=== PATIENT | male | born 1940 | race Caucasian/White ===

== ENCOUNTER 2017-12-20 11:33 | Emergency (ER) | payer MEDICARE ==
[~2017-12-20] VITALS: Ht 180.3 cm; Wt 65.8 kg
[~2017-12-20 11:33] MED LIST: AMLODIPINE BESYL5 MG PO; ASPIRIN81 MG PO; BENAZEPRIL HCL10 MG PO; BENAZEPRIL HCL40 MG PO; HUMALOG100 UNITS/ SC; HYDROCHLOROTHIA25 MG; LANTUS100 UNITS/ SC; LANTUS100 UNITS/ SQ; LEVAQUIN500 MG PO; METFORMIN HCL1000 MG PO; METFORMIN HCL500 MG PO; METOPROLOL SUCC50 MG PO; SIMVASTATIN20 MG PO; SIMVASTATIN40 MG PO; TAMSULOSIN HCL0.4 MG PO; ULTRAM50 MG PO; VITAMIN D35000 UNIT; [UNRECOGNIZED DRUG - OTHER] PO; metanx
[2017-12-20] MEDS ORDERED: KETOROLAC TROMETHAMINE 60 MG/2 ML VIAL IM ONE (11:45)
[2017-12-20] MEDS ORDERED: TRIAMCINOLONE ACET 40 MG/ML VIAL INJ ONE (12:45)
[2017-12-20] MEDS ORDERED: BUPIVACAINE HCL 0.5% 10ML MPF VIAL INJ ONE (12:45)
--- NOTE | 2017-12-20 12:46 | Diagnostic Imaging Report ---
LEFT KNEE X-RAY - 3 VIEWS HISTORY: \S\pain \[id number] \S\1200 COMPARISON: MRI left knee from 10/14/2016 and x-ray left knee from 10/14/2016 FINDINGS: Bones: No acute displaced fracture. Osseous alignment is within normal limits. Joints: Patient is status post left knee medial compartment surgery with associated postsurgical change. The surgical hardware is intact without evidence of failure or loosening. 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 Soft tissues: There is a small suprapatellar effusion. Scattered vascular calcifications are seen. IMPRESSION: Stable left knee medial compartment postsurgical change. The surgical hardware is intact without evidence of failure or loosening. Worsening, now severe, tricompartmental degenerative arthrosis about the left knee. Signed by: Dr. Yolande Ramirez M.D. on 12/20/2017 12:43 PM
[2017-12-20 13:43] VITALS: BP 133/72
== END 2017-12-20 13:56 | disposition home or self-care (01) ==
LOC: ER 11:33
DX: M25.562 Pain in left knee (principal); M17.12 Unilateral primary osteoarthritis, left knee
CPT/HCPCS: 73562; 99284; J1885; J3301

== ENCOUNTER 2018-02-13 14:11 | Emergency (ER) | payer MEDICARE ==
[~2018-02-13] VITALS: Ht 180.3 cm; Wt 65.8 kg
--- OUTSIDE RECORDS SUMMARY | 2018-02-13 14:15 | XMS REPORT | Continuity of Care Document ---
Author Author [facility] Organization [facility] Address [address] [place] [address] Phone Unavailable Care Team Providers Care Freight Loading Supervisor Name Role Phone BRE LARSEN MD PCP Insurance Providers Guarantor Stefan Shields Address [address] [place] [address] Email Payer [facility] Policy Number [id number] Subscriber's Name Stefan Shields Relationship 18 Self / Same As Patient Group Number PLAN H Group Name RETIRED Effective Date 17 Payer Medicare A & B Policy Number [id number] Subscriber's Name Stefan Shields Relationship 18 Self / Same As Patient Group Name RETIRED Effective Date 05 Advance Directives Directive Response Recorded Date/Time Does the patient have an advance directive? Yes 10/02/15 8:11am If yes, is advance directive on file with [facility]? No 09/20/15 4:01pm If not on file with [facility] will patient provide a copy? No 09/20/15 4:01pm Do you have a Directive to Physician? No 12/20/17 1:37pm Do you have a Medical Power of Remote Sensing Research Scientist? No 12/20/17 1:37pm Do you have an out of hospital Do Not Resuscitate Order? No 12/20/17 1:37pm Do you have any special needs we should be aware of? No 12/20/17 1:37pm Do you have a support person here with you today? Yes 12/20/17 1:37pm Did patient receive Notice of Privacy Practices? Yes 12/20/17 1:37pm Did patient receive patient rights and responsibilities? Yes 12/20/17 1:37pm Problems Medical Problem Onset Date Status Cellulitis of leg without foot, right 11/03/2014 Acute Cellulitis of right leg Unknown Ureteral stone 09/20/2015 Acute Medications Current Home Medications Medication Dose Units Route Directions Days Qty Instructions Start Date Amlodipine Besylate 5 Mg Tablet 5 Mg Oral Daily 30 Tab Aspirin 81 Mg Tab.chew 81 Mg Oral Daily Benazepril Hcl 40 Mg Tablet 40 Mg Oral Daily Cholecalciferol (Vitamin D3) (Vitamin D3) 5,000 Unit Capsule 5,000 U Use As Directed Hydrochlorothiazide 25 Mg Tablet 25 Mg Daily 30 Tab Insulin Glargine (Lantus) 100 Units/Ml Ml 50 Units Subcutaneously Twice A Day Insulin Human Lispro (Humalog) 100 Units/Ml Ml 15 Units Subcutaneously Twice A Day Metoprolol Succinate 50 Mg Tab.er.24h 100 Mg Oral Daily Simvastatin 40 Mg Tablet 40 Mg Oral Today At 9:00PM 30 Tab Tamsulosin Hcl 0.4 Mg Cap.er.24h 1 Tab Oral Daily Past Home Medications Medication Directions Ordered Status Hortencia Low Dose , 81 Mg Oral Twice A Day Discontinued Benazepril Hcl 10 Mg Tablet, 10 Mg Oral Daily Discontinued Insulin Glargine (Lantus) 100 Units/Ml Ml, 60 Units Sub-Q Twice A Day Discontinued Levofloxacin (Levaquin) 500 Mg Tablet, 500 Mg Oral Daily Discontinued Metanx , Discontinued Metformin Hcl 1,000 Mg Tablet, 1000 Mg Oral Twice A Day Discontinued Metformin Hcl 500 Mg Tablet, 500 Mg Oral Twice A Day Discontinued Simvastatin 20 Mg Tablet, 20 Mg Oral Daily Discontinued Tramadol Hcl (Ultram) 50 Mg Tablet, 50 Mg Oral Every 6 Hours as needed for Pain Discontinued Social History Social History Problem Response Recorded Date/Time Onset Date Status Hx Psychiatric Problems No 10/25/2016 11:16pm Not Applicable Not Applicable Hx Eating Disorder No 09/20/2015 4:01pm Not Applicable Not Applicable Hx Substance Use Disorder No 09/20/2015 4:01pm Not Applicable Not Applicable Hx Depression No 09/20/2015 4:01pm Not Applicable Not Applicable Hx Alcohol Use No 09/20/2015 4:01pm Not Applicable Not Applicable Hx Substance Use Treatment No 09/20/2015 4:01pm Not Applicable Not Applicable Hx Physical Abuse No 09/20/2015 4:01pm Not Applicable Not Applicable Smoking Status Start Date Stop Date Never Smoker Hospital Discharge Instructions No hospital discharge instruction information available. Plan of Care Discharge Date 12/20/17 1:56pm Disposition HOME, SELF-CARE Condition at Discharge Stable Forms Provided Work/School Excuse Prescriptions See Medication Section Referrals BRE LARSEN MD Address: [address] [place] [address] [address] [place], [place] [id number] Functional Status No functional status information available. Allergies, Adverse Reactions, Alerts Allergen Type Severity Reaction Status Last Updated Penicillin Allergy Mild RASH Active 10/02/15 Levofloxacin Allergy Unknown Active 10/25/16 Immunizations No immunization information available. Vital Signs Acute Vital Signs Vital Response Date/Time Temperature (Fahrenheit) 98.1 degrees F (97.6 - 99.5) 12/20/2017 1:43pm Respiratory Rate 18 bpm (12 - 24) 12/20/2017 1:43pm Blood Pressure 133/72 mm Hg 12/20/2017 1:43pm Height 5 ft 11 in 12/20/2017 11:37am Weight 145 lb 12/20/2017 11:37am Body Mass Index 20.2 kg/m^2 12/20/2017 11:37am Results No relevant diagnostic test, laboratory data and/or discharge summary information available. Procedures No procedure information available. Encounters Encounter Location Arrival/Admit Date Discharge/Depart Date Attending Provider Departed Emergency Room [facility] 12/20/17 11:33am 12/20 1:56pm ANSHUL WANG MD
--- OUTSIDE RECORDS SUMMARY | 2018-02-13 14:15 | XMS REPORT ---
Author Author [facility] Address Unknown Phone Unavailable Care Team Providers Care Physiotherapy Assistant Name Role Phone ANSHUL WANG Unavailable Unavailable Problems This patient has no known problems. Allergies, Adverse Reactions, Alerts This patient has no known allergies or adverse reactions. Medications This patient has no known medications. Results Test Description Test Time Test Comments Text Results Atomic Results Result Comments KNEE LEFT THREE VIEWS [place] [address] Patient Name: NHI DUMONT MR #: [id number] : 1940 Age/Sex: 77/M Req #: [id number] Adm Physician: Ordered by: LISA COOPER SANITATION TECHNICIAN Report #: [id number] Location: ER Room/Bed: Procedure: [id number] DX/KNEE LEFT THREE VIEWS Exam Date: 12/20/17 Exam Time: 1200 REPORT STATUS: Signed LEFT KNEE X-RAY - 3 VIEWS HISTORY: COMPARISON: MRI left knee from 2016 and x-ray left knee from 10/14/2016 FINDINGS: Bones: No acute displaced fracture. Osseous alignment is within normal limits. Joints: Patient is status post left knee medial compartment surgery with associated postsurgical change. The surgical hardware is intact without evidence of failure or loosening. 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 Soft tissues: There is a small suprapatellar effusion. Scattered vascular calcifications are seen. IMPRESSION: Stable left knee medial compartment postsurgical change. The surgical hardware is intact without evidence of failure or loosening. Worsening, now severe, tricompartmental degenerative arthrosis about the left knee. Signed by: Dr. Broderick Iqbal M.D. on 12/20/2017 12:43 PM Dictated By: BRODERICK IQBAL MD 1243 Transcribed By: MARYLU on 12/20/17 1243 COPY TO: LISA COOPER NP
== END 2018-02-13 15:17 | disposition home or self-care (01) ==
LOC: ER 14:11
DX: M79.662 Pain in left lower leg (principal)
CPT/HCPCS: 99283

== ENCOUNTER → 2018-11-11 | Outpatient (CLI) | payer MEDICARE ==
--- NOTE | 2018-11-11 13:59 | Diagnostic Imaging Report ---
Right hip radiographs - 2 views; right knee radiographs - 4 views Comparison: Right knee radiographs 11/04/2014 Findings: Right hip: There are mild right hip degenerative changes with joint space narrowing. No evidence of acute fracture or malalignment. Right knee: Somewhat limited lateral radiograph secondary to patient positioning. There are moderate medial compartment predominant tricompartmental degenerative changes with joint space narrowing and bony osteophyte formation. No evidence of acute fracture, malalignment, or joint effusion. 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 No evidence of acute fracture or malalignment. Signed by: Dr. Yelena Joseph MD on 11/11/2018 1:55 PM
== END ==
LOC: RAD 12:22
PROVIDERS: ATTEND Internal Medicine
DX: M25.551 Pain in right hip (principal); M25.561 Pain in right knee

== ENCOUNTER → 2019-01-07 | Outpatient (CLI) | payer MEDICARE ==
--- NOTE | 2019-01-07 17:24 | Diagnostic Imaging Report ---
EXAM: US PELVIC (NON OB) MICHELLE OR F/U DATE: 01/07/2019 3:02 PM INDICATION:Chronic kidney disease COMPARISON: Renal ultrasound, 09/21/2015 FINDINGS: Grayscale and color flow Doppler ultrasound of the kidneys and urinary bladder was performed. Right kidney: 13.5 x 5.8 x 4.9 cm. Cortical thickness 1.4 cm. Cortical echogenicity normal. Right renal cysts measuring 1.4 x 1.3 x 1.5 cm superiorly and 6.1 x 5.5 x 5.5 cm superiorly. No hydronephrosis. Left kidney: 13.6 x 5.2 x 6.9 cm. Cortical thickness 1.3 cm. Cortical echogenicity normal. There is a 1.3 x 0.6 x 1.0 cm echogenic density with posterior shadowing in the midportion of the kidney, compatible with nonobstructing calculus. No hydronephrosis. Urinary bladder: Unremarkable appearance. Distal and of apparent ureteral stent is visualized. Prevoid volume 145 cc, post void emptying. Prostate is not visualized. IMPRESSION: 1. No hydronephrosis. The kidneys have a symmetric appearance. 2. Prominent right renal cysts which have enlarged since the ultrasound of 2016. 3. Likely 1.3 cm nonobstructing left renal calculus. This may be further characterized with noncontrast CT. 4. Linear density in the urinary bladder may represent the distal end of a ureteral stent. Correlation with surgical history suggested. Signed by: Dr. Lonny Montanez M.D. on 01/07/2019 5:20 PM
== END ==
LOC: US 14:57
PROVIDERS: ATTEND Internal Medicine Nephrology
DX: N18.2 Chronic kidney disease, stage 2 (mild) (principal)
CPT/HCPCS: 76770; 76857

== ENCOUNTER 2019-01-28 12:57 | Inpatient (IN) | payer MEDICARE ==
[~2019-01-28] VITALS: Ht 180.3 cm; Wt 153.3 kg
--- OUTSIDE RECORDS SUMMARY | 2019-01-28 13:01 | XMS REPORT | Continuity of Care Document ---
Author Author [facility] [place] [facility] Address Unknown Phone Unavailable Problems Problem Status Onset Date Classification Date Reported Comments Source Impacted cerumen 08/21/2016 Diagnosis 08/21/2016 [facility] Eustachian tube disorder 08/21/2016 Diagnosis 08/21/2016 [facility] Impacted Cerumen Problem 08/21/2016 [facility] Eustachian Tube Disorder Problem 08/21/2016 [facility] Medications Medication Details Route Status Patient Instructions Ordering Provider Order Date Source Acetaminophen 300 MG / Codeine Phosphate 30 MG Oral Tablet acetaminophen 300 mg-codeine 30 mg tablet Active [facility] Allopurinol 100 MG Oral Tablet allopurinol 100 mg tablet Active [facility] Amlodipine 10 MG Oral Tablet amlodipine 10 mg tablet Active [facility] Amlodipine 5 MG Oral Tablet amlodipine 5 mg tablet Active [facility] ammonium lactate 120 MG/ML Topical Lotion ammonium lactate 12 % lotion MIKHAIL UTD ON THE SKIN BID Active [facility] anastrozole 1 MG Oral Tablet anastrozole 1 mg tablet Active [facility] Azithromycin 500 MG Oral Tablet azithromycin 500 mg tablet Active [facility] BD Insulin Pen Needle UF Short 31 gauge x 5/16" BD Insulin Pen Needle UF Short 31 gauge x 5/16" USE WITH INSULIN PENS 5 TIMES DAILY DIRECTED Active [facility] Benazepril hydrochloride 40 MG Oral Tablet benazepril 40 mg tablet Active [facility] Colchicine 0.6 MG Oral Tablet colchicine 0.6 mg tablet Active [facility] 3 ML Insulin Lispro 100 UNT/ML Pen Injector [Humalog] Humalog KwikPen 100 unit/mL subcutaneous Active [facility] Hydrochlorothiazide 12.5 MG Oral Capsule hydrochlorothiazide 12.5 mg capsule Active [facility] Hydrochlorothiazide 25 MG Oral Tablet hydrochlorothiazide 25 mg tablet Active [facility] 3 ML Insulin Glargine 100 UNT/ML Pen Injector [Lantus] Lantus Solostar 100 unit/mL (3 mL) subcutaneous insulin pen Active [facility] Levofloxacin 500 MG Oral Tablet levofloxacin 500 mg tablet Active [facility] Metformin hydrochloride 1000 MG Oral Tablet metformin 1,000 mg tablet Active [facility] 24 HR metoprolol succinate 100 MG Extended Release Oral Tablet metoprolol succinate ER 100 mg tablet,extended release 24 hr Active [facility] Mupirocin 0.02 MG/MG Topical Ointment mupirocin 2 % topical ointment Active [facility] Prednisone 10 MG Oral Tablet prednisone 10 mg tablet Active [facility] 200 ACTUAT Albuterol 0.09 MG/ACTUAT Metered Dose Inhaler [ProAir] ProAir HFA 90 mcg/actuation aerosol inhaler INHALE 1 TO 2 PUFFS PO Q 4 TO 6 H PRF COUGH OR WHEEZE Active [facility] Simvastatin 20 MG Oral Tablet simvastatin 20 mg tablet Active [facility] Simvastatin 40 MG Oral Tablet simvastatin 40 mg tablet Active [facility] Sulfamethoxazole 800 MG / Trimethoprim 160 MG Oral Tablet sulfamethoxazole 800 mg-trimethoprim 160 mg tablet Active [facility] Tamsulosin hydrochloride 0.4 MG Oral Capsule tamsulosin 0.4 mg capsule Active [facility] Acetaminophen 325 MG / tramadol hydrochloride 37.5 MG Oral Tablet tramadol 37.5 mg-acetaminophen 325 mg tablet Active [facility] Triamcinolone Acetonide 1 MG/ML Topical Cream triamcinolone acetonide 0.1 % topical cream Active [facility] Allergies, Adverse Reactions, Alerts Substance Category Reaction Severity Reaction type Status Date Reported Comments Source Penicillins Rash Severe Allergy to substance 06/24/2016 [facility] Immunizations Immunization Date Given Site Status Last Updated Comments Source Results Order Name Results Value Reference Range Date Interpretation Comments Source Vital Signs Vital Sign Value Date Comments Source Diastolic (mm Hg) 85 08/21/2016 [facility] Height 72 08/21/2016 [facility] Systolic (mm Hg) 140 08/21/2016 [facility] Weight 344 08/21/2016 [facility] Diastolic (mm Hg) 78 06/24/2016 [facility] Height 72 06/24/2016 [facility] Systolic (mm Hg) 130 06/24/2016 [facility] Weight 345 06/24/2016 [facility] Encounters Location Location Details Encounter Type Encounter Number Reason For Visit Attending Provider ADM Date DC Date Status Source [place] - [facility] - [id number] GonzalesP: [address] [place] [address], Ph. [phone] [id number] Sandee Kolb 06/24/2016 [facility] [place] [facility] - [id number] Delphine Dowell, [facility]: [address] [facility], [place] [address], Ph. [id number] Delphine Dowlel 08/21/2016 [facility] Procedures Procedure Code Date Perfomer Comments Source Removal of Sperm Duct(s) 09/14/1964 [facility] Tonsillectomy 09/14/1952 [facility]
--- OUTSIDE RECORDS SUMMARY | 2019-01-28 13:01 | XMS REPORT | Encounter Summary ---
Author Organization Unknown Address [address] [place] [address] Phone [phone] Reason for Visit Medical Complaint Instructions 1. Impacted cerumen 2. Eustachian tube disorder Discussion Note: None recorded. Patient educational handouts: No information available. Plan of Care Patient Instructions Ok to start on Zyrtec 10mg daily x 7days. If noted fever onset with constant ear pain, call clinic or see pcp. Reminders Provider Appointments None recorded. Lab None recorded. Referral None recorded. Procedures None recorded. Surgeries None recorded. Imaging None recorded. Medications Name Start Date acetaminophen 300 mg-codeine 30 mg tablet allopurinol 100 mg tablet amlodipine 10 mg tablet amlodipine 5 mg tablet ammonium lactate 12 % lotion MIKHAIL UTD ON THE SKIN BID anastrozole 1 mg tablet azithromycin 500 mg tablet BD Insulin Pen Needle UF Short 31 gauge x 5/16" USE WITH INSULIN PENS 5 TIMES DAILY DIRECTED benazepril 40 mg tablet colchicine 0.6 mg tablet Humalog KwikPen 100 unit/mL subcutaneous hydrochlorothiazide 12.5 mg capsule hydrochlorothiazide 25 mg tablet Lantus Solostar 100 unit/mL (3 mL) subcutaneous insulin pen levofloxacin 500 mg tablet metformin 1,000 mg tablet metoprolol succinate ER 100 mg tablet,extended release 24 hr mupirocin 2 % topical ointment prednisone 10 mg tablet ProAir HFA 90 mcg/actuation aerosol inhaler INHALE 1 TO 2 PUFFS PO Q 4 TO 6 H PRF COUGH OR WHEEZE simvastatin 20 mg tablet simvastatin 40 mg tablet sulfamethoxazole 800 mg-trimethoprim 160 mg tablet tamsulosin 0.4 mg capsule tramadol 37.5 mg-acetaminophen 325 mg tablet triamcinolone acetonide 0.1 % topical cream Medications Administered None recorded. Vitals Height Weight BMI Blood Pressure 6 ft 344 lbs 46.7 140/85 Lab Results None recorded. Allergies Name Reaction Severity Onset Penicillins Rash Severe Problems Name Status Onset Date Source Impacted Cerumen Active Encounter Eustachian Tube Disorder Active Encounter Procedures Date Name Performed by 09/14/1964 Removal of Sperm Duct(s) Information not available 09/14/1952 Tonsillectomy Information not available Vaccine List None recorded. Social History Smoking Status Never Smoker Past Encounters 08/21/2016 Impacted Cerumen; Eustachian Tube Disorder Delphine Dowell, KENNEL HAND: [address] [place] [address], Ph. History of Present Illness Ear Complaint Reported By: Patient HPI: Location: bilateral. Quality: ears feel full/plugged. Severity: continuous. Duration: constant. Onset/Timing: still present. Context: no sick contacts, no recent swimming/water in ear, no exposure to second hand smoke, no head trauma, not grinding teeth, no recent air travel. Modifying factors: does not hurt to lie on, or pull on ear, does not hurt to chew, OTC medication. Associated Symptoms: no discharge from the ears, no hearing loss, no nose/sinus problems, no popping noise in the ears, no ringing in the ears, no fever, no chills, no earache, no dizziness, no vertigo, no headache, no muscle aches Review of Systems Basic Reported By: Patient Constitutional: Constitutional: no fever Eyes: Eyes: no eye complaints Gyfk-Zzwx-Bccow-Throat: Ears: difficulty hearing. Nose: no nose/sinus problems. Mouth/Throat: no sore throat, no bleeding gums, no mouth complaints, no teeth problems Cardiovascular: Cardiovascular: no chest pain, no shortness of breath, no known heart murmur Respiratory: Respiratory: no cough, no wheezing, no shortness of breath Gastrointestinal: Gastrointestinal: no abdominal pain, no vomiting / diarrhea Genitourinary: Genitourinary: no urinary complaints, no discharge Musculoskeletal: Musculoskeletal: no muscle aches, no muscle weakness, no arthralgias/joint pain, no back pain Skin: Skin: no abnormal / changing mole, no jaundice, no rashes Neurologic: Neurologic: no loss of consciousness, no weakness, no numbness, no seizures, no dizziness, no headaches Physical Exam Adult Basic, Adult Male Complete Reported By: Patient Constitutional: General Appearance: healthy-appearing, well-nourished, well-developed. Level of Distress: NAD. Ambulation: ambulating normally Psychiatric: Mental Status: active and alert. Orientation: to time, to place, to person Eyes: Lids and Conjunctivae: non-injected, no discharge, no pallor. Pupils: PERRLA. Corneas: grossly intact. EOM: EOMI. Lens: clear. Sclerae: non-icteric. Vision: acuity grossly intact, peripheral vision grossly intact Wwc-Bzil-Fsmff-Throat: Ears: no lesions on external ear, no outer ear tenderness, EACs clear, TMs clear, EAC occluded with cerumen, cerumen removed to visualize TM, middle ear fluid. Hearing: no hearing loss. Nose: no lesions on external nose, nares patent, no septal deviation, nasal passages clear, no sinus tenderness, no nasal discharge. Lips, Teeth, and Gums: no mouth or lip ulcers, no bleeding gums, normal dentition. Oropharynx: moist mucous membranes, no erythema, no exudates, tonsils not enlarged Neck: Neck: supple, trachea midline, no masses, FROM. Lymph Nodes: no cervical LAD, no supraclavicular LAD. Thyroid: no enlargement, non-tender, no nodules Lungs: Respiratory effort: no dyspnea, no tachypnea, no use of accessory muscles, no intercostal retractions. Auscultation: breath sounds normal, good air movement Cardiovascular: Heart Auscultation: RRR, no murmurs
--- OUTSIDE RECORDS SUMMARY | 2019-01-28 13:01 | XMS REPORT | Encounter Summary ---
Author Organization Unknown Address [address] [place] [address] Phone [phone] Reason for Visit Medical Complaint Instructions 1. Impacted cerumen Discussion Note: None recorded. Patient educational handouts: No information available. Plan of Care Patient Instructions [facility] to [facility]CP[facility]UC [facility] is any pus or blood drains from the ears, ringing and feeling fullness in the ears or hearing loss. Patient verbalizes understanding and agrees to the plan. Reminders Provider Appointments None recorded. Lab None [...] Needle UF Short 31 gauge x 5/16" U UTD benazepril 40 mg tablet colchicine 0.6 mg tablet Humalog KwikPen 100 unit/mL subcutaneous hydrochlorothiazide 25 mg tablet Lantus Solostar 100 [...] Height Weight BMI Blood Pressure 6 ft 345 lbs 46.8 130/78 Lab Results None recorded. Allergies Name Reaction Severity Onset Penicillins Rash Severe Problems Name Status Onset Date Source Impacted Cerumen Active Encounter Procedures Date Name Performed by 09/14/1964 Removal of Sperm Duct(s) Information not available 09/14/1952 Tonsillectomy Information not available Vaccine List None recorded. Social History Smoking Status Never Smoker Past Encounters 06/24/2016 Impacted Cerumen Sandee Kolb, [facility]: [address] [facility], [place] [address], Ph. History of Present Illness Ear Complaint Reported By: Patient HPI: Location: bilateral. Quality: ears feel full/plugged, muffled. Severity: worse, continuous. Duration: constant. Onset/Timing: better, still present. Context: no sick contacts, no recent swimming/water in ear, no exposure to second hand smoke, no head trauma, not grinding teeth, no recent air travel. Modifying factors: does not hurt to lie on, or pull on ear, does not hurt to chew. Associated Symptoms: no discharge from the ears, no hearing loss, no nose/sinus problems, no popping noise in the ears, no ringing in the ears, no fever, no chills, no earache, no dizziness, no vertigo, no headache Notes: Pt reports cerumen impaction on both ears, wears hearing aids, dnies pain or drainage from ears. Review of Systems Basic Reported By: Patient Constitutional: Constitutional: no fever Eyes: Eyes: no eye complaints Ftko-Apkr-Ywhau-Throat: Ears: difficulty hearing; cerumen impaction. Nose: no nose/sinus problems. Mouth/Throat: no sore [...] By: Patient Constitutional: General Appearance: healthy-appearing, well-nourished, well-developed, overweight. Level of Distress: NAD. Ambulation: ambulating normally Psychiatric: Mental Status: active and alert. Orientation: to time, to place, to person Wvf-Zqmk-Gbwyk-Throat: Ears: no lesions on external ear, no outer ear tenderness, TMs clear, TM mobility normal, EAC ceruminous, EAC occluded with cerumen, cerumen removed to visualize TM. Hearing: no hearing loss. Nose: no lesions on external nose, nares patent, no septal deviation, nasal passages clear, no sinus tenderness, no nasal discharge. Lips, Teeth, and Gums: no mouth or lip ulcers, no bleeding gums, normal dentition. Oropharynx: moist mucous membranes, no erythema, no exudates, tonsils absent Neck: Neck: supple. Lymph Nodes: no cervical LAD Lungs: Respiratory effort: no dyspnea, no tachypnea. Auscultation: breath sounds normal, good air movement Cardiovascular: Heart Auscultation: RRR, no murmurs Neurologic: Gait and Station: normal gait
[2019-01-28 13:55] LABS: BASOPHILS # (AUTO) 0.1 (0.0-0.1); BASOPHILS % 0.6 % (0.0-1.0); EOSINOPHILS # (AUTO) 0.4 (0.0-0.4); EOSINOPHILS % 4.5 % (0.0-6.0); HEMATOCRIT 40.3 % (38.2-49.6); HEMOGLOBIN 13.5 g/dL (14.0-18.0); MEAN CORPUSCULAR HEMOGLOBIN 31.5 pg (28-32); MEAN CORPUSCULAR HGB CONC 33.5 g/dL (31-35); MEAN CORPUSCULAR VOLUME 94.2 fL (81-99); MONOCYTES # (AUTO) 0.7 (0.2-0.8); MONOCYTES % 7.8 % (4.4-11.3); NEUTROPHILS # (AUTO) 6.4 (2.1-6.9); NEUTROPHILS % 74.5 % (38.7-80.0); PLATELET COUNT 181 x10e3/uL (140-360); RED BLOOD COUNT 4.28 x10e6/uL (4.3-5.7); RED CELL DISTRIBUTION WIDTH 14.8 % (11.7-14.4)
[2019-01-28 13:59] LABS: INR 1.06; PROTHROMBIN TIME 14.3 seconds (11.9-14.5)
[2019-01-28 14:00] LABS: PARTIAL THROMBOPLASTIN TIME 30.9 seconds (23.8-35.5)
[2019-01-28 14:06] LABS: ALANINE AMINOTRANSFERASE 12 IU/L (0-55); ALBUMIN/GLOBULIN RATIO 0.8 (0.8-2.0); ALKALINE PHOSPHATASE 104 IU/L (40-150); ANION GAP 13.1 mmol/L (8-16); BLOOD UREA NITROGEN 20 mg/dL (7-26); BUN/CREATININE RATIO 22 (6-25); CALCIUM 9.5 mg/dL (8.4-10.2); CARBON DIOXIDE 25 mmol/L (22-29); CHLORIDE 106 mmol/L (98-107); CREATININE, SERUM 0.91 mg/dL (0.72-1.25); EST GLOMERULAR FILTRATION RATE > 60 ML/MIN (60-); GLUCOSE 72 mg/dL (74-118); POTASSIUM 4.1 mmol/L (3.5-5.1); SODIUM 140 mmol/L (136-145)
[2019-01-28] MEDS ORDERED: ALLOPURINOL100 MG PO (14:12)
[2019-01-28] MEDS ORDERED: SPIRONOLACTONE25 MG PO (14:12)
[2019-01-28] MEDS ORDERED: LASIX20 MG PO (14:12)
[2019-01-28] MEDS ORDERED: VANCOMYCIN 1GM/NS 250 ML 250 ML IV SCH (14:15)
--- NOTE | 2019-01-28 15:20 | Diagnostic Imaging Report ---
EXAMINATION: PA and lateral views of the chest. COMPARISON: None CLINICAL HISTORY: Sepsis DISCUSSION: Lines/tubes: None. Lungs: The lungs are well inflated and clear. No pneumonia or pulmonary edema. Pleura: No pleural effusion or pneumothorax. Heart and mediastinum: Cardiomegaly. Bones and soft tissues: No acute bony abnormalities. IMPRESSION: Mild cardiomegaly without decompensation. Signed by: Dr. Héctor Carlson M.D. on 01/28/2019 3:17 PM
--- NOTE | 2019-01-28 15:40 | NUR ---
RCD PT FROM ER BY STRETCHER PT IS ALERT AND ORIENTED VITALS CHECKED PT RESTING ON BED ADMISSION ASSESSMENT DONE PT HAVE CELLULITIS AND REDNESS ON BOTH LOWER LEG IN RT LOWER LEG SKIN TEAR ALSO HE DENIED PAIN FAMILY AT BED SIDE INSTRUCTED PT AND [facility] POLICY AND ROUTINE BED LOW AND LOCKED CALL LIGHT IN REACH
[2019-01-28 16:24] VITALS: BP 138/68
[2019-01-28 16:49] VITALS: BP 161/68
--- NOTE | 2019-01-28 16:52 | NUR ---
WOUND CARE CONSULTATION: INITIAL EVALUATION Patient admitted from home to ER for RLE ulcers with heavy drainage and increased discomfort. DX: Cellulitis of RLE. LABS: WBC8.58 HGB13.5 HCT40.3 GLU72 ALB3.0 Wound Culture - none. PATIENT VISIT: Patient sitting at bedside. Spouse in room. Patient AAOX4. calm, cooperative and in good spirits Leighton Score 20 Patient presents with dressing to RLE draining serous fluid, States it started draining a lot more this last few days. 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 Visco Mattress noted. RLE dressing removed. Noted multiple scattered open areas to RLE lateral and medial aspects. Open weeping areas more pronounced on the latera aspect. Mild redness noted, warm to touch. Laterodistal area cultured and sent for C&S and Gram Stain. Wounds measured and documented on Wound Assessment section that is linked to this note. Reviewed plan of care with patient as it relates to wound care and patient agreeable and verbalized understanding. BLE noted very dry and cracking. Reviewed/ Education provided on skin care. Written notes provided to patient. No pressure ulcers identified during visit. IMPRESSION: BLE- LYMPHEDEMA RLE -MEDIAL AND LATERAL - VENOUS STASIS ULCERS WITH CELLULITIS RECOMMENDATION: 1. WASH BLE WITH HIBICLENS SOAP DAILY THEN: 2. RLE - XEROFORM SINGLE LAYER AND COVER WITH ABD PADS THEN SECURE WITH KERLIX WRAPS DAILY AND PRN STRIKETHROUGH 3. LLE - APPLY LAC-HYDRIN LOTION Q12H. 4. INITIATE CONSERVATIVE PUP Thank you for consulting with Wound Care. Addendum: 01/28/19 at 1702 by Wolfgang Irving RN Amended: Links added.
--- NOTE | 2019-01-28 17:00 | NUR ---
PAGED DR RUSHING TO NOTIFY THAT THE HOME MEDS RENEWAL
--- NOTE | 2019-01-28 17:00 | NUR ---
DRESSING DONE ON THE RIGHT LOWER LEG
[2019-01-28 17:04] VITALS: BP 161/68
[2019-01-28] MEDS: AMMONIUM LACTATE 12% LOTION 225GM BTL TOP SCH (17:15)
[2019-01-28] MEDS ORDERED: DEXTROSE 50% SYRINGE 50 ML IV PRN (17:30)
--- NOTE | 2019-01-28 18:38 | NUR ---
PT RESTING ON BED BED SIDE REPORT GIVEN TO ONCOMING NURSE
--- NOTE | 2019-01-28 19:28 | NUR ---
Patient received sitting in chair by bedside. AAO x 3. Patient had no complaints of pain. Respirations even and non-labored. Dressing to right lower extremity clean, dry and intact. Patient instructed to call for assistance when needed. Call light within reach.
[2019-01-28] MEDS: INSULIN GLARGINE 100 UNITS/ML VIAL SC SCH (21:00)
[2019-01-28] MEDS: SIMVASTATIN 40 MG TAB PO SCH (21:05)
[2019-01-28 21:09] VITALS: BP 140/65
[2019-01-28 21:31] LABS: BILIRUBIN,URINE NEGATIVE (NEGATIVE); CLARITY,URINE CLEAR (CLEAR); COLOR,URINE YELLOW (YELLOW); KETONES,URINE NEGATIVE (NEGATIVE); LEUKOCYTE ESTERASE ,URINE NEGATIVE (NEGATIVE); NITRITE,URINE NEGATIVE (NEGATIVE); PROTEIN,URINE DIPSTICK NEGATIVE (NEGATIVE); URINE UROBILINOGEN 4 mg/dL (0.2 - 1)
[2019-01-28 21:39] LABS: EPITHELIAL CELLS,URINE RARE /LPF; RBC,URINE 0-5 /HPF (0-5); WBC,URINE (MAN) 0-5 /HPF (0-5)
--- NOTE | 2019-01-28 21:55 | NUR ---
Urine sample sent to lab for analysis.
[2019-01-28 22:00] VITALS: BP 140/65
[2019-01-29] VITALS (7 sets, daily range): BP systolic 141–173; BP diastolic 60–74
[2019-01-29] MEDS: AMMONIUM LACTATE 12% LOTION 225GM BTL TOP SCH ×2 (05:15→16:58)
--- NOTE | 2019-01-29 06:30 | NUR ---
Patient resting comfortably. Walking rounds done . Shift report given to oncoming nurse.
--- NOTE | 2019-01-29 07:10 | NUR ---
RCD PT AT BED PT IS ALERT AND ORIENTED PT RESTING ON BED NO SIGNS OF ANY DISTRESS NOTED IV PATENT PT C/O PAIN ON NECK DUE TO POSITION ON LAST NIGHT BED LOW AND LOCKED CALL LIGHT IN REACH
[2019-01-29] MEDS ORDERED: INSULIN LISPRO 100 UNIT/1 ML 3ML VIAL SQ SCH ×3 (08:00→21:00)
[2019-01-29] MEDS: INSULIN GLARGINE 100 UNITS/ML VIAL SC SCH ×2 (08:52→21:41)
[2019-01-29] MEDS: FUROSEMIDE 20 MG TAB PO SCH (09:00)
[2019-01-29] MEDS: METOPROLOL SUCCINATE 50 MG TAB XL PO SCH (09:00)
[2019-01-29] MEDS: ASPIRIN 81 MG CHEW TAB PO SCH (09:00)
[2019-01-29] MEDS: BENAZEPRIL HCL 10 MG TAB PO SCH (09:00)
[2019-01-29] MEDS ORDERED: NON-FORMULARY MEDICATION (Benazepril Hcl 40 MG) PO SCH (09:00)
[2019-01-29] MEDS ORDERED: ALLOPURINOL 100 MG TAB PO SCH ×2 (09:00→21:00)
[2019-01-29] MEDS: SPIRONOLACTONE 25 MG TAB PO SCH (09:00)
[2019-01-29] MEDS ORDERED: SODIUM CHLORIDE 0.9% 250ML 250 ML ONE (12:23)
[2019-01-29] MEDS: VANCOMYCIN 1GM/NS 250 ML 250 ML IV SCH ×2 (12:23→21:19)
[2019-01-29] MEDS ORDERED: DEXTROSE 50% SYRINGE 50 ML IV PRN (12:30)
[2019-01-29] MEDS: INSULIN LISPRO 100 UNIT/1 ML 3ML VIAL SQ SCH ×3 (12:39→21:40)
[2019-01-29] MEDS ORDERED: FUROSEMIDE INJ 10 MG/ML 4 ML VIAL IV ONE (12:45)
[2019-01-29] MEDS ORDERED: CEFEPIME HCL 1 GM VIAL IV SCH (12:45)
[2019-01-29] MEDS ORDERED: CEFEPIME 1GM/NS 0.9% 50 ML 50 ML IV SCH (13:00)
[2019-01-29] MEDS ORDERED: VANCOMYCIN 1GM/NS 250 ML 250 ML IV SCH (14:00)
--- NOTE | 2019-01-29 14:03 | History and Physical ---
CHIEF COMPLAINT: "My right leg is getting more swollen and redder." HISTORY OF PRESENT ILLNESS: This is a 78-year-old white man, who has a history of chronic lower leg venous stasis as well as a chronic wound on his right lower leg. The patient states he has suffered from this wound in his right lower leg since October 2014. The patient's states that the patient has been on oral clindamycin for the last 3 months. According to the patient, he saw Infectious Disease specialist one day prior to admission, namely Dr. Flowers in regard to this worsening right lower leg wound. According to the patient, on the day of admission, the right lower leg became much more painful and red. He also began having oozing from the right lower leg wound. In the emergency room, the patient was found to have white blood cell count 8500 with 74% segmented neutrophils. Also in the emergency room, the patient has had a BUN and creatinine of 20 and 0.91 respectively. The patient had a chest x-ray done on admission, which revealed mild cardiomegaly without decompensation. REVIEW OF SYSTEMS: GENERAL: Weight is stable. No fever or chills. HEENT: No headaches. No visual changes. CARDIOVASCULAR/RESPIRATORY: No chest pain, shortness of breath, or cough, but he does have wheezing. GI: No nausea, vomiting, or constipation. : No UTI or BPH symptoms. NEUROMUSCULAR: The patient states he has a chronic wound in his right lower leg, that has been present for at least 4 years. He also has chronic swelling in his lower extremities. He also has noticed tingling in the plantar aspect of his bilateral feet. ALLERGIES: 1. PENICILLIN. 2. LEVOFLOXACIN. PAST SURGICAL HISTORY: 1. Tonsillectomy. 2. Vasectomy. 3. Cholecystectomy. 4. Partial left total knee replacement. FAMILY HISTORY: Father had coronary artery disease and diabetes mellitus. SOCIAL HISTORY: He is , lives with his . 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 Denies any tobacco or alcohol use. PAST MEDICAL HISTORY: 1. Extreme obesity. 2. Hypertensive heart disease. 3. Type 2 diabetes mellitus with neuropathy. 4. Chronic right lower leg wound. 5. Bilateral lower extremity venous insufficiency. 6. Hyperlipidemia. 7. Hyperuricemia. MEDICATIONS: 1. Allopurinol 100 mg daily. 2. Aspirin 81 mg daily. 3. Benazepril 40 mg daily. 4. Furosemide 20 mg daily. 5. Lantus insulin 35 units subcutaneous twice a day. 6. Humalog insulin 30 units subcutaneous b.i.d. 7. Metoprolol succinate 100 mg daily. 8. Simvastatin 40 mg at bedtime. 9. Spironolactone 50 mg daily. PHYSICAL EXAMINATION: GENERAL: He is awake, alert, fully oriented, pleasant and cooperative on exam. He does have audible wheezing. His is at the bedside. VITAL SIGNS: Height 5 feet 11 inches, weighs 344 pounds, BMI 48. Blood pressure is 140/60, pulse 60, respiratory rate is 22, oxygen saturation 97% on room air, and temperature 97.4. INTEGUMENT: Skin is warm and dry. No pallor, jaundice, or diaphoresis. HEENT: Anicteric sclerae. Moist mucous membranes. NECK: Supple. No evidence of jugular venous distention. CARDIOVASCULAR: Distant heart sounds. Regular rate and rhythm. LUNGS: The patient has coarse bronchial breath sounds with faint crackles bilaterally. He also has faint expiratory wheezes bilaterally. ABDOMEN: Obese and benign. EXTREMITIES: The right lower leg wound is currently dressed. The patient has purplish erythematous discoloration of the bilateral legs consistent with chronic venous stasis. The right lower leg is more erythematous than the left. He has trace bilateral pedal edema. NEUROLOGIC: No gross deficits. He has decreased pinprick sensation in the plantar aspect of his bilateral feet. DIAGNOSES: 1. Chronic right lower leg ulcer with surrounding cellulitis. 2. Extreme obesity, BMI 48. 3. Type 2 diabetes mellitus with diabetes peripheral neuropathy. 4. Chronic diastolic congestive heart failure, likely. PLAN: 1. We will consult Infectious Disease specialist. 2. We will proceed with intravenous antibiotics for the patient's right lower leg cellulitis. 3. Wound care to the right lower leg. 4. Blood glucose monitoring control. 5. We will check a B-type natriuretic peptide level to assess for intravascular volume overload. 6. Order 2D echocardiogram. I spent 45 minutes in the care of this patient. MD DAIN Maria/NILSA /[id number] MTDD
[2019-01-29] MEDS ORDERED: CEFEPIME 2 GM/NS 0.9% 100 ML 100 ML IV SCH (16:00)
[2019-01-29] MEDS ORDERED: VANCOMYCIN 1GM/NS 250 ML 250 ML IV ONE (16:30)
--- NOTE | 2019-01-29 18:41 | NUR ---
PT RESTING ON BED BED SIDE REPORT GIVEN TO ONCOMING NURSE
--- NOTE | 2019-01-29 19:15 | NUR ---
Received patient from day nurse, patient is alert and oriented, safety and fall precautions maintained at this time, bed in lowest position and locked, needed items beside call silva close to patient, plan of care discussed with patient, patient is currently stable will continue to monitor.
[2019-01-29] MEDS: SIMVASTATIN 40 MG TAB PO SCH (21:19)
--- NOTE | 2019-01-29 21:30 | NUR ---
's office called to clarify insulin orders: patient bs = 181. patient refusing 30 units of humalog, wants to take only the sliding scale and standing lantus. Dr. Ojeda is customer contact specialist, waiting for his call back to inform him.
--- NOTE | 2019-01-29 22:45 | Consultation ---
DATE OF CONSULTATION: REASON FOR CONSULTATION: Infection, cellulitis of the leg, who failed oral antibiotic. HISTORY OF PRESENT ILLNESS: This is a very pleasant 78-year-old white male, who has history of morbidly obese patient, bilateral lower extremities venous stasis dermatitis, and bilateral lower extremities lymphedema, who has been having problem with his right leg for some time now. He has been having redness and swelling. He took several oral antibiotics without any improvement. He has been having some redness and swelling as well as open ulcer. He came and saw me in my office few days ago, and I discussed with him that I think he needs to be on IV antibiotics, he needs to be admitted. The patient did not want to do that, he want to stay with oral antibiotics, but he called me yesterday that he is having fever and chills, the redness is getting progressively worse. The patient was seen in the emergency room where he was evaluated and admitted. He is currently started on IV antibiotic. His is at the bedside. PAST MEDICAL HISTORY: Morbidly obese patient, diabetes mellitus, hypertension, congestive heart disease before, lymphedema, venous stasis dermatitis, and venous stasis ulcer. PAST SURGICAL HISTORY: Tonsillectomy and vasectomy, cholecystectomy, left total knee replacement, and gout. ALLERGIES: PENICILLIN AND LEVOFLOXACIN. SOCIAL HISTORY: There is no smoking, drug abuse, or alcohol abuse. FAMILY HISTORY: Hypertension and diabetes. LABORATORY DATA: White count 8.58, hemoglobin 13.5. His sodium 140, potassium 4.1, creatinine 0.91. BNP . REVIEW OF SYSTEMS: HEENT: There is no headache, visual changes, or hearing changes. : There is no urgency or frequency. SKIN: There is no other rash. JOINTS: Has chronic aches and pain in his knees. MEDICATIONS: He is currently on albuterol, allopurinol, cefepime, and vancomycin was started. PHYSICAL EXAMINATION: GENERAL: He is currently alert and oriented, does not seem to be in acute distress. VITAL SIGNS: Stable. Currently afebrile. HEENT: Normocephalic. Not icteric. NECK: Supple. CHEST: Clear bilateral. HEART: S1 and S2. ABDOMEN: Soft and obese. EXTREMITIES: He had edema bilateral. There is some pitting edema, but there is also nonpitting edema. He have redness and swelling involving the whole leg from the ankle all the way to the knee. There is also wound and ulcer noted about a cm on the right leg. IMPRESSION: 1. Infected venous statis ulcer. 2. Cellulitis of the foot and leg, failed oral antibiotics. 3. Morbidly obese patient, he is 344 pounds with his BMI 48.0. 4. Hypertension. 5. Obesity. 6. Diabetes mellitus, failed oral antibiotic. 7. Debility. PLAN: We will put him on vancomycin and cefepime because of his weight and his obesity. I will anticipate he will be on antibiotic for some time. I would recommend change of vancomycin to 2 g q.12. Follow trough. Continue cefepime 2 g q.12. Obtain the PICC line. Follow vancomycin trough. He probably would need extensive care. consider LTAC. We will follow. MD RIN Hyatt/NILSA /[id number]
[2019-01-30] VITALS: BP 172/75
[2019-01-30] MEDS: CEFEPIME 2 GM/NS 0.9% 100 ML 100 ML IV SCH ×2 (01:46→13:00)
[2019-01-30 04:00] VITALS: BP 174/74
[2019-01-30] MEDS: AMMONIUM LACTATE 12% LOTION 225GM BTL TOP SCH ×2 (05:14→16:46)
[2019-01-30 05:32] LABS: BASOPHILS # (AUTO) 0.1 (0.0-0.1); BASOPHILS % 0.8 % (0.0-1.0); EOSINOPHILS # (AUTO) 0.4 (0.0-0.4); EOSINOPHILS % 6.4 % (0.0-6.0); HEMATOCRIT 37.6 % (38.2-49.6); HEMOGLOBIN 12.3 g/dL (14.0-18.0); LYMPHOCYTES # (AUTO) 0.9 (1.0-3.2); LYMPHOCYTES % 13.7 % (18.0-39.1); MEAN CORPUSCULAR HEMOGLOBIN 31.1 pg (28-32); MEAN CORPUSCULAR HGB CONC 32.7 g/dL (31-35); MEAN CORPUSCULAR VOLUME 95.2 fL (81-99); MONOCYTES # (AUTO) 0.7 (0.2-0.8); MONOCYTES % 10.7 % (4.4-11.3); NEUTROPHILS # (AUTO) 4.4 (2.1-6.9); NEUTROPHILS % 67.9 % (38.7-80.0); PLATELET COUNT 160 x10e3/uL (140-360); RED BLOOD COUNT 3.95 x10e6/uL (4.3-5.7); RED CELL DISTRIBUTION WIDTH 14.7 % (11.7-14.4)
[2019-01-30 06:04] LABS: ALANINE AMINOTRANSFERASE 12 IU/L (0-55); ALBUMIN 2.8 g/dL (3.5-5.0); ALBUMIN/GLOBULIN RATIO 0.8 (0.8-2.0); ALKALINE PHOSPHATASE 102 IU/L (40-150); ANION GAP 11.9 mmol/L (8-16); BLOOD UREA NITROGEN 23 mg/dL (7-26); BUN/CREATININE RATIO 26 (6-25); CALCIUM 8.9 mg/dL (8.4-10.2); CARBON DIOXIDE 27 mmol/L (22-29); CHLORIDE 103 mmol/L (98-107); CREATININE, SERUM 0.88 mg/dL (0.72-1.25); EST GLOMERULAR FILTRATION RATE > 60 ML/MIN (60-); GLUCOSE 176 mg/dL (74-118); POTASSIUM 3.9 mmol/L (3.5-5.1); SODIUM 138 mmol/L (136-145)
--- NOTE | 2019-01-30 06:46 | NUR ---
patient endorsed to next shift for continuity of care.
--- NOTE | 2019-01-30 07:05 | NUR ---
RCD PT AT BED PT IS ALERT AND ORIENTED PT RESTING ON BED NO SIGNS OF ANY DISTRESS NOTED IV PATENT BED LOW AND LOCKED CALL LIGHT IN REACH
[2019-01-30] MEDS: INSULIN LISPRO 100 UNIT/1 ML 3ML VIAL SQ SCH ×4 (07:30→21:26)
[2019-01-30 08:26] VITALS: BP 161/67
[2019-01-30 09:00] VITALS: BP 161/47
[2019-01-30] MEDS: VANCOMYCIN 1GM/NS 250 ML 250 ML IV SCH ×2 (09:00→21:47)
[2019-01-30] MEDS: METOPROLOL SUCCINATE 50 MG TAB XL PO SCH (09:00)
[2019-01-30] MEDS: INSULIN GLARGINE 100 UNITS/ML VIAL SC SCH ×2 (09:00→20:55)
[2019-01-30] MEDS: ASPIRIN 81 MG CHEW TAB PO SCH (09:00)
[2019-01-30] MEDS: SPIRONOLACTONE 25 MG TAB PO SCH (09:00)
[2019-01-30] MEDS: FUROSEMIDE 20 MG TAB PO SCH (09:00)
[2019-01-30] MEDS: BENAZEPRIL HCL 10 MG TAB PO SCH (09:00)
--- NOTE | 2019-01-30 10:25 | NUR ---
PAGED AND TALKED DR MCCARTHY REGARDING PICC LINE GOT THE ORDER TO DO PICC LINE TODAY
[2019-01-30 12:19] VITALS: BP 181/78
[2019-01-30] MEDS: ALBUTEROL SULF 0.083% NEB SOLN 3 ML NEB NEB SCH ×3 (12:44→18:50)
[2019-01-30] MEDS: GUAIFENESIN 200 MG/10 ML UDC PO SCH ×2 (12:45→17:26)
[2019-01-30] MEDS ORDERED: FUROSEMIDE INJ 10 MG/ML 4 ML VIAL IV NR (12:45)
--- NOTE | 2019-01-30 15:08 | NUR ---
DRESSING CHANGED ON RT LOWER LEG
--- NOTE | 2019-01-30 16:28 | Diagnostic Imaging Report ---
EXAMINATION: CHEST XRAY LINE PLACEMENT INDICATION: ^FOR PICC LINE PLACEMENT ^[id number] ^[id number] COMPARISON: 01/28/2019 FINDINGS: AP view TUBES and LINES: Interval placement of a right PICC with tip overlying the mid SVC. LUNGS: Low lung volumes. Bibasilar atelectasis. There is no evidence of pneumonia or pulmonary edema. PLEURA: No pleural effusion or pneumothorax. HEART AND MEDIASTINUM: Stable mild enlargement of the cardiac silhouette. BONES AND SOFT TISSUES: No acute osseous lesion. Soft tissues are unremarkable. UPPER ABDOMEN: No free air under the diaphragm. IMPRESSION: Interval placement of a right PICC with tip overlying the mid SVC. No pneumothorax. Signed by: Dr. Yolande Ramirez M.D. on 01/30/2019 4:24 PM
[2019-01-30] MEDS ORDERED: GUAIFENESIN/DEXTROMETHORPHAN LIQD 5 ML UDC NG SCH (18:00)
--- NOTE | 2019-01-30 19:09 | NUR ---
PT RESTING ON BED BED SIDE REPORT GIVEN TO ONCOMING NURSE
[2019-01-30 20:26] VITALS: BP 162/67
[2019-01-30] MEDS: SIMVASTATIN 40 MG TAB PO SCH (20:46)
[2019-01-30] MEDS: ALLOPURINOL 100 MG TAB PO SCH (20:46)
[2019-01-30] MEDS: FUROSEMIDE INJ 10 MG/ML 4 ML VIAL IV SCH (20:47)
[2019-01-31] VITALS (8 sets, daily range): BP systolic 127–175; BP diastolic 60–75
[2019-01-31] MEDS: GUAIFENESIN 200 MG/10 ML UDC PO SCH ×5 (00:05→23:36)
[2019-01-31] MEDS: ALBUTEROL SULF 0.083% NEB SOLN 3 ML NEB NEB SCH ×4 (00:30→19:45)
[2019-01-31] MEDS: CEFEPIME 2 GM/NS 0.9% 100 ML 100 ML IV SCH ×2 (00:58→12:11)
--- NOTE | 2019-01-31 03:55 | Consultation ---
DATE OF CONSULTATION: 01/30/2019 Cardiology Consultation Note INDICATION: Congestive heart failure. HISTORY OF PRESENT ILLNESS: Mr. Shields is a morbidly obese 78-year-old gentleman with history of venous insufficiency, previously refused venous treatments as well as uncontrolled hypertension, diabetes, comes with in venous ulcer in his right leg, this is his 4th admission for the same problem, continues to be volume-loaded, he needs medical for medical therapy for congestive heart failure, this is a new diagnosis for him. His echocardiogram although poor quality demonstrated an ejection fraction of 40%. PAST MEDICAL HISTORY: As listed above. SOCIAL HISTORY: The patient does not smoke or drink. He is accompanied by his . ALLERGIES: DRUG ALLERGIES: PENICILLIN AND LEVOFLOXACIN. MEDICATIONS: Reviewed. REVIEW OF SYSTEMS: Negative except as dictated in the history of present illness. PHYSICAL EXAMINATION: VITAL SIGNS: Afebrile, heart rate 59, blood pressure 181/78, and O2 saturation 98%. CARDIOVASCULAR: Regular rhythm, S4 gallop. LUNGS: Decreased breath sounds. 4+ edema with CEAP 6 disease in the right leg, CEAP 5 disease in the left. IMAGING AND LABS: Chest x-ray shows cardiomegaly and pulmonary edema. Serum creatinine is normal. Blood sugar is remarkably elevated. Hemoglobin is 12.3. ASSESSMENT: 1. Acute systolic heart failure. 2. Venous ulceration. RECOMMENDATIONS: Current cardiac medications. Appropriate intravenous furosemide will be initiated. We will stop his benazepril and initiate Entresto for better volume and blood pressure control. The outpatient evaluation for congestive heart failure. The patient is stable for transfer to [facility]. DICTATION ENDS HERE. MD NAYELI Gallegos/NILSA /[id number]
[2019-01-31] MEDS: AMMONIUM LACTATE 12% LOTION 225GM BTL TOP SCH ×2 (05:35→14:07)
[2019-01-31 06:13] LABS: BASOPHILS % 0.7 % (0.0-1.0); EOSINOPHILS # (AUTO) 0.3 (0.0-0.4); HEMATOCRIT 38.1 % (38.2-49.6); HEMOGLOBIN 12.8 g/dL (14.0-18.0); LYMPHOCYTES # (AUTO) 0.6 (1.0-3.2); LYMPHOCYTES % 11.4 % (18.0-39.1); MEAN CORPUSCULAR HEMOGLOBIN 31.2 pg (28-32); MEAN CORPUSCULAR HGB CONC 33.6 g/dL (31-35); MEAN CORPUSCULAR VOLUME 92.9 fL (81-99); MONOCYTES # (AUTO) 0.5 (0.2-0.8); MONOCYTES % 9.3 % (4.4-11.3); NEUTROPHILS # (AUTO) 4.1 (2.1-6.9); NEUTROPHILS % 73.1 % (38.7-80.0); PLATELET COUNT 161 x10e3/uL (140-360); RED CELL DISTRIBUTION WIDTH 14.8 % (11.7-14.4)
[2019-01-31 06:26] LABS: ALANINE AMINOTRANSFERASE 8 IU/L (0-55); ALBUMIN 2.9 g/dL (3.5-5.0); ALBUMIN/GLOBULIN RATIO 0.8 (0.8-2.0); ALKALINE PHOSPHATASE 99 IU/L (40-150); ANION GAP 11.5 mmol/L (8-16); BLOOD UREA NITROGEN 24 mg/dL (7-26); BUN/CREATININE RATIO 25 (6-25); CARBON DIOXIDE 28 mmol/L (22-29); CHLORIDE 101 mmol/L (98-107); CREATININE, SERUM 0.97 mg/dL (0.72-1.25); EST GLOMERULAR FILTRATION RATE > 60 ML/MIN (60-); GLUCOSE 251 mg/dL (74-118); POTASSIUM 3.5 mmol/L (3.5-5.1); SODIUM 137 mmol/L (136-145)
[2019-01-31] MEDS: VANCOMYCIN 1GM/NS 250 ML 250 ML IV SCH ×2 (08:58→22:11)
[2019-01-31] MEDS: FUROSEMIDE INJ 10 MG/ML 4 ML VIAL IV SCH ×2 (08:58→22:11)
[2019-01-31] MEDS: ASPIRIN 81 MG CHEW TAB PO SCH (08:58)
[2019-01-31] MEDS: INSULIN GLARGINE 100 UNITS/ML VIAL SC SCH ×2 (08:58→22:32)
[2019-01-31] MEDS: SPIRONOLACTONE 25 MG TAB PO SCH (08:58)
[2019-01-31] MEDS: BENAZEPRIL HCL 10 MG TAB PO SCH (08:59)
[2019-01-31] MEDS: METOPROLOL SUCCINATE 50 MG TAB XL PO SCH (08:59)
[2019-01-31] MEDS: FUROSEMIDE 20 MG TAB PO SCH (08:59)
[2019-01-31] MEDS: INSULIN LISPRO 100 UNIT/1 ML 3ML VIAL SQ SCH ×3 (10:00→16:15)
--- NOTE | 2019-01-31 11:21 | Progress Note ---
DATE: 01/31/2019 SUBJECTIVE: Mr. Shields is a 78-year-old man with history of diabetes, hypertension, obesity, history of bilateral lower extremity venous insufficiency, hyperlipidemia. He came to the emergency room complaining of right lower extremity worsening of the erythema and edema. He was found to have cellulitis with chronic ulcer in that area. He was admitted for IV antibiotics. PHYSICAL EXAMINATION: GENERAL: Today, he is awake and alert. Temperature is 96.9, blood pressure 158/69. HEART: Regular rate. LUNGS: Clear to auscultation. ABDOMEN: Soft. EXTREMITIES: On the lower extremity, he has bilateral lower extremity edema, bilateral venous insufficiency. The right lower extremity has a wound. All the area around the wound is erythematous. ASSESSMENT: On this patient is, 1. 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 2. Morbid obesity. 3. Diabetes type 2 with neuropathy. 4. Chronic diastolic congestive heart failure. 5. Hypertension. 6. Hyperlipidemia. 7. Bilateral lower extremity venous insufficiency. PLAN: The plan at present time is to admit the patient to the hospital. Start IV antibiotics, wound care. Infectious Disease consult with Dr. Flowers. Continue diarikes. Echocardiogram is pending. The patient was also seen by Cardiology. I spent more than 30 minutes examining the patient, reviewing overnight event, lab results, x-rays and discussing plan of care with the patient. MD FRANCESCA Smith/NILSA /[id number]
--- NOTE | 2019-01-31 21:24 | Progress Note ---
DATE: 01/31/2019 Cardiology progress note. SUBJECTIVE: No major events overnight. OBJECTIVE: VITAL SIGNS: Temperature 96.9, pulse 66, respiratory rate 19, blood pressure 136/62, saturating 97% on room air. GENERAL: Obese man, in no acute distress. CARDIOVASCULAR: Regular rate and rhythm. No murmurs, rubs, or gallops. LUNGS: Decreased breath sounds bilaterally. EXTREMITIES: 4+ edema with CEAP 6 disease in the right leg, CEAP 5 disease in the left. ABDOMEN: Obese, soft, nontender, nondistended. NEURO AND PSYCH: Alert and oriented. INPATIENT MEDICATIONS: Reviewed. LABORATORY DATA: Reviewed. ASSESSMENT AND PLAN: 1. Acute systolic heart failure. 2. Venous ulceration. 3. Chronic venous insufficiency. 4. Lymphedema. RECOMMENDATIONS: Continue current cardiovascular medications including IV furosemide and Entresto has been started to improve volume and blood pressure control. The patient is okay to be transferred to [place] with continued IV furosemide for management of his edema. Follow up as an outpatient once discharged from the hospital. MD BRUCE Velarde/NILSA /[id number]
[2019-01-31] MEDS: ALLOPURINOL 100 MG TAB PO SCH (22:11)
[2019-01-31] MEDS: SIMVASTATIN 40 MG TAB PO SCH (22:11)
[2019-02-01 00:42] VITALS: BP 122/61
[2019-02-01] MEDS: ALBUTEROL SULF 0.083% NEB SOLN 3 ML NEB NEB SCH ×3 (01:00→12:42)
[2019-02-01] MEDS: CEFEPIME 2 GM/NS 0.9% 100 ML 100 ML IV SCH ×2 (01:16→11:43)
[2019-02-01] MEDS: AMMONIUM LACTATE 12% LOTION 225GM BTL TOP SCH ×2 (04:41→16:32)
[2019-02-01] MEDS: GUAIFENESIN 200 MG/10 ML UDC PO SCH ×3 (05:03→17:00)
--- NOTE | 2019-02-01 05:15 | NUR ---
patient wound dressing fell off and was redressed as ordered
[2019-02-01 05:39] VITALS: BP 129/64
--- NOTE | 2019-02-01 07:15 | NUR ---
Walking rounds completed at this time. Patient is in recliner at bedside resting. No signs of distress noted. Call silva is within reach.
--- NOTE | 2019-02-01 07:15 | NUR ---
patient endorsed to next shift for continuity of care.
[2019-02-01] MEDS: SPIRONOLACTONE 25 MG TAB PO SCH (08:14)
[2019-02-01] MEDS: ASPIRIN 81 MG CHEW TAB PO SCH (08:14)
[2019-02-01] MEDS: FUROSEMIDE 20 MG TAB PO SCH (08:15)
[2019-02-01] MEDS: METOPROLOL SUCCINATE 50 MG TAB XL PO SCH (08:15)
[2019-02-01] MEDS: INSULIN GLARGINE 100 UNITS/ML VIAL SC SCH ×2 (08:16→20:45)
[2019-02-01] MEDS: INSULIN LISPRO 100 UNIT/1 ML 3ML VIAL SQ SCH ×2 (08:16→16:32)
[2019-02-01 08:30] VITALS: BP 129/61
[2019-02-01 09:47] VITALS: BP 129/61
[2019-02-01] MEDS: FUROSEMIDE INJ 10 MG/ML 4 ML VIAL IV SCH ×2 (09:47→20:45)
--- NOTE | 2019-02-01 09:47 | NUR ---
Attempted to flush both ports of right upper arm PICC line. Purple port draws and flushes with ease. Red port is occluded, will not flush or draw back blood. I let the patient know that I could request an order for medication to help unblock the port. Will contact Dr. Guillaume who is working for Dr. Jackson.
[2019-02-01] MEDS: BENAZEPRIL HCL 10 MG TAB PO SCH (09:48)
[2019-02-01] MEDS: VANCOMYCIN 1GM/NS 250 ML 250 ML IV SCH ×2 (09:48→20:45)
--- NOTE | 2019-02-01 13:16 | NUR ---
CM SPOKE TO PATIENT AT BEDSIDE REGARDING DISCHARGE PLAN. PATIENT AND PATIENT INFORMED OF [facility] ORDER. [facility] EXPLAINED IN DETAIL. PATIENT AND PATIENT VERBALLY AGREED TO BE TRANSFERRED TO [facility]. LTAC CHOICES GIVEN. PATIENT AND PATIENT CHOSE [facility]. CHOICE LETTER SIGNED BY PATIENT AND PLACED IN CHART. [place] [facility]IA[facility] NOTIFIED. CLINICAL PENDING TO BE PICKED UP BY LIAISON MIGUEL A [facility]. MOT INITIATED AND GIVEN TO TELEMEDICINE PHYSICIAN JOSÉ MIGUEL. PENDING AUTH AND BED ASSIGNMENT FOR TRANSFER. [facility] FACILITY: [facility] Address: [address], [place] [address]
--- NOTE | 2019-02-01 14:03 | Discharge Summary ---
HOSPITAL COURSE: Mr. Shields is a 78-year-old man with history of obesity, hypertension, diabetes, history of bilateral lower extremity venous insufficiency, hyperlipidemia, came to the emergency room complaining of worsening of edema and erythema of the right lower extremity with a chronic ulcer in that area. He was started on IV antibiotics and wound care. LTAC evaluation was placed for [facility] and if he gets approved, he is going to be transferred today. PHYSICAL EXAMINATION: GENERAL: Today, he is awake and alert. VITAL SIGNS: Temperature is 96, blood pressure 129/61. HEART: Regular rate. LUNGS: Clear to auscultation. ABDOMEN: Soft. EXTREMITIES: The right lower extremity shows edema and erythema, is under dressing. LABORATORY DATA: On the blood work; white count is 5.59, hemoglobin 12.8, and hematocrit 38.1. Glucose 206. The wound culture is showing Staph aureus. Blood cultures so far negative. DISCHARGE DIAGNOSES: 1. Right lower extremity chronic leg ulcer with cellulitis, positive for Staph. 2. Morbid obesity. 3. Uncontrolled diabetes type 2 with neuropathy. 4. Peripheral neuropathy. 5. Chronic diastolic congestive heart failure. 6. Hypertension. 7. Hyperlipidemia. 8. Bilateral lower extremity venous insufficiency. PLAN: The plan at the present time if the patient gets accepted to [facility] is to transfer him there to continue wound care and IV antibiotics. Continue all his other home medications. All this was discussed with the patient. All questions were answered to satisfaction. He already has a PICC line. Please see home medication reconciliation list. I spent more than 35 minutes examining the patient, reviewing lab result, x-ray, overnight events, and discussing plan of care with him. MD FRANCESCA Smith/NILSA /[id number]
[2019-02-01] MEDS ORDERED: ALTEPLASE RECOMBINANT 2 MG/2 ML VIAL IV NR (15:30)
--- NOTE | 2019-02-01 15:30 | NUR ---
Received order to place Cathflow in red port of PICC line at this time.
--- NOTE | 2019-02-01 15:55 | NUR ---
Cathflow inserted into the red port of PICC line. Will reassess for blood flow in 30 minutes.
[2019-02-01 16:04] VITALS: BP 140/67
--- NOTE | 2019-02-01 16:25 | NUR ---
No blood return noted after 30 minutes after insertion of Cathflow. Will recheck in 30 minutes.
--- NOTE | 2019-02-01 17:00 | NUR ---
Reassessed red port of PICC line at this time. No blood return. patient's stating that she will not let the patient transfer until "that thing works." This is status post one hour insertion.
--- NOTE | 2019-02-01 18:00 | NUR ---
Final check of red port of PICC line. Removed 2 mL of Cathflow. No blood return noted. patient's still stating that patient will not be transferred until it works.
--- NOTE | 2019-02-01 18:05 | Progress Note ---
DATE: 02/01/2019 Cardiology Progress Note SUBJECTIVE: No major events overnight. OBJECTIVE: VITAL SIGNS: Temperature afebrile, pulse 75, respiratory rate 19, blood pressure 140/67, and saturating 96%. GENERAL: Obese man, in no acute distress. CARDIOVASCULAR: Regular rate and rhythm. No murmurs, rubs, or gallops. LUNGS: Decreased breath sounds at the bases, otherwise clear to auscultation. EXTREMITIES: 3+ edema with CEAP 6 disease in the right leg and CEAP 5 disease in the left. ABDOMEN: Obese, soft, nontender, nondistended. NEURO AND PSYCH: Alert and oriented. INPATIENT MEDICATIONS: Reviewed. LABORATORY DATA: Reviewed. ASSESSMENT: 1. Acute systolic heart failure. 2. Venous ulcerations. 3. Chronic venous insufficiency. 4. Lymphedema. RECOMMENDATIONS: Continue current cardiovascular medications including IV furosemide and Entresto once it is available from pharmacy. Okay to be transferred to [place]. Follow up outpatient. MD BRUCE Velarde/NILSA /[id number]
--- NOTE | 2019-02-01 18:30 | NUR ---
After administration of cathflow into red port of PICC line, there is no return of blood. Cathflow removed from port. Patient's stating, "He will not go until that thing works. I'm reading on the internet that if it does not work it should be replaced. Someone didn't do their job." I let the that I would let my aluminum fabrication supervisor know. I called [facility] dry house wheeler. He told me to call the doctor and let them know. The patient is pending transfer to [facility]. I told her that the nurse could try it against [facility] and could fully take care of the PICC line. She is still refusing discharge.
--- NOTE | 2019-02-01 18:55 | NUR ---
Spoke with Dr. Guillaume at this time. She states there is no reason for the patient to stay. The other port is working. [facility] has a PICC line team available if need be. Please continue with discharge.
[2019-02-01 20:39] VITALS: BP 174/79
[2019-02-01] MEDS: ALLOPURINOL 100 MG TAB PO SCH (20:45)
[2019-02-01] MEDS: SIMVASTATIN 40 MG TAB PO SCH (20:45)
--- NOTE | 2019-02-01 22:59 | NUR ---
PATIENT ESCORTED OUT VIA STRETCHER BY PARAMEDICS. NO SIGNS OF DISTRESSED DISPLAYED, COMPLAINS OF NO PAIN, AOX3. FAMILY MEMBER PRESENT.
[2019-02-02] MEDS ORDERED: VALSARTAN PO SCH (09:00)
[2019-02-02] MEDS ORDERED: SACUBITRIL PO SCH (09:00)
== END 2019-02-01 23:00 | DRG 299 ==
LOC: ER 12:57 → ERHOLD 14:12 → MED/SURG2 15:42
PROVIDERS: ADMIT Internal Medicine; ATTEND Internal Medicine
PROC: 02HV33Z Insertion of Infusion Device into Superior Vena Cava, Percutaneous Approach (ICD-10-PCS; principal; 2019-01-28)
DX: E11.51 Type 2 diabetes mellitus with diabetic peripheral angiopathy without gangrene (principal); I50.21 Acute systolic (congestive) heart failure; I50.23 Acute on chronic systolic (congestive) heart failure; L03.115 Cellulitis of right lower limb; Z68.42 Body mass index [BMI] 45.0-49.9, adult; M86.8X6 Other osteomyelitis, lower leg; E11.69 Type 2 diabetes mellitus with other specified complication; I87.8 Other specified disorders of veins; I11.0 Hypertensive heart disease with heart failure; Z79.4 Long term (current) use of insulin; E11.40 Type 2 diabetes mellitus with diabetic neuropathy, unspecified; E11.65 Type 2 diabetes mellitus with hyperglycemia; B95.62 Methicillin resistant Staphylococcus aureus infection as the cause of diseases classified elsewhere
CPT/HCPCS: 36415; 36569; 71045; 71046; 80053; 80202; 81001; 82948; 83605; 83880; 85025; 85610; 85730; 87040; 87071; 87186; 87205; 93306; 94640; 99284; J0692; J1815; J1940; J2997; J3370; J7050

== ENCOUNTER → 2019-05-12 | Outpatient (CLI) | payer MEDICARE ==
[~2019-05-12] MED LIST changes: +ALLOPURINOL100 MG PO; +LASIX20 MG PO; +SPIRONOLACTONE25 MG PO
== END ==
LOC: RAD 12:57
PROVIDERS: ATTEND Internal Medicine
DX: R60.9 Edema, unspecified (principal)
CPT/HCPCS: 93970

== ENCOUNTER 2019-07-17 18:44 | Inpatient (IN) | payer MEDICARE ==
[~2019-07-17] VITALS: Ht 180.3 cm; Wt 155.6 kg
[2019-07-17 20:49] LABS: BASOPHILS % 0.3 % (0.0-1.0); EOSINOPHILS # (AUTO) 0.5 (0.0-0.4); EOSINOPHILS % 6.8 % (0.0-6.0); HEMATOCRIT 37.5 % (38.2-49.6); HEMOGLOBIN 12.1 g/dL (14.0-18.0); LYMPHOCYTES # (AUTO) 0.8 (1.0-3.2); LYMPHOCYTES % 10.6 % (18.0-39.1); MEAN CORPUSCULAR HEMOGLOBIN 31.7 pg (28-32); MEAN CORPUSCULAR HGB CONC 32.3 g/dL (31-35); MEAN CORPUSCULAR VOLUME 98.2 fL (81-99); MONOCYTES # (AUTO) 0.5 (0.2-0.8); MONOCYTES % 6.9 % (4.4-11.3); NEUTROPHILS # (AUTO) 5.3 (2.1-6.9); PLATELET COUNT 196 x10e3/uL (140-360); RED BLOOD COUNT 3.82 x10e6/uL (4.3-5.7); RED CELL DISTRIBUTION WIDTH 15.2 % (11.7-14.4)
[2019-07-17 21:04] LABS: ALBUMIN 2.9 g/dL (3.5-5.0); ALBUMIN/GLOBULIN RATIO 0.7 (0.8-2.0); ANION GAP 15.9 mmol/L (8-16); CREATININE, SERUM 1.3 mg/dL (0.72-1.25); POTASSIUM 4.9 mmol/L (3.5-5.1)
[2019-07-17 21:44] LABS: BILIRUBIN,URINE NEGATIVE (NEGATIVE); CLARITY,URINE CLEAR (CLEAR); COLOR,URINE YELLOW (YELLOW); KETONES,URINE NEGATIVE (NEGATIVE); LEUKOCYTE ESTERASE ,URINE NEGATIVE (NEGATIVE); NITRITE,URINE NEGATIVE (NEGATIVE); PROTEIN,URINE DIPSTICK NEGATIVE (NEGATIVE); URINE UROBILINOGEN 1 mg/dL (0.2 - 1)
[2019-07-17 21:49] LABS: BACTERIA,URINE FEW /HPF; EPITHELIAL CELLS,URINE FEW /LPF
--- NOTE | 2019-07-17 22:22 | Diagnostic Imaging Report ---
EXAMINATION: CHEST 2 VIEWS INDICATION: Short of breath COMPARISON: Chest radiograph 01/30/2019 FINDINGS: PA and lateral views TUBES and LINES: None. LUNGS: Lungs are well inflated. Lungs are clear. There is no evidence of pneumonia or pulmonary edema. Prominent pulmonary vasculature. Slight increase in rightward lower tracheal deviation. PLEURA: No pleural effusion or pneumothorax. HEART AND MEDIASTINUM: Cardiac size is mildly enlarged. Tortuous ectatic thoracic aorta. BONES AND SOFT TISSUES: No acute osseous lesion. Soft tissues are unremarkable. Degenerative changes in the spine. Calcifications of the aorta. Cholecystectomy clips. UPPER ABDOMEN: No free air under the diaphragm. IMPRESSION: Mild cardiomegaly and pulmonary vascular congestion. Slight increase in rightward lower tracheal deviation compared to 01/30/2019 can be due to thoracic aortic aneurysm. Signed by: Tacos Vidal DO on 07/17/2019 10:18 PM
[2019-07-17] MEDS ORDERED: ONDANSETRON HCL INJ 2MG/ML 2ML 2 MG/ML VIAL IV PRN (23:00)
[2019-07-17] MEDS ORDERED: DEXTROSE 50% SYRINGE 50 ML IV PRN (23:00)
[2019-07-17] MEDS ORDERED: SODIUM CHLORIDE FLUSH 10 ML SYR INJ PRN (23:00)
[2019-07-17] MEDS ORDERED: SIMVASTATIN40 MG PO (23:04)
[2019-07-17] MEDS ORDERED: LANTUS 3ML100 UNITS/ SC (23:04)
[2019-07-17] MEDS ORDERED: NOVOLOG100 UNIT/1 SC (23:04)
[2019-07-17] MEDS ORDERED: METOPROLOL SUCC50 MG PO (23:05)
[2019-07-17] MEDS ORDERED: ALLOPURINOL100 MG PO (23:05)
[2019-07-17] MEDS ORDERED: BENAZEPRIL HCL10 MG PO (23:06)
[2019-07-17] MEDS ORDERED: LASIX40 MG PO (23:06)
[2019-07-17] MEDS ORDERED: BACTRIM DS TAB1 EACH PO (23:06)
[2019-07-17] MEDS ORDERED: ASPIR 8181 MG PO (23:07)
[2019-07-17] MEDS: CEFEPIME 2 GM/NS 0.9% 100 ML 100 ML IV SCH (23:21)
[2019-07-18] VITALS (10 sets, daily range): BP systolic 102–142; BP diastolic 51–68
[2019-07-18] MEDS: VANCOMYCIN 1GM/NS 250 ML 250 ML IV SCH ×2 (01:03→23:57)
[2019-07-18] MEDS: INSULIN REGULAR, HUMAN 100 UNIT/1 ML 3ML VIAL SQ SCH ×4 (07:30→21:00)
--- NOTE | 2019-07-18 07:30 | NUR ---
RECD PT UP IN CHAIR ,AAOX3 ,NO DISTRESS NOTED,LOWER EXT RED AND SWOLLEN,VERY SCALEY,C/O ITCHING
[2019-07-18 08:19] LABS: BASOPHILS % 0.4 % (0.0-1.0); EOSINOPHILS # (AUTO) 0.4 (0.0-0.4); EOSINOPHILS % 5.7 % (0.0-6.0); HEMATOCRIT 37.4 % (38.2-49.6); HEMOGLOBIN 11.9 g/dL (14.0-18.0); LYMPHOCYTES # (AUTO) 0.6 (1.0-3.2); LYMPHOCYTES % 8.9 % (18.0-39.1); MEAN CORPUSCULAR HEMOGLOBIN 31.4 pg (28-32); MEAN CORPUSCULAR HGB CONC 31.8 g/dL (31-35); MEAN CORPUSCULAR VOLUME 98.7 fL (81-99); MONOCYTES # (AUTO) 0.5 (0.2-0.8); MONOCYTES % 7.3 % (4.4-11.3); NEUTROPHILS # (AUTO) 5.2 (2.1-6.9); NEUTROPHILS % 77.3 % (38.7-80.0); PLATELET COUNT 188 x10e3/uL (140-360); RED BLOOD COUNT 3.79 x10e6/uL (4.3-5.7); RED CELL DISTRIBUTION WIDTH 15.2 % (11.7-14.4)
[2019-07-18 08:41] LABS: ANION GAP 15.2 mmol/L (8-16); BLOOD UREA NITROGEN 28 mg/dL (7-26); BUN/CREATININE RATIO 24 (6-25); CALCIUM 9.1 mg/dL (8.4-10.2); CARBON DIOXIDE 23 mmol/L (22-29); CHLORIDE 104 mmol/L (98-107); CREATININE, SERUM 1.16 mg/dL (0.72-1.25); EST GLOMERULAR FILTRATION RATE > 60 ML/MIN (60-); GLUCOSE 84 mg/dL (74-118); POTASSIUM 4.2 mmol/L (3.5-5.1); SODIUM 138 mmol/L (136-145)
[2019-07-18] MEDS ORDERED: HYDROCORTISONE 2.5% CREAM 30GM TUBE TOP PRN (09:15)
[2019-07-18] MEDS: FUROSEMIDE INJ 10 MG/ML 4 ML VIAL IV SCH ×2 (09:59→20:49)
[2019-07-18] MEDS: ASPIRIN 81 MG CHEW TAB PO SCH (09:59)
[2019-07-18] MEDS: PREDNISONE 20 MG TAB PO SCH (10:00)
[2019-07-18] MEDS: METOPROLOL SUCCINATE 50 MG TAB XL PO SCH (10:00)
--- NOTE | 2019-07-18 10:42 | NUR ---
DR WILSON HERE PATIENT REFUSED TO BE SEEN BY HIM STATED HE DID NOT NEED [employer]
[2019-07-18] MEDS: CEFEPIME 2 GM/NS 0.9% 100 ML 100 ML IV SCH ×2 (11:51→22:58)
--- NOTE | 2019-07-18 15:36 | History and Physical ---
HISTORY OF PRESENT ILLNESS: The patient is a 78-year-old male with past medical history positive for hypertension, history of diabetes, history of peripheral vascular disease, history of TIA, history of CVA, and morbid obesity also. The patient came with worsening swelling in the left arm and redness on both legs. He was found to have cellulitis on both legs and also allergic dermatitis and also evidence of edema on the left arm and admitted to the hospital for IV diuretics and IV antibiotics. REVIEW OF SYSTEMS: CARDIOVASCULAR: No chest pain or palpitation. RESPIRATORY: No shortness of breath. No cough. GASTROINTESTINAL: No nausea or vomiting. No diarrhea. GENITOURINARY: No frequency or dysuria. ALLERGIES: HE IS ALLERGIC TO PENICILLIN AND LEVAQUIN. SOCIAL HISTORY: He does not smoke, does not drink. PAST MEDICAL HISTORY: Positive for hypertension, diabetes, morbid obesity, and history of TIA. PHYSICAL EXAMINATION: HEART: Showed regular rhythm. Normal S1 and S2 sound. LUNGS: Clear bilaterally. ABDOMEN: Soft. EXTREMITIES: Show scaly rash in both lower extremities. Edema on both legs and left arm and also redness all over the chest and back, which is a blanching rash. LABORATORY DATA: On the chest x-ray show evidence of cardiomegaly, pulmonary vascular congestion. Slight increase in the rightward lower tracheal deviation compared to January 30, 2019, which can be due to thoracic aortic aneurysm. On the blood work, we have urine, which is pretty much normal. On the BMP, sodium 138, potassium 4.2, chloride 104, CO2 23, BUN 28, creatinine 1.16, and glucose 84. Lactic acid is 1.9. Calcium 9.0. Total bilirubin 0.6, AST 28, ALT 15, and total alkaline phosphatase 103. Beta natriuretic peptide 287. Total protein 6.8, albumin 2.9, globulin 3.9, and albumin globulin ratio 0.7. On the CBC, white blood count 6.72, hemoglobin 11.9, hematocrit 37.4, and platelet count 188,000. Blood culture has been done, report is pending. FINAL IMPRESSION: 1. Cellulitis of both legs. 2. Allergic dermatitis. 3. Anasarca. 4. Hypertension. 5. 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 6. Chronic renal failure, stage 3. 7. Hypertension. 8. Morbid obesity. 9. Hnrxs-jz-zcinvrr systolic congestive heart failure. We are going to also order echocardiogram. PLAN OF TREATMENT: He is on cefepime 2 g IV twice a day and vancomycin 1 g IV once a day. Continue monitoring blood sugar before meals and at bedtime. Continue Zofran 4 mg IV q.4 hours as needed. We are going to start Tylenol also 650 mg p.o. q.4 hours as needed for pain or fever. We are going to resume the home medications, which include allopurinol 200 mg daily, aspirin 81 mg daily, and Lotensin 40 mg daily. We are going to change the furosemide to 40 mg IV twice a day. Continue NovoLog 40 units subcutaneously at bedtime, metoprolol 100 mg daily, and simvastatin 40 mg daily. We are going to discontinue the Bactrim. He is taking Lantus 45 units at bedtime also. We are going to continue monitoring BUN, creatinine, and electrolytes. We are going to start him on Medrol Dosepak also due to allergic dermatitis. Diet, diabetic and renal diet. MD PEE Shankar/NILSA /[id number]
--- NOTE | 2019-07-18 16:46 | NUR ---
PT UP IN CHAIR NO DISTRESS NTOEOlegario DENIES PAIN,DR MCCARTHY HERE.KERLEX AND ENMANUEL WRAP TO LOWER EXT.
[2019-07-18] MEDS: ALLOPURINOL 100 MG TAB PO SCH (20:49)
[2019-07-18] MEDS: SIMVASTATIN 40 MG TAB PO SCH (20:49)
[2019-07-18] MEDS: BENAZEPRIL HCL 10 MG TAB PO SCH (20:49)
[2019-07-18] MEDS ORDERED: INSULIN GLARGINE 100 UNITS/ML VIAL SC SCH (21:00)
[2019-07-18] MEDS ORDERED: INSULIN LISPRO 100 UNIT/1 ML 3ML VIAL SQ SCH (21:00)
--- NOTE | 2019-07-18 23:11 | Consultation ---
DATE OF CONSULTATION: REASON FOR CONSULTATION: Cellulitis of bilateral lower extremities. HISTORY OF PRESENT ILLNESS: This patient who is known to me from before. He is a 78-year-old white male with history of obesity, history of congestive heart failure, and chronic kidney disease. He also have bilateral lower extremity lymphedema and bilateral lower extremity venous stasis. The patient who was in the hospital back in January, at that time, he presented with cellulitis of the leg. The patient was started on IV antibiotic and had to be transferred to [facility]. The patient was given intravenous antibiotic and he was instructed to continue with thigh-high elastic stocking. The patient was discharged home. The is telling me that he could not tolerate at this time the elastic stocking. His rash got worse. The patient who has also underlying history of some early dementia. He is forgetful. He comes back now with worsening condition of redness and swelling of bilateral lower extremities with increase in swelling. He also has been having this is a rash, which is a small papular rash scattered all over his body for the last couple of weeks. PAST MEDICAL HISTORY: Significant for morbidly obese patient, dementia, venous stasis ulcers, venous stasis dermatitis, bilateral lower extremities lymphedema, congestive heart failure, hypertension, diabetes mellitus with neuropathy, chronic wounds before, hyperlipidemia, and gout before. SOCIAL HISTORY: There is no smoking, drug abuse, or alcohol abuse. FAMILY HISTORY: Hypertension. REVIEW OF SYSTEMS: The patient is very pleasant, alert, does not seem to be in acute distress, complaining of not feeling well. Pain, redness, and swelling in both legs, chronic aches and pain in his joints. Mild shortness of breath. HOME MEDICATIONS: He is currently on cefepime 1 g q.12, prednisone 20 mg daily, Toprol-XL 100 mg daily, furosemide, Lasix 40 mg q.12, vancomycin 1 g daily, hydrocortisone ointment, Zocor, allopurinol 200 mg daily, and Tylenol. His cultures are still pending. LABORATORY DATA: White count 7.06 and hemoglobin 12.1. Sodium 133, potassium 4.2, and creatinine of 1.16. Chest x-ray was done and showed he had a mild cardiomegaly. PHYSICAL EXAMINATION: GENERAL: He is currently alert, oriented, comfortable, morbidly obese patient. VITAL STABLE: Afebrile. HEENT: Normocephalic. NECK: Supple. CHEST: Few crackles at the bases. COR: S1 and S2. No S3, S4, or murmur. ABDOMEN: Morbidly obese patient. EXTREMITIES: There is significant redness in bilateral lower extremities with significant edema. With the pitting and nonpitting edema. IMPRESSION: 1. Cellulitis of bilateral lower extremities, compromising factor is morbidly obese patient. 2. Lymphedema. 3. Fluid overload. 4. Congestive heart failure. 5. Diabetes mellitus, neuropathy. 6. Gout. Agree with vancomycin, agree with cefepime. 7. Discussed with the patient's at length about elastic stocking, he could not tolerate it, apparently we will try again. He may benefit from being referred to the lymphedema clinic. Prognosis overall is guarded. 8. Congestive heart failure, acute on chronic systolic. 9. Chronic kidney disease. 10. Neuropathy. 11. Dementia. 12. We will follow. MD RIN Hyatt/NILSA /[id number]
[2019-07-19] VITALS (9 sets, daily range): BP systolic 128–149; BP diastolic 60–66
--- NOTE | 2019-07-19 01:09 | Consultation ---
DATE OF CONSULTATION: 07/18/2019 Cardiology Consult Note REASON FOR CONSULT: CHF, lower extremity edema, and cellulitis. CHIEF COMPLAINT: Lower extremity swelling and pain. HISTORY OF PRESENT ILLNESS: The patient is a 78-year-old man with history of chronic lymphedema of bilateral lower extremities with severe swelling and edema and recurrent cellulitis and infections, who presents again with cellulitis and weeping from his lower extremity wounds. REVIEW OF SYSTEMS: As per HPI, otherwise negative. MEDICATIONS: Please see MAR for list of home medications. ALLERGIES: ALLERGIC TO PENICILLIN AND LEVAQUIN. SOCIAL HISTORY: He does not smoke, drink, or abuse drugs. FAMILY HISTORY: Noncontributory. PAST MEDICAL HISTORY: Hypertension, diabetes, morbid obesity, and history of transient ischemic attack. PHYSICAL EXAMINATION: VITAL SIGNS: Temperature is afebrile, pulse 69, respiratory rate 20, blood pressure 138/68, and saturating 98% on room air. GENERAL: 78-year-old man, no acute distress. CARDIOVASCULAR: Regular rate and rhythm. No murmurs, rubs, or gallops. LUNGS: Clear to auscultation bilaterally. ABDOMEN: Obese, soft, nontender, and nondistended. NEURO AND PSYCH: Alert and oriented to person, place, and time. Normal affect. EXTREMITIES: Severe 4+ edema and chronic venous stasis changes with weeping bilateral lower extremities with redness and overlying cellulitis. Also swelling of the left upper extremity and severely tender to movement due to rotator cuff problems. INPATIENT MEDICATIONS: Reviewed. LABORATORY DATA: Reviewed. IMAGING DATA: Reviewed. Chest x-ray shows mild cardiomegaly and pulmonary vascular congestion, possible thoracic aortic aneurysm. ASSESSMENT: 1. Acute on chronic congestive heart failure exacerbation. 2. Bilateral lower extremity cellulitis. 3. Chronic lymphedema. 4. Left upper extremity swelling. 5. Possible thoracic aortic aneurysm. PLAN: Echocardiogram is pending. Recommend left upper extremity Doppler to evaluate for DVT. Continue wound care for lower extremities. We will continue aggressive diuresis to help with lymphedema as well as CHF as renal function tolerates. Thank you for this consult. We will continue to follow. MD BRUCE Velarde/NILSA /[id number]
[2019-07-19] MEDS: ACETAMINOPHEN 325 MG TAB PO PRN (06:27)
[2019-07-19 06:48] LABS: CALCIUM 8.6 mg/dL (8.4-10.2); CREATININE, SERUM 1.29 mg/dL (0.72-1.25)
[2019-07-19] MEDS: INSULIN REGULAR, HUMAN 100 UNIT/1 ML 3ML VIAL SQ SCH ×4 (07:30→21:00)
--- NOTE | 2019-07-19 07:30 | NUR ---
pt up in recliner denies pain,no distress noted.
[2019-07-19] MEDS ORDERED: INSULIN LISPRO 100 UNIT/1 ML 3ML VIAL SQ SCH (08:00)
[2019-07-19] MEDS: ASPIRIN 81 MG CHEW TAB PO SCH (08:30)
[2019-07-19] MEDS: FUROSEMIDE INJ 10 MG/ML 4 ML VIAL IV SCH ×2 (08:30→21:04)
[2019-07-19] MEDS: METOPROLOL SUCCINATE 50 MG TAB XL PO SCH (08:30)
[2019-07-19] MEDS: PREDNISONE 20 MG TAB PO SCH (08:30)
[2019-07-19] MEDS ORDERED: INSULIN GLARGINE 100 UNITS/ML VIAL SC SCH (09:00)
[2019-07-19] MEDS ORDERED: ALLOPURINOL 100 MG TAB PO SCH (09:00)
[2019-07-19] MEDS ORDERED: BENAZEPRIL HCL 10 MG TAB PO SCH (09:00)
--- NOTE | 2019-07-19 10:46 | Progress Note ---
DATE: Internal Medicine Progress Note SUBJECTIVE: The patient is feeling better today. PHYSICAL EXAMINATION: HEART: Showed regular rhythm. Normal S1, S2 sound. LUNGS: Clear bilaterally. ABDOMEN: Soft. EXTREMITIES: Showed redness and scaly rash on both lower extremities. VITAL SIGNS: Blood pressure is 128/61, heart rate 58 per minute, respiratory rate 20 per minute, and temperature 97.3. LABORATORY DATA: On the blood work, urinalysis essentially unremarkable. The BMP showed sodium 139, potassium 4.0, chloride 105, CO2 26, BUN 30, creatinine 1.29, glucose 133, and calcium is 8.6. Last blood sugar 134. On the CBC, white blood count 6.72, hemoglobin 11.9, hematocrit 37.4, and platelet count 189,000. IMPRESSION: 1. Cellulitis of both lower extremities. 2. Allergic dermatitis. 3. Anasarca. 4. Hypertension. 5. 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 6. Morbid obesity. 7. Chronic renal failure stage 3. 8. Ysilv-so-ezipgzx systolic congestive heart failure. PLAN OF TREATMENT: Cefepime 2 g IV twice a day, vancomycin 1 g IV once a day, Tylenol 650 mg p.o. q.4 hours as needed for pain or fever, zyloprim 200 mg daily, aspirin 81 mg daily, benazepril 40 mg daily, continue furosemide 40 mg IV twice a day, continue hydrocortisone cream topically q.6 hours as needed for itching, Lantus 45 units subcutaneous twice a day, and Humalog 40 units twice a day. Continue monitoring blood sugar before meals and at bedtime. Continue Toprol-XL 100 mg daily, Zofran 4 mg IV q.4 hours as needed for nausea and vomiting, prednisone 20 mg daily, and simvastatin 40 mg daily. Echocardiogram seen progress. Physical and occupational therapy has been ordered. MD PEE Shankar/NILSA /[id number]
[2019-07-19] MEDS ORDERED: SODIUM CHLORIDE 0.9% 1000ML 750 ML IV ONE (11:45)
--- NOTE | 2019-07-19 12:30 | NUR ---
RADIOLOGY CALLED STATED PER POTOCOL TO GIVE PT A BOLUS OF NS FOR CT SCAN
[2019-07-19] MEDS: CEFEPIME 2 GM/NS 0.9% 100 ML 100 ML IV SCH ×2 (12:38→22:06)
--- NOTE | 2019-07-19 15:22 | NUR ---
pt transported to [facility] via w/c
[2019-07-19] MEDS ORDERED: SODIUM CHLORIDE 0.9% 100 ML ONE (15:47)
[2019-07-19] MEDS ORDERED: IOPAMIDOL 370 MG/ML 200 ML INFUS..BTL INJ ONE (15:47)
--- NOTE | 2019-07-19 16:25 | Diagnostic Imaging Report ---
EXAM: CTA OF THE THORACIC AORTA INDICATION: ^R/O Thoracic aneurysm ^Y COMPARISON: Chest radiograph 07/17/2019 TECHNIQUE: Multi-detector CT technology was employed. CTA Gated axial imaging of the chest was performed after the administration of IV contrast. IV CONTRAST: 100 mL of Isovue-370 ORAL CONTRAST: None COMPLICATIONS: None RADIATION DOSE: Total DLP: 648.2 mGy*cm Estimated effective dose: (DLP x 0.015 x size factor) mSv CTDIvol has been reviewed. It is below the limits set by the Radiation Protocol Committee (RPC). For optimization of anatomic evaluation, multiplanar reconstruction, maximum intensity projections, and advanced 3-D off-line postprocessing were performed on a dedicated stand-alone workstation under the direct supervision of the interpreting physician. FINDINGS: Potential study limitations: None. LINES/ TUBES: None. VASCULAR WITH ADVANCED 3-D OFF-LINE POSTPROCESSING: Aortic valve morphology is trileaflet and contains no, mild, moderate, severe calcifications. The thoracic aorta is moderately tortuous but normal in caliber. There is no acute aortic pathology, such as dissection, intramural hematoma, or contained rupture. Aortic plaques: Mild scattered atherosclerotic calcification throughout the thoracic aorta. The arch vessel branching pattern is conventional. All of the arch branch vessels appear widely patent in their proximal portions. Tank Cleaning Supervisor dimensions of the thoracic aorta are as follows: 2.4 cm at the aortic annulus 3.5 x 3.3 cm at the sinuses of Valsalva (the sinotubular junction is preserved) 3.3 cm at the mid ascending aorta 3.3 cm at the distal ascending aorta 2.9 cm at the mid transverse arch 2.9 cm at the proximal descending thoracic aorta 2.8 cm at the diaphragmatic hiatus. LUNGS AND AIRWAYS: Mild bilateral mammary nodules or consolidations. Airways are patent. PLEURA: The pleural spaces are clear. HEART AND MEDIASTINUM: The thyroid gland is normal. No mediastinal, hilar or axillary lymphadenopathy. Moderate enlargement of the main pulmonary artery, measuring 4.5 cm in diameter and consistent with pulmonary hypertension. The cardiac chambers demonstrate normal atrioventricular and ventriculoarterial concordance, and systemic and pulmonary venous return. Biatrial enlargement. The right and left ventricle appear normal in size on limited evaluation. The coronary arteries have normal origins and courses. There are moderate coronary calcifications identified, though this study was not optimized for coronary artery evaluation. There is no pericardial effusion. LIMITED ABDOMEN: Cholecystectomy. Partially visualized 5.7 cm low-attenuation exophytic cyst in the right kidney on series 3, image 125. BONES: Mild multilevel degenerative changes of the thoracic spine. IMPRESSION: Moderately tortuous thoracic aorta with normal caliber. Mild scattered atherosclerotic calcification throughout the thoracic aorta. No acute thoracic aorta pathology. Moderate enlargement of the pulmonary artery consistent with pulmonary hypertension. Signed by: Dr. Yolande Ramirez M.D. on 07/19/2019 4:22 PM
--- NOTE | 2019-07-19 17:46 | NUR ---
PT UP IN CHAIR,IV PULLED OUT,RESTARTED IN RT FA 20 GAUGE .DENIES PAIN
--- NOTE | 2019-07-19 18:39 | Progress Note ---
DATE: 07/19/2019 Cardiology Progress Note SUBJECTIVE: The patient denies chest pain. He is complaining of dyspnea on exertion. OBJECTIVE: VITAL SIGNS: Temperature 96.4 degrees, pulse 61, respiratory rate 18, blood pressure 140/63, and oxygen saturation 96% on room air. GENERAL: Awake, alert, and in no acute distress. Obese gentleman. LUNGS: Clear to auscultation bilaterally. No wheeze or crackles. CARDIOVASCULAR: Normal rate. Regular rhythm. No murmur. Normal S1 and S2. ABDOMEN: Soft and nontender. EXTREMITIES: 2+ pitting edema. The skin changes consistent with chronic venous stasis. CARDIAC MEDICATIONS: Furosemide 40 mg IV q.12 hours, metoprolol succinate 100 mg p.o. daily, aspirin 81 mg p.o. daily, benazepril 40 mg p.o. at bedtime, and simvastatin 40 mg p.o. at bedtime. LABORATORY DATA: Sodium 139, potassium 4.0, chloride 105, CO2 26, BUN 30, and creatinine 1.29. CTA chest, moderately tortuous thoracic aorta with normal caliber. Mild scattered atherosclerotic calcification throughout the thoracic aorta. No acute thoracic aortic pathology. Moderate enlargement of the pulmonary artery system, pulmonary hypertension. IMPRESSION: 1. Qkitm-po-eywqkkp congestive heart failure. 2. Bilateral lower extremity cellulitis. 3. Chronic lymphedema. 4. Left upper extremity swelling. 5. Possible thoracic aortic aneurysm. RECOMMENDATIONS: Continue antibiotics per primary service. Wound care for bilateral lower extremities. Continue diuresis as renal function tolerates. Thank you for this consult. We will continue to follow. Amanda Atwood MD ABS/MODL /[id number]
--- NOTE | 2019-07-19 19:26 | NUR ---
Received patient from day nurse. Patient alert and oriented, sitting in chair. No s/s of distress or c/o pain at this time. All safety measures in place. Will continue to monitor.
[2019-07-19] MEDS: INSULIN LISPRO 100 UNIT/1 ML 3ML VIAL SQ SCH (21:04)
[2019-07-19] MEDS: INSULIN GLARGINE 100 UNITS/ML VIAL SC SCH (21:04)
[2019-07-19] MEDS: SIMVASTATIN 40 MG TAB PO SCH (21:05)
[2019-07-19] MEDS: ALLOPURINOL 100 MG TAB PO SCH (21:05)
[2019-07-19] MEDS: BENAZEPRIL HCL 10 MG TAB PO SCH (21:05)
--- NOTE | 2019-07-19 22:07 | NUR ---
Patient says he prefers to sleep in recliner chair. Instructed to call for assistance, verbalized understanding. All safety measures in place. Call light placed within reach. Will continue to monitor.
[2019-07-19] MEDS: VANCOMYCIN 1GM/NS 250 ML 250 ML IV SCH (22:45)
[2019-07-20] VITALS (8 sets, daily range): BP systolic 124–179; BP diastolic 58–79
[2019-07-20] MEDS: ACETAMINOPHEN 325 MG TAB PO PRN (05:22)
--- NOTE | 2019-07-20 05:46 | NUR ---
Patient reports feeling shaky and like his blood sugar is low. Performed fingerstick blood glucose check, results were 86. Gave patient 8 oz of orange juice. Will continue to monitor.
--- NOTE | 2019-07-20 06:50 | NUR ---
RECEIVED REPORT FROM OFF GOING NURSE. WALKING ROUNDS DONE. PATIENT IS RESTING IN RECLINER. NO S/S OF DISTRESS NOTED. CALL LIGHT WITHIN REACH. BED IN THE LOWEST POSITION.
--- NOTE | 2019-07-20 07:14 | NUR ---
Bedside report given to night nurse. Patient resting in recliner chair, no s/s of distress. All safety measures in place.
[2019-07-20] MEDS: INSULIN REGULAR, HUMAN 100 UNIT/1 ML 3ML VIAL SQ SCH ×4 (07:30→19:59)
[2019-07-20] MEDS: INSULIN LISPRO 100 UNIT/1 ML 3ML VIAL SQ SCH ×2 (08:00→20:13)
[2019-07-20] MEDS: INSULIN GLARGINE 100 UNITS/ML VIAL SC SCH ×2 (08:38→20:13)
[2019-07-20] MEDS: FUROSEMIDE INJ 10 MG/ML 4 ML VIAL IV SCH ×2 (08:44→20:11)
[2019-07-20] MEDS: PREDNISONE 20 MG TAB PO SCH (08:44)
[2019-07-20] MEDS: METOPROLOL SUCCINATE 50 MG TAB XL PO SCH (08:44)
[2019-07-20] MEDS: ASPIRIN 81 MG CHEW TAB PO SCH (08:44)
[2019-07-20] MEDS: CEFEPIME 2 GM/NS 0.9% 100 ML 100 ML IV SCH (10:54)
--- NOTE | 2019-07-20 12:41 | Progress Note ---
DATE: Internal Medicine Progress Note SUBJECTIVE: The patient is doing well. No significant complaint except for rash over his body. PHYSICAL EXAMINATION: VITAL SIGNS: Blood pressure 124/58, temperature 97.1, heart rate 56 per minute, respiratory rate 16 per minute, O2 saturation 97%. HEART: Showed regular rhythm. Normal S1, S2 sound. LUNGS: Showed decreased breath sounds bilaterally. ABDOMEN: Soft. EXTREMITIES: Showed redness on both lower extremities. SKIN: He had edema all over his body. LABORATORY DATA: On the blood work, we have BMP; sodium 139, potassium 4.0, chloride 105, CO2 26, BUN 30, creatinine 1.20, glucose 133. On the CBC; white count 6.72, hemoglobin 11.9, hematocrit 37.4, platelet count 190,000. AST 20, ALT 15, total bilirubin 0.6, alkaline phosphatase 103. We have also a chest CT, which showed no evidence of any thoracic aneurysm, just tortuous aorta. FINAL IMPRESSION: 1. Cellulitis on both lower extremities. 2. Allergic dermatitis. 3. Anasarca. 4. Hypertension. 5. 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 6. Morbid obesity. 7. Chronic renal failure stage 3. 8. Acute on chronic systolic congestive heart failure. 9. Possible Red man syndrome secondary to vancomycin. 10. Morbid obesity. PLAN OF TREATMENT: We are going to discontinue vancomycin because of the rash is getting worse. Continue cefepime 2 g IV twice a day. Continue with Tylenol 650 mg p.o. q.4 hours as needed for mild pain or fever. Zyloprim 200 mg daily, aspirin 81 mg daily, benazepril 40 mg daily, furosemide 40 mg IV twice a day, hydrocortisone cream q.6 hours as needed for itching. We are going to hold the Lantus and the Humalog because of the episode of hypoglycemia this morning. Solu-Medrol 40 mg IV twice a day is going to be started because of the allergic dermatitis. Continue monitoring blood sugar before meals and at bedtime. Continue Claritin 10 mg daily, also because of allergic dermatitis. Continue Toprol-XL 100 mg daily, simvastatin 40 mg daily. The case has been discussed with the and the patient at bedside. Time spent around 45 minutes. We are going to order a BMP and a magnesium level also and physical therapy. MD PEE Shankar/NILSA /[id number]
[2019-07-20] MEDS: LINEZOLID 600 MG/D5W 300ML 300 ML IV SCH (14:42)
[2019-07-20] MEDS ORDERED: INSULIN LISPRO 100 UNIT/1 ML 3ML VIAL SQ SCH (17:00)
--- NOTE | 2019-07-20 19:00 | NUR ---
patient received awake, alert, sitting up in recliner. no c/o pain noted. bilateral lower extremities remain red, swollen with dry and scaly skin. pm assessment complete. patient instructed to call for assistance when needed.
--- NOTE | 2019-07-20 19:01 | NUR ---
REPORT GIVEN TO ONCOMING NURSE. WALKING ROUNDS DONE. PATIENT IS RESTING IN RECLINER. NO ACUTE DISTRESS NOTED. CALL LIGHT WITHIN REACH.
[2019-07-20 19:56] LABS: BASOPHILS % 0.5 % (0.0-1.0); EOSINOPHILS # (AUTO) 0.1 (0.0-0.4); HEMOGLOBIN 11.3 g/dL (14.0-18.0); LYMPHOCYTES # (AUTO) 0.6 (1.0-3.2); LYMPHOCYTES % 10.6 % (18.0-39.1); MEAN CORPUSCULAR HEMOGLOBIN 31.5 pg (28-32); MEAN CORPUSCULAR HGB CONC 32.3 g/dL (31-35); MEAN CORPUSCULAR VOLUME 97.5 fL (81-99); MONOCYTES # (AUTO) 0.3 (0.2-0.8); MONOCYTES % 5.8 % (4.4-11.3); NEUTROPHILS # (AUTO) 4.4 (2.1-6.9); NEUTROPHILS % 79.8 % (38.7-80.0); PLATELET COUNT 181 x10e3/uL (140-360); RED BLOOD COUNT 3.59 x10e6/uL (4.3-5.7); RED CELL DISTRIBUTION WIDTH 14.8 % (11.7-14.4)
[2019-07-20] MEDS: SIMVASTATIN 40 MG TAB PO SCH (20:11)
[2019-07-20] MEDS: METHYLPREDNISOLONE SOD SUCC 40 MG/ML VIAL 1ML IV SCH (20:11)
[2019-07-20] MEDS: ALLOPURINOL 100 MG TAB PO SCH (20:11)
[2019-07-20] MEDS: BENAZEPRIL HCL 10 MG TAB PO SCH (20:11)
--- NOTE | 2019-07-20 20:13 | NUR ---
blood sugar 402. patient refuses sliding scale insulin but agrees to take scheduled humalog and lantus.
[2019-07-20 20:18] LABS: ANION GAP 13.4 mmol/L (8-16); CALCIUM 8.7 mg/dL (8.4-10.2); CREATININE, SERUM 1.23 mg/dL (0.72-1.25); POTASSIUM 4.4 mmol/L (3.5-5.1)
--- NOTE | 2019-07-20 20:22 | Progress Note ---
DATE: 07/20/2019 Cardiology Progress Note. SUBJECTIVE: No major events. OBJECTIVE: VITAL SIGNS: Temperature afebrile, pulse 61, respiratory rate 14, blood pressure 124/58, saturating 97% on room air. GENERAL: Obese white man, in no acute distress. CARDIOVASCULAR: Regular rate and rhythm. No murmurs, rubs, or gallops. LUNGS: Clear to auscultation bilaterally. ABDOMEN: Soft, nontender, nondistended and obese. EXTREMITIES: 4+ edema of bilateral lower extremities. SKIN: Changes consistent with chronic venous insufficiency, severe CEAP 5 disease. CARDIOVASCULAR MEDICATIONS: Reviewed. LABORATORY DATA: Reviewed. TELEMETRY DATA: Reviewed. ASSESSMENT/PLAN: 1. Acute on chronic diastolic congestive heart failure. 2. Bilateral lower extremity cellulitis. 3. Chronic lymphedema. 4. Left upper extremity swelling. 5. Thoracic aortic aneurysm. PLAN: CT of the chest did not show any aneurysmal dilation, only tortuosity. The patient has severe bilateral lower extremity venous disease. He has never had prior venous treatment workup, just undergoing treatment for lymphedema. Continue treatment with wound care, antibiotics, elevation and wraps. He will require evaluation of his deep venous system. At some point, we will check and see if laboratory tech here has required equipment and if not, this can be done as an outpatient. Thank you for this consult. Continue diuresing as renal function tolerates. MD BRUCE Velarde/MODL /[id number]
[2019-07-21] VITALS (9 sets, daily range): BP systolic 132–187; BP diastolic 69–86
[2019-07-21] MEDS: ACETAMINOPHEN 325 MG TAB PO PRN (00:42)
--- NOTE | 2019-07-21 00:42 | NUR ---
patient medicated for c/o bilateral lower legs/left shoulder pain 5/10 at this time per patients request. patient appears to be resting quietly in recliner.
[2019-07-21] MEDS: LINEZOLID 600 MG/D5W 300ML 300 ML IV SCH ×2 (03:00→14:48)
--- NOTE | 2019-07-21 06:50 | NUR ---
Bedside report received from off going nurse. Patient is resting in recliner. No acute distress noted. Denies pain or discomfort at this time. Call light within reach. Bed in the lowest position.
[2019-07-21 07:27] LABS: ANION GAP 11.4 mmol/L (8-16); BLOOD UREA NITROGEN 31 mg/dL (7-26); BUN/CREATININE RATIO 29 (6-25); CARBON DIOXIDE 28 mmol/L (22-29); CHLORIDE 98 mmol/L (98-107); CREATININE, SERUM 1.08 mg/dL (0.72-1.25); EST GLOMERULAR FILTRATION RATE > 60 ML/MIN (60-); GLUCOSE 237 mg/dL (74-118); POTASSIUM 4.4 mmol/L (3.5-5.1); SODIUM 133 mmol/L (136-145)
[2019-07-21] MEDS: INSULIN REGULAR, HUMAN 100 UNIT/1 ML 3ML VIAL SQ SCH ×4 (07:30→21:00)
[2019-07-21] MEDS: LORATADINE 10 MG TAB PO SCH (08:18)
[2019-07-21] MEDS: METHYLPREDNISOLONE SOD SUCC 40 MG/ML VIAL 1ML IV SCH ×2 (08:18→21:15)
[2019-07-21] MEDS: FUROSEMIDE INJ 10 MG/ML 4 ML VIAL IV SCH ×2 (08:18→21:15)
[2019-07-21] MEDS: ASPIRIN 81 MG CHEW TAB PO SCH (08:18)
[2019-07-21] MEDS: METOPROLOL SUCCINATE 50 MG TAB XL PO SCH (08:19)
[2019-07-21] MEDS: INSULIN GLARGINE 100 UNITS/ML VIAL SC SCH ×2 (08:47→21:15)
[2019-07-21] MEDS: INSULIN LISPRO 100 UNIT/1 ML 3ML VIAL SQ SCH ×2 (08:47→21:15)
--- NOTE | 2019-07-21 12:45 | NUR ---
WOUND CARE 78 YO MALE HX VENOUS STASIS ,CELLULITIS AND BILATERAL LE EDEMA SHRUTI 19 CONSERVATIVE PUP ON VISCO MATTRESS SKIN ASSESSMENT COMPLETE PT PRESENTS WITH NO OPEN AREAS BUT HAS BILATERAL PITTING EDEMA WITH THICK SCALY SKIN RECOMMENDATIONS : NURSING TO CONTINUE TO MONITOR AND ASSIST PATIENT WITH POSITIONING AND SITTING UP PATIENT TEACHING DONE CONCERNING IMPORTANCE OF LEG ELEVATION AND NOT SITTING WITH BENT LEGS FOR LONG PERIODS OF TIME TO PREVENT EXCESSIVE SWELLING OF LOWER EXTREMITIES NURSING TO APPLY DAILY VENELEX OINTMENT TO BILATERAL LOWER LEGS ONCE RESULTS FROM CIRCULATORY STUDIES AVAILABLE AND DEEMED SAFE PATIENT MAY BENEFIT FROM DAILY LIGHT COMPRESSION APPLICATION
[2019-07-21] MEDS: BALSAM PERU/CASTOR OIL 60 GM OINT...G. TP SCH (14:48)
[2019-07-21] MEDS ORDERED: HYDRALAZINE HCL 20 MG/ML VIAL IV PRN (15:00)
--- NOTE | 2019-07-21 16:32 | NUR ---
Nutrition Screen Note RD Recommendation for Physician: - Continue current diet Plan of Care: RD following, monitoring for tolerance and adequacy Nutrition reason for involvement: Nutrition Risk Trigger- MST2 Primary Diagnose(s): cellulitis of BLE PMH: HTN, DM, PVD, TIA, CVA, morbid obesity Ht: 71 in Wt: 343 lb BMI: 47.8 kg/m2 IBW: [address] Assessment: (07/21) 78 YOM admitted for cellulitis of the BLE, evaluated today per MST2 screen. Medical providers at bedside at time of attempted visits, unable to obtain hx. Pt with good po intake per chart, 75-100% of meals. No reported GI distress, LBM 07/20. Unable to obtain wt hx, however pt is morbidly obese. Chart reviewed. Labs and meds reviewed, BG fluctuations note- pt currently on insulin. Will monitor and continue to follow. Current Diet: 1800 ADA Malnutrition Evaluation (07/21/19) The patient does not meet criteria for a specified degree of malnutrition at this time. Will re-evaluate at follow-up as appropriate. Unable to assess Diet Education Needs Assessment: Diet education indicated, medical providers at bedside at time of visits. Will evaluate diet education needs at follow up. Diet tolerance:tolerating po Nutrition Care Level: low Signed: Dania Otero RD, LD, [facility]
--- NOTE | 2019-07-21 17:02 | Progress Note ---
DATE: Internal Medicine Progress Note SUBJECTIVE: The patient is feeling fine. No significant complaint today. PHYSICAL EXAMINATION: VITAL SIGNS: Blood pressure 159/71, temperature 96.8, heart rate 49 per minute, respiratory rate 18 per minute, and oxygen saturation 97%. LABORATORY DATA: On the blood work, we have BMP; sodium 133, potassium 4.4, chloride 98, CO2 of 28, BUN 31, creatinine 1.08, glucose 237, calcium 9.0, magnesium 2.0, and last blood sugar 207. On the CBC; white blood count 5.54, hemoglobin 9.3, hematocrit 35.0, and platelet count 181,000. Blood culture negative so far. FINAL IMPRESSION: 1. The patient has cellulitis on both lower extremities. 2. Allergic dermatitis. 3. Anasarca. 4. Hypertension. 5. 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 6. Morbid obesity. 7. Chronic renal failure stage 3 secondary to diabetic nephropathy. 8. Acute on chronic systolic congestive heart failure. PLAN OF TREATMENT: We are going to continue with current medication regimen, which include the following medications, he is on Zyvox 600 mg IV twice a day, allopurinol 200 mg daily, Tylenol 650 mg every 4 hours as needed for pain, aspirin 81 mg daily, Balsam Compton/castor oil one application daily, benazepril 40 mg daily, D50 IV push as needed for blood sugar less than 60, furosemide 40 mg IV twice a day, hydrocortisone cream to affected area every 6 hours as needed for itching, and Lantus 45 units subcutaneous twice a day. Continue with the Humalog 40 units twice a day. Continue with monitoring blood sugar before meals and at bedtime, Claritin 10 mg daily, Solu-Medrol 40 mg IV twice a day, metoprolol 100 mg daily, Zofran 4 mg IV every 4 hours as needed for nausea and vomiting, and simvastatin 40 mg daily. We are going to order a BMP tomorrow. We will decide tomorrow if the patient can be discharged or he has to go to a long-term care hospital. MD PEE Shankar/NILSA /[id number]
--- NOTE | 2019-07-21 18:49 | NUR ---
BEDSIDE REPORT GIVEN TO ONCOMING NURSE. PATIENT IS RESTING IN RECLINER. NO ACUTE DISTRESS NOTED. CALL LIGHT WITHIN REACH.
--- NOTE | 2019-07-21 19:00 | NUR ---
patient received awake, alert, sitting up in recliner with bilateral legs elevated. no c/o pain noted. pm assessment complete. patient instructed to call for assistance when needed.
--- NOTE | 2019-07-21 20:04 | NUR ---
report on this patient given to Moreno Chen RN at this time.
--- NOTE | 2019-07-21 20:15 | NUR ---
RECEIVED REPORT FROM AIDEE KHAN RN. PATIENT IS RESTING IN RECLINER, BILATERAL LOWER EXTREMITIES ELEVATED, NO SIGNS OF DISTRESS NOTED. PATIENT IS AWARE OF NPO AFTER MIDNIGHT FOR PROCEDURE TOMORROW, CALL LIGHT IS WITHIN EASY REACH, WILL CONTINUE TO MONITOR.
[2019-07-21] MEDS: BENAZEPRIL HCL 10 MG TAB PO SCH (21:15)
[2019-07-21] MEDS: ALLOPURINOL 100 MG TAB PO SCH (21:15)
[2019-07-21] MEDS: SIMVASTATIN 40 MG TAB PO SCH (21:15)
--- NOTE | 2019-07-21 21:59 | Progress Note ---
DATE: 07/21/2019 Cardiology Progress Note SUBJECTIVE: No major events overnight. OBJECTIVE: VITAL SIGNS: Temperature afebrile, pulse 60, respiratory rate 18, blood pressure 132/86, saturating 95% on room air. GENERAL: Elderly man, well developed, well nourished, in no acute distress. CARDIOVASCULAR: Regular rate and rhythm. No murmurs, rubs, or gallops. LUNGS: Clear to auscultation bilaterally. ABDOMEN: Obese, soft, nontender, nondistended. No masses. EXTREMITIES: CEAP 5 disease, 4+ edema, bilateral lower extremities, overlying cellulitis, now improving. CARDIOVASCULAR MEDICATIONS: Reviewed. LABORATORY DATA: Reviewed. TELEMETRY DATA: Reviewed. ASSESSMENT: 1. Vvkmi-dk-uoxasey diastolic congestive heart failure. 2. Chronic lymphedema, bilateral lower extremities with overlying cellulitis. 3. Bilateral lower extremity venous insufficiency. 4. Left upper extremity swelling. PLAN: We will plan for bilateral lower extremity venogram and IVUS tomorrow to evaluate for any deep vein obstruction that may be contributing or causing his severe lower extremity venous insufficiency and related lymphedema with recurrent infections. This will be done tomorrow in the cardiac manager cardiac cath. Continue current medications, otherwise. Thank you for this consult. We will continue to follow. MD BRUCE Velarde/NILSA /[id number]
[2019-07-22] VITALS (8 sets, daily range): BP systolic 147–189; BP diastolic 67–78
[2019-07-22] MEDS: LINEZOLID 600 MG/D5W 300ML 300 ML IV SCH ×2 (03:39→14:26)
--- NOTE | 2019-07-22 06:07 | NUR ---
PATIENT VOICED THAT HE FELT THAT HIS BLOOD SUGAR WAS LOW AND WANTED IT CHECKED. AFTER CHECKING THE BLOOD SUGAR IT READ 224, NO DISTRESS NOTED FROM PATIENT AND IS STILL NPO.
[2019-07-22 06:32] LABS: ANION GAP 14.5 mmol/L (8-16); CALCIUM 9.2 mg/dL (8.4-10.2); CREATININE, SERUM 1.27 mg/dL (0.72-1.25); POTASSIUM 4.5 mmol/L (3.5-5.1)
--- NOTE | 2019-07-22 07:00 | NUR ---
RECEIVED AM REPORT AND ROUNDS DONE. PT IS ALERT SITTING UP IN THE BEDSIDE CHAIR, NO S/S OF DISTRESS. CALL LIGHT WITHIN REACH AND PT INSTRUCTED TO CALL NURSE FOR HELP
[2019-07-22] MEDS: INSULIN REGULAR, HUMAN 100 UNIT/1 ML 3ML VIAL SQ SCH ×4 (07:30→21:00)
[2019-07-22] MEDS: FUROSEMIDE INJ 10 MG/ML 4 ML VIAL IV SCH ×2 (08:02→20:45)
[2019-07-22] MEDS: METHYLPREDNISOLONE SOD SUCC 40 MG/ML VIAL 1ML IV SCH (08:02)
[2019-07-22] MEDS: INSULIN GLARGINE 100 UNITS/ML VIAL SC SCH ×2 (08:03→20:45)
[2019-07-22] MEDS: INSULIN LISPRO 100 UNIT/1 ML 3ML VIAL SQ SCH ×2 (08:03→20:45)
[2019-07-22] MEDS: ASPIRIN 81 MG CHEW TAB PO SCH (08:30)
[2019-07-22] MEDS: METOPROLOL TARTRATE 50 MG TAB PO SCH (08:30)
[2019-07-22] MEDS: LORATADINE 10 MG TAB PO SCH (08:30)
[2019-07-22] MEDS: AMLODIPINE BESYLATE 5 MG TAB PO SCH (08:30)
[2019-07-22] MEDS: BALSAM PERU/CASTOR OIL 60 GM OINT...G. TP SCH (08:30)
--- NOTE | 2019-07-22 08:37 | NUR ---
WOUND CARE CONSULT 78 YO MALE FOR APPLICATION OF BILATERAL COMPRESSION OF LOWER LEGS RELATED TO SOILA STASIS . RIGHT CALVE 46CM RIGHT ANKLE 31CM LEFT CALVE 46CM LEFT ANKLE 31CM PATIENT TEACHING FOR APPLICATION AND MAINTENANCE OF TUBIGRIP STOCKINGS DONE PATIENT STATES UNDERSTANDING AND DEMONSTRATES APPLICATION TUBIGRIP STOCKINGS APPLIED TO RIGHT AND LEFT LEG PATIENT DENIES ANY PAIN OR DISCOMFORT DURING OR AFTER APPLICATION INSTRUCTED TO REMOVE STOCKINGS IF HE EXPERIENCES ANY SEVERE PAIN OR DISCOMFORT AND INFORM NURSING Addendum: 07/22/19 at 0849 by Bala Duvall RN Amended: Links added.
[2019-07-22] MEDS ORDERED: HYDROCORTISONE 1% CREAM 30 GM TUBE TOP PRN (08:45)
[2019-07-22] MEDS ORDERED: ONDANSETRON HCL 4 MG ORAL DISINTEGRATING TAB PO PRN (11:00)
--- NOTE | 2019-07-22 11:35 | NUR ---
pt left the unit in stable condition via stretcher with the medical lab technologist nurse for scheduled venogram
[2019-07-22] MEDS ORDERED: MIDAZOLAM HCL 2 MG/2 ML VIAL ONE (11:42)
[2019-07-22] MEDS ORDERED: LIDOCAINE HCL 2% LOCAL 20 ML VIAL ONE (11:42)
[2019-07-22] MEDS ORDERED: FENTANYL CITRATE/PF 100MCG/2 ML INJ ONE (11:42)
[2019-07-22] MEDS ORDERED: SODIUM CHLORIDE 0.9% 1000ML 1,000 ML ONE (11:43)
[2019-07-22] MEDS ORDERED: IOPAMIDOL 300MG/ML 100 ML INFUS..BTL IV ONE (11:43)
[2019-07-22] MEDS ORDERED: HEPARIN SOD/SOD CHLORIDE 2,000 ML ONE (11:43)
--- NOTE | 2019-07-22 15:02 | Progress Note ---
DATE: Internal Medicine Progress Note SUBJECTIVE: The patient is doing well. PHYSICAL EXAMINATION: HEART: Showed regular rhythm. Normal S1, S2 sound. LUNGS: Clear bilaterally. EXTREMITIES: Show bilateral scaly lesions on both lower extremities and redness. IMPRESSION: 1. Cellulitis on both lower extremities. 2. Allergic dermatitis. 3. Anasarca. 4. Hypertension. 5. Uncontrolled diabetes mellitus type 2 with diabetic nephropathy. 6. Morbid obesity. 7. Chronic renal failure, stage 3. 8. Acute on chronic systolic congestive heart failure. PLAN OF TREATMENT: We are going to continue with Zyvox 600 mg IV twice a day. Continue with Tylenol 650 mg p.o. q.4 hours as needed for pain or fever, allopurinol 200 mg daily, amlodipine 5 mg daily, aspirin 81 mg daily, Balsam Tanja/castor oil one application daily, benazepril 40 mg daily. Continue with furosemide 40 mg IV twice a day, hydralazine 100 mg IV q.4 hours as needed for hypertension. He is taking also hydrocortisone 2.5% topical, Lantus 45 units subcutaneous twice a day, and Humalog 40 units subcutaneously twice a day. Continue monitoring blood sugar before meals and at bedtime. Continue Claritin 10 mg daily. Continue Solu-Medrol 40 mg IV twice a day. Continue metoprolol 100 mg daily. Continue Zofran 4 mg IV p.o. q.4 hours as needed for nausea and vomiting, Zocor 40 mg daily. MD PEE Shankar/NILSA /[id number]
[2019-07-22] MEDS: ALLOPURINOL 100 MG TAB PO SCH (20:45)
[2019-07-22] MEDS: BENAZEPRIL HCL 10 MG TAB PO SCH (20:45)
[2019-07-22] MEDS: SIMVASTATIN 40 MG TAB PO SCH (20:45)
--- NOTE | 2019-07-22 20:45 | NUR ---
PATIENT RESTING IN RECLINER, NO SIGNS OF RESPIRATORY DISTRESS NOTED. BILATERAL LEGS ELEVATED AND DRESSING INTACT. PATIENT VOICES NO PAIN AT THIS TIME, CALL LIGHT IS WITHIN EASY REACH, WILL CONTINUE TO MONITOR.
[2019-07-23] VITALS (8 sets, daily range): BP systolic 128–158; BP diastolic 60–68
[2019-07-23] MEDS: LINEZOLID 600 MG/D5W 300ML 300 ML IV SCH ×2 (03:31→15:25)
--- NOTE | 2019-07-23 07:00 | NUR ---
RECEIVED AM REPORT AND ROUNDS DONE. PT IS ALERT AND UP OOB, NO S/S OF DISTRESS. CALL LIGHT IS WITHIN REACH AND INSTRUCTED PT TO CALL NURSE FOR HELP
[2019-07-23] MEDS: INSULIN REGULAR, HUMAN 100 UNIT/1 ML 3ML VIAL SQ SCH ×4 (07:30→21:00)
[2019-07-23] MEDS: ASPIRIN 81 MG CHEW TAB PO SCH (08:11)
[2019-07-23] MEDS: AMLODIPINE BESYLATE 5 MG TAB PO SCH (08:11)
[2019-07-23] MEDS: METOPROLOL TARTRATE 50 MG TAB PO SCH (08:11)
[2019-07-23] MEDS: LORATADINE 10 MG TAB PO SCH (08:11)
[2019-07-23] MEDS: INSULIN LISPRO 100 UNIT/1 ML 3ML VIAL SQ SCH ×2 (08:11→22:00)
[2019-07-23] MEDS: INSULIN GLARGINE 100 UNITS/ML VIAL SC SCH (08:11)
[2019-07-23] MEDS: ACETAMINOPHEN 325 MG TAB PO PRN (08:57)
[2019-07-23] MEDS: FUROSEMIDE INJ 10 MG/ML 4 ML VIAL IV SCH ×2 (09:00→21:00)
[2019-07-23] MEDS: BALSAM PERU/CASTOR OIL 60 GM OINT...G. TP SCH (11:34)
--- NOTE | 2019-07-23 14:33 | Progress Note ---
DATE: Internal Medicine Progress Note SUBJECTIVE: He is feeling better. The patient had a venogram done. The rash is significantly improved. The swelling in the lower extremity has significantly improved. PHYSICAL EXAMINATION: HEART: Showed regular rhythm. Normal S1, S2 sound. LUNGS: Clear bilaterally. ABDOMEN: Soft. EXTREMITIES: Showed both lower extremities. VITAL SIGNS: Blood pressure 114/67, temperature 96.5, heart rate 55 per minute, respiratory rate 20 per minute, oxygen saturation 97%. LABORATORY DATA: On the BMP; sodium 137, potassium 4.5, chloride 98, CO2 of 29, BUN 34, creatinine 1.27, glucose 222. On the CBC; white blood count 5.54, hemoglobin 11.3, hematocrit 35.0, platelet count 181,000. AST 20, ALT 15, total bilirubin 0.6, alkaline phosphatase 103. IMPRESSION: 1. Cellulitis on both lower extremities. 2. Hbzir-xi-fecocvw renal failure, stage 3. 3. Allergic dermatitis, which is resolving. 4. Anasarca. 5. Hypertension with hypertensive nephropathy. 6. Uncontrolled diabetes mellitus type 2 with diabetic nephropathy. 7. Morbid obesity. 8. Chronic renal failure, stage 3. 9. Pclox-bw-rxyvnwv systolic congestive heart failure. PLAN OF TREATMENT: Continue Zyvox 600 mg IV twice a day. Continue monitoring blood sugar before meals and at bedtime. Continue furosemide 40 mg IV twice a day, loratadine 10 mg daily, metoprolol 50 mg daily, Zofran 4 mg IV q.4 hours as needed, Tylenol 650 mg p.o. q.4 hours as needed for pain or fever, hydrocortisone cream q.6 hours. Continue with Lantus 45 units twice a day subcutaneously, amlodipine 5 mg daily, aspirin 81 mg daily, allopurinol 200 mg daily. Continue with Humalog 40 units subcutaneously twice a day, hydralazine 10 mg IV q.4 hours as needed for hypertension, simvastatin 40 mg daily, benazepril 40 mg daily. Continue with Balsam Tanja/castor oil one application daily. Hydrocortisone cream twice a day. The venogram was normal. Tentative discharge tomorrow. MD PEE Shankar/MODL /[id number]
--- NOTE | 2019-07-23 14:43 | Progress Note ---
DATE: 07/23/2019 Cardiology Progress Note SUBJECTIVE: No major events overnight. OBJECTIVE: VITAL SIGNS: Temperature afebrile, pulse is 65, respiratory rate 20, blood pressure 149/67, saturating 97% on room air. GENERAL: Elderly man, in no acute distress. CARDIOVASCULAR: Regular rate and rhythm. No murmurs, rubs, or gallops. LUNGS: Clear to auscultation bilaterally. ABDOMEN: Soft, nontender, nondistended. NEURO AND PSYCH: Alert and oriented to person, place, and time. Normal affect. EXTREMITIES: Severe lymphedema bilateral lower extremities. The redness has improved significantly since admission. INPATIENT MEDICATIONS: Reviewed. LABORATORY DATA: Reviewed. TELEMETRY DATA: Reviewed. ASSESSMENT: 1. Chronic bilateral lower extremity lymphedema. 2. Chronic venous insufficiency. 3. Lower extremity cellulitis. PLAN: Had venogram and IVUS of bilateral lower extremities yesterday did not show any significant stenosis of the deep venous system. Continue wound care and diuretics for his chronic bilateral lower extremity lymphedema. Antibiotics per primary team. Okay to be discharged from a cardiovascular standpoint. Thank for this consult. We will continue to follow. MD BRUCE Velarde/NILSA /[id number]
--- NOTE | 2019-07-23 15:08 | Progress Note ---
DATE: 07/22/2019 Cardiology Progress Note SUBJECTIVE: IVUS and venogram of bilateral lower extremities done earlier today by me. There was no evidence of any obstruction. OBJECTIVE: VITAL SIGNS: Temperature afebrile, pulse 84, respiratory rate 13, blood pressure 151/69, satting 95% saturating on room air. GENERAL: Elderly man, in no acute distress. CARDIOVASCULAR: Regular rate and rhythm. No murmurs, rubs, or gallops. LUNGS: Clear to auscultation bilaterally. ABDOMEN: Soft, nontender, distended. NEURO AND PSYCH: Alert and oriented to person, place, and time. Normal affect. EXTREMITIES: Bilateral lower extremity lymphedema, chronic. Overlying cellulitis has improved. INPATIENT MEDICATIONS: Reviewed. LABORATORY DATA: Reviewed. TELEMETRY DATA: Reviewed. ASSESSMENT: 1. Chronic bilateral lower extremity lymphedema. 2. Overlying bilateral lower extremity cellulitis. 3. Chronic venous insufficiency, bilateral lower extremities. 4. Chronic diastolic heart failure. PLAN: Continue diuretics as renal function tolerates. No evidence of deep venous obstruction on venogram or IVUS. Continue wound care and antibiotics per primary team. Thank you for this consult. We will continue to follow. MD BRUCE Velarde/NILSA /[id number]
--- NOTE | 2019-07-23 19:00 | NUR ---
Completed bedside nursing report with morning nurse. Pt alert and orient to name, sitting in recliner. Denies pain at this time. Call silva within reach. Will continue to monitor.
--- NOTE | 2019-07-23 21:02 | NUR ---
Dr. Jackson called regarding elevated BS 389, ordered Lantus increased to 50 units BID and Humulin R [address] Jackson also informed of Patient refusing to taken Lasix, no further orders. Pt has not acute distress. Call light within reach. Will continue to monitor.
[2019-07-23] MEDS ORDERED: INSULIN REGULAR, HUMAN 100 UNIT/1 ML 3ML VIAL SQ ONE (21:15)
[2019-07-23] MEDS: SIMVASTATIN 40 MG TAB PO SCH (22:00)
[2019-07-23] MEDS: BENAZEPRIL HCL 10 MG TAB PO SCH (22:00)
[2019-07-23] MEDS: ALLOPURINOL 100 MG TAB PO SCH (22:00)
[2019-07-23] MEDS ORDERED: INSULIN GLARGINE 100 UNITS/ML VIAL SC ONE (23:00)
[2019-07-24] VITALS: BP 148/66
[2019-07-24] MEDS: LINEZOLID 600 MG/D5W 300ML 300 ML IV SCH (03:00)
[2019-07-24 04:00] VITALS: BP 135/60
[2019-07-24] MEDS: ACETAMINOPHEN 325 MG TAB PO PRN (04:20)
--- NOTE | 2019-07-24 06:35 | NUR ---
Pt sitting in recliner awake and alert. No acute distress noted.
--- NOTE | 2019-07-24 07:00 | NUR ---
received am report and rounds done. pt is alert and oob, no s/s of distress. call light within reach and instructed pt to call nurse for help
[2019-07-24] MEDS: INSULIN REGULAR, HUMAN 100 UNIT/1 ML 3ML VIAL SQ SCH ×2 (07:30→11:30)
[2019-07-24 07:47] VITALS: BP 159/71
[2019-07-24] MEDS: FUROSEMIDE INJ 10 MG/ML 4 ML VIAL IV SCH (08:27)
[2019-07-24] MEDS: ASPIRIN 81 MG CHEW TAB PO SCH (08:27)
[2019-07-24] MEDS: LORATADINE 10 MG TAB PO SCH (08:27)
[2019-07-24] MEDS: AMLODIPINE BESYLATE 5 MG TAB PO SCH (08:28)
[2019-07-24] MEDS: INSULIN LISPRO 100 UNIT/1 ML 3ML VIAL SQ SCH (08:28)
[2019-07-24] MEDS: METOPROLOL TARTRATE 50 MG TAB PO SCH (08:28)
[2019-07-24] MEDS ORDERED: INSULIN GLARGINE 100 UNITS/ML VIAL SC SCH ×2 (09:00)
[2019-07-24 09:32] VITALS: BP 159/71
[2019-07-24 11:57] VITALS: BP 166/71
--- NOTE | 2019-07-24 14:47 | Discharge Summary ---
HOSPITAL COURSE: The patient is a 78-year-old male, who has a past medical history positive for hypertension, obesity, diabetes, chronic renal failure, congestive heart failure, came to the hospital complaining of worsening swelling and redness of both lower extremities and generalized skin rash. The patient was found to have allergic dermatitis, cellulitis of both lower extremities. Started on IV antibiotic, IV Solu-Medrol. Insulin regimen was optimized. He was started also on IV Lasix, which he has been refusing lately. The patient is able to go home after finishing the course of IV antibiotic. He is going to be switched to oral Zyvox and go home. He can return to work in approximately a week. PHYSICAL EXAMINATION: HEART: Showed regular rhythm. Normal S1, S2 sound. LUNGS: Clear bilaterally. ABDOMEN: Soft. EXTREMITIES: Showed decreased redness and swelling in both lower extremities. VITAL SIGNS: Blood pressure 166/71, temperature 36.3, heart rate 58 per minute, respiratory rate 18 per minute, oxygen saturation 98%. LABORATORY DATA: Blood sugar was 109. On the BMP; sodium 137, potassium 4.5, chloride 98, CO2 of 29, BUN 34, creatinine 1.27, glucose 222, calcium 9.2. On the CBC, white blood count is 5.54, hemoglobin 11.3, hematocrit 35.0, platelet count 181,000. Urine came back clear. IMPRESSION: 1. Cellulitis of both lower extremities. 2. Allergic dermatitis. 3. Hypertension. 4. Uncontrolled diabetes mellitus type 2 with diabetic nephropathy. 5. Morbid obesity. 6. Hvooj-zi-rbtjqsd renal failure, stage 3. 7. Acute on chronic systolic congestive heart failure. The patient is going to be discharged home today with instruction to follow up with me in approximately a week. Medications are going to be furosemide 40 mg once a day, Zyvox 600 mg twice a day for a total of 8 days, Tylenol 650 mg q.4 hours as needed for mild pain or fever. Zyloprim 200 mg at bedtime, Norvasc 5 mg daily, aspirin 81 mg daily, Balsam Tanja/castor oil daily, benazepril 40 mg daily. IV furosemide has been discontinued of course. Continue with hydrocortisone cream 2.5% q.6 hours for skin rash, Lantus 60 units subcutaneously twice a day. Continue Humalog 40 units twice a day. Continue monitoring blood sugar before meals and at bedtime. Continue Claritin 10 mg daily, metoprolol 50 mg daily, Zocor 40 mg daily. He is going home today. MD PEE Shankar/NILSA /[id number]
== END 2019-07-24 14:40 | disposition home or self-care (01) | DRG 602 ==
LOC: ER 18:44 → ERHOLD 23:10 → MED/SURG3 07-18 00:15
PROVIDERS: ADMIT Internal Medicine; ATTEND Internal Medicine
DX: L03.116 Cellulitis of left lower limb (principal); I50.23 Acute on chronic systolic (congestive) heart failure; B08.3 Erythema infectiosum [fifth disease]; I13.0 Hypertensive heart and chronic kidney disease with heart failure and stage 1 through stage 4 chronic kidney disease, or unspecified chronic kidney disease; N17.9 Acute kidney failure, unspecified; Z68.42 Body mass index [BMI] 45.0-49.9, adult; I87.2 Venous insufficiency (chronic) (peripheral); L03.115 Cellulitis of right lower limb; I89.0 Lymphedema, not elsewhere classified; M10.9 Gout, unspecified; L23.9 Allergic contact dermatitis, unspecified cause; E11.21 Type 2 diabetes mellitus with diabetic nephropathy; Z79.4 Long term (current) use of insulin; E11.22 Type 2 diabetes mellitus with diabetic chronic kidney disease; N18.3 Chronic kidney disease, stage 3 (moderate); E66.01 Morbid (severe) obesity due to excess calories; F03.90 Unspecified dementia, unspecified severity, without behavioral disturbance, psychotic disturbance, mood disturbance, and anxiety; I27.20 Pulmonary hypertension, unspecified; I70.0 Atherosclerosis of aorta
CPT/HCPCS: 36415; 37252; 37253; 71046; 71275; 75822; 80048; 80053; 81001; 82948; 83605; 83735; 83880; 85025; 87040; 93306; 96372; 99152; 99153; 99284; C1753; C1766; C1769; J0360; J1815; J1817; J1940; J2001; J2020; J2250; J2920; J3010; J3370; J7030; J7050; J7512; Q9967

== ENCOUNTER 2019-11-10 16:03 | Outpatient (RCR) | payer MEDICARE ==
--- NOTE | 2019-10-18 14:44 | Progress Note ---
DATE: 10/18/2019 Followup Progress Note SUBJECTIVE: The patient came to [facility] today for a followup visit. PHYSICAL EXAMINATION: Ulcers on the right lower leg are slightly smaller with pink slightly friable tissue, which is predominantly covered with valverde slough and biofilm. There is no malodor or guille-ulcer skin erythema identified. Ulcers on the left lower leg have pink tissue predominantly covered by valverde slough. There is no malodor. Skin erythema consistent with stasis dermatitis is present on the skin of left lower leg and dorsum of left foot. The patient states that the Tubigrip rolled downwards constricting the left lower leg distally. The edema of right lower leg is better controlled. The edema of left lower leg is not adequately controlled. PROCEDURE NOTE: After obtaining consent from the patient, a time-out was performed. After checking for the patient's allergies, 2% lidocaine jelly was applied on ulcers on bilateral lower legs. Full-thickness sharp surgical debridement of subcutaneous tissue was performed with curette and necrotic slough was excised from ulcers on bilateral lower legs without complications. Hemostasis was achieved with pressure. The ulcers measurements pre and post surgical debridement are recorded. DIAGNOSES: 1. Chronic venous stasis ulcers, bilateral lower legs. 2. Stasis dermatitis, recurrent, left lower leg/dorsum of left foot. PLAN: 1. Discontinue Maxorb Silver and start applying Mesalt dressing twice weekly on ulcers, right and left lower legs. 2. Continue applying multilayered compression wraps, Coban Lite 2 daily on right lower leg for edema control, to be changed twice weekly at [facility]. The Mesalt dressing will chemically debride the necrotic slough from the ulcer base. 3. Discontinue Tubigrip and start applying Kerlix and light compression with Coban wrap daily on left lower leg for edema control, to be changed twice weekly at [facility]. 4. Continue elevating legs and performing toe, heel, calf pump exercises daily to reduce leg edema. 5. Continue taking Forrest daily for optimal wound healing. 6. Continue oral antibiotic therapy with Levaquin 500 mg to course completion. 7. Return to [facility] in 1 week for followup visit with . MD CHESTER Calhoun/NILSA /[id number]
[~2019-11-10 16:03] MED LIST changes: +ASPIR 8181 MG PO; +BACTRIM DS TAB1 EACH PO; +FLUOCINONIDE 0.05% 1 EA/15 GM TUBE ONE; +LANTUS 3ML100 UNITS/ SC; +LASIX40 MG PO; +LIDOCAINE VISC 2% SOLN 15 ML UDC ONE; +LIDOCAINE/PRILOCAINE 2.5-2.5% KIT ONE; +MINERAL OIL/PETROLAT/GLYCERI 6OZ BTL ONE; +NOVOLOG100 UNIT/1 SC; +SILVER SULFADIAZINE 50GM CREAM ONE
== END 2019-11-12 ==
LOC: WCC 16:03
PROVIDERS: ATTEND Family Medicine Adult Medicine
DX: E11.621 Type 2 diabetes mellitus with foot ulcer (principal); E11.22 Type 2 diabetes mellitus with diabetic chronic kidney disease; L97.521 Non-pressure chronic ulcer of other part of left foot limited to breakdown of skin; L97.811 Non-pressure chronic ulcer of other part of right lower leg limited to breakdown of skin; L97.821 Non-pressure chronic ulcer of other part of left lower leg limited to breakdown of skin; I83.12 Varicose veins of left lower extremity with inflammation; I83.11 Varicose veins of right lower extremity with inflammation; L84 Corns and callosities; R60.0 Localized edema; L03.119 Cellulitis of unspecified part of limb; I89.0 Lymphedema, not elsewhere classified; L53.8 Other specified erythematous conditions; M10.9 Gout, unspecified; S90.425A Blister (nonthermal), left lesser toe(s), initial encounter; N18.3 Chronic kidney disease, stage 3 (moderate); G99.0 Autonomic neuropathy in diseases classified elsewhere; I27.20 Pulmonary hypertension, unspecified; I50.9 Heart failure, unspecified; B96.5 Pseudomonas (aeruginosa) (mallei) (pseudomallei) as the cause of diseases classified elsewhere; E66.3 Overweight; G47.30 Sleep apnea, unspecified; I70.0 Atherosclerosis of aorta; B95.7 Other staphylococcus as the cause of diseases classified elsewhere; Y92.099 Unspecified place in other non-institutional residence as the place of occurrence of the external cause

== ENCOUNTER 2019-11-15 12:49 | Inpatient (IN) | payer MEDICARE ==
[~2019-11-15] VITALS: Ht 180.3 cm; Wt 145.1 kg
[~2019-11-15 12:49] MED LIST changes: -FLUOCINONIDE 0.05% 1 EA/15 GM TUBE ONE; -LIDOCAINE VISC 2% SOLN 15 ML UDC ONE; -LIDOCAINE/PRILOCAINE 2.5-2.5% KIT ONE; -MINERAL OIL/PETROLAT/GLYCERI 6OZ BTL ONE; -SILVER SULFADIAZINE 50GM CREAM ONE
[2019-11-15] MEDS ORDERED: VANCOMYCIN 1GM/NS 250 ML 250 ML IV ONE (13:15)
--- NOTE | 2019-11-15 14:27 | Diagnostic Imaging Report ---
Examination: Single AP view of the chest. COMPARISON: 09/18/2019 INDICATION: Shortness of breath, leg pain and swelling DISCUSSION: The lungs are well inflated. No focal consolidation, pleural effusion, or pneumothorax. Mild enlargement of the cardiac silhouette with prominence of the central pulmonary vasculature. No acute osseous abnormalities. Right glenohumeral and acromioclavicular degenerative arthrosis. IMPRESSION: Enlarged cardiomediastinal silhouette with pulmonary venous congestion, similar to 09/18/2019. Signed by: Dr. Soto Theodore M.D. on 11/15/2019 2:25 PM
[2019-11-15 15:06] LABS: BASOPHILS % 0.4 % (0.0-1.0); EOSINOPHILS # (AUTO) 0.2 (0.0-0.4); EOSINOPHILS % 2.7 % (0.0-6.0); HEMATOCRIT 42.5 % (38.2-49.6); HEMOGLOBIN 13.8 g/dL (14.0-18.0); LYMPHOCYTES # (AUTO) 1.4 (1.0-3.2); LYMPHOCYTES % 18.2 % (18.0-39.1); MEAN CORPUSCULAR HEMOGLOBIN 29.5 pg (28-32); MEAN CORPUSCULAR HGB CONC 32.5 g/dL (31-35); MEAN CORPUSCULAR VOLUME 90.8 fL (81-99); MONOCYTES # (AUTO) 0.6 (0.2-0.8); MONOCYTES % 7.7 % (4.4-11.3); NEUTROPHILS # (AUTO) 5.3 (2.1-6.9); NEUTROPHILS % 70.6 % (38.7-80.0); PLATELET COUNT 172 x10e3/uL (140-360); RED BLOOD COUNT 4.68 x10e6/uL (4.3-5.7); RED CELL DISTRIBUTION WIDTH 15.9 % (11.7-14.4)
[2019-11-15 15:16] LABS: INR 1.04; PARTIAL THROMBOPLASTIN TIME 30.6 seconds (23.8-35.5); PROTHROMBIN TIME 14.2 seconds (11.9-14.5)
[2019-11-15 15:23] LABS: ALANINE AMINOTRANSFERASE 9 IU/L (0-55); ALBUMIN 3.4 g/dL (3.5-5.0); ALBUMIN/GLOBULIN RATIO 0.9 (0.8-2.0); ALKALINE PHOSPHATASE 101 IU/L (40-150); ANION GAP 12.1 mmol/L (8-16); BLOOD UREA NITROGEN 30 mg/dL (7-26); BUN/CREATININE RATIO 29 (6-25); CARBON DIOXIDE 30 mmol/L (22-29); CHLORIDE 102 mmol/L (98-107); CREATINE KINASE 40 IU/L (30-200); CREATININE, SERUM 1.04 mg/dL (0.72-1.25); EST GLOMERULAR FILTRATION RATE > 60 ML/MIN (60-); GLUCOSE 200 mg/dL (74-118); POTASSIUM 4.1 mmol/L (3.5-5.1); SODIUM 140 mmol/L (136-145)
[2019-11-15] MEDS ORDERED: MORPHINE SULFATE 2 MG/ML SYR 1ML IV PRN (16:00)
[2019-11-15] MEDS ORDERED: MORPHINE SULFATE INJ 4 MG/ML INJ 1ML IV PRN (16:00)
[2019-11-15] MEDS ORDERED: ONDANSETRON HCL INJ 2MG/ML 2ML 2 MG/ML VIAL IV PRN (16:00)
[2019-11-15] MEDS ORDERED: ONE TOUCH ULTR1 EACH (17:46)
[2019-11-15] MEDS ORDERED: LANTUS 3ML100 UNITS/ (17:48)
[2019-11-15] MEDS ORDERED: LANTUS 3ML100 UNITS/ SC (17:48)
[2019-11-15] MEDS ORDERED: JUVEN PACKET1 EACH PO (17:50)
--- NOTE | 2019-11-15 18:41 | NUR ---
PT TO THE FLOOR AT THIS TIME. VITALS WNL. PT DENIES NEEDS AT THIS TIME.
[2019-11-15 20:19] VITALS: BP 168/78
[2019-11-15] MEDS ORDERED: HUMALOG100 UNIT/1 SC (21:07)
[2019-11-15] MEDS ORDERED: POTASSIUM GLUTAMATE PO (21:07)
[2019-11-15] MEDS ORDERED: POTASSIUM CHLO10 ME1 PO (21:07)
[2019-11-15] MEDS ORDERED: ACETAMINOPHEN325 M1 PO (21:11)
[2019-11-15 21:30] VITALS: BP 164/69
--- NOTE | 2019-11-15 21:35 | NUR ---
Spoke with Dr Jackson, Patient c/o pain and requesting Tylenol, No order for IV antibiotic and admitted for cellulitis received one dose of vancomycin in ER, BP 164/69, 62 would like to order any medication PRN for BP, FSBS 226 and no coverage ordered. New orders received. Patient updated on POC
[2019-11-15] MEDS ORDERED: DEXTROSE 50% SYRINGE 50 ML IV PRN (21:45)
[2019-11-15] MEDS ORDERED: HYDRALAZINE HCL 10 MG TAB PO PRN (21:45)
[2019-11-15 22:00] VITALS: BP 164/69
[2019-11-15] MEDS: SIMVASTATIN 40 MG TAB PO SCH (22:51)
[2019-11-15] MEDS: INSULIN LISPRO 100 UNIT/1 ML 3ML VIAL SQ SCH (22:51)
[2019-11-15] MEDS: ACETAMINOPHEN 325 MG TAB PO PRN (22:51)
[2019-11-15] MEDS: INSULIN GLARGINE 100 UNITS/ML VIAL SC SCH (22:51)
[2019-11-16] VITALS (8 sets, daily range): BP systolic 139–161; BP diastolic 62–74
[2019-11-16] MEDS ORDERED: SODIUM CHLORIDE 0.9% 250ML 250 ML ONE (02:58)
[2019-11-16] MEDS ORDERED: VANCOMYCIN 1GM/NS 250 ML 250 ML IV SCH (03:00)
[2019-11-16] MEDS: ACETAMINOPHEN 325 MG TAB PO PRN ×4 (04:47→18:42)
[2019-11-16 05:40] LABS: BASOPHILS % 0.6 % (0.0-1.0); EOSINOPHILS # (AUTO) 0.3 (0.0-0.4); HEMOGLOBIN 12.9 g/dL (14.0-18.0); LYMPHOCYTES # (AUTO) 1.2 (1.0-3.2); LYMPHOCYTES % 17.3 % (18.0-39.1); MEAN CORPUSCULAR HEMOGLOBIN 29.3 pg (28-32); MEAN CORPUSCULAR HGB CONC 31.5 g/dL (31-35); MONOCYTES # (AUTO) 0.6 (0.2-0.8); MONOCYTES % 8.1 % (4.4-11.3); NEUTROPHILS # (AUTO) 4.7 (2.1-6.9); NEUTROPHILS % 69.6 % (38.7-80.0); PLATELET COUNT 155 x10e3/uL (140-360); RED BLOOD COUNT 4.41 x10e6/uL (4.3-5.7); RED CELL DISTRIBUTION WIDTH 15.8 % (11.7-14.4)
--- NOTE | 2019-11-16 07:00 | NUR ---
BEDSIDE SHIFT REPORT RECEIVED FROM REPAIRER GENERAL RN, PT AWAKE, ALERT, SITTING UP IN BED. NO SIGNS OF DISTRESS. NO COMPLAINTS AT THIS TIME.
[2019-11-16] MEDS: INSULIN LISPRO 100 UNIT/1 ML 3ML VIAL SQ SCH ×6 (07:30→20:34)
--- NOTE | 2019-11-16 08:38 | NUR ---
PT REFUSING TO TAKE FULL DOSE OF INSULIN, STATING IT WILL DROP HIS BLOOD SUGAR TOO LOW. PT AWAKE, ALERT, NO SIGNS OF DISTRESS. WILL CONTINUE TO MONITOR.
--- NOTE | 2019-11-16 08:40 | NUR ---
PAGED DR. TORO AND DR HOLLY, DIRECTED TO VOICEMAIL. LEFT MESSAGE CONCERNING NEW CONSULT ON PATIENT.
[2019-11-16] MEDS ORDERED: ACETAMINOPHEN 325 MG TAB PO PRN (08:45)
[2019-11-16] MEDS: INSULIN GLARGINE 100 UNITS/ML VIAL SC SCH ×2 (08:48→21:00)
[2019-11-16] MEDS: GLUTAMINE PO SCH (10:00)
[2019-11-16] MEDS: CALCIUM HMB PO SCH (10:00)
[2019-11-16] MEDS: ARGININE PO SCH (10:00)
[2019-11-16] MEDS ORDERED: FUROSEMIDE INJ 10 MG/ML 4 ML VIAL IV ONE (10:15)
[2019-11-16] MEDS: ASPIRIN 81 MG CHEW TAB PO SCH (10:16)
[2019-11-16] MEDS: BENAZEPRIL HCL 10 MG TAB PO SCH (10:17)
[2019-11-16] MEDS: METOPROLOL SUCCINATE 50 MG TAB XL PO SCH (10:17)
--- NOTE | 2019-11-16 14:42 | History and Physical ---
HISTORY OF PRESENT ILLNESS: A 78-year-old male, past medical history positive for diabetes, hypertension, CHF, obesity, and hyperlipidemia. The patient sent from the wound care clinic because of redness and worsening of the wound on the right leg. The patient was diagnosed with cellulitis. Also, venous Doppler was done, the report is pending to rule out DVT. REVIEW OF SYSTEMS: CARDIOVASCULAR: No chest pain or palpitation. RESPIRATORY: No shortness of breath. No cough. GASTROINTESTINAL: No nausea or vomiting. No diarrhea. GENITOURINARY: No frequency or dysuria. ALLERGIES: HE IS ALLERGIC TO PENICILLIN AND LEVAQUIN. PAST MEDICAL HISTORY: Positive for congestive heart failure, hypertension, diabetes, hyperlipidemia, and obesity. SOCIAL HISTORY: He does not smoke, does not drink. PHYSICAL EXAMINATION: HEART: Showed regular rhythm. Normal S1 and S2 sound. LUNGS: Clear bilaterally. ABDOMEN: Soft. EXTREMITIES: Showed redness on the right leg. VITAL SIGNS: Blood pressure 149/67, temperature 95.9, heart rate 52 per minute, respiratory rate 18 per minute, and oxygen saturation 96%. LABORATORY DATA: We have blood work, which include a CBC; white blood count is 6.78, hemoglobin 12.9, hematocrit 41.0, and platelet count 155,000. We have also a BMP; sodium 140, potassium 4.1, chloride 102, CO2 30, anion gap 12.1, BUN 30, creatinine 1.04, GFR of 60, glucose 200, the last one was 177, and calcium 9.0. Total bilirubin 0.9, AST 14, ALT 9, and alkaline phosphatase 101. Creatine kinase 40, CK-MB 1.0, and troponin 0.004. Beta natriuretic peptide 199.3. Total protein 7.3, albumin 3.4, and globulin 3.9. FINAL IMPRESSION: 1. Cellulitis of the right leg. 2. Oakyz-dg-znkavqr diastolic congestive heart failure. 3. Obesity. 4. Uncontrolled diabetes mellitus type 2 with diabetic nephropathy. 5. Hypertension. 6. Hyperlipidemia. 7. Chronic renal failure, stage 3. PLAN OF TREATMENT: We are going to continue vancomycin 1 g IV twice a day, vancomycin trough on the third dose. We are going to continue Tylenol 650 mg q.4 hours as needed for pain or fever. Continue aspirin 81 mg daily and benazepril 40 mg daily. Continue furosemide 40 mg daily. Continue hydralazine 10 mg p.o. q.4 hours as needed for hypertension, which is blood pressure more than 150/90. He also takes the Lantus 45 units subcutaneously twice a day. Continue monitoring blood sugar before meals and at bedtime with medium-dose sliding scale. Continue Humalog 35 units before meals twice a day, metoprolol 100 mg daily, morphine 4 mg IV q.4 hours as needed for severe pain, Zofran 4 mg IV q.4 hours as needed for nausea and vomiting, Zocor 40 mg daily, and gjxszabs-rlctpcmnj-scevyfg one packet daily. We are going to also give him one dose of Lasix IV 40 mg IV one time and then recheck the BMP tomorrow. Case has been discussed with the patient and the nurse at the bedside. Discussed also with the emergency room physician also. Time spent around 45 minutes. MD PEE Shankar/NILSA /[id number]
--- NOTE | 2019-11-16 15:16 | NUR ---
DR. TORO'S WOOD CARVING LATHE OPERATOR AT BEDSIDE; CHANGING PT'S DRESSING TO RLE.
--- NOTE | 2019-11-16 15:44 | NUR ---
SPOKE WITH DR. TORO'S [employer] ROUTEMAN WHO STATES PT JUST RECEIVED LEVAQUIN LAST MONTH WITHOUT ANY REACTION; ORDERS FOR IV LEVAQUIN PLACED. ALSO ASKED FOR PRN [place] AND [place] ROUTEMAN STATES SHE WILL PLACE THE ORDER IN.
[2019-11-16] MEDS ORDERED: DIPHENHYDRAMINE HCL INJ 50 MG/ML VIAL IV PRN (15:45)
[2019-11-16] MEDS ORDERED: LEVOFLOXACIN 750MG/D5W 150ML 150 ML IV SCH (15:45)
[2019-11-16] MEDS: LEVOFLOXACIN 750MG/D5W 150ML 150 ML IV SCH (16:22)
[2019-11-16] MEDS: SIMVASTATIN 40 MG TAB PO SCH (21:04)
--- NOTE | 2019-11-16 22:59 | Consultation ---
DATE OF CONSULTATION: 11/16/2019 Infectious Disease Initial Consultation CONSULTING PHYSICIANS: 1. Ra Jackson MD. 2. Carl Cruz MD. REASON FOR CONSULTATION: Cellulitis of right lower extremity. HISTORY OF PRESENT ILLNESS: This is a 78-year-old male with past medical history of diabetes mellitus, type 2; hypertension, congestive heart failure, morbid obesity, hyperlipidemia. The patient was admitted from the Outpatient [facility] for redness and worsening edema to right lower extremity. There is concern for possible DVT. The patient was found to have no DVT per venous Doppler, but was admitted with cellulitis. Upon assessment, there was approximately 2 x 1 cm wound on the right lateral aspect of the right lower extremity. The patient does have 3+ pitting edema to the right lower extremity and there is warmth to the lateral aspect of the lower leg. Wound cultures done from September 2019 were positive for pseudomonas aeruginosa and Staphylococcus aureus. According to Wound Clinic, the patient was treated with 14 days of oral Levaquin without any reaction, although the patient's Levaquin is on their allergy list. The patient is unsure at this time, if he has a true allergy to Levaquin. PAST MEDICAL HISTORY: See HPI. SOCIAL HISTORY: Denies any tobacco, EtOH, or illicit drug use. REVIEW OF SYSTEMS: Fourteen-point review of systems was conducted. The patient complains of right lower extremity pain. Otherwise, review of systems negative. MEDICATIONS: Reviewed. ALLERGIES: SUPPOSEDLY TO PENICILLIN AND LEVAQUIN, BUT AGAIN, THE PATIENT JUST RECENTLY TOOK 14 DAYS OF ORAL LEVAQUIN WITHOUT ANY COMPLICATIONS. PHYSICAL EXAMINATION: VITAL SIGNS: Currently, blood pressure 154/71, heart rate 52, respirations 18, temperature 96.1. GENERAL: He is awake, alert, and oriented x3. He does not appear to be in any acute distress. LUNGS: Clear to auscultation bilaterally. HEART: Regular rate and rhythm. Normal S1 and S2. ABDOMEN: Soft, nontender, and nondistended. Bowel sounds present x4. EXTREMITIES: Left lower extremity is compressed with Coban 2 lymphedema wrap. There are no open wounds on that leg. Right lower extremity with 3+ pitting edema, erythema mostly on the right lateral aspect of the right lower extremity. There is an ulcer approximately 2 x 1 cm x 0.2 cm with granular wound bed on the lateral aspect of the right lower extremity. NEUROLOGICAL: Nonfocal. Cranial nerves 2 through 12 grossly intact. CURRENT LABORATORY AND DIAGNOSTIC DATA: Sodium of 140, potassium 4.1, chloride 102, bicarb 30, BUN of 30, creatinine 1.04, glucose of 200. White count 6.78, hemoglobin 12.9, hematocrit 41, platelet count of 152. INR 1.04. LFTs are within normal range. RADIOLOGY STUDIES: Venous Doppler was negative for any DVT. IMPRESSION: 1. Cellulitis of the right lower extremity. 2. Soft tissue infection, right lower extremity venous ulcer with pseudomonas and Staphylococcus aureus. 3. Morbid obesity. 4. Congestive heart failure. 5. Diabetes mellitus, type 2. 6. Hypertension. 7. Hyperlipidemia. 8. Chronic kidney disease, stage 3 with creatinine of 1.04 today. PLAN AND RECOMMENDATIONS: We will discontinue with Vancomycin. We will start the patient on IV Levaquin. We will monitor for any drug reactions. Benadryl as needed p.r.n. Nurse was notified to contact me if the patient starts having any reactions. Otherwise, we will continue with Levaquin IV. Case was discussed with Dr. Cruz. Thank you, Dr. Jackson, for the consultation. We will continue to follow the patient along with you. Dictated by Yobani Condon NP MD SARA Hernandez/MODL /[id number]
[2019-11-17] VITALS (8 sets, daily range): BP systolic 145–169; BP diastolic 67–74
[2019-11-17] MEDS: ACETAMINOPHEN 325 MG TAB PO PRN ×4 (01:58→21:48)
[2019-11-17 05:31] LABS: ANION GAP 12.2 mmol/L (8-16); BLOOD UREA NITROGEN 25 mg/dL (7-26); BUN/CREATININE RATIO 29 (6-25); CALCIUM 8.9 mg/dL (8.4-10.2); CARBON DIOXIDE 25 mmol/L (22-29); CHLORIDE 106 mmol/L (98-107); CREATININE, SERUM 0.86 mg/dL (0.72-1.25); EST GLOMERULAR FILTRATION RATE > 60 ML/MIN (60-); GLUCOSE 92 mg/dL (74-118); POTASSIUM 4.2 mmol/L (3.5-5.1); SODIUM 139 mmol/L (136-145)
[2019-11-17] MEDS: INSULIN LISPRO 100 UNIT/1 ML 3ML VIAL SQ SCH ×6 (07:30→21:00)
[2019-11-17] MEDS: INSULIN GLARGINE 100 UNITS/ML VIAL SC SCH ×2 (07:59→18:04)
[2019-11-17] MEDS: CALCIUM HMB PO SCH (08:43)
[2019-11-17] MEDS: GLUTAMINE PO SCH (08:43)
[2019-11-17] MEDS: ARGININE PO SCH (08:43)
[2019-11-17] MEDS: ASPIRIN 81 MG CHEW TAB PO SCH (08:49)
[2019-11-17] MEDS: BENAZEPRIL HCL 10 MG TAB PO SCH (08:50)
[2019-11-17] MEDS: METOPROLOL SUCCINATE 50 MG TAB XL PO SCH (08:50)
[2019-11-17] MEDS: FUROSEMIDE 40 MG TAB PO SCH (08:51)
[2019-11-17] MEDS ORDERED: ONDANSETRON HCL 4 MG ORAL DISINTEGRATING TAB PO PRN (09:45)
--- NOTE | 2019-11-17 11:27 | Progress Note ---
DATE: 11/17/2019 Internal Medicine Progress Note SUBJECTIVE: The patient has been doing well. PHYSICAL EXAMINATION: HEART: Showed regular rhythm. Normal S1 and S2 sound. LUNGS: Clear bilaterally. ABDOMEN: Soft. EXTREMITIES: Show redness of right leg. LABORATORY DATA: On the CBC; white blood count 6.78, hemoglobin 12.9, hematocrit 41.0, and platelet count 155,000. On the BMP; sodium 139, potassium 4.2, chloride 106, CO2 25, BUN 25, creatinine 0.86, glucose 92, the last one was 108. Blood cultures negative for 24 hours. FINAL IMPRESSION: 1. Cellulitis of right lower extremity. 2. History of chronic diastolic congestive heart failure. 3. History of diabetes mellitus type 2 with hyperglycemia. 4. Obesity. 5. Sleep apnea. 6. Hypertension. PLAN OF TREATMENT: Continue vancomycin 1 g IV twice a day, Zofran 4 mg IV q.4 hours as needed, and Tylenol 650 mg q.4 hours as needed. Continue monitoring blood sugar before meals and at bedtime. Continue Humalog 35 units before meals twice a day, benazepril 40 mg daily, hydralazine 10 mg IV q.4 hours as needed, simvastatin 40 mg daily, aspirin 81 mg daily, furosemide 40 mg daily, Lantus insulin 45 units subcutaneously twice a day, metoprolol 100 mg daily, and morphine 4 mg IV q.[address] Guillaume will be covering for me starting on November 17 until the . MD PEE Shankar/NILSA /[id number]
--- NOTE | 2019-11-17 11:32 | Progress Note ---
DATE: 11/17/2019 ADDENDUM: Dr. Cruz, Infectious Disease clinical sales consultant changed the antibiotics from vancomycin to Levaquin. Should continue Levaquin 500 mg daily off vancomycin. MD PEE Shankar/NILSA /[id number]
--- NOTE | 2019-11-17 14:49 | NUR ---
WOUND CARE CONSULT FOR 78 YO MALE HX OF CELLULITIS SHRUTI 20 ON CONSERVATIVE PUP STATUS AND INTERVENTIONS AND ALTERNATING PRESSURE MATTRESS LABS: WBC-6.78 HGB_12.9 GLUCOSE-93 SKIN ASSESSMENT COMPLETE PATIENT PRESENTS WITH RIGHT LATERAL LOWER LEG PARTIAL THICKNESS WOUND MEASURES 2CMX1.5CMX.1CM RIGHT POSTERIOR LOWER LEG PARTIAL THICKNESS WOUND MEASURES 2CMX1.5CMX .1CM RECOMMENDATIONS: NURSING TO CONTINUE TO MAINTAIN CONSERVATIVE PUP STATUS AND INTERVENTIONS AND ALTERNATING PRESSURE MATTRESS NURSING TO CONTINUE TO ASSIST PATIENT OUT OF BED FOR MEALS AND MUCH TOLERATED NURSING TO CONTINUE TO ASSIST PATIENT NEEDED WITH MEALS AND NUTRITIONAL SUPPLEMENTS TO ENSURE PROPER REQUIREMENTS FOR HEALING NURSING TO CONTINUE TO OFFLOAD FEET AND HEELS NEEDED WITH PILLOW SUSPENSION WHEN IN BED NURSING TO CLEAN RIGHT LOWER LEG PARTIAL THICKNESS WOUNDS WITH NORMAL SALINE DAILY AND APPLY COLLAGEN TO WOUND BASE COVER WITH NON ADHERING PAD WRAP CAST PADDING AND COBAN COMPRESSION WRAP LEAVE IN PLACE FOR 3 DAYS BEFORE REAPPLICATION NURSING TO MAINTAIN COMPRESSION WRAP TO LEFT LOWER EXTREMITY NEEDED Addendum: 11/17/19 at 1459 by Bala Duvall RN Amended: Links added.
[2019-11-17] MEDS: HYDRALAZINE HCL 25 MG TAB PO SCH (16:08)
[2019-11-17] MEDS: LEVOFLOXACIN 750MG/D5W 150ML 150 ML IV SCH (16:12)
--- NOTE | 2019-11-17 19:00 | NUR ---
BEDSIDE SHIFT REPORT GIVEN TO ONCOMING NURSE. PT AWAKE, ALERT, NO SIGNS OF DISTRESS. IN STABLE CONDITION.
[2019-11-17] MEDS: SIMVASTATIN 40 MG TAB PO SCH (21:47)
[2019-11-18 00:54] VITALS: BP 148/68
[2019-11-18 04:15] VITALS: BP 135/63
--- NOTE | 2019-11-18 07:00 | NUR ---
RCD PT AT BED PT IS ALERT AND ORIENTED RESTING ON BED ,IV PATENT BY SALINE FLUSH BED LOW AND LOCKED CALL LIGHT IN REACH
[2019-11-18] MEDS: INSULIN LISPRO 100 UNIT/1 ML 3ML VIAL SQ SCH ×3 (07:30→11:30)
[2019-11-18 07:43] VITALS: BP 149/74
[2019-11-18 08:23] VITALS: BP 149/74
[2019-11-18] MEDS: FUROSEMIDE 40 MG TAB PO SCH (09:00)
[2019-11-18] MEDS: HYDRALAZINE HCL 25 MG TAB PO SCH (09:00)
[2019-11-18] MEDS: ASPIRIN 81 MG CHEW TAB PO SCH (09:00)
[2019-11-18] MEDS: BENAZEPRIL HCL 10 MG TAB PO SCH (09:00)
[2019-11-18] MEDS: CALCIUM HMB PO SCH (09:00)
[2019-11-18] MEDS: GLUTAMINE PO SCH (09:00)
[2019-11-18] MEDS: ACETAMINOPHEN 325 MG TAB PO PRN (09:00)
[2019-11-18] MEDS: ARGININE PO SCH (09:00)
[2019-11-18] MEDS: METOPROLOL SUCCINATE 50 MG TAB XL PO SCH (09:00)
[2019-11-18] MEDS: INSULIN GLARGINE 100 UNITS/ML VIAL SC SCH (09:00)
--- NOTE | 2019-11-18 10:45 | NUR ---
AC TO [facility]NA PT CAN GO HOME SO PAGED DR WILDER GET THE DISCHARGE APPROVAL
--- NOTE | 2019-11-18 10:57 | Progress Note ---
DATE: 11/18/2019 SUBJECTIVE: Mr. Shields is a 78-year-old male with history of diabetes, hypertension, congestive heart failure, sleep apnea, morbid obesity, hyperlipidemia who was seen in the Wound Care Clinic because of right lower extremity erythema with venous ulcer. He was having also edema of the lower extremity. Wound cultures came back positive for Pseudomonas and Staphylococcus. The patient was treated with p.o. antibiotics, but apparently he did not improve and he came to the emergency room. OBJECTIVE: GENERAL: Today, he is awake and alert. He is feeling better. VITAL SIGNS: Temperature is 95, blood pressure is 149/74. HEART: Regular rate. LUNGS: Clear to auscultation. ABDOMEN: Soft. EXTREMITIES: Both lower extremities are under dressing. The patient states the right one is doing much better. LABORATORY DATA: On the blood work, white count is 6.78, hemoglobin is 12.9, hematocrit 41. Glucose 102 today. Toxicology, vancomycin 9.1. Coagulation was normal. Blood cultures have been negative. Chest x-ray on admission shows enlarged heart with pulmonary vascular congestion. ASSESSMENT: 1. Right lower extremity cellulitis. 2. Right lower extremity venous ulcer with Pseudomonas and Staphylococcus. 3. Acute on chronic diastolic congestive heart failure. 4. Morbid obesity. 5. Diabetes type 2 with hypoglycemia. 6. Hypertension. 7. Hyperlipidemia. 8. Diabetes type 2 with chronic kidney disease. 9. Chronic kidney disease, stage 3. 10. Sleep apnea. PLAN: Plan at present time is to continue ADA diet. Continue insulin. Continue wound care. The patient was switched to IV Levaquin by Infectious Disease. Continue all other home medications. Morphine IV for pain and Zofran IV for any nausea or vomiting. All this was discussed in detail with the patient. All questions were answered to satisfaction. Plan is to discharge him home when okay with Wound Care and Infectious Disease and if he can be switched to p.o. antibiotics. MD FRANCESCA Smith/NOELL /[id number]
--- NOTE | 2019-11-18 11:22 | NUR ---
DR WILDER RETURNED THE CALL AND GOT DISCHARGE ORDER
[2019-11-18] MEDS ORDERED: LEVAQUIN500 MG PO (11:27)
[2019-11-18 11:50] VITALS: BP 149/71
--- NOTE | 2019-11-18 12:29 | NUR ---
PATIENT WENT HOME IN SAFE CONDITION WITH HIS
--- NOTE | 2019-12-26 16:31 | Discharge Summary ---
HOSPITAL COURSE: A 78-year-old male with past medical history positive for diabetes, hypertension, congestive heart failure, obesity, hyperlipidemia. He was originally sent from the wound care clinic because of worsening redness a worsening wounds on the right leg. He was diagnosed with cellulitis. He failed outpatient treatment. Venous Doppler was done, it showed no evidence of any DVT. The patient was started empirically on IV antibiotics, wound care protocol. His diabetes medication and hypertension medication were restarted. He was started on vancomycin 1 g IV twice a day. He was started on aspirin, benazepril, furosemide, hydralazine as needed for hypertension. He was also restarted on the Lantus that he was taking before 45 units twice a day. He was started on diabetic diet. Blood sugar was monitored with medium dose sliding scale. Also, he was restarted on Humalog 35 units before meals twice a day. Metoprolol was also restarted at 100 mg a day and the patient was followed up by Dr. Guillaume, who was covering for me at that time and then was discharged over the weekend by Dr. Ramone Fulton, who was covering for me at that time. FINAL IMPRESSION: 1. Right lower extremity cellulitis. 2. Right lower extremity venous ulcer with Pseudomonas, staphylococcal. 3. Acute on chronic diastolic congestive heart failure. 4. Morbid obesity. 5. Uncontrolled diabetes mellitus type 2 with an episode of hypoglycemia. 6. Hypertension. 7. Hyperlipidemia. 8. Diabetes mellitus type 2 with chronic kidney disease. 9. Chronic kidney disease, stage 3. 10. History of sleep apnea. The patient was switched to IV Levaquin by Infectious Disease, Dr. Flowers, who was on the case , who switched the patient to oral antibiotics and as I said, the patient was discharged over the weekend by Dr. Ramone Fulton, who was covering for me at that time. He discharged the patient with oral antibiotic and he resumed all the home medications. He was instructed to follow up with me in a week. Diet 1800 calorie ADA diet. MD PEE Shankar/NILSA /[id number]
== END 2019-11-18 12:29 | disposition home or self-care (01) | DRG 602 ==
LOC: ER 13:01 → ERHOLD 15:52 → MED/SURG2 18:33 → OBSVTOIN 11-16 12:34
PROVIDERS: ADMIT Internal Medicine; ATTEND Internal Medicine
DX: L03.115 Cellulitis of right lower limb (principal); I50.33 Acute on chronic diastolic (congestive) heart failure; Z68.41 Body mass index [BMI] 40.0-44.9, adult; I13.0 Hypertensive heart and chronic kidney disease with heart failure and stage 1 through stage 4 chronic kidney disease, or unspecified chronic kidney disease; L97.811 Non-pressure chronic ulcer of other part of right lower leg limited to breakdown of skin; E11.21 Type 2 diabetes mellitus with diabetic nephropathy; E11.65 Type 2 diabetes mellitus with hyperglycemia; E78.5 Hyperlipidemia, unspecified; N18.3 Chronic kidney disease, stage 3 (moderate); G47.30 Sleep apnea, unspecified; E11.22 Type 2 diabetes mellitus with diabetic chronic kidney disease; B96.5 Pseudomonas (aeruginosa) (mallei) (pseudomallei) as the cause of diseases classified elsewhere; I87.2 Venous insufficiency (chronic) (peripheral); Z79.4 Long term (current) use of insulin; E66.01 Morbid (severe) obesity due to excess calories; B95.61 Methicillin susceptible Staphylococcus aureus infection as the cause of diseases classified elsewhere
CPT/HCPCS: 36415; 71045; 80048; 80053; 80202; 82550; 82553; 82948; 83880; 84484; 85025; 85610; 85730; 87040; 93005; 93971; 99251; 99284; G0378; J1815; J3370; J7050

== ENCOUNTER → 2019-12-13 | Outpatient (RCR) | payer MEDICARE ==
[~2019-12-13] MED LIST changes: +ACETAMINOPHEN325 M1 PO; +FLUOCINONIDE 0.05% 1 EA/15 GM TUBE ONE; +HUMALOG100 UNIT/1 SC; +JUVEN PACKET1 EACH PO; +LANTUS 3ML100 UNITS/; +LIDOCAINE VISC 2% SOLN 15 ML UDC ONE; +LIDOCAINE/PRILOCAINE 2.5-2.5% KIT ONE; +MINERAL OIL/PETROLAT/GLYCERI 6OZ BTL ONE; +ONE TOUCH ULTR1 EACH; +POTASSIUM CHLO10 ME1 PO; +POTASSIUM GLUTAMATE PO
== END ==
LOC: WCC 11-15 15:06
PROVIDERS: ATTEND Family Medicine Adult Medicine
DX: E11.621 Type 2 diabetes mellitus with foot ulcer (principal); E11.22 Type 2 diabetes mellitus with diabetic chronic kidney disease; L97.521 Non-pressure chronic ulcer of other part of left foot limited to breakdown of skin; L97.811 Non-pressure chronic ulcer of other part of right lower leg limited to breakdown of skin; L97.821 Non-pressure chronic ulcer of other part of left lower leg limited to breakdown of skin; L03.115 Cellulitis of right lower limb; L03.119 Cellulitis of unspecified part of limb; I83.12 Varicose veins of left lower extremity with inflammation; I83.11 Varicose veins of right lower extremity with inflammation; I89.0 Lymphedema, not elsewhere classified; L84 Corns and callosities; R60.0 Localized edema; M10.9 Gout, unspecified; L53.8 Other specified erythematous conditions; N18.3 Chronic kidney disease, stage 3 (moderate); B96.89 Other specified bacterial agents as the cause of diseases classified elsewhere; E66.3 Overweight; G47.30 Sleep apnea, unspecified; G99.0 Autonomic neuropathy in diseases classified elsewhere; I27.20 Pulmonary hypertension, unspecified; I50.9 Heart failure, unspecified; I70.0 Atherosclerosis of aorta; B95.7 Other staphylococcus as the cause of diseases classified elsewhere; Y92.099 Unspecified place in other non-institutional residence as the place of occurrence of the external cause

== ENCOUNTER 2020-01-10 11:45 | Outpatient (RCR) | payer MEDICARE ==
[~2020-01-10 11:45] MED LIST changes: +CLOTRIMAZOLE/BETAMETHASONE 45 GM CR TP ONE; -LIDOCAINE VISC 2% SOLN 15 ML UDC ONE; -LIDOCAINE/PRILOCAINE 2.5-2.5% KIT ONE
== END 2020-01-12 ==
LOC: WCC 11:45
PROVIDERS: ATTEND Family Medicine Adult Medicine
DX: E11.621 Type 2 diabetes mellitus with foot ulcer (principal); E11.22 Type 2 diabetes mellitus with diabetic chronic kidney disease; L03.119 Cellulitis of unspecified part of limb; L97.521 Non-pressure chronic ulcer of other part of left foot limited to breakdown of skin; L97.811 Non-pressure chronic ulcer of other part of right lower leg limited to breakdown of skin; I83.12 Varicose veins of left lower extremity with inflammation; I83.11 Varicose veins of right lower extremity with inflammation; R60.0 Localized edema; L84 Corns and callosities; M10.9 Gout, unspecified; I89.0 Lymphedema, not elsewhere classified; G99.0 Autonomic neuropathy in diseases classified elsewhere; B95.7 Other staphylococcus as the cause of diseases classified elsewhere; E66.3 Overweight; I27.20 Pulmonary hypertension, unspecified; I50.9 Heart failure, unspecified; I70.0 Atherosclerosis of aorta; B96.89 Other specified bacterial agents as the cause of diseases classified elsewhere

== ENCOUNTER 2020-02-09 10:43 | Outpatient (RCR) | payer MEDICARE ==
[~2020-02-09 10:43] MED LIST changes: -CLOTRIMAZOLE/BETAMETHASONE 45 GM CR TP ONE; +MINERAL OIL/PETROLAT/GLYCERI 2OZ CRM ONE
== END 2020-02-12 ==
LOC: WCC 10:43
PROVIDERS: ATTEND Family Medicine Adult Medicine
DX: E11.22 Type 2 diabetes mellitus with diabetic chronic kidney disease (principal); E11.622 Type 2 diabetes mellitus with other skin ulcer; L98.491 Non-pressure chronic ulcer of skin of other sites limited to breakdown of skin; L97.811 Non-pressure chronic ulcer of other part of right lower leg limited to breakdown of skin; L03.115 Cellulitis of right lower limb; L03.119 Cellulitis of unspecified part of limb; I83.12 Varicose veins of left lower extremity with inflammation; I83.11 Varicose veins of right lower extremity with inflammation; I89.0 Lymphedema, not elsewhere classified; R60.0 Localized edema; M10.9 Gout, unspecified; L98.8 Other specified disorders of the skin and subcutaneous tissue; L84 Corns and callosities; L53.8 Other specified erythematous conditions; N18.3 Chronic kidney disease, stage 3 (moderate); B96.89 Other specified bacterial agents as the cause of diseases classified elsewhere; E66.3 Overweight; G47.30 Sleep apnea, unspecified; G99.0 Autonomic neuropathy in diseases classified elsewhere; I27.20 Pulmonary hypertension, unspecified; I50.9 Heart failure, unspecified; I70.0 Atherosclerosis of aorta; B95.7 Other staphylococcus as the cause of diseases classified elsewhere; Y92.099 Unspecified place in other non-institutional residence as the place of occurrence of the external cause

== ENCOUNTER 2020-05-15 11:40 | Outpatient (RCR) | payer MEDICARE ==
[~2020-05-15 11:40] MED LIST changes: -FLUOCINONIDE 0.05% 1 EA/15 GM TUBE ONE; -MINERAL OIL/PETROLAT/GLYCERI 2OZ CRM ONE; -MINERAL OIL/PETROLAT/GLYCERI 6OZ BTL ONE
[2020-05-15] MEDS ORDERED: FLUOCINONIDE 0.05% 1 EA/15 GM TUBE ONE (13:40)
[2020-05-15] MEDS ORDERED: LIDOCAINE/PRILOCAINE 2.5-2.5% KIT ONE (13:40)
[2020-05-15] MEDS ORDERED: MUPIROCIN 2% OINT 22 GM TUBE ONE (13:40)
[2020-05-15] MEDS ORDERED: MINERAL OIL/PETROLAT/GLYCERI 6OZ BTL ONE (13:40)
[2020-05-15] MEDS ORDERED: NOVOLOG MI100 UNIT/1 SC (15:21)
[2020-05-15] MEDS ORDERED: NOVOLIN (15:22)
[2020-05-15] MEDS ORDERED: FUROSEMIDE40 MG (15:22)
[2020-05-15] MEDS ORDERED: METOPROLOL SUC100 MG (15:22)
[2020-05-15] MEDS ORDERED: CHLORTHALIDONE50 MG (15:22)
[2020-05-15] MEDS ORDERED: SPIRONOLACTONE50 MG (15:22)
== END 2020-06-13 ==
LOC: WCC 11:40
PROVIDERS: ATTEND Family Medicine Adult Medicine
DX: E11.621 Type 2 diabetes mellitus with foot ulcer (principal); E11.22 Type 2 diabetes mellitus with diabetic chronic kidney disease; L97.428 Non-pressure chronic ulcer of left heel and midfoot with other specified severity; L97.521 Non-pressure chronic ulcer of other part of left foot limited to breakdown of skin; L97.518 Non-pressure chronic ulcer of other part of right foot with other specified severity; S91.104A Unspecified open wound of right lesser toe(s) without damage to nail, initial encounter; I87.2 Venous insufficiency (chronic) (peripheral); I89.0 Lymphedema, not elsewhere classified; L03.119 Cellulitis of unspecified part of limb; L84 Corns and callosities; R60.0 Localized edema; S90.424A Blister (nonthermal), right lesser toe(s), initial encounter; M10.9 Gout, unspecified; L53.8 Other specified erythematous conditions; B96.89 Other specified bacterial agents as the cause of diseases classified elsewhere; B95.7 Other staphylococcus as the cause of diseases classified elsewhere; N18.3 Chronic kidney disease, stage 3 (moderate); G99.0 Autonomic neuropathy in diseases classified elsewhere; I50.9 Heart failure, unspecified; I27.20 Pulmonary hypertension, unspecified; I70.0 Atherosclerosis of aorta; E66.3 Overweight; G47.30 Sleep apnea, unspecified; W22.09XA Striking against other stationary object, initial encounter; Y92.099 Unspecified place in other non-institutional residence as the place of occurrence of the external cause

== ENCOUNTER 2020-05-15 14:18 | Inpatient (IN) | payer MEDICARE, OTHER ==
[~2020-05-15] VITALS: Ht 182.9 cm; Wt 142.4 kg
--- OUTSIDE RECORDS SUMMARY | 2020-05-15 14:35 | XMS REPORT | Clinical Summary ---
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 Last Filed Vital Signs Not on file Plan of Treatment Not on file Results Not on fileafter 05/15/2019 Insurance Payer Benefit Subscriber ID Type Phone Address Plan / Group MEDICARE MEDICARE A xxxxxxxxxx Medicare B MCR SUPPLEMENT/INDIVIDUAL AARP/UNITE xxxxxxxxxxx [facility] gap D HEALTHCARE
--- OUTSIDE RECORDS SUMMARY | 2020-05-15 14:37 | XMS REPORT | Continuity of Care Document ---
Author Author [facility] t Organization [facility] t Address [address] [place] [address] Phone Unavailable Care Team Providers Care Rim Buster Name Role Phone KRISTAN SCHILLING, MD GUTIERREZ PCP TANJA BENSON Attphys Unavailable ERA, LINDA Attphys Unavailable TORI RUSHINGIS Attphys Unavailable MARIAN, CAITY Attphys Unavailable Carolina WANG Attphys Unavailable MUNA, ASHLIE Admphys Unavailable KRISTAN, RA Admphys Unavailable Payers Payer Name Policy Type Policy Number Effective Date Expiration Date S zak AARP NA 2019 00:00:00 [facility] Medicare A & B NA 2005 00:00:00 [facility] Problems Condition Name Condition Details Condition Category Status Onset Date Resolution Date Last Treatment Date Treating Clinician Comments Source Calculus of ureter Ureteral stone Problem Active 2015-09-20 00:00:00 [facility] Cellulitis of right leg without foot Cellulitis of leg witho ut foot, right Problem Active 2014-11-03 00:00:00 [facility] Cellulitis of both lower extremities Cellulitis of right leg Problem Active [facility] Cellulitis of left upper extremity Cellulitis of left arm Problem Active [facility] Allergies, Adverse Reactions, Alerts Allergy Name Allergy Type Status Severity Reaction(s) Onset Date Inacti ve Date Treating Clinician Comments Source Penicillins DA Active SV 2020-02-13 00:00:00 [facility] Penicillin Allergy to substance Active Mild RASH 2019-07-17 00:00:00 [facility] Social History Social Habit Start Date Stop Date Quantity Comments Source Sex Assigned At 1940 00:00:00 1940 00:00:00 Male [facility] Medications Ordered Medication Name Filled Medication Name Start Date Stop Da te Current Medication? Ordering Clinician Indication Dosage Frequency Signature (SIG) Comments Components Source Acetaminophen Acetaminophen Yes 650 Every 6 Hours as needed for Mild Pain (1-3) Or Fever>100.8 [facility] Arginine/Glutamine/Calcium Hmb (Forrest Packet) 1 Each P OWD.PACK Arginine/Glutamine/Calcium Hmb (Forrest Packet) 1 Each POWD.PACK Y es 1 Daily [facility] Aspirin (Aspir 81) 81 Mg TABLET. Aspirin (Aspir 81) 81 Mg TABLET. Yes 81 Daily [facility] Benazepril Hcl Benazepril Hcl Yes 40 Daily [facility] Blood Sugar Diagnostic (One Touch Ultra Test Strips) 1 Each STRIP Blood Sugar Diagnostic (One Touch Ultra Test Strips) 1 Each STRIP Yes [facility] Furosemide (Lasix) 40 Mg TABLET Furosemide (Lasix) 40 Mg TABLET Yes 40 Daily [facility] Insulin Glargine (Lantus 3ML Pen) 100 Units/1 Ml INJ I nsulin Glargine (Lantus 3ML Pen) 100 Units/1 Ml INJ Yes 45 Twice A Da y [facility] Insulin Lispro (Humalog) 100 Unit/1 Ml CARTRIDGE Insul in Lispro (Humalog) 100 Unit/1 Ml CARTRIDGE Yes 35 Twice A Day [facility] Levofloxacin (Levaquin) 500 Mg TABLET Levofloxacin (Levaquin) 500 M g TABLET Yes 500 Daily [facility] Metoprolol Succinate Metoprolol Succinate Yes 100 Daily [facility] Potassium Glutamate Potassium Glutamate Yes 99 Daily [facility] Simvastatin Simvastatin Yes 40 Today At 9:00PM [facility] Allopurinol Allopurinol 2019-11-15 00:00:00 No 200 D aily [facility] Insulin Aspart (Novolog) 100 Unit/1 Ml CARTRIDGE Insul in Aspart (Novolog) 100 Unit/1 Ml CARTRIDGE 2019-11-15 00:00:00 No 40 Twic e A Day [facility] Insulin Glargine (Lantus 3ML Pen) 100 Units/1 Ml INJ I nsulin Glargine (Lantus 3ML Pen) 100 Units/1 Ml INJ 2019-11-15 00:00:00 No 40 [facility] Potassium Chloride Potassium Chloride 2019-11-15 00:00:00 No 0 Daily [facility] Sulfamethoxazole/Trimethoprim (Bactrim Ds Tablet) 1 Ea ch TABLET Sulfamethoxazole/Trimethoprim (Bactrim Ds Tablet) 1 Each TABLET 2019-11-15 00:00:00 No 1 Twice A Day [facility] Allopurinol Allopurinol 2019-07-17 00:00:00 No 100 D aily [facility] Aspirin Aspirin 2019-07-17 00:00:00 No 81 Daily [facility] Benazepril Hcl Benazepril Hcl 2019-07-17 00:00:00 No 40 Daily [facility] Furosemide (Lasix) 20 Mg TABLET Furosemide (Lasix) 20 Mg TABLET 2019-07-17 00:00:00 No 20 Daily [facility] Insulin Glargine (Lantus) 100 Units/Ml ML Insulin Glar gine (Lantus) 100 Units/Ml ML 2019-07-17 00:00:00 No 35 Twice A Day [facility] Insulin Human Lispro (Humalog) 100 Units/Ml ML Insulin Human Lispro (Humalog) 100 Units/Ml ML 2019-07-17 00:00:00 No 30 Twice A Day [facility] Metoprolol Succinate Metoprolol Succinate 2019-07-17 00:00:00 No 100 Daily [facility] Simvastatin Simvastatin 2019-07-17 00:00:00 No 40 T epi At 9:00PM [facility] Spironolactone Spironolactone 2019-07-17 00:00:00 No 50 Daily [facility] Amlodipine Besylate Amlodipine Besylate 2019-01-28 00:00:00 No 5 Daily [facility] Cholecalciferol (Vitamin D3) (Vitamin D3) 5,000 Unit C APSULE Cholecalciferol (Vitamin D3) (Vitamin D3) 5,000 Unit CAPSULE 2019-01-28 00:00:00 No 5000 Use As Directed [facility] Hydrochlorothiazide Hydrochlorothiazide 2019-01-28 00:00:00 No 25 Daily [facility] Tamsulosin Hcl Tamsulosin Hcl 2019-01-28 00:00:00 No 1 Daily [facility] Tramadol Hcl (Ultram) 50 Mg TABLET Tramadol Hcl (Ultram) 50 Mg T ABLET 2016-10-25 00:00:00 No 50 Every 6 Hours as nee ded for Pain [facility] Levofloxacin (Levaquin) 500 Mg TABLET Levofloxacin (Levaquin) 50 0 Mg TABLET 2015-10-03 00:00:00 No 500 Daily [facility] Metformin Hcl Metformin Hcl 2015-09-22 00:00:00 No 1000 Twice A Day [facility] Hortencia Low Dose Hortencia Low Dose 2015-09-20 00:00:00 No 81 Twice A Day [facility] Benazepril Hcl Benazepril Hcl 2015-09-20 00:00:00 No 10 Daily [facility] Insulin Glargine (Lantus) 100 Units/Ml ML Insulin Glar gine (Lantus) 100 Units/Ml ML 2015-09-20 00:00:00 No 60 Twice A Day [facility] Metanx Metanx 2015-09-20 00:00:00 No [facility] Metformin Hcl Metformin Hcl 2015-09-20 00:00:00 No 500 Twice A Day [facility] Simvastatin Simvastatin 2015-09-20 00:00:00 No 20 D aily [facility] Vital Signs Vital Name Observation Time Observation Value Comments Source Body Temperature 2019-11-18 10:50:00 96.2 [degF] [facility] Procedures Procedure Date / Time Performed Performing Clinician Magalys e FLUOROSCOPY BI LOW EXTREM VEIN W L OSM CONTRAST, GUIDANCE 2018-09 00:00:00 [facility] ULTRASONOGRAPHY OF BI LOW EXTREM VEIN, INTRAVASC 2019-07-22 00:0 0:[address] [facility] [address] angiography of chest 2019-07-19 00:00:00 RA RUSHING [facility] X-ray of chest, two views 2019-07-17 00:00:00 CRISTO SEYMOUR [facility] Encounters Start Date/Time End Date/Time [facility] ID Source 2020-02-09 10:43:00 2020-02-12 23:59:00 Discharged Recurring [facility] [id number] [facility] 2019-12-15 15:32:00 2020-01-12 23:59:00 Discharged Recurring [facility] [id number] [facility] 2019-11-15 14:06:00 2019-12-13 23:59:00 Discharged Recurring [facility] [id number] [facility] 2019-11-16 11:34:00 2019-11-18 11:29:00 Discharged Inpatient 1 TANJA BENSON [facility] [id number] [facility] 2019-10-18 09:37:00 2019-11-12 22:59:00 Discharged Recurring [facility] [id number] [facility] 2019-09-19 13:04:00 2019-10-14 22:59:00 Discharged Recurring [facility] [id number] [facility] 2019-09-18 07:08:00 2019-09-18 09:46:00 Departed Emergency Room 1 LINDA GIRARD [facility] [id number] [facility] 2019-07-17 22:10:00 2019-07-24 13:40:00 [facility] [id number] [facility] 2019-07-01 12:53:00 2019-07-01 12:53:00 Registered Clinic [facility] [id number] [facility] 2019-05-12 12:57:00 2019-05-12 12:57:00 Registered Clinic [facility] Patients [facility] [id number] [facility] 2019-01-28 14:12:00 2019-02-01 23:00:00 Discharged Inpatient 1 KRISTAN RA [facility] [id number] [facility] 2019-01-07 14:57:00 2019-01-07 14:57:00 Registered Clinic 3 CAITY FONSECA [facility] [id number] [facility] 2018-11-11 12:22:00 2018-11-11 12:22:00 Registered Clinic 3 KRISTAN RA [facility] [id number] [facility] 2018-02-13 14:11:00 2018-02-13 15:17:00 Departed Emergency Room [facility] [id number] [facility] 2017-12-20 11:33:00 2017-12-20 13:56:00 Departed Emergency Room ER ANSHUL WANG [facility] [id number] [facility] Results Test Description Test Time Test Comments Results Result Comments Source GLUBED 2020-02-21 19:56:00 Test Item GLUBED (test code = GLUBED) 228 MG/DL 70-110 H Performed by certified shear grinder operator helper at [facility] [id number] 11:58:00* Test Item Value Reference Range Interpretation Comments GLUBED (test code = GLUBED) 311 MG/DL 70-110 H Performed by certified shear grinder operator helper at [facility] [id number] 08:27:00* Test Item Value Reference Range Interpretation Comments GLUBED (test code = GLUBED) 308 MG/DL 70-110 H Performed by certified shear grinder operator helper at [facility] [id number] 00:34:00* Test Item Value Reference Range Interpretation Comments GLUBED (test code = GLUBED) 283 MG/DL 70-110 H Performed by certified shear grinder operator helper at [facility] [id number] 17:25:00* Test Item Value Reference Range Interpretation Comments GLUBED (test code = GLUBED) 298 MG/DL 70-110 H Performed by certified shear grinder operator helper at [facility] [id number] 12:32:00* Test Item Value Reference Range Interpretation Comments GLUBED (test code = GLUBED) 382 MG/DL 70-110 H Performed by certified shear grinder operator helper at [facility] CBC W/AUTO [id number] 08:14:00* Test Item Value Reference Range Interpretation Comments WHITE BLOOD CELL (test code = WBC) 6.27 x10 3/uL 4.5-11.0 N RED BLOOD CELL (test code = RBC) 2.92 x10 6/uL 4.00-5.60 L HEMOGLOBIN (test code = HGB) 9.1 g/dL 12.5-16.9 L HEMATOCRIT (test code = HCT) 28.6 % 37.5-50.7 L MEAN CELL VOLUME (test code = MCV) 97.9 fL 81.0-99.0 MEAN CELL HGB (test code = MCH) 31.2 pg 27.0-33.0 N MEAN CELL HGB CONCETRATION (test code = MCHC) 31.8 g/dL 33.0-37. 0 L RED CELL DISTRIBUTION WIDTH CV (test code = RDW) 15.3 % 11.5- 14.5 H RED CELL DISTRIBUTION WIDTH SD (test code = RDW-SD) 55.3 fL 37 .0-54.0 H PLATELET COUNT (test code = PLT) 179 x10 3/uL 150-400 N MEAN PLATELET VOLUME (test code = MPV) 9.1 fL 7.0-9.0 H NEUTROPHIL % (test code = NT%) 68.5 % 56.0-77.0 N IMMATURE GRANULOCYTE % (test code = IG%) 0.6 % 0.0-2.0 N LYMPHOCYTE % (test code = LY%) 17.7 % 14.0-32.0 N MONOCYTE % (test code = MO%) 7.0 % 4.8-9.0 N EOSINOPHIL % (test code = EO%) 5.6 % 0.3-3.7 H BASOPHIL % (test code = BA%) 0.6 % 0.0-2.0 N NUCLEATED RBC % (test code = NRBC%) 0.0 % 0-0 N NEUTROPHIL # (test code = NT#) 4.29 x10 3/uL 2.0-7.6 N IMMATURE GRANULOCYTE # (test code = IG#) 0.04 x10 3/uL 0.00-0.03 H LYMPHOCYTE # (test code = LY#) 1.11 x10 3/uL 1.0-3.8 N MONOCYTE # (test code = MO#) 0.44 x10 3/uL 0.1-0.8 N EOSINOPHIL # (test code = EO#) 0.35 x10 3/uL 0.0-0.2 H BASOPHIL # (test code = BA#) 0.04 x10 3/uL 0.0-0.2 N NUCLEATED RBC # (test code = NRBC#) 0.00 x10 3/uL 0.0-0.1 N MANUAL DIFF REQUIRED (test code = MDIFF) NO [id number] 08:08:00* Test Item Value Reference Range Interpretation Comments GLUBED (test code = GLUBED) 271 MG/DL 70-110 H Performed by certified shear grinder operator helper at [facility] [id number] 08:07:00* Test Item Value Reference Range Interpretation Comments GLUBED (test code = GLUBED) 338 MG/DL 70-110 H Performed by certified shear grinder operator helper at [facility] BASIC METABOLIC [id number] 07:46:00* Test Item Value Reference Range Interpretation Comments SODIUM (test code = NA) 137 mEq/L 134-147 N POTASSIUM (test code = K) 4.8 mEq/L 3.4-5.0 N CHLORIDE (test code = CL) 106 mEq/L 100-108 N CARBON DIOXIDE (test code = CO2) 25 mEq/L 21-33 N ANION GAP (test code = GAP) 11 0-20 N GLUCOSE (test code = GLU) 254 mg/dL 70-110 H BLOOD UREA NITROGEN (test code = BUN) 33 mg/dL 7-18 H GLOMERULAR FILTRATION RATE (test code = GFR) 72.1 70-80 N Units of measure = ml/min/1.73 m2 CREATININE (test code = CREAT) 1.0 mg/dL 0.6-1.3 N CALCIUM (test code = CA) 8.5 mg/dL 8.0-10.5 N [id number] 19:58:00* Test Item Value Reference Range Interpretation Comments GLUBED (test code = GLUBED) 258 MG/DL 70-110 H Performed by certified shear grinder operator helper at [facility] [id number] 16:51:00* Test Item Value Reference Range Interpretation Comments GLUBED (test code = GLUBED) 365 MG/DL 70-110 H Performed by certified shear grinder operator helper at [facility] SURGICAL [id number] 12:04:00 RUN DATE: 02/19/20 [facility] *LIVE* PAGE 1 RUN TIME: 1204 Specimen Inqui ry RUN USER: INTERFACE PATIENT: NHI DUMONT ACCT #: [id number] LOC: [facility] U #: [id number] AGE/SX: 79/M ROOM: [facility] RE02/13/20REG DR: Ra Rushing MD : 40 BED: 1 DIS: STATUS: ADM IN TLOC: SPEC #: [id number] RECD: 02/15/20 STATUS: CHELA REQ #: [id number] BRANDAN: 02/15/[address]: Ra Rushing MD ENTERED: 02/18/20 SP TYPE: SURG SPEC OTHR DR: DOES_N OT KNOW Self Referred All neftaly,Larry Hart Jr, MD, MD,Odell Gonzalez MD, MD, Darrell L Jr MD Rosenblatt,Edmundo Paris MD, MDORDERED: GM LEVEL 4 CODES: [id number] - STOMACH, NOS COPIES TO: DOES_NOT KNOW Self Referred Srikanth Thornton Jr, MD [address] [id number] [email or web address] Larry Cheng MD [address] [place], [place] [id number] Josué oWod MD [address] [facility] [address] [place] [address] Odell Omer MD [address] [facility] [address] [place], [place] [address] [phone] OTHER PHONE [phone] ([place]) [place] [address] [place], [place] [address] [email or web address] CONTINUED ON NEXT PAGE RUN DATE: 02/19/20 [facility] *LIVE* PAGE 2 RUN TIME: 12 Specimen Inquiry RUN USER: INTE RFACE SPEC #: [id number] PATIENT: NHI DUMONT #[id number] (Co ntinued) COPIES TO: (Continued) Marina Carlos MD [address] [id number] Edmundo Nelson MD [address] [place] [id number] Ra Rushing MD [address] [place] [address] PROCEDURES: LEVEL 4 (Incomplete) TISSUES: 1. STOMACH, NOS - Stomach, bx. FINAL DIAGNOSIS Stomach, bx.: Chronic gastritis, intestinal metaplasia (g oblet cells present), no Helicobacter organisms seen. GROSS AND MICROSCO PIC GROSS EXAMINATION: Received is/are the specimen/s designated with the appropriate dimensions and block designation: 1. Stomach, bx.: One segment of pink-valverde tissue, measuring up to 0.4 cm. in g reatest dimension. MICRO SCOPIC EXAMINATION: Sections of the "Stomach, bx." reveal changes of chronic gastritis and intestinal metaplasia. The Alcian blue/PAS stain is positive in the area of intestinal metaplasia. The immunostain for Helicobacte r organisms is negative. (When special stains have been reviewed, the appropriate positive/negative controls have been reviewed and are appropriate ly positive/negative). POST-OP DIAG NOSIS Gastritis CONTINUED ON NEXT PAGE RUN DATE: 02/19/20 [facility] *LIVE* PAGE 3 RUN TIME: 1204 Specimen I nquiry RUN USER: INTERFACE SPEC #: [id number] PATIENT: Stewart DUMONT #[id number] (Continued) PRE-OP YONAS GNOSIS Melena Signed SIGNATURE ON FILE Isabelle Coleman MD 02/19/20 1204 END OF REPORT [id number] 11:22:00* Test Item Value Reference Range Interpretation Comments GLUBED (test code = GLUBED) 424 MG/DL 70-110 H Performed by certified shear grinder operator helper at [facility] [id number] 11:22:00* Test Item Value Reference Range Interpretation Comments GLUBED (test code = GLUBED) 349 MG/DL 70-110 H Performed by certified shear grinder operator helper at [facility] [id number] 21:34:00* Test Item Value Reference Range Interpretation Comments GLUBED (test code = GLUBED) 293 MG/DL 70-110 H Performed by certified shear grinder operator helper at [facility] [id number] 16:42:00* Test Item Value Reference Range Interpretation Comments GLUBED (test code = GLUBED) 298 MG/DL 70-110 H Performed by certified shear grinder operator helper at [facility] [id number] 12:54:00* Test Item Value Reference Range Interpretation Comments GLUBED (test code = GLUBED) 283 MG/DL 70-110 H Performed by certified shear grinder operator helper at [facility] [id number] 12:48:00* Test Item Value Reference Range Interpretation Comments GLUBED (test code = GLUBED) 339 MG/DL 70-110 H Performed by certified shear grinder operator helper at [facility] [id number] 12:29:00* Test Item Value Reference Range Interpretation Comments GLUBED (test code = GLUBED) 245 MG/DL 70-110 H Performed by certified shear grinder operator helper at [facility] - [place] ACUTE GI BLOOD [id number] 12:07:00 FAX: Ra Banegas MD [phone] [place]: St: ADM Name: NHI DOVE [facility] : [birth year] Age/S: 79/M [address] [place] [address] Bl Unit #: [id number] Loc: [address] [address] Phys: Ra Rushing MD Acct: [id number] Dis Date: Status: ADM IN PHONE #: [phone] Exam Date: 02/17/2020 1148 FAX #: [phone] Reason: Gastrointestinal bleed with normal EGD,colonoco EXAMS: CPT CODE: [id number] [place] ACUTE GI BLOOD LOSS 72016 PROCEDURE: NUCLEAR MEDICINE GI BLE EDING SCAN INDICATION: Melena, tarry stool COMPARISO N: None. TECHNIQUE: Tagged red blood cell scan is performed using 20 mCi of technetium 99m labeled RBCs, which was administered intra venously. IV Site: Left Antecubital Dynamic imagin g was performed in the frontal plane at 1 minute intervals for 60 minutes. FINDINGS: Physiologic blood pool activity. No abnormal fo ci of activity to suggest active GI bleeding. Delayed imagi ng can be performed for up to 24 hrs, if there is recurrent GI bleeding. IMPRESSION: Negative for active gastrointestinal bleeding. SL: [id number] at 1207 * * Reported and signed by: Gordon Duke D.O. CC: Ra Rushing MD Technologist: JAYDE Garcia (N)(CT); ... Trnscrd Date/Time/By: 02/17/20 20 (120) : By: [email or web address] Orig Print D/T: S: 02/17/2020 (1210) PAGE 1 Signed Report BASIC METABOLIC [id number] 09:04:00* Test Item Value Reference Range Interpretation Comments SODIUM (test code = NA) 137 mEq/L 134-147 N POTASSIUM (test code = K) 4.4 mEq/L 3.4-5.0 N CHLORIDE (test code = CL) 106 mEq/L 100-108 N CARBON DIOXIDE (test code = CO2) 23 mEq/L 21-33 N ANION GAP (test code = GAP) 12 0-20 N GLUCOSE (test code = GLU) 267 mg/dL 70-110 H BLOOD UREA NITROGEN (test code = BUN) 56 mg/dL 7-18 H GLOMERULAR FILTRATION RATE (test code = GFR) 53.3 70-80 L Units of measure = ml/min/1.73 m2 CREATININE (test code = CREAT) 1.3 mg/dL 0.6-1.3 N CALCIUM (test code = CA) 7.8 mg/dL 8.0-10.5 L [id number] 08:40:00* Test Item Value Reference Range Interpretation Comments GLUBED (test code = GLUBED) 255 MG/DL 70-110 H Performed by certified shear grinder operator helper at [facility] CBC W/AUTO [id number] 07:42:00* Test Item Value Reference Range Interpretation Comments WHITE BLOOD CELL (test code = WBC) 5.54 x10 3/uL 4.5-11.0 N RED BLOOD CELL (test code = RBC) 2.67 x10 6/uL 4.00-5.60 L HEMOGLOBIN (test code = HGB) 8.2 g/dL 12.5-16.9 L HEMATOCRIT (test code = HCT) 25.3 % 37.5-50.7 L MEAN CELL VOLUME (test code = MCV) 94.8 fL 81.0-99.0 N MEAN CELL HGB (test code = MCH) 30.7 pg 27.0-33.0 N MEAN CELL HGB CONCETRATION (test code = MCHC) 32.4 g/dL 33.0-37. 0 L RED CELL DISTRIBUTION WIDTH CV (test code = RDW) 15.9 % 11.5- 14.5 H RED CELL DISTRIBUTION WIDTH SD (test code = RDW-SD) 54.5 fL 37 .0-54.0 H PLATELET COUNT (test code = PLT) 141 x10 3/uL 150-400 L MEAN PLATELET VOLUME (test code = MPV) 9.3 fL 7.0-9.0 H NEUTROPHIL % (test code = NT%) 70.4 % 56.0-77.0 N IMMATURE GRANULOCYTE % (test code = IG%) 1.1 % 0.0-2.0 N LYMPHOCYTE % (test code = LY%) 15.7 % 14.0-32.0 N MONOCYTE % (test code = MO%) 8.5 % 4.8-9.0 N EOSINOPHIL % (test code = EO%) 3.8 % 0.3-3.7 H BASOPHIL % (test code = BA%) 0.5 % 0.0-2.0 N NUCLEATED RBC % (test code = NRBC%) 0.0 % 0-0 N NEUTROPHIL # (test code = NT#) 3.90 x10 3/uL 2.0-7.6 N IMMATURE GRANULOCYTE # (test code = IG#) 0.06 x10 3/uL 0.00-0.03 H LYMPHOCYTE # (test code = LY#) 0.87 x10 3/uL 1.0-3.8 L MONOCYTE # (test code = MO#) 0.47 x10 3/uL 0.1-0.8 N EOSINOPHIL # (test code = EO#) 0.21 x10 3/uL 0.0-0.2 H BASOPHIL # (test code = BA#) 0.03 x10 3/uL 0.0-0.2 N NUCLEATED RBC # (test code = NRBC#) 0.00 x10 3/uL 0.0-0.1 N MANUAL DIFF REQUIRED (test code = MDIFF) NO - XR SHOULDER 2 + V [id number] 21:41:00 FAX: Ra Banegas MD [phone] [place]: [address]: ADM Name: NHI DOVE [facility] : [birth year] Age/S: 79/M [address] [place] [address] Unit #: [id number] Loc: [address] [place] [address] Phys: Ra Rushing MD Acct: [id number] Dis Date: Status: ADM IN PHONE #: [phone] Exam Date: 02/16/20202040 FAX #: [phone] Reason: Left shoulder pain EXAMS: CPT CODE: [id number] XR SHOULDER 2 + [place] [id number] Left shoulder, 3 views dated 020. HISTORY: Left shoulder pain. Images of the left shoulder were obtained in 3 projections. The proximal left humerus appea rs intact and normally located. There is no evidence of acute fracture or obvious bone destruction. The acromioclavicular and coracoclavicular spa carlito appear preserved. Degenerative changes are identified in the acromioc lavicular joint, the glenohumeral joint and in the region of the greater t uberosity of the humerus. IMPRESSION: 1. No acute bony abnormalities of the left shoulder are detected. SL: 131 at 2141 Reported and signed by: Remington Acosta M.D. CC: Tori valdovinos A Kristan SCHILLING Technologist: RT Daniela(R ) Trnscrd Date/Time/By: 02/16/2020 () : By: Dina Orig Print D/T: S: 02/16/2020 (2143) PAGE 1 Signed Report [id number] 16:47:00* Test Item Value Reference Range Interpretation Comments GLUBED (test code = GLUBED) 253 MG/DL 70-110 H Performed by certified shear grinder operator helper at [facility] [id number] 08:52:00* Test Item Value Reference Range Interpretation Comments GLUBED (test code = GLUBED) 154 MG/DL 70-110 H Performed by certified shear grinder operator helper at [facility] [id number] 07:55:00* Test Item Value Reference Range Interpretation Comments GLUBED (test code = GLUBED) 153 MG/DL 70-110 H Performed by certified shear grinder operator helper at [facility] PROTHROMBIN [id number] 06:14:00* Test Item Value Reference Range Interpretation Comments PROTHROMBIN TIME PATIENT (test code = PTP) 12.3 SECONDS 9.3-12.9 N INTERNATIONAL NORMAL RATIO (test code = INR) 1.1 0.8-1.2 N TARGET INR BY INDICATION Indication INR1. Prophylaxis of venous thrombosis 2.0 - 3.0 (orthopedic surgery), Prophylaxis of venous thrombosis (other than high-risk surgery), Treatment of Deep Vein Thrombosis/Pulmonary Embolism, Prevention of systemic embolism - Tissue heart valves, Acute Myocardial Infarction (to prevent systemic embolism), Valvular heart disease, Atrial Fibrillation, Bileaflet mechanical valve in aortic position.2. Mechanical prosthetic valves (high risk), 2.5 - 3.5 Presence of Lupus Anticoagulant or Antiphospholipid Antibodies, Prevention of systemic embolism - Acute Myocardial Infarction (to prevent recurrent infarct). THROMBOPLASTIN TIME [id number] 06:14:00* Test Item Value Reference Range Interpretation Comments THROMBOPLASTIN TIME PARTIAL (test code = PTT) 27.8 Seconds 25.0-39. 5 N Therapeutic Range: 50.4 - 88.3 Seconds Effective 12/28/2018 BASIC METABOLIC [id number] 06:06:00* Test Item Value Reference Range Interpretation Comments SODIUM (test code = NA) 141 mEq/L 134-147 N POTASSIUM (test code = K) 3.9 mEq/L 3.4-5.0 N CHLORIDE (test code = CL) 113 mEq/L 100-108 H CARBON DIOXIDE (test code = CO2) 23 mEq/L 21-33 N ANION GAP (test code = GAP) 9 0-20 N GLUCOSE (test code = GLU) 141 mg/dL 70-110 H BLOOD UREA NITROGEN (test code = BUN) 55 mg/dL 7-18 H GLOMERULAR FILTRATION RATE (test code = GFR) 64.6 70-80 L Units of measure = ml/min/1.73 m2 CREATININE (test code = CREAT) 1.1 mg/dL 0.6-1.3 N CALCIUM (test code = CA) 7.1 mg/dL 8.0-10.5 L CBC W/AUTO [id number] 05:53:00* Test Item Value Reference Range Interpretation Comments WHITE BLOOD CELL (test code = WBC) 8.77 x10 3/uL 4.5-11.0 N RED BLOOD CELL (test code = RBC) 2.95 x10 6/uL 4.00-5.60 L HEMOGLOBIN (test code = HGB) 9.2 g/dL 12.5-16.9 L HEMATOCRIT (test code = HCT) 27.9 % 37.5-50.7 L MEAN CELL VOLUME (test code = MCV) 94.6 fL 81.0-99.0 N MEAN CELL HGB (test code = MCH) 31.2 pg 27.0-33.0 N MEAN CELL HGB CONCETRATION (test code = MCHC) 33.0 g/dL 33.0-37. 0 N RED CELL DISTRIBUTION WIDTH CV (test code = RDW) 16.0 % 11.5- 14.5 H RED CELL DISTRIBUTION WIDTH SD (test code = RDW-SD) 55.1 fL 37 .0-54.0 H PLATELET COUNT (test code = PLT) 176 x10 3/uL 150-400 N MEAN PLATELET VOLUME (test code = MPV) 9.4 fL 7.0-9.0 H NEUTROPHIL % (test code = NT%) 74.3 % 56.0-77.0 N IMMATURE GRANULOCYTE % (test code = IG%) 0.6 % 0.0-2.0 N LYMPHOCYTE % (test code = LY%) 14.6 % 14.0-32.0 N MONOCYTE % (test code = MO%) 8.1 % 4.8-9.0 N EOSINOPHIL % (test code = EO%) 2.2 % 0.3-3.7 N BASOPHIL % (test code = BA%) 0.2 % 0.0-2.0 N NUCLEATED RBC % (test code = NRBC%) 0.0 % 0-0 N NEUTROPHIL # (test code = NT#) 6.52 x10 3/uL 2.0-7.6 N IMMATURE GRANULOCYTE # (test code = IG#) 0.05 x10 3/uL 0.00-0.03 H LYMPHOCYTE # (test code = LY#) 1.28 x10 3/uL 1.0-3.8 N MONOCYTE # (test code = MO#) 0.71 x10 3/uL 0.1-0.8 N EOSINOPHIL # (test code = EO#) 0.19 x10 3/uL 0.0-0.2 N BASOPHIL # (test code = BA#) 0.02 x10 3/uL 0.0-0.2 N NUCLEATED RBC # (test code = NRBC#) 0.00 x10 3/uL 0.0-0.1 N MANUAL DIFF REQUIRED (test code = MDIFF) NO [id number] 02:22:00* Test Item Value Reference Range Interpretation Comments GLUBED (test code = GLUBED) 249 MG/DL 70-110 H Performed by certified shear grinder operator helper at [facility] [id number] 17:28:00* Test Item Value Reference Range Interpretation Comments GLUBED (test code = GLUBED) 203 MG/DL 70-110 H Performed by certified shear grinder operator helper at [facility] [id number] 14:43:00* Test Item Value Reference Range Interpretation Comments GLUBED (test code = GLUBED) 281 MG/DL 70-110 H Performed by certified shear grinder operator helper at [facility] [id number] 14:43:00* Test Item Value Reference Range Interpretation Comments GLUBED (test code = GLUBED) 212 MG/DL 70-110 H Performed by certified shear grinder operator helper at [facility] BASIC METABOLIC [id number] 08:07:00* Test Item Value Reference Range Interpretation Comments SODIUM (test code = NA) 140 mEq/L 134-147 N POTASSIUM (test code = K) 4.1 mEq/L 3.4-5.0 N CHLORIDE (test code = CL) 107 mEq/L 100-108 N CARBON DIOXIDE (test code = CO2) 26 mEq/L 21-33 N ANION GAP (test code = GAP) 11 0-20 N GLUCOSE (test code = GLU) 198 mg/dL 70-110 H BLOOD UREA NITROGEN (test code = BUN) 72 mg/dL 7-18 H GLOMERULAR FILTRATION RATE (test code = GFR) 64.6 70-80 L Units of measure = ml/min/1.73 m2 CREATININE (test code = CREAT) 1.1 mg/dL 0.6-1.3 N CALCIUM (test code = CA) 8.6 mg/dL 8.0-10.5 N CBC W/AUTO [id number] 07:56:00* Test Item Value Reference Range Interpretation Comments WHITE BLOOD CELL (test code = WBC) 6.84 x10 3/uL 4.5-11.0 N RED BLOOD CELL (test code = RBC) 2.91 x10 6/uL 4.00-5.60 L HEMOGLOBIN (test code = HGB) 9.1 g/dL 12.5-16.9 L HEMATOCRIT (test code = HCT) 27.5 % 37.5-50.7 L MEAN CELL VOLUME (test code = MCV) 94.5 fL 81.0-99.0 N MEAN CELL HGB (test code = MCH) 31.3 pg 27.0-33.0 N MEAN CELL HGB CONCETRATION (test code = MCHC) 33.1 g/dL 33.0-37. 0 N RED CELL DISTRIBUTION WIDTH CV (test code = RDW) 15.9 % 11.5- 14.5 H RED CELL DISTRIBUTION WIDTH SD (test code = RDW-SD) 54.8 fL 37 .0-54.0 H PLATELET COUNT (test code = PLT) 159 x10 3/uL 150-400 N MEAN PLATELET VOLUME (test code = MPV) 9.5 fL 7.0-9.0 H NEUTROPHIL % (test code = NT%) 73.9 % 56.0-77.0 N IMMATURE GRANULOCYTE % (test code = IG%) 0.4 % 0.0-2.0 N LYMPHOCYTE % (test code = LY%) 15.6 % 14.0-32.0 N MONOCYTE % (test code = MO%) 7.0 % 4.8-9.0 N EOSINOPHIL % (test code = EO%) 2.5 % 0.3-3.7 N BASOPHIL % (test code = BA%) 0.6 % 0.0-2.0 N NUCLEATED RBC % (test code = NRBC%) 0.0 % 0-0 N NEUTROPHIL # (test code = NT#) 5.05 x10 3/uL 2.0-7.6 N IMMATURE GRANULOCYTE # (test code = IG#) 0.03 x10 3/uL 0.00-0.03 N LYMPHOCYTE # (test code = LY#) 1.07 x10 3/uL 1.0-3.8 N MONOCYTE # (test code = MO#) 0.48 x10 3/uL 0.1-0.8 N EOSINOPHIL # (test code = EO#) 0.17 x10 3/uL 0.0-0.2 N BASOPHIL # (test code = BA#) 0.04 x10 3/uL 0.0-0.2 N NUCLEATED RBC # (test code = NRBC#) 0.00 x10 3/uL 0.0-0.1 N MANUAL DIFF REQUIRED (test code = MDIFF) NO [id number] 20:54:00* Test Item Value Reference Range Interpretation Comments GLUBED (test code = GLUBED) 227 MG/DL 70-110 H Performed by certified shear grinder operator helper at [facility] [id number] 17:29:00* Test Item Value Reference Range Interpretation Comments GLUBED (test code = GLUBED) 180 MG/DL 70-110 H Performed by certified shear grinder operator helper at [facility] [id number] 14:56:00* Test Item Value Reference Range Interpretation Comments GLUBED (test code = GLUBED) 189 MG/DL 70-110 H Performed by certified shear grinder operator helper at [facility] [id number] 12:54:00* Test Item Value Reference Range Interpretation Comments GLUBED (test code = GLUBED) 184 MG/DL 70-110 H Performed by certified shear grinder operator helper at [facility] [id number] 08:04:00* Test Item Value Reference Range Interpretation Comments GLUBED (test code = GLUBED) 173 MG/DL 70-110 H Performed by certified shear grinder operator helper at [facility] BASIC METABOLIC [id number] 07:19:00* Test Item Value Reference Range Interpretation Comments SODIUM (test code = NA) 138 mEq/L 134-147 N POTASSIUM (test code = K) 4.0 mEq/L 3.4-5.0 N CHLORIDE (test code = CL) 106 mEq/L 100-108 N CARBON DIOXIDE (test code = CO2) 26 mEq/L 21-33 N ANION GAP (test code = GAP) 10 0-20 N GLUCOSE (test code = GLU) 193 mg/dL 70-110 H BLOOD UREA NITROGEN (test code = BUN) 101 mg/dL 7-18 H GLOMERULAR FILTRATION RATE (test code = GFR) 53.3 70-80 L Units of measure = ml/min/1.73 m2 CREATININE (test code = CREAT) 1.3 mg/dL 0.6-1.3 N CALCIUM (test code = CA) 8.6 mg/dL 8.0-10.5 N CBC W/AUTO [id number] 07:16:00* Test Item Value Reference Range Interpretation Comments WHITE BLOOD CELL (test code = WBC) 6.37 x10 3/uL 4.5-11.0 N RED BLOOD CELL (test code = RBC) 2.88 x10 6/uL 4.00-5.60 L HEMOGLOBIN (test code = HGB) 8.9 g/dL 12.5-16.9 L HEMATOCRIT (test code = HCT) 26.6 % 37.5-50.7 L MEAN CELL VOLUME (test code = MCV) 92.4 fL 81.0-99.0 N MEAN CELL HGB (test code = MCH) 30.9 pg 27.0-33.0 N MEAN CELL HGB CONCETRATION (test code = MCHC) 33.5 g/dL 33.0-37. 0 N RED CELL DISTRIBUTION WIDTH CV (test code = RDW) 15.7 % 11.5- 14.5 H RED CELL DISTRIBUTION WIDTH SD (test code = RDW-SD) 53.3 fL 37 .0-54.0 N PLATELET COUNT (test code = PLT) 138 x10 3/uL 150-400 L MEAN PLATELET VOLUME (test code = MPV) 9.0 fL 7.0-9.0 N NEUTROPHIL % (test code = NT%) 69.9 % 56.0-77.0 N IMMATURE GRANULOCYTE % (test code = IG%) 0.6 % 0.0-2.0 N LYMPHOCYTE % (test code = LY%) 18.2 % 14.0-32.0 N MONOCYTE % (test code = MO%) 7.7 % 4.8-9.0 N EOSINOPHIL % (test code = EO%) 3.3 % 0.3-3.7 N BASOPHIL % (test code = BA%) 0.3 % 0.0-2.0 N NUCLEATED RBC % (test code = NRBC%) 0.0 % 0-0 N NEUTROPHIL # (test code = NT#) 4.45 x10 3/uL 2.0-7.6 N IMMATURE GRANULOCYTE # (test code = IG#) 0.04 x10 3/uL 0.00-0.03 H LYMPHOCYTE # (test code = LY#) 1.16 x10 3/uL 1.0-3.8 N MONOCYTE # (test code = MO#) 0.49 x10 3/uL 0.1-0.8 N EOSINOPHIL # (test code = EO#) 0.21 x10 3/uL 0.0-0.2 H BASOPHIL # (test code = BA#) 0.02 x10 3/uL 0.0-0.2 N NUCLEATED RBC # (test code = NRBC#) 0.00 x10 3/uL 0.0-0.1 N MANUAL DIFF REQUIRED (test code = MDIFF) NO [id number] 06:43:00* Test Item Value Reference Range Interpretation Comments GLUBED (test code = GLUBED) 261 MG/DL 70-110 H Performed by certified shear grinder operator helper at [facility] - XR CHEST 1 [id number] 06:29:00 FAX: Ra Banegas MD [phone] [place]: St: ADM Name: NHI DOVE [facility] : [birth year] Age/S: 79/M [address] [place] [address] Unit #: [id number] Loc: [address] [address] Phys: Ra Rushing MD Acct: [id number] Dis Date: Status: ADM IN PHONE #: [phone] Exam Date: 02/14/2020 06 FAX #: [phone] Reason: PRE-OP EXAMS: CPT CODE: [id number] XR CHEST 1 V 45130 EXAM: CR, XR chest one view: 2019, 0628 hours HISTORY: PRE-OP TECHNIQUE: 1 view o f the chest. COMPARISON: None available. FINDINGS: Trachea is midline. Heart is borderline in size. Pulmonary vascula rity is unremarkable. There is no airspace consolidation, pleural effusion or pneumothorax. No significant osseous abnormalities are seen. IMPRESSION: No acute cardiopulmonary disease seen. SL: [JSYED-H] Electronically Signed by Cricket Newman on 10/2019 at 0629 Reported and signed by: Braxton Newman M.D. CC: Ra Rushing MD Technologist: Eloisa Slater RT(R) Trnscrd Da te/Time/By: 02/14/2020 (06) : By: [id number] Orig Print D/T: S: 02/13 (0632) PAGE 1 Signed Report Coronavirus 2019 nCoV [id number] 00:56:00* Test Item Value Reference Range Interpretation Comments Coronavirus 2019 nCoV Bedside (test code = COVNONPUIBED) Negative Negative Negative results should be treated as presumptive and, ifinconsistent with clinical signs and symptoms or necessaryfor patient management, should be tested with an alternativemolecular assay. Negative results do not preclude MYGF-EuF-6qjwdpgdrj and should not be used as the sole basis forpatient management decisions. Negative results should beconsidered in the context of a patient's recent exposures,history, presence of clinical signs and symptoms consistentwith COVID-19. Acknowledged? YESHGB [id number] 00:37:00* Test Item Value Reference Range Interpretation Comments HEMOGLOBIN (test code = HGB) 9.6 g/dL 12.5-16.9 L HEMATOCRIT (test code = HCT) 28.8 % 37.5-50.7 L BASIC METABOLIC [id number] 19:49:00* Test Item Value Reference Range Interpretation Comments SODIUM (test code = NA) 137 mEq/L 134-147 N POTASSIUM (test code = K) 4.5 mEq/L 3.4-5.0 N CHLORIDE (test code = CL) 103 mEq/L 100-108 N CARBON DIOXIDE (test code = CO2) 25 mEq/L 21-33 N ANION GAP (test code = GAP) 14 0-20 N GLUCOSE (test code = GLU) 185 mg/dL 70-110 H BLOOD UREA NITROGEN (test code = BUN) 107 mg/dL 7-18 H GLOMERULAR FILTRATION RATE (test code = GFR) 41.9 70-80 L Units of measure = ml/min/1.73 m2 CREATININE (test code = CREAT) 1.6 mg/dL 0.6-1.3 H CALCIUM (test code = CA) 8.4 mg/dL 8.0-10.5 N HEPATIC FUNCTION [id number] 19:49:00* Test Item Value Reference Range Interpretation Comments TOTAL PROTEIN (test code = PROT) 7.2 g/dL 6.4-8.2 N ALBUMIN (test code = ALB) 3.10 g/dL 3.4-5.0 L BILIRUBIN TOTAL (test code = BILT) 0.6 MG/DL <1.5 N BILIRUBIN DIRECT (test code = BILD) 0.20 MG/DL 0.0-0.30 N BILIRUBIN INDIRECT (test code = BILIND) 0.40 MG/DL SGOT/AST (test code = AST) 11 IUnit/L 15-37 L SGPT/ALT (test code = ALT) 15 IUnit/L 15-65 N ALKALINE PHOSPHATASE TOTAL (test code = ALKP) 102 IUnit/L 20-125 N [id number] 19:49:00* Test Item Value Reference Range Interpretation Comments LIPASE (test code = LIP) 499 IUnit/L 73-393 H PROTHROMBIN [id number] 19:36:00* Test Item Value Reference Range Interpretation Comments PROTHROMBIN TIME PATIENT (test code = PTP) 12.8 SECONDS 9.3-12.9 N INTERNATIONAL NORMAL RATIO (test code = INR) 1.2 0.8-1.2 N TARGET INR BY INDICATION Indication INR1. Prophylaxis of venous thrombosis 2.0 - 3.0 (orthopedic surgery), Prophylaxis of venous thrombosis (other than high-risk surgery), Treatment of Deep Vein Thrombosis/Pulmonary Embolism, Prevention of systemic embolism - Tissue heart valves, Acute Myocardial Infarction (to prevent systemic embolism), Valvular heart disease, Atrial Fibrillation, Bileaflet mechanical valve in aortic position.2. Mechanical prosthetic valves (high risk), 2.5 - 3.5 Presence of Lupus Anticoagulant or Antiphospholipid Antibodies, Prevention of systemic embolism - Acute Myocardial Infarction (to prevent recurrent infarct). THROMBOPLASTIN TIME [id number] 19:36:00* Test Item Value Reference Range Interpretation Comments THROMBOPLASTIN TIME PARTIAL (test code = PTT) 27.5 Seconds 25.0-39. 5 N Therapeutic Range: 50.4 - 88.3 Seconds Effective 12/28/2018 CBC W/O [id number] 19:33:00* Test Item Value Reference Range Interpretation Comments WHITE BLOOD CELL (test code = WBC) 8.12 x10 3/uL 4.5-11.0 N RED BLOOD CELL (test code = RBC) 3.19 x10 6/uL 4.00-5.60 L HEMOGLOBIN (test code = HGB) 9.9 g/dL 12.5-16.9 L HEMATOCRIT (test code = HCT) 29.9 % 37.5-50.7 L MEAN CELL VOLUME (test code = MCV) 93.7 fL 81.0-99.0 N MEAN CELL HGB (test code = MCH) 31.0 pg 27.0-33.0 N MEAN CELL HGB CONCETRATION (test code = MCHC) 33.1 g/dL 33.0-37. 0 N RED CELL DISTRIBUTION WIDTH CV (test code = RDW) 15.9 % 11.5- 14.5 H RED CELL DISTRIBUTION WIDTH SD (test code = RDW-SD) 54.9 fL 37 .0-54.0 H PLATELET COUNT (test code = PLT) 157 x10 3/uL 150-400 N MEAN PLATELET VOLUME (test code = MPV) 9.0 fL 7.0-9.0 N Blood [id number] 14:55:00* Test Item Value Reference Range Interpretation Comments Blood Culture (test code = 22385913) NO GROWTH AFTER 5 DAYS, FINAL REPORT [facility] [id number] 11:42:00* Test Item Value Reference Range Interpretation Comments Bedside Glucose (test code = 26420-9) 213 70-120 H Meter ID: [id number] [facility] Glucose 2019-11-18 11:42:00* Test Item Value Reference Range Interpretation Comments Bedside Glucose (test code = 11208-7) 213 70-120 H Meter ID: [id number] [facility] measurement by glucometer (mass/volume)2019-11-18 10:03:00* Test Item Value Reference Range Interpretation Comments Bedside Glucose (test code = 66898-6) 213 70-120 Meter ID: [id number] [facility] blood glucose measurement by glucometer (mass/volume)2019-11-18 10:03:00* Test Item Value Reference Range Interpretation Comments Bedside Glucose (test code = 58469-7) 213 70-120 Meter ID: [id number] [facility] 2019-11-17 14:55:00* Test Item Value Reference Range Interpretation Comments Blood Culture (test code = 98170878) NO GROWTH AFTER 48 HOURS [facility] [id number] 05:33:00* Test Item Value Reference Range Interpretation Comments Sodium Level (test code = 2951-2) 139 136-145 [facility] [id number] 05:33:00* Test Item Value Reference Range Interpretation Comments Potassium Level (test code = 2823-3) 4.2 3.5-5.1 [facility] [id number] 05:33:00* Test Item Value Reference Range Interpretation Comments Chloride Level (test code = 2075-0) 106 98-107 [facility] Dioxide [id number] 05:33:00* Test Item Value Reference Range Interpretation Comments Carbon Dioxide Level (test code = 2028-9) 25 22-29 [facility] Henderson[facility]ion [id number] 05:33:00* Test Item Value Reference Range Interpretation Comments Anion Gap (test code = 08777-2) 12.2 8-16 [facility] Urea [id number] 05:33:00* Test Item Value Reference Range Interpretation Comments Blood Urea Nitrogen (test code = 3094-0) 25 7-26 [facility] HendersonCreatinine2020-03-05 05:33:00* Test Item Value Reference Range Interpretation Comments Creatinine (test code = 2160-0) 0.86 0.72-1.25 [facility]Creatinine Vmzyi8181-66-04 05:33:00* Test Item Value Reference Range Interpretation Comments BUN/Creatinine Ratio (test code = 3097-3) 29 6-25 H [facility] HendersonEstimat Glomerular Filtration Rate 2019-11-17 05:33:00* Test Item Value Reference Range Interpretation Comments Estimat Glomerular Filtration Rate (test code = 608451794) > 60 >60 Ranges were taken from the National Kidney Disease Education Program and the [facility] Foundation literature.Reference ranges:60 or greater: Rejjfc42-75 ( for 3 consecutive months): Chronic kidney disease 15 or less: Kidney failureUT Health HendersonGlucose Tmuog6176-68-27 05:33:00* Test Item Value Reference Range Interpretation Comments Glucose Level (test code = HCA3863) 92 74-118 [facility]Calcium Gkekq8840-68-02 05:33:00* Test Item Value Reference Range Interpretation Comments Calcium Level (test code = 74587-6) 8.9 8.4-10.2 [facility] Ttfak6512-69-04 05:33:00* Test Item Value Reference Range Interpretation Comments Sodium Level (test code = 2951-2) 139 136-145 [facility]Potassium [id number] 05:33:00* Test Item Value Reference Range Interpretation Comments Potassium Level (test code = 2823-3) 4.2 3.5-5.1 [facility] HendersonChloride Xpzsv6988-46-01 05:33:00* Test Item Value Reference Range Interpretation Comments Chloride Level (test code = 2075-0) 106 98-107 [facility] Dioxide [id number] 05:33:00* Test Item Value Reference Range Interpretation Comments Carbon Dioxide Level (test code = 2028-9) 25 22-29 [facility] HendersonAnion [id number] 05:33:00* Test Item Value Reference Range Interpretation Comments Anion Gap (test code = 19255-0) 12.2 8-16 [facility] HendersonBlood Urea Jksxryhv9970-14-22 05:33:00* Test Item Value Reference Range Interpretation Comments Blood Urea Nitrogen (test code = 3094-0) 25 7-26 [facility] HendersonCreatinine2020-03-05 05:33:00* Test Item Value Reference Range Interpretation Comments Creatinine (test code = 2160-0) 0.86 0.72-1.25 [facility]UN/Creatinine [id number] 05:33:00* Test Item Value Reference Range Interpretation Comments BUN/Creatinine Ratio (test code = 3097-3) 29 6-25 H [facility] HendersonEstimat Glomerular Filtration Rate 2019-11-17 05:33:00* Test Item Value Reference Range Interpretation Comments Estimat Glomerular Filtration Rate (test code = 746621338) > 60 >60 Ranges were taken from the National Kidney Disease Education Program and the [facility] Kidney Foundation literature.Reference ranges:60 or greater: Jojstp39-34 ( for 3 consecutive months): Chronic kidney disease 15 or less: Kidney failureUT Health HendersonGlucose Hdcgi5643-92-81 05:33:00* Test Item Value Reference Range Interpretation Comments Glucose Level (test code = ZEH0093) 92 74-118 [facility]Calcium Dvvuf2926-32-43 05:33:00* Test Item Value Reference Range Interpretation Comments Calcium Level (test code = 44359-6) 8.9 8.4-10.2 [facility] Centererum or plasma sodium measurement (moles/volume)2019-11-17 03:45:00* Test Item Value Reference Range Interpretation Comments Sodium Level (test code = 2951-2) 139 136-145 [facility] Centererum or plasma potassium measurement (moles/volume)2019-11-17 03:45:00* Test Item Value Reference Range Interpretation Comments Potassium Level (test code = 2823-3) 4.2 3.5-5.1 [facility] Centererum or plasma chloride measurement (moles/volume)2019-11-17 03:45:00* Test Item Value Reference Range Interpretation Comments Chloride Level (test code = 2075-0) 106 98-107 [facility] Centererum or plasma carbon dioxide, total measurement (moles/volume)2019-11-17 03:45:00* Test Item Value Reference Range Interpretation Comments Carbon Dioxide Level (test code = 2028-9) 25 22-29 [facility] Centererum or plasma anion zir9627-89-06 03:45:00* Test Item Value Reference Range Interpretation Comments Anion Gap (test code = 47218-6) 12.2 8-16 [facility] Centererum or plasma urea nitrogen measurement (mass/volume)2019-11-17 03:45:00* Test Item Value Reference Range Interpretation Comments Blood Urea Nitrogen (test code = 3094-0) 25 7-26 [facility] Centererum or plasma creatinine measurement (mass/volume)2019-11-17 03:45:00* Test Item Value Reference Range Interpretation Comments Creatinine (test code = 2160-0) 0.86 0.72-1.25 [facility] Centererum or plasma urea nitrogen/creatinine mass zjqnz5017-80-05 03:45:00* Test Item Value Reference Range Interpretation Comments BUN/Creatinine Ratio (test code = 3097-3) 29 6-25 [facility] HendersonEstimated glomerular filtration rate (GFR) yqliyogrmidzl8759-26-78 03:45:00* Test Item Value Reference Range Interpretation Comments Estimat Glomerular Filtration Rate (test code = 253727823) > 60 >60 Ranges were taken from the National Kidney Disease Education Program and the [facility] literature.Reference ranges:60 or greater: [id number] ( for 3 consecutive months): Chronic kidney disease 15 or less: Kidney failureUT Health HendersonGlucose [id number] 03:45:00* Test Item Value Reference Range Interpretation Comments Glucose Level (test code = [id number]) 92 74-118 [facility] plasma calcium measurement (mass/volume)2019-11-17 03:45:00* Test Item Value Reference Range Interpretation Comments Calcium Level (test code = 90325-0) 8.9 8.4-10.2 [facility] or plasma sodium measurement (moles/volume)2019-11-17 03:45:00* Test Item Value Reference Range Interpretation Comments Sodium Level (test code = 2951-2) 139 136-145 [facility] potassium measurement (moles/volume)2019-11-17 03:45:00* Test Item Value Reference Range Interpretation Comments Potassium Level (test code = 2823-3) 4.2 3.5-5.1 [facility] or plasma chloride measurement (moles/volume)2019-11-17 03:45:00* Test Item Value Reference Range Interpretation Comments Chloride Level (test code = 2075-0) 106 98-107 [facility] or plasma carbon dioxide, total measurement (moles/volume)2019-11-17 03:45:00* Test Item Value Reference Range Interpretation Comments Carbon Dioxide Level (test code = 2028-9) 25 22-29 [facility] or plasma anion rvi0852-32-88 03:45:00* Test Item Value Reference Range Interpretation Comments Anion Gap (test code = 63773-4) 12.2 8-16 [facility] or plasma urea nitrogen measurement (mass/volume)2019-11-17 03:45:00* Test Item Value Reference Range Interpretation Comments Blood Urea Nitrogen (test code = 3094-0) 25 7-26 [facility] or plasma creatinine measurement (mass/volume)2019-11-17 03:45:00* Test Item Value Reference Range Interpretation Comments Creatinine (test code = 2160-0) 0.86 0.72-1.25 [facility] or plasma urea nitrogen/creatinine mass oyuzo5624-53-69 03:45:00* Test Item Value Reference Range Interpretation Comments BUN/Creatinine Ratio (test code = 3097-3) 29 6-25 [facility]Estimated glomerular filtration rate (GFR) cygkpeklobnek1998-69-94 03:45:00* Test Item Value Reference Range Interpretation Comments Estimat Glomerular Filtration Rate (test code = 241464178) > 60 >60 Ranges were taken from the National Kidney Disease Education Program and the [facility] literature.Reference ranges:60 or greater: Fccliu08-54 ( for 3 consecutive months): Chronic kidney disease 15 or less: Kidney failureUT Health HendersonGlucose bltnakqjqwq1380-07-15 03:45:00* Test Item Value Reference Range Interpretation Comments Glucose Level (test code = MLF4080) 92 74-118 [facility] or plasma calcium measurement (mass/volume)2019-11-17 03:45:00* Test Item Value Reference Range Interpretation Comments Calcium Level (test code = 93376-5) 8.9 8.4-10.2 [facility] HendersonVancomycin Level Fpiqng4472-41-83 15:25:00* Test Item Value Reference Range Interpretation Comments Vancomycin Level Trough (test code = 4092-3) 9.1 5.0-10.0 [facility] HendersonVancomycin Level Kozbae7528-42-92 15:25:00* Test Item Value Reference Range Interpretation Comments Vancomycin Level Trough (test code = 4092-3) 9.1 5.0-10.0 [facility] or plasma trough vancomycin level at trough (mass/volume)2019-11-16 13:58:00* Test Item Value Reference Range Interpretation Comments Vancomycin Level Trough (test code = 4092-3) 9.1 5.0-10.0 [facility] or plasma trough vancomycin level at trough (mass/volume)2019-11-16 13:58:00* Test Item Value Reference Range Interpretation Comments Vancomycin Level Trough (test code = 4092-3) 9.1 5.0-10.0 [facility] HendersonWhite Blood Nttur7267-15-33 05:43:00* Test Item Value Reference Range Interpretation Comments White Blood Count (test code = 6690-2) 6.78 4.8-10.8 [facility] HendersonRed Blood Rmgcj1350-06-34 05:43:00* Test Item Value Reference Range Interpretation Comments Red Blood Count (test code = 789-8) 4.41 4.3-5.7 [facility] HendersonHemoglobin2020-03-04 05:43:00* Test Item Value Reference Range Interpretation Comments Hemoglobin (test code = 88048-2) 12.9 14.0-18.0 L [facility] HendersonHematocrit2020-03-04 05:43:00* Test Item Value Reference Range Interpretation Comments Hematocrit (test code = 4544-3) 41.0 38.2-49.6 [facility] HendersonMean Corpuscular Jesojc7074-63-04 05:43:00* Test Item Value Reference Range Interpretation Comments Mean Corpuscular Volume (test code = 787-2) 93.0 81-99 [facility] HendersonMean Corpuscular Ycwcbuvxux7493-98-53 05:43:00* Test Item Value Reference Range Interpretation Comments Mean Corpuscular Hemoglobin (test code = 785-6) 29.3 28-32 [facility] HendersonMean Corpuscular Hemoglobin Concent 2019-11-16 05:43:00* Test Item Value Reference Range Interpretation Comments Mean Corpuscular Hemoglobin Concent (test code = 786-4) 31.5 31-35 [facility] HendersonRed Cell Distribution Mrgrg7246-79-43 05:43:00* Test Item Value Reference Range Interpretation Comments Red Cell Distribution Width (test code = 17628-2) 15.8 11.7 -14.4 H [facility] HendersonPlatelet Afsul1055-11-90 05:43:00* Test Item Value Reference Range Interpretation Comments Platelet Count (test code = 777-3) 155 140-360 [facility] HendersonNeutrophils (%) (Auto)2019-11-16 05:43:00 * Test Item Value Reference Range Interpretation Comments Neutrophils (%) (Auto) (test code = 66366-6) 69.6 38.7-80.0 [facility] HendersonLymphocytes (%) (Auto)2019-11-16 05:43:00 * Test Item Value Reference Range Interpretation Comments Lymphocytes (%) (Auto) (test code = 736-9) 17.3 18.0-39.1 L [facility] HendersonMonocytes (%) (Auto)2019-11-16 05:43:00* Test Item Value Reference Range Interpretation Comments Monocytes (%) (Auto) (test code = 5905-5) 8.1 4.4-11.3 [facility] HendersonEosinophils (%) (Auto)2019-11-16 05:43:00 * Test Item Value Reference Range Interpretation Comments Eosinophils (%) (Auto) (test code = 713-8) 4.0 0.0-6.0 [facility] HendersonBasophils (%) (Auto)2019-11-16 05:43:00* Test Item Value Reference Range Interpretation Comments Basophils (%) (Auto) (test code = 706-2) 0.6 0.0-1.0 [facility] HendersonIM GRANULOCYTES %2019-11-16 05:43:00* Test Item Value Reference Range Interpretation Comments IM GRANULOCYTES % (test code = IM GRANULOCYTES %) 0.4 0.0- 1.0 [facility] HendersonNeutrophils # (Auto)2019-11-16 05:43:00* Test Item Value Reference Range Interpretation Comments Neutrophils # (Auto) (test code = 751-8) 4.7 2.1-6.9 [facility] HendersonLymphocytes # (Auto)2019-11-16 05:43:00* Test Item Value Reference Range Interpretation Comments Lymphocytes # (Auto) (test code = 70412-0) 1.2 1.0-3.2 [facility] HendersonMonocytes # (Auto)2019-11-16 05:43:00* Test Item Value Reference Range Interpretation Comments Monocytes # (Auto) (test code = 742-7) 0.6 0.2-0.8 [facility] HendersonEosinophils # (Auto)2019-11-16 05:43:00* Test Item Value Reference Range Interpretation Comments Eosinophils # (Auto) (test code = 711-2) 0.3 0.0-0.4 [facility] HendersonBasophils # (Auto)2019-11-16 05:43:00* Test Item Value Reference Range Interpretation Comments Basophils # (Auto) (test code = 704-7) 0.0 0.0-0.1 [facility] HendersonAbsolute Immature Granulocyte (auto 2019-11-16 05:43:00* Test Item Value Reference Range Interpretation Comments Absolute Immature Granulocyte (auto (aldair t code = Absolute Immature Granulocyte (auto) 0.03 0-0.1 [facility] HendersonWhite Blood Xdqwl9106-42-94 05:43:00* Test Item Value Reference Range Interpretation Comments White Blood Count (test code = 6690-2) 6.78 4.8-10.8 [facility] HendersonRed Blood Irozq4836-69-80 05:43:00* Test Item Value Reference Range Interpretation Comments Red Blood Count (test code = 789-8) 4.41 4.3-5.7 [facility] HendersonHemoglobin2020-03-04 05:43:00* Test Item Value Reference Range Interpretation Comments Hemoglobin (test code = 79842-7) 12.9 14.0-18.0 L [facility] HendersonHematocrit2020-03-04 05:43:00* Test Item Value Reference Range Interpretation Comments Hematocrit (test code = 4544-3) 41.0 38.2-49.6 [facility] HendersonMean Corpuscular Uhkafb6865-41-84 05:43:00* Test Item Value Reference Range Interpretation Comments Mean Corpuscular Volume (test code = 787-2) 93.0 81-99 [facility] HendersonMean Corpuscular Rqqudyprrt1413-42-06 05:43:00* Test Item Value Reference Range Interpretation Comments Mean Corpuscular Hemoglobin (test code = 785-6) 29.3 28-32 [facility] HendersonMean Corpuscular Hemoglobin Concent 2019-11-16 05:43:00* Test Item Value Reference Range Interpretation Comments Mean Corpuscular Hemoglobin Concent (test code = 786-4) 31.5 31-35 [facility] HendersonRed Cell Distribution Ttfqa7931-15-20 05:43:00* Test Item Value Reference Range Interpretation Comments Red Cell Distribution Width (test code = 09004-6) 15.8 11.7 -14.4 H [facility] HendersonPlatelet Igxpa9288-47-56 05:43:00* Test Item Value Reference Range Interpretation Comments Platelet Count (test code = 777-3) 155 140-360 [facility] HendersonNeutrophils (%) (Auto)2019-11-16 05:43:00 * Test Item Value Reference Range Interpretation Comments Neutrophils (%) (Auto) (test code = 64560-6) 69.6 38.7-80.0 [facility] HendersonLymphocytes (%) (Auto)2019-11-16 05:43:00 * Test Item Value Reference Range Interpretation Comments Lymphocytes (%) (Auto) (test code = 736-9) 17.3 18.0-39.1 L [facility] HendersonMonocytes (%) (Auto)2019-11-16 05:43:00* Test Item Value Reference Range Interpretation Comments Monocytes (%) (Auto) (test code = 5905-5) 8.1 4.4-11.3 [facility] HendersonEosinophils (%) (Auto)2019-11-16 05:43:00 * Test Item Value Reference Range Interpretation Comments Eosinophils (%) (Auto) (test code = 713-8) 4.0 0.0-6.0 [facility] HendersonBasophils (%) (Auto)2019-11-16 05:43:00* Test Item Value Reference Range Interpretation Comments Basophils (%) (Auto) (test code = 706-2) 0.6 0.0-1.0 [facility] HendersonIM GRANULOCYTES %2019-11-16 05:43:00* Test Item Value Reference Range Interpretation Comments IM GRANULOCYTES % (test code = IM GRANULOCYTES %) 0.4 0.0- 1.0 [facility] HendersonNeutrophils # (Auto)2019-11-16 05:43:00* Test Item Value Reference Range Interpretation Comments Neutrophils # (Auto) (test code = 751-8) 4.7 2.1-6.9 [facility] HendersonLymphocytes # (Auto)2019-11-16 05:43:00* Test Item Value Reference Range Interpretation Comments Lymphocytes # (Auto) (test code = 73517-4) 1.2 1.0-3.2 [facility] HendersonMonocytes # (Auto)2019-11-16 05:43:00* Test Item Value Reference Range Interpretation Comments Monocytes # (Auto) (test code = 742-7) 0.6 0.2-0.8 [facility] HendersonEosinophils # (Auto)2019-11-16 05:43:00* Test Item Value Reference Range Interpretation Comments Eosinophils # (Auto) (test code = 711-2) 0.3 0.0-0.4 [facility] HendersonBasophils # (Auto)2019-11-16 05:43:00* Test Item Value Reference Range Interpretation Comments Basophils # (Auto) (test code = 704-7) 0.0 0.0-0.1 [facility] HendersonAbsolute Immature Granulocyte (auto 2019-11-16 05:43:00* Test Item Value Reference Range Interpretation Comments Absolute Immature Granulocyte (auto (aldair t code = Absolute Immature Granulocyte (auto) 0.03 0-0.1 [facility] HendersonBlood leukocytes automated count (number/volume)2019-11-16 04:10:00* Test Item Value Reference Range Interpretation Comments White Blood Count (test code = 6690-2) 6.78 4.8-10.8 [facility] HendersonBlood erythrocytes automated count (number/volume)2019-11-16 04:10:00* Test Item Value Reference Range Interpretation Comments Red Blood Count (test code = 789-8) 4.41 4.3-5.7 [facility] HendersonBlood hemoglobin measurement (moles/volume)2019-11-16 04:10:00* Test Item Value Reference Range Interpretation Comments Hemoglobin (test code = 85538-9) 12.9 14.0-18.0 [facility] HendersonAutomated blood hematocrit (volume fraction)2019-11-16 04:10:00* Test Item Value Reference Range Interpretation Comments Hematocrit (test code = 4544-3) 41.0 38.2-49.6 [facility] HendersonAutomated erythrocyte mean corpuscular ogbttv7197-40-65 04:10:00* Test Item Value Reference Range Interpretation Comments Mean Corpuscular Volume (test code = 787-2) 93.0 81-99 [facility] HendersonAutomated erythrocyte mean corpuscular hemoglobin (mass per erythrocyte)2019-11-16 04:10:00* Test Item Value Reference Range Interpretation Comments Mean Corpuscular Hemoglobin (test code = 785-6) 29.3 28-32 [facility] HendersonAutomated erythrocyte mean corpuscular hemoglobin concentration measurement (mass/volume)2019-11-16 04:10:00* Test Item Value Reference Range Interpretation Comments Mean Corpuscular Hemoglobin Concent (test code = 786-4) 31.5 31-35 [facility] HendersonRDW FgrCy-Wpy0921-97-04 04:10:00* Test Item Value Reference Range Interpretation Comments Red Cell Distribution Width (test code = 01152-2) 15.8 11.7 -14.4 [facility] HendersonAutomated blood platelet count (count/volume)2019-11-16 04:10:00* Test Item Value Reference Range Interpretation Comments Platelet Count (test code = 777-3) 155 140-360 [facility] HendersonAutomated blood segmented neutrophil count as percentage of total kwqkwwbqvz9281-73-42 04:10:00* Test Item Value Reference Range Interpretation Comments Neutrophils (%) (Auto) (test code = 90063-9) 69.6 38.7-80.0 [facility] HendersonAutomated blood lymphocyte count as percentage ot total czbrvxtspx9713-94-10 04:10:00* Test Item Value Reference Range Interpretation Comments Lymphocytes (%) (Auto) (test code = 736-9) 17.3 18.0-39.1 [facility] HendersonAutomated blood monocyte count as percentage of total awmnlyrazx9183-20-01 04:10:00* Test Item Value Reference Range Interpretation Comments Monocytes (%) (Auto) (test code = 5905-5) 8.1 4.4-11.3 [facility] HendersonAutomated blood eosinophil count as percentage of total nypzqyntro1415-20-10 04:10:00* Test Item Value Reference Range Interpretation Comments Eosinophils (%) (Auto) (test code = 713-8) 4.0 0.0-6.0 [facility] HendersonAutcritical access hospitaled blood basophil count as percentage of total vptetjwcey6097-34-73 04:10:00* Test Item Value Reference Range Interpretation Comments Basophils (%) (Auto) (test code = 706-2) 0.6 0.0-1.0 [facility] HendersonFluoroscopic procedure less than one hour yxluijfj1645-28-95 04:10:00* Test Item Value Reference Range Interpretation Comments IM GRANULOCYTES % (test code = IM GRANULOCYTES %) 0.4 0.0- 1.0 [facility] HendersonAutomated blood neutrophil count 2019-11-16 04:10:00* Test Item Value Reference Range Interpretation Comments Neutrophils # (Auto) (test code = 751-8) 4.7 2.1-6.9 [facility] lymphocytes count (number/volume) 2019-11-16 04:10:00* Test Item Value Reference Range Interpretation Comments Lymphocytes # (Auto) (test code = 19848-9) 1.2 1.0-3.2 [facility] monocytes automated count (number/volume)2019-11-16 04:10:00* Test Item Value Reference Range Interpretation Comments Monocytes # (Auto) (test code = 742-7) 0.6 0.2-0.8 [facility] HendersonAutcritical access hospitaled blood eosinophil count 2019-11-16 04:10:00* Test Item Value Reference Range Interpretation Comments Eosinophils # (Auto) (test code = 711-2) 0.3 0.0-0.4 [facility] HendersonAutcritical access hospitaled blood basophil count (count/volume)2019-11-16 04:10:00* Test Item Value Reference Range Interpretation Comments Basophils # (Auto) (test code = 704-7) 0.0 0.0-0.1 [facility] HendersonFluoroscopic procedure less than one hour vejqungc1990-78-82 04:10:00* Test Item Value Reference Range Interpretation Comments Absolute Immature Granulocyte (auto (aldair t code = Absolute Immature Granulocyte (auto) 0.03 0-0.1 [facility] leukocytes automated count (number/volume)2019-11-16 04:10:00* Test Item Value Reference Range Interpretation Comments White Blood Count (test code = 6690-2) 6.78 4.8-10.8 [facility] HendersonBlood erythrocytes automated count (number/volume)2019-11-16 04:10:00* Test Item Value Reference Range Interpretation Comments Red Blood Count (test code = 789-8) 4.41 4.3-5.7 [facility] HendersonBlood hemoglobin measurement (moles/volume)2019-11-16 04:10:00* Test Item Value Reference Range Interpretation Comments Hemoglobin (test code = 79260-1) 12.9 14.0-18.0 [facility] HendersonAutomated blood hematocrit (volume fraction)2019-11-16 04:10:00* Test Item Value Reference Range Interpretation Comments Hematocrit (test code = 4544-3) 41.0 38.2-49.6 [facility] HendersonAutomated erythrocyte mean corpuscular wuwhkg4708-32-49 04:10:00* Test Item Value Reference Range Interpretation Comments Mean Corpuscular Volume (test code = 787-2) 93.0 81-99 [facility] HendersonAutomated erythrocyte mean corpuscular hemoglobin (mass per erythrocyte)2019-11-16 04:10:00* Test Item Value Reference Range Interpretation Comments Mean Corpuscular Hemoglobin (test code = 785-6) 29.3 28-32 [facility] HendersonAutomated erythrocyte mean corpuscular hemoglobin concentration measurement (mass/volume)2019-11-16 04:10:00* Test Item Value Reference Range Interpretation Comments Mean Corpuscular Hemoglobin Concent (test code = 786-4) 31.5 31-35 [facility] HendersonRDW WxhGf-Bhg6667-22-04 04:10:00* Test Item Value Reference Range Interpretation Comments Red Cell Distribution Width (test code = 72806-0) 15.8 11.7 -14.4 [facility] HendersonAutomated blood platelet count (count/volume)2019-11-16 04:10:00* Test Item Value Reference Range Interpretation Comments Platelet Count (test code = 777-3) 155 140-360 [facility] HendersonAutomated blood segmented neutrophil count as percentage of total wgqfxcnpow5029-83-20 04:10:00* Test Item Value Reference Range Interpretation Comments Neutrophils (%) (Auto) (test code = 68268-4) 69.6 38.7-80.0 [facility] HendersonAutomated blood lymphocyte count as percentage ot total hguiyzsxii8872-46-45 04:10:00* Test Item Value Reference Range Interpretation Comments Lymphocytes (%) (Auto) (test code = 736-9) 17.3 18.0-39.1 [facility] HendersonAutomated blood monocyte count as percentage of total fgyrcwvxfw7706-83-77 04:10:00* Test Item Value Reference Range Interpretation Comments Monocytes (%) (Auto) (test code = 5905-5) 8.1 4.4-11.3 [facility] HendersonAutomated blood eosinophil count as percentage of total avnxxupiwj4165-04-47 04:10:00* Test Item Value Reference Range Interpretation Comments Eosinophils (%) (Auto) (test code = 713-8) 4.0 0.0-6.0 [facility] HendersonAutomated blood basophil count as percentage of total comaxhmnqr5561-90-51 04:10:00* Test Item Value Reference Range Interpretation Comments Basophils (%) (Auto) (test code = 706-2) 0.6 0.0-1.0 [facility] HendersonFluoroscopic procedure less than one hour mfmhgzgb4319-30-19 04:10:00* Test Item Value Reference Range Interpretation Comments IM GRANULOCYTES % (test code = IM GRANULOCYTES %) 0.4 0.0- 1.0 [facility] HendersonAutomated blood neutrophil count 2019-11-16 04:10:00* Test Item Value Reference Range Interpretation Comments Neutrophils # (Auto) (test code = 751-8) 4.7 2.1-6.9 [facility] HendersonBlood lymphocytes count (number/volume) 2019-11-16 04:10:00* Test Item Value Reference Range Interpretation Comments Lymphocytes # (Auto) (test code = 39406-4) 1.2 1.0-3.2 [facility] HendersonBlood monocytes automated count (number/volume)2019-11-16 04:10:00* Test Item Value Reference Range Interpretation Comments Monocytes # (Auto) (test code = 742-7) 0.6 0.2-0.8 [facility] HendersonAutomated blood eosinophil count 2019-11-16 04:10:00* Test Item Value Reference Range Interpretation Comments Eosinophils # (Auto) (test code = 711-2) 0.3 0.0-0.4 [facility] HendersonAutomated blood basophil count (count/volume)2019-11-16 04:10:00* Test Item Value Reference Range Interpretation Comments Basophils # (Auto) (test code = 704-7) 0.0 0.0-0.1 [facility] HendersonFluoroscopic procedure less than one hour fcumaauw6077-04-33 04:10:00* Test Item Value Reference Range Interpretation Comments Absolute Immature Granulocyte (auto (aldair t code = Absolute Immature Granulocyte (auto) 0.03 0-0.1 [facility] HendersonCreatine Kinase HX8475-35-27 15:30:00* Test Item Value Reference Range Interpretation Comments Creatine Kinase MB (test code = 30616-6) 1.00 0-5.0 [facility] [id number] 15:30:00* Test Item Value Reference Range Interpretation Comments Troponin I (test code = JDS6282) 0.004 0-0.300 [facility] HendersonCreatine Kinase CW9048-76-12 15:30:00* Test Item Value Reference Range Interpretation Comments Creatine Kinase MB (test code = 92752-9) 1.00 0-5.0 [facility]Trm[facility]n M5568-38-60 15:30:00* Test Item Value Reference Range Interpretation Comments Troponin I (test code = 56213-4) 0.004 0-0.300 [facility] HendersonB-Type Natriuretic Yfsbueu5122-06-48 15:28:00* Test Item Value Reference Range Interpretation Comments B-Type Natriuretic Peptide (test code = 20508-4) 199.3 0-100 H [facility] HendersonB-Type Natriuretic Uyogchh0855-42-28 15:28:00* Test Item Value Reference Range Interpretation Comments B-Type Natriuretic Peptide (test code = 18299-1) 199.3 0-100 H [facility] HendersonTotal Ptjcqcuwo4028-33-60 15:25:00* Test Item Value Reference Range Interpretation Comments Total Bilirubin (test code = 1975-2) 0.9 0.2-1.2 [facility] HendersonAspartate Amino Transf (AST/SGOT) 2019-11-15 15:25:00* Test Item Value Reference Range Interpretation Comments Aspartate Amino Transf (AST/SGOT) (test code = Aspartate Amino Transf (AST/SGOT)) 14 5-34 [facility] HendersonAlanine Aminotransferase (ALT/SGPT) 2019-11-15 15:25:00* Test Item Value Reference Range Interpretation Comments Alanine Aminotransferase (ALT/SGPT) (test code = 1742-6) 9 0-55 [facility] HendersonTotal Zutvfnh7342-90-26 15:25:00* Test Item Value Reference Range Interpretation Comments Total Protein (test code = 2885-2) 7.3 6.5-8.1 [facility] HendersonAlbumin2020-03-03 15:25:00* Test Item Value Reference Range Interpretation Comments Albumin (test code = 1751-7) 3.4 3.5-5.0 L [facility] HendersonGlobulin2020-03-03 15:25:00* Test Item Value Reference Range Interpretation Comments Globulin (test code = 51313-9) 3.9 2.3-3.5 H [facility] HendersonAlbumin/Globulin Anqoh7996-17-74 15:25:00 * Test Item Value Reference Range Interpretation Comments Albumin/Globulin Ratio (test code = 1759-0) 0.9 0.8-2.0 [facility] HendersonAlkaline Krxcopddzrl5792-35-54 15:25:00* Test Item Value Reference Range Interpretation Comments Alkaline Phosphatase (test code = 6768-6) 101 40-150 [facility] HendersonCreatine Ucpnra1410-02-21 15:25:00* Test Item Value Reference Range Interpretation Comments Creatine Kinase (test code = 2157-6) 40 30-200 [facility] HendersonTotal Olyloqsha5369-97-39 15:25:00* Test Item Value Reference Range Interpretation Comments Total Bilirubin (test code = 1975-2) 0.9 0.2-1.2 [facility] HendersonAspartate Amino Transf (AST/SGOT) 2019-11-15 15:25:00* Test Item Value Reference Range Interpretation Comments Aspartate Amino Transf (AST/SGOT) (test code = Aspartate Amino Transf (AST/SGOT)) 14 5-34 [facility] HendersonAlanine Aminotransferase (ALT/SGPT) 2019-11-15 15:25:00* Test Item Value Reference Range Interpretation Comments Alanine Aminotransferase (ALT/SGPT) (test code = 1742-6) 9 0-55 [facility] HendersonTotal Ycywezt1814-71-08 15:25:00* Test Item Value Reference Range Interpretation Comments Total Protein (test code = 2885-2) 7.3 6.5-8.1 [facility] HendersonAlbumin2020-03-03 15:25:00* Test Item Value Reference Range Interpretation Comments Albumin (test code = 1751-7) 3.4 3.5-5.0 L [facility] HendersonGlobulin2020-03-03 15:25:00* Test Item Value Reference Range Interpretation Comments Globulin (test code = 99744-3) 3.9 2.3-3.5 H [facility] HendersonAlbumin/Globulin Rxsea8153-57-98 15:25:00 * Test Item Value Reference Range Interpretation Comments Albumin/Globulin Ratio (test code = 1759-0) 0.9 0.8-2.0 [facility] HendersonAlkaline Bfogftgtrla0455-25-02 15:25:00* Test Item Value Reference Range Interpretation Comments Alkaline Phosphatase (test code = 6768-6) 101 40-150 [facility] HendersonCreatine Zrejhb9603-92-22 15:25:00* Test Item Value Reference Range Interpretation Comments Creatine Kinase (test code = 2157-6) 40 30-200 [facility] HendersonProthrombin Idyx9826-78-84 15:18:00* Test Item Value Reference Range Interpretation Comments Prothrombin Time (test code = 5902-2) 14.2 11.9-14.5 [facility] HendersonProthromb Time International Ratio 2019-11-15 15:18:00* Test Item Value Reference Range Interpretation Comments Prothromb Time International Ratio (test code = 6301-6) 1.04 Oral Anticoagulant Therapy INR Values:1. Low Intensity Therapy 1.5 - 2.02 . Moderate Intensity Therapy 2.0 - 3.03. High Intensity Therapy(1) 2.5 - 3. 54. High Intensity Therapy(2) 3.0 - 4.05. Panic Value INR > 5.0 [facility] Thromboplast Time 2019-11-15 15:18:00* Test Item Value Reference Range Interpretation Comments Activated Partial Thromboplast Time (test code = 89134-6) 30.6 23.8-35.5 [facility] HendersonProthrombin Inrf1036-50-98 15:18:00* Test Item Value Reference Range Interpretation Comments Prothrombin Time (test code = 5902-2) 14.2 11.9-14.5 [facility] HendersonProthromb Time International Ratio 2019-11-15 15:18:00* Test Item Value Reference Range Interpretation Comments Prothromb Time International Ratio (test code = 6301-6) 1.04 Oral Anticoagulant Therapy INR Values:1. Low Intensity Therapy 1.5 - 2.02 . Moderate Intensity Therapy 2.0 - 3.03. High Intensity Therapy(1) 2.5 - 3. 54. High Intensity Therapy(2) 3.0 - 4.05. Panic Value INR > 5.0 [facility] Partial Thromboplast Time 2019-11-15 15:18:00* Test Item Value Reference Range Interpretation Comments Activated Partial Thromboplast Time (test code = 04165-0) 30.6 23.8-35.5 [facility]2019-11-15 14:22:00 [facility] [address] [place] [address] Patient Name: NHI DUMONT MR #: [id number] : 1940 Age/Sex: 78/M Req #: [id number] Adm Physician: Ordered by: TANJA [facility] CASE MANAGER Report #: [id number] Location: ER Room/Bed: Procedure: [id number] D X/CHEST SINGLE (PORTABLE) Exam Date: 11/15/19 Exam T lucero: 1337 REPORT STATUS: Signed Examination: Single AP view of the chest. COMPARISON: 09/18/2019 INDICAT ION: Shortness of breath, leg pain and swelling DISCUSSION: The lungs are well inflated. No focal consolidation, pleural effusion, or pneumot horax. Mild enlargement of the cardiac silhouette with prominence of the c entral pulmonary vasculature. No acute osseous abnormalities. 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 IMPRESSION: Enlarged cardiomediastinal silhouette with pulmonary venous congestion, similar to 09/18/2019. Signed by: Dr. Devon Theodore M.D. on 11/15/2019 2:25 PM Dictated By: DEVON THEODORE MD 1425 COPY TO: ROMELIA [facility] CASE MANAGER Blood cfeoeho6005-55-21 13:35:00* Test Item Value Reference Range Interpretation Comments Blood Culture (test code = 12328181) NO GROWTH AFTER 5 DAYS, FINAL REPORT [facility]Blood kzbjvfg1920-97-41 13:35:00* Test Item Value Reference Range Interpretation Comments Blood Culture (test code = 01890901) NO GROWTH AFTER 5 DAYS, FINAL REPORT [facility] HendersonProthrombin time (PT) in platelet poor plasma by coagulation vwydi7076-26-54 13:30:00* Test Item Value Reference Range Interpretation Comments Prothrombin Time (test code = 5902-2) 14.2 11.9-14.5 [facility] HendersonINR in Platelet poor plasma by Coagulation jvixn6827-75-62 13:30:00* Test Item Value Reference Range Interpretation Comments Prothromb Time International Ratio (test code = 6301-6) 1.04 Oral Anticoagulant Therapy INR Values:1. Low Intensity Therapy 1.5 - 2.02 . Moderate Intensity Therapy 2.0 - 3.03. High Intensity Therapy(1) 2.5 - 3. 54. High Intensity Therapy(2) 3.0 - 4.05. Panic Value INR > 5.0 [facility] HendersonAct[facility] partial thromboplastin time (aPTT) in platelet poor plasma by coagulation zuvwg9226-19-02 13:30:00* Test Item Value Reference Range Interpretation Comments Activated Partial Thromboplast Time (test code = 57919-9) 30.6 23.8-35.5 [facility] or plasma total bilirubin measurement (mass/volume)2019-11-15 13:30:00* Test Item Value Reference Range Interpretation Comments Total Bilirubin (test code = 1975-2) 0.9 0.2-1.2 [facility] HendersonFluoroscopic procedure less than one hour jgcqbxwx9675-93-27 13:30:00* Test Item Value Reference Range Interpretation Comments Aspartate Amino Transf (AST/SGOT) (test code = Aspartate Amino Transf (AST/SGOT)) 14 5-34 [facility]ererum or plasma alanine aminotransferase measurement (enzymatic activity/volume)2019-11-15 13:30:00* Test Item Value Reference Range Interpretation Comments Alanine Aminotransferase (ALT/SGPT) (test code = 1742-6) 9 0-55 [facility]ererum or plasma protein measurement (mass/volume)2019-11-15 13:30:00* Test Item Value Reference Range Interpretation Comments Total Protein (test code = 2885-2) 7.3 6.5-8.1 [facility]ererum or plasma albumin measurement (mass/volume)2019-11-15 13:30:00* Test Item Value Reference Range Interpretation Comments Albumin (test code = 1751-7) 3.4 3.5-5.0 [facility] HendersonPlasma globulin measurement (mass/volume) 2019-11-15 13:30:00* Test Item Value Reference Range Interpretation Comments Globulin (test code = 81753-1) 3.9 2.3-3.5 [facility]ererum or plasma albumin/globulin mass wxtdq4181-97-65 13:30:00* Test Item Value Reference Range Interpretation Comments Albumin/Globulin Ratio (test code = 1759-0) 0.9 0.8-2.0 [facility]ererum or plasma alkaline phosphatase measurement (enzymatic activity/volume)2019-11-15 13:30:00* Test Item Value Reference Range Interpretation Comments Alkaline Phosphatase (test code = 6768-6) 101 40-150 [facility] HendersonBNP Jeo-mLke7109-39-03 13:30:00* Test Item Value Reference Range Interpretation Comments B-Type Natriuretic Peptide (test code = 23638-1) 199.3 0-100 [facility]ererum or plasma creatine kinase measurement (enzymatic activity/volume)2019-11-15 13:30:00* Test Item Value Reference Range Interpretation Comments Creatine Kinase (test code = 2157-6) 40 30-200 [facility]ererum or plasma creatine kinase MB measurement (mass/volume)2019-11-15 13:30:00* Test Item Value Reference Range Interpretation Comments Creatine Kinase MB (test code = 43883-6) 1.00 0-5.0 [facility] HendersonTroponin I measurement by highly sensitive enzyme zkcpaebpctr6672-96-34 13:30:00* Test Item Value Reference Range Interpretation Comments Troponin I (test code = 86895-0) 0.004 0-0.300 [facility] HendersonProthrombin time (PT) in platelet poor plasma by coagulation cslnf4923-60-54 13:30:00* Test Item Value Reference Range Interpretation Comments Prothrombin Time (test code = 5902-2) 14.2 11.9-14.5 [facility] HendersonINR in Platelet poor plasma by Coagulation cybby0663-65-47 13:30:00* Test Item Value Reference Range Interpretation Comments Prothromb Time International Ratio (test code = 6301-6) 1.04 Oral Anticoagulant Therapy INR Values:1. Low Intensity Therapy 1.5 - 2.02 . Moderate Intensity Therapy 2.0 - 3.03. High Intensity Therapy(1) 2.5 - 3. 54. High Intensity Therapy(2) 3.0 - 4.05. Panic Value INR > 5.0 [facility] HendersonActivated partial thromboplastin time (aPTT) in platelet poor plasma by coagulation ghqfq0460-78-01 13:30:00* Test Item Value Reference Range Interpretation Comments Activated Partial Thromboplast Time (test code = 68451-9) 30.6 23.8-35.5 [facility]ererum or plasma total bilirubin measurement (mass/volume)2019-11-15 13:30:00* Test Item Value Reference Range Interpretation Comments Total Bilirubin (test code = 1975-2) 0.9 0.2-1.2 [facility] HendersonFluoroscopic procedure less than one hour cplajtas4415-84-63 13:30:00* Test Item Value Reference Range Interpretation Comments Aspartate Amino Transf (AST/SGOT) (test code = Aspartate Amino Transf (AST/SGOT)) 14 5-34 [facility]ererum or plasma alanine aminotransferase measurement (enzymatic activity/volume)2019-11-15 13:30:00* Test Item Value Reference Range Interpretation Comments Alanine Aminotransferase (ALT/SGPT) (test code = 1742-6) 9 0-55 [facility]ererum or plasma protein measurement (mass/volume)2019-11-15 13:30:00* Test Item Value Reference Range Interpretation Comments Total Protein (test code = 2885-2) 7.3 6.5-8.1 [facility]ererum or plasma albumin measurement (mass/volume)2019-11-15 13:30:00* Test Item Value Reference Range Interpretation Comments Albumin (test code = 1751-7) 3.4 3.5-5.0 [facility] HendersonPlasma globulin measurement (mass/volume) 2019-11-15 13:30:00* Test Item Value Reference Range Interpretation Comments Globulin (test code = 12897-6) 3.9 2.3-3.5 [facility]ererum or plasma albumin/globulin mass hpekv8631-72-18 13:30:00* Test Item Value Reference Range Interpretation Comments Albumin/Globulin Ratio (test code = 1759-0) 0.9 0.8-2.0 [facility]ererum or plasma alkaline phosphatase measurement (enzymatic activity/volume)2019-11-15 13:30:00* Test Item Value Reference Range Interpretation Comments Alkaline Phosphatase (test code = 6768-6) 101 40-150 [facility] HendersonBNP Ouk-hMrr4901-48-03 13:30:00* Test Item Value Reference Range Interpretation Comments B-Type Natriuretic Peptide (test code = 56989-6) 199.3 0-100 [facility]ererum or plasma creatine kinase measurement (enzymatic activity/volume)2019-11-15 13:30:00* Test Item Value Reference Range Interpretation Comments Creatine Kinase (test code = 2157-6) 40 30-200 [facility]ererum or plasma creatine kinase MB measurement (mass/volume)2019-11-15 13:30:00* Test Item Value Reference Range Interpretation Comments Creatine Kinase MB (test code = 42532-1) 1.00 0-5.0 [facility] HendersonTroponin I measurement by highly sensitive enzyme kbcinelpxya0608-61-07 13:30:00* Test Item Value Reference Range Interpretation Comments Troponin I (test code = 63225-2) 0.004 0-0.300 [facility] Moirbbl1465-76-83 09:14:00* Test Item Value Reference Range Interpretation Comments Wound Culture (test code = 6462-6) No Result Data Provided [facility] Bziqrzi0249-96-74 09:14:00* Test Item Value Reference Range Interpretation Comments Wound Culture (test code = 6462-6) No Result Data Provided [facility] Pdcpbeq7873-33-19 09:14:00* Test Item Value Reference Range Interpretation Comments Wound Culture (test code = 6462-6) No Result Data Provided [facility] Sxqndce6058-57-52 09:14:00* Test Item Value Reference Range Interpretation Comments Wound Culture (test code = 6462-6) No Result Data Provided [facility] HendersonBacteria identification in wound by cjldimj6880-96-02 09:25:00* Test Item Value Reference Range Interpretation Comments Wound Culture (test code = 6462-6) STAPHYLOCOCCUS AUREUS [facility] HendersonBacteria identification in wound by nhhapfe4490-65-43 09:25:00* Test Item Value Reference Range Interpretation Comments Wound Culture (test code = 6462-6) STAPHYLOCOCCUS AUREUS [facility] Hsejzey6770-68-22 09:18:00* Test Item Value Reference Range Interpretation Comments Blood Culture (test code = 30040067) NO GROWTH AFTER 5 DAYS, FINAL REPORT [facility] Yfyaupq2125-96-93 09:18:00* Test Item Value Reference Range Interpretation Comments Blood Culture (test code = 79749815) NO GROWTH AFTER 5 DAYS, FINAL REPORT [facility] HendersonCHES SINGLE ([facility])2019-09-18 10:41:00 [facility] [address] [address] Patient Name: NHI DUMONT MR #: [id number] : 1940 Age/Sex: 78/M Req #: [id number] Adm Physician: Ordered by: LINDA GIRARD DO Report #: [id number] Location: ER Room/Bed: Procedure: [id number] DX/CHEST SINGLE (PORTABLE) Exam Date: 09/18/19 Exam Time: 0945 REPORT STATUS: Signed EXAMINATION: CHEST SINGLE (PORTABLE) INDICATION: possible chf [id number] COMPARISON: 07/17/2019 FINDINGS: AP view TUBES and LINES: None. LUNGS: Limited by body habitus. Lungs are well inflated. Pulmonary vascular congestion and mild additional edema. PL EURA: No significant pleural effusion or pneumothorax. HEART AND MEDIASTIN UM: The cardiomediastinal silhouette is enlarged. BONES AND SOFT TISSU ES: No acute osseous lesion. Soft tissues are unremarkable. UPPER ABDOM EN: No free air under the diaphragm. IMPRESSION: Enlarged cardiomedi astinal silhouette, pulmonary vascular congestion, and mild interstitial edema . Signed by: Dr. Hai Magallon MD on 09/18/2019 10:58 AM Dictated By: HAI MAGALLON MD 105 8 Transcribed By: MARYLU on 09/18/19 1058 COPY TO: LINDA GIRARD DO B-Type Natriuretic Kpomdzm8041-36-46 09:18:00* Test Item Value Reference Range Interpretation Comments B-Type Natriuretic Peptide (test code = 76699-5) 306.8 0-100 H [facility] Natri[facility] Alltdls0594-12-69 09:18:00* Test Item Value Reference Range Interpretation Comments B-Type Natriuretic Peptide (test code = 53979-5) 306.8 0-100 H [facility] HendersonB-Type Natriuretic Mvvbzte9365-35-94 09:18:00* Test Item Value Reference Range Interpretation Comments B-Type Natriuretic Peptide (test code = 47787-9) 306.8 0-100 H [facility] Center[facility] Jlxjh9819-66-72 09:06:00* Test Item Value Reference Range Interpretation Comments Sodium Level (test code = 2951-2) 138 136-145 [facility] HendersonPotassium Cdzwm3672-64-80 09:06:00* Test Item Value Reference Range Interpretation Comments Potassium Level (test code = 2823-3) 4.2 3.5-5.1 [facility] HendersonChloride Ehabh5965-00-71 09:06:00* Test Item Value Reference Range Interpretation Comments Chloride Level (test code = 2075-0) 102 98-107 [facility] HendersonCarbon Dioxide Yzsro2142-37-01 09:06:00* Test Item Value Reference Range Interpretation Comments Carbon Dioxide Level (test code = 2028-9) 26 22-29 [facility] HendersonAnion Enb7370-20-13 09:06:00* Test Item Value Reference Range Interpretation Comments Anion Gap (test code = 42184-6) 14.2 8-16 [facility] HendersonBlood Urea Patfquxa7219-93-87 09:06:00* Test Item Value Reference Range Interpretation Comments Blood Urea Nitrogen (test code = 3094-0) 21 7-26 [facility] HendersonCreatinine2020-01-05 09:06:00* Test Item Value Reference Range Interpretation Comments Creatinine (test code = 2160-0) 1.05 0.72-1.25 [facility] HendersonBUN/Creatinine Cmpkx2093-87-88 09:06:00* Test Item Value Reference Range Interpretation Comments BUN/Creatinine Ratio (test code = 3097-3) 20 6- [facility] HendersonEstimat Glomerular Filtration Rate 2019-09-18 09:06:00* Test Item Value Reference Range Interpretation Comments Estimat Glomerular Filtration Rate (test code = 325398525) > 60 >60 Ranges were taken from the National Kidney Disease Education Program and the [facility] literature.Reference ranges:60 or greater: Xlkdrw04-37 ( for 3 consecutive months): Chronic kidney disease 15 or less: Kidney failureUT Health HendersonGlucose Vcjfw7366-62-50 09:06:00* Test Item Value Reference Range Interpretation Comments Glucose Level (test code = ZWF6899) 132 74-118 H [facility] HendersonCalcium Zjdjq9563-06-79 09:06:00* Test Item Value Reference Range Interpretation Comments Calcium Level (test code = 90281-4) 9.2 8.4-10.2 [facility] HendersonTotal Vppkntyyb7966-00-79 09:06:00* Test Item Value Reference Range Interpretation Comments Total Bilirubin (test code = 1975-2) 1.6 0.2-1.2 H [facility] HendersonAspartate Amino Transf (AST/SGOT) 2019-09-18 09:06:00* Test Item Value Reference Range Interpretation Comments Aspartate Amino Transf (AST/SGOT) (test code = Aspartate Amino Transf (AST/SGOT)) 15 5-34 [facility] HendersonAlanine Aminotransferase (ALT/SGPT) 2019-09-18 09:06:00* Test Item Value Reference Range Interpretation Comments Alanine Aminotransferase (ALT/SGPT) (test code = 1742-6) 12 0-55 [facility] HendersonTotal Aptensh2110-13-01 09:06:00* Test Item Value Reference Range Interpretation Comments Total Protein (test code = 2885-2) 6.6 6.5-8.1 [facility] HendersonAlbumin2020-01-05 09:06:00* Test Item Value Reference Range Interpretation Comments Albumin (test code = 1751-7) 2.8 3.5-5.0 L [facility] HendersonGlobulin2020-01-05 09:06:00* Test Item Value Reference Range Interpretation Comments Globulin (test code = 94857-6) 3.8 2.3-3.5 H [facility] HendersonAlbumin/Globulin Dbkpp9289-79-37 09:06:00 * Test Item Value Reference Range Interpretation Comments Albumin/Globulin Ratio (test code = 1759-0) 0.7 0.8-2.0 L [facility] HendersonAlkaline Wezchewatua5541-00-36 09:06:00* Test Item Value Reference Range Interpretation Comments Alkaline Phosphatase (test code = 6768-6) 90 40-150 [facility] HendersonCreatine Mxiarw6570-88-10 09:06:00* Test Item Value Reference Range Interpretation Comments Creatine Kinase (test code = 2157-6) 94 30-200 [facility] HendersonCreatine Kinase MD9421-59-81 09:06:00* Test Item Value Reference Range Interpretation Comments Creatine Kinase MB (test code = 31836-4) 0.90 0-5.0 [facility] HendersonTroponin I6674-80-53 09:06:00* Test Item Value Reference Range Interpretation Comments Troponin I (test code = QON6292) 0.025 0-0.300 [facility] Center[facility] Yzlvg8450-92-76 09:06:00* Test Item Value Reference Range Interpretation Comments Sodium Level (test code = 2951-2) 138 136-145 [facility] HendersonPotassium Yzxjn9041-96-39 09:06:00* Test Item Value Reference Range Interpretation Comments Potassium Level (test code = 2823-3) 4.2 3.5-5.1 [facility] HendersonChloride Xykbd8100-83-64 09:06:00* Test Item Value Reference Range Interpretation Comments Chloride Level (test code = 2075-0) 102 98-107 [facility] HendersonCarbon Dioxide Zesjv3149-29-61 09:06:00* Test Item Value Reference Range Interpretation Comments Carbon Dioxide Level (test code = 2028-9) 26 22-29 [facility] HendersonAnion Yty6016-51-65 09:06:00* Test Item Value Reference Range Interpretation Comments Anion Gap (test code = 32527-2) 14.2 8-16 [facility] HendersonBlood Urea Ocobuyuo3040-50-71 09:06:00* Test Item Value Reference Range Interpretation Comments Blood Urea Nitrogen (test code = 3094-0) 21 7-26 [facility] HendersonCreatinine2020-01-05 09:06:00* Test Item Value Reference Range Interpretation Comments Creatinine (test code = 2160-0) 1.05 0.72-1.25 [facility] HendersonBUN/Creatinine Lxuvs4258-50-04 09:06:00* Test Item Value Reference Range Interpretation Comments BUN/Creatinine Ratio (test code = 3097-3) 20 6-25 [facility] HendersonEstimat Glomerular Filtration Rate 2019-09-18 09:06:00* Test Item Value Reference Range Interpretation Comments Estimat Glomerular Filtration Rate (test code = 796134629) > 60 >60 Ranges were taken from the National Kidney Disease Education Program and the [facility] literature.Reference ranges:60 or greater: Ijdhuu67-35 ( for 3 consecutive months): Chronic kidney disease 15 or less: Kidney failureUT Health HendersonGlucose Oprmi9638-73-59 09:06:00* Test Item Value Reference Range Interpretation Comments Glucose Level (test code = TZI7693) 132 74-118 H [facility] HendersonCalcium Dwpjt2474-24-25 09:06:00* Test Item Value Reference Range Interpretation Comments Calcium Level (test code = 04465-5) 9.2 8.4-10.2 [facility] HendersonTotal Ybsnrspim9781-58-24 09:06:00* Test Item Value Reference Range Interpretation Comments Total Bilirubin (test code = 1975-2) 1.6 0.2-1.2 H [facility] HendersonAspartate Amino Transf (AST/SGOT) 2019-09-18 09:06:00* Test Item Value Reference Range Interpretation Comments Aspartate Amino Transf (AST/SGOT) (test code = Aspartate Amino Transf (AST/SGOT)) 15 5-34 [facility] HendersonAlanine Aminotransferase (ALT/SGPT) 2019-09-18 09:06:00* Test Item Value Reference Range Interpretation Comments Alanine Aminotransferase (ALT/SGPT) (test code = 1742-6) 12 0-55 [facility] HendersonTotal Osqsgrv2153-69-98 09:06:00* Test Item Value Reference Range Interpretation Comments Total Protein (test code = 2885-2) 6.6 6.5-8.1 [facility] HendersonAlbumin2020-01-05 09:06:00* Test Item Value Reference Range Interpretation Comments Albumin (test code = 1751-7) 2.8 3.5-5.0 L [facility] HendersonGlobulin2020-01-05 09:06:00* Test Item Value Reference Range Interpretation Comments Globulin (test code = 48135-5) 3.8 2.3-3.5 H [facility] HendersonAlbumin/Globulin Huxvv3138-08-55 09:06:00 * Test Item Value Reference Range Interpretation Comments Albumin/Globulin Ratio (test code = 1759-0) 0.7 0.8-2.0 L [facility] HendersonAlkaline Fgmewauvxgg4977-33-11 09:06:00* Test Item Value Reference Range Interpretation Comments Alkaline Phosphatase (test code = 6768-6) 90 40-150 [facility] HendersonCreatine Kaciky2576-39-89 09:06:00* Test Item Value Reference Range Interpretation Comments Creatine Kinase (test code = 2157-6) 94 30-200 [facility] HendersonCreatine Kinase NB6888-38-94 09:06:00* Test Item Value Reference Range Interpretation Comments Creatine Kinase MB (test code = 68162-0) 0.90 0-5.0 [facility] HendersonTroponin T6796-15-11 09:06:00* Test Item Value Reference Range Interpretation Comments Troponin I (test code = MIV2629) 0.025 0-0.300 [facility] Centerodium Rwfbm5504-07-72 09:06:00* Test Item Value Reference Range Interpretation Comments Sodium Level (test code = 2951-2) 138 136-145 [facility] HendersonPotassium Spjmj6805-22-98 09:06:00* Test Item Value Reference Range Interpretation Comments Potassium Level (test code = 2823-3) 4.2 3.5-5.1 [facility] HendersonChloride Jxdbm7764-22-41 09:06:00* Test Item Value Reference Range Interpretation Comments Chloride Level (test code = 2075-0) 102 98-107 [facility] HendersonCarbon Dioxide Figvi4036-06-48 09:06:00* Test Item Value Reference Range Interpretation Comments Carbon Dioxide Level (test code = 2028-9) 26 22-29 [facility] HendersonAnion Cgt7078-74-31 09:06:00* Test Item Value Reference Range Interpretation Comments Anion Gap (test code = 24018-3) 14.2 8-16 [facility] HendersonBlood Urea Pjyfkmsq1327-49-80 09:06:00* Test Item Value Reference Range Interpretation Comments Blood Urea Nitrogen (test code = 3094-0) 21 7-26 [facility] HendersonCreatinine2020-01-05 09:06:00* Test Item Value Reference Range Interpretation Comments Creatinine (test code = 2160-0) 1.05 0.72-1.25 [facility] HendersonBUN/Creatinine Olvsw2193-02-93 09:06:00* Test Item Value Reference Range Interpretation Comments BUN/Creatinine Ratio (test code = 3097-3) 20 6-25 [facility] HendersonEstimat Glomerular Filtration Rate 2019-09-18 09:06:00* Test Item Value Reference Range Interpretation Comments Estimat Glomerular Filtration Rate (test code = 593008617) > 60 >60 Ranges were taken from the National Kidney Disease Education Program and the [facility] Kidney Foundation literature.Reference ranges:60 or greater: Mbphkn11-66 ( for 3 consecutive months): Chronic kidney disease 15 or less: Kidney failureUT Health HendersonGlucose Ludkh1885-37-28 09:06:00* Test Item Value Reference Range Interpretation Comments Glucose Level (test code = ZPG6239) 132 74-118 H [facility] HendersonCalcium Mevlh1830-35-70 09:06:00* Test Item Value Reference Range Interpretation Comments Calcium Level (test code = 70919-7) 9.2 8.4-10.2 [facility] HendersonTotal Abzjcwzew8353-28-41 09:06:00* Test Item Value Reference Range Interpretation Comments Total Bilirubin (test code = 1975-2) 1.6 0.2-1.2 H [facility] HendersonAspartate Amino Transf (AST/SGOT) 2019-09-18 09:06:00* Test Item Value Reference Range Interpretation Comments Aspartate Amino Transf (AST/SGOT) (test code = Aspartate Amino Transf (AST/SGOT)) 15 5-34 [facility] HendersonAlanine Aminotransferase (ALT/SGPT) 2019-09-18 09:06:00* Test Item Value Reference Range Interpretation Comments Alanine Aminotransferase (ALT/SGPT) (test code = 1742-6) 12 0-55 [facility] HendersonTotal Rffriak4828-45-00 09:06:00* Test Item Value Reference Range Interpretation Comments Total Protein (test code = 2885-2) 6.6 6.5-8.1 [facility] HendersonAlbumin2020-01-05 09:06:00* Test Item Value Reference Range Interpretation Comments Albumin (test code = 1751-7) 2.8 3.5-5.0 L [facility] HendersonGlobulin2020-01-05 09:06:00* Test Item Value Reference Range Interpretation Comments Globulin (test code = 46843-4) 3.8 2.3-3.5 H [facility] HendersonAlbumin/Globulin Kdakf3466-43-14 09:06:00 * Test Item Value Reference Range Interpretation Comments Albumin/Globulin Ratio (test code = 1759-0) 0.7 0.8-2.0 L [facility] Qmnsgstztsz4646-22-41 09:06:00* Test Item Value Reference Range Interpretation Comments Alkaline Phosphatase (test code = 6768-6) 90 40-150 [facility]Creatine Gxlkbe6814-90-90 09:06:00* Test Item Value Reference Range Interpretation Comments Creatine Kinase (test code = 2157-6) 94 30-200 [facility] HendersonCreat[facility] Kinase MN3651-96-13 09:06:00* Test Item Value Reference Range Interpretation Comments Creatine Kinase MB (test code = 61263-0) 0.90 0-5.0 [facility] HendersonTroponin J4693-82-53 09:06:00* Test Item Value Reference Range Interpretation Comments Troponin I (test code = AHA5705) 0.025 0-0.300 [facility]White Blood Weggx7773-96-73 08:51:00* Test Item Value Reference Range Interpretation Comments White Blood Count (test code = 6690-2) 6.96 4.8-10.8 [facility] Blood Jvpgh2995-75-07 08:51:00* Test Item Value Reference Range Interpretation Comments Red Blood Count (test code = 789-8) 3.73 4.3-5.7 L [facility]Hemoglobin2020-01-05 08:51:00* Test Item Value Reference Range Interpretation Comments Hemoglobin (test code = 96811-1) 11.2 14.0-18.0 L [facility]Hematocrit2020-01-05 08:51:00* Test Item Value Reference Range Interpretation Comments Hematocrit (test code = 4544-3) 35.0 38.2-49.6 L [facility] HendersonMean Corpuscular Rvntpl7968-11-11 08:51:00* Test Item Value Reference Range Interpretation Comments Mean Corpuscular Volume (test code = 787-2) 93.8 81-99 [facility] Corpuscular Mzqbnjypjw4119-59-69 08:51:00* Test Item Value Reference Range Interpretation Comments Mean Corpuscular Hemoglobin (test code = 785-6) 30.0 28-32 [facility]Mean Corpuscular Hemoglobin Concent 2019-09-18 08:51:00* Test Item Value Reference Range Interpretation Comments Mean Corpuscular Hemoglobin Concent (test code = 786-4) 32.0 31-35 [facility]Red Cell Distribution Xjnux4637-70-09 08:51:00* Test Item Value Reference Range Interpretation Comments Red Cell Distribution Width (test code = 95578-3) 16.0 11.7 -14.4 H [facility] HendersonPlatelet Lewsh7959-18-66 08:51:00* Test Item Value Reference Range Interpretation Comments Platelet Count (test code = 777-3) 182 140-360 [facility]Neutrophils (%) (Auto)2019-09-18 08:51:00 * Test Item Value Reference Range Interpretation Comments Neutrophils (%) (Auto) (test code = 43697-3) 75.2 38.7-80.0 [facility]Lymphocytes (%) (Auto)2019-09-18 08:51:00 * Test Item Value Reference Range Interpretation Comments Lymphocytes (%) (Auto) (test code = 736-9) 11.9 18.0-39.1 L [facility]Monocytes (%) (Auto)2019-09-18 08:51:00* Test Item Value Reference Range Interpretation Comments Monocytes (%) (Auto) (test code = 5905-5) 9.5 4.4-11.3 [facility]Eosinophils (%) (Auto)2019-09-18 08:51:00 * Test Item Value Reference Range Interpretation Comments Eosinophils (%) (Auto) (test code = 713-8) 2.3 0.0-6.0 [facility]Basophils (%) (Auto)2019-09-18 08:51:00* Test Item Value Reference Range Interpretation Comments Basophils (%) (Auto) (test code = 706-2) 0.4 0.0-1.0 [facility]IM GRANULOCYTES %2019-09-18 08:51:00* Test Item Value Reference Range Interpretation Comments IM GRANULOCYTES % (test code = IM GRANULOCYTES %) 0.7 0.0- 1.0 [facility]Neutrophils # (Auto)2019-09-18 08:51:00* Test Item Value Reference Range Interpretation Comments Neutrophils # (Auto) (test code = 751-8) 5.2 2.1-6.9 [facility]Lymphocytes # (Auto)2019-09-18 08:51:00* Test Item Value Reference Range Interpretation Comments Lymphocytes # (Auto) (test code = 70363-0) 0.8 1.0-3.2 L [facility]Monocytes # (Auto)2019-09-18 08:51:00* Test Item Value Reference Range Interpretation Comments Monocytes # (Auto) (test code = 742-7) 0.7 0.2-0.8 [facility]Eosinophils # (Auto)2019-09-18 08:51:00* Test Item Value Reference Range Interpretation Comments Eosinophils # (Auto) (test code = 711-2) 0.2 0.0-0.4 [facility]Basophils # (Auto)2019-09-18 08:51:00* Test Item Value Reference Range Interpretation Comments Basophils # (Auto) (test code = 704-7) 0.0 0.0-0.1 [facility]Absolute Immature Granulocyte (auto 2019-09-18 08:51:00* Test Item Value Reference Range Interpretation Comments Absolute Immature Granulocyte (auto (aldair t code = Absolute Immature Granulocyte (auto) 0.05 0-0.1 [facility]White Blood Iadvt1045-61-82 08:51:00* Test Item Value Reference Range Interpretation Comments White Blood Count (test code = 6690-2) 6.96 4.8-10.8 [facility] Blood Rghpz2573-60-49 08:51:00* Test Item Value Reference Range Interpretation Comments Red Blood Count (test code = 789-8) 3.73 4.3-5.7 L [facility]Hemoglobin2020-01-05 08:51:00* Test Item Value Reference Range Interpretation Comments Hemoglobin (test code = 11197-3) 11.2 14.0-18.0 L [facility] HendersonHematocrit2020-01-05 08:51:00* Test Item Value Reference Range Interpretation Comments Hematocrit (test code = 4544-3) 35.0 38.2-49.6 L [facility]Mean Corpuscular Gsmorc7993-97-71 08:51:00* Test Item Value Reference Range Interpretation Comments Mean Corpuscular Volume (test code = 787-2) 93.8 81-99 [facility]Mean Corpuscular Dnzkgchfpu6516-14-67 08:51:00* Test Item Value Reference Range Interpretation Comments Mean Corpuscular Hemoglobin (test code = 785-6) 30.0 28-32 [facility]Mean Corpuscular Hemoglobin Concent 2019-09-18 08:51:00* Test Item Value Reference Range Interpretation Comments Mean Corpuscular Hemoglobin Concent (test code = 786-4) 32.0 31-35 [facility]Red Cell Distribution Gxtct0040-60-49 08:51:00* Test Item Value Reference Range Interpretation Comments Red Cell Distribution Width (test code = 57102-2) 16.0 11.7 -14.4 H [facility] HendersonPlatelet Wdsgj9763-37-47 08:51:00* Test Item Value Reference Range Interpretation Comments Platelet Count (test code = 777-3) 182 140-360 [facility]Neutrophils (%) (Auto)2019-09-18 08:51:00 * Test Item Value Reference Range Interpretation Comments Neutrophils (%) (Auto) (test code = 58170-3) 75.2 38.7-80.0 [facility]Lymphocytes (%) (Auto)2019-09-18 08:51:00 * Test Item Value Reference Range Interpretation Comments Lymphocytes (%) (Auto) (test code = 736-9) 11.9 18.0-39.1 L [facility] HendersonMonocytes (%) (Auto)2019-09-18 08:51:00* Test Item Value Reference Range Interpretation Comments Monocytes (%) (Auto) (test code = 5905-5) 9.5 4.4-11.3 [facility]Eosinophils (%) (Auto)2019-09-18 08:51:00 * Test Item Value Reference Range Interpretation Comments Eosinophils (%) (Auto) (test code = 713-8) 2.3 0.0-6.0 [facility]Basophils (%) (Auto)2019-09-18 08:51:00* Test Item Value Reference Range Interpretation Comments Basophils (%) (Auto) (test code = 706-2) 0.4 0.0-1.0 [facility]IM GRANULOCYTES %2019-09-18 08:51:00* Test Item Value Reference Range Interpretation Comments IM GRANULOCYTES % (test code = IM GRANULOCYTES %) 0.7 0.0- 1.0 [facility]Neutrophils # (Auto)2019-09-18 08:51:00* Test Item Value Reference Range Interpretation Comments Neutrophils # (Auto) (test code = 751-8) 5.2 2.1-6.9 [facility]Lymphocytes # (Auto)2019-09-18 08:51:00* Test Item Value Reference Range Interpretation Comments Lymphocytes # (Auto) (test code = 26485-4) 0.8 1.0-3.2 L [facility]Monocytes # (Auto)2019-09-18 08:51:00* Test Item Value Reference Range Interpretation Comments Monocytes # (Auto) (test code = 742-7) 0.7 0.2-0.8 [facility]Eosinophils # (Auto)2019-09-18 08:51:00* Test Item Value Reference Range Interpretation Comments Eosinophils # (Auto) (test code = 711-2) 0.2 0.0-0.4 [facility]Basophils # (Auto)2019-09-18 08:51:00* Test Item Value Reference Range Interpretation Comments Basophils # (Auto) (test code = 704-7) 0.0 0.0-0.1 [facility]Absolute Immature Granulocyte (auto 2019-09-18 08:51:00* Test Item Value Reference Range Interpretation Comments Absolute Immature Granulocyte (auto (aldair t code = Absolute Immature Granulocyte (auto) 0.05 0-0.1 [facility]White Blood Jurvg6137-01-91 08:51:00* Test Item Value Reference Range Interpretation Comments White Blood Count (test code = 6690-2) 6.96 4.8-10.8 [facility] Blood Urvhj8534-79-84 08:51:00* Test Item Value Reference Range Interpretation Comments Red Blood Count (test code = 789-8) 3.73 4.3-5.7 L [facility]Hemoglobin2020-01-05 08:51:00* Test Item Value Reference Range Interpretation Comments Hemoglobin (test code = 38517-1) 11.2 14.0-18.0 L [facility] HendersonHematocrit2020-01-05 08:51:00* Test Item Value Reference Range Interpretation Comments Hematocrit (test code = 4544-3) 35.0 38.2-49.6 L [facility]Mean Corpuscular Pwlbbf1830-95-36 08:51:00* Test Item Value Reference Range Interpretation Comments Mean Corpuscular Volume (test code = 787-2) 93.8 81-99 [facility]Mean Corpuscular Ftiitvzlub5312-35-73 08:51:00* Test Item Value Reference Range Interpretation Comments Mean Corpuscular Hemoglobin (test code = 785-6) 30.0 28-32 [facility]Mean Corpuscular Hemoglobin Concent 2019-09-18 08:51:00* Test Item Value Reference Range Interpretation Comments Mean Corpuscular Hemoglobin Concent (test code = 786-4) 32.0 31-35 [facility]Red Cell Distribution Ewzcv9338-89-02 08:51:00* Test Item Value Reference Range Interpretation Comments Red Cell Distribution Width (test code = 60382-5) 16.0 11.7 -14.4 H [facility] HendersonPlatelet Jmjwa2506-47-18 08:51:00* Test Item Value Reference Range Interpretation Comments Platelet Count (test code = 777-3) 182 140-360 [facility]Neutrophils (%) (Auto)2019-09-18 08:51:00 * Test Item Value Reference Range Interpretation Comments Neutrophils (%) (Auto) (test code = 21833-3) 75.2 38.7-80.0 [facility]Lymphocytes (%) (Auto)2019-09-18 08:51:00 * Test Item Value Reference Range Interpretation Comments Lymphocytes (%) (Auto) (test code = 736-9) 11.9 18.0-39.1 L [facility] HendersonMonocytes (%) (Auto)2019-09-18 08:51:00* Test Item Value Reference Range Interpretation Comments Monocytes (%) (Auto) (test code = 5905-5) 9.5 4.4-11.3 [facility]Eosinophils (%) (Auto)2019-09-18 08:51:00 * Test Item Value Reference Range Interpretation Comments Eosinophils (%) (Auto) (test code = 713-8) 2.3 0.0-6.0 [facility]Basophils (%) (Auto)2019-09-18 08:51:00* Test Item Value Reference Range Interpretation Comments Basophils (%) (Auto) (test code = 706-2) 0.4 0.0-1.0 [facility] HendersonIM GRANULOCYTES %2019-09-18 08:51:00* Test Item Value Reference Range Interpretation Comments IM GRANULOCYTES % (test code = IM GRANULOCYTES %) 0.7 0.0- 1.0 [facility]Neutrophils # (Auto)2019-09-18 08:51:00* Test Item Value Reference Range Interpretation Comments Neutrophils # (Auto) (test code = 751-8) 5.2 2.1-6.9 [facility]Lymphocytes # (Auto)2019-09-18 08:51:00* Test Item Value Reference Range Interpretation Comments Lymphocytes # (Auto) (test code = 63029-2) 0.8 1.0-3.2 L [facility]Monocytes # (Auto)2019-09-18 08:51:00* Test Item Value Reference Range Interpretation Comments Monocytes # (Auto) (test code = 742-7) 0.7 0.2-0.8 [facility]Eosinophils # (Auto)2019-09-18 08:51:00* Test Item Value Reference Range Interpretation Comments Eosinophils # (Auto) (test code = 711-2) 0.2 0.0-0.4 [facility]Basophils # (Auto)2019-09-18 08:51:00* Test Item Value Reference Range Interpretation Comments Basophils # (Auto) (test code = 704-7) 0.0 0.0-0.1 [facility]Absolute Immature Granulocyte (auto 2019-09-18 08:51:00* Test Item Value Reference Range Interpretation Comments Absolute Immature Granulocyte (auto (aldair t code = Absolute Immature Granulocyte (auto) 0.05 0-0.1 [facility] HendersonProthrombin Dtlh4111-68-68 08:50:00* Test Item Value Reference Range Interpretation Comments Prothrombin Time (test code = 5902-2) 14.7 11.9-14.5 H [facility] HendersonProthromb Time International Ratio 2019-09-18 08:50:00* Test Item Value Reference Range Interpretation Comments Prothromb Time International Ratio (test code = 6301-6) 1.10 Oral Anticoagulant Therapy INR Values:1. Low Intensity Therapy 1.5 - 2.02 . Moderate Intensity Therapy 2.0 - 3.03. High Intensity Therapy(1) 2.5 - 3. 54. High Intensity Therapy(2) 3.0 - 4.05. Panic Value INR > 5.0 [facility]Act[facility] Partial Thromboplast Time 2019-09-18 08:50:00* Test Item Value Reference Range Interpretation Comments Activated Partial Thromboplast Time (test code = 16015-8) 38.5 23.8-35.5 H [facility] HendersonProthrombin Wvlk6041-79-22 08:50:00* Test Item Value Reference Range Interpretation Comments Prothrombin Time (test code = 5902-2) 14.7 11.9-14.5 H [facility] HendersonProthromb Time International Ratio 2019-09-18 08:50:00* Test Item Value Reference Range Interpretation Comments Prothromb Time International Ratio (test code = 6301-6) 1.10 Oral Anticoagulant Therapy INR Values:1. Low Intensity Therapy 1.5 - 2.02 . Moderate Intensity Therapy 2.0 - 3.03. High Intensity Therapy(1) 2.5 - 3. 54. High Intensity Therapy(2) 3.0 - 4.05. Panic Value INR > 5.0 [facility]Act[facility] Partial Thromboplast Time 2019-09-18 08:50:00* Test Item Value Reference Range Interpretation Comments Activated Partial Thromboplast Time (test code = 96335-7) 38.5 23.8-35.5 H [facility] HendersonProthrombin Gzjf9414-58-86 08:50:00* Test Item Value Reference Range Interpretation Comments Prothrombin Time (test code = 5902-2) 14.7 11.9-14.5 H [facility] HendersonProthromb Time International Ratio 2019-09-18 08:50:00* Test Item Value Reference Range Interpretation Comments Prothromb Time International Ratio (test code = 6301-6) 1.10 Oral Anticoagulant Therapy INR Values:1. Low Intensity Therapy 1.5 - 2.02 . Moderate Intensity Therapy 2.0 - 3.03. High Intensity Therapy(1) 2.5 - 3. 54. High Intensity Therapy(2) 3.0 - 4.05. Panic Value INR > 5.0 [facility]Act[facility] Partial Thromboplast Time 2019-09-18 08:50:00* Test Item Value Reference Range Interpretation Comments Activated Partial Thromboplast Time (test code = 18144-9) 38.5 23.8-35.5 H [facility] Bzgrpfl1404-35-16 04:39:00* Test Item Value Reference Range Interpretation Comments Bedside Glucose (test code = 99286-5) 134 70-120 H Meter ID: [id number] [facility] Glucose 2019-07-25 04:39:00* Test Item Value Reference Range Interpretation Comments Bedside Glucose (test code = 32197-1) 134 70-120 H Meter ID: [id number] [facility]'s Medical Center Glucose 2019-07-25 04:39:00* Test Item Value Reference Range Interpretation Comments Bedside Glucose (test code = 98526-3) 134 70-120 H Meter ID: [id number] Mark's Medical Center Glucose 2019-07-24 11:59:00* Test Item Value Reference Range Interpretation Comments Bedside Glucose (test code = 07802-0) 209 70-120 H Meter ID: [id number] [facility] Culture 2019-07-22 20:35:00* Test Item Value Reference Range Interpretation Comments Blood Culture (test code = 82284140) NO GROWTH AFTER 5 DAYS, [facility] Qcvqfle1697-[facility]-15 20:35:00* Test Item Value Reference Range Interpretation Comments Blood Culture (test code = 06422706) NO GROWTH AFTER 5 DAYS, FINAL REPORT [facility] Lrxxi4589-64-01 06:38:00* Test Item Value Reference Range Interpretation Comments Sodium Level (test code = 2951-2) 137 136-145 [facility]Potassium Xlfae3843-98-65 06:38:00* Test Item Value Reference Range Interpretation Comments Potassium Level (test code = 2823-3) 4.5 3.5-5.1 [facility] HendersonChloride Zqtaj8296-77-73 06:38:00* Test Item Value Reference Range Interpretation Comments Chloride Level (test code = 2075-0) 98 98-107 [facility] HendersonCarbon Dioxide Ngjjj4351-83-30 06:38:00* Test Item Value Reference Range Interpretation Comments Carbon Dioxide Level (test code = 2028-9) 29 22-29 [facility] HendersonAnion Xms7382-35-49 06:38:00* Test Item Value Reference Range Interpretation Comments Anion Gap (test code = 94544-4) 14.5 8-16 [facility] HendersonBlood Urea Jtmgalnf7978-63-27 06:38:00* Test Item Value Reference Range Interpretation Comments Blood Urea Nitrogen (test code = 3094-0) 34 7-26 H [facility] HendersonCreatinine2019-11-08 06:38:00* Test Item Value Reference Range Interpretation Comments Creatinine (test code = 2160-0) 1.27 0.72-1.25 H [facility] HendersonBUN/Creatinine Tdpfr6879-45-56 06:38:00* Test Item Value Reference Range Interpretation Comments BUN/Creatinine Ratio (test code = 3097-3) 27 6-25 H [facility] HendersonEstimat Glomerular Filtration Rate 2019-07-22 06:38:00* Test Item Value Reference Range Interpretation Comments Estimat Glomerular Filtration Rate (test code = 954303421) 55 >60 L Ranges were taken from the National Kidney Disease Education Program and the [facility] literature.Reference ranges:60 or greater: Sdlxel80-87 ( for 3 consecutive months): Chronic kidney disease 15 or less: Kidney failureUT Health HendersonGlucose Dqaij2966-82-97 06:38:00* Test Item Value Reference Range Interpretation Comments Glucose Level (test code = HHZ1587) 222 74-118 H [facility] HendersonCalcium Qumdd6256-58-35 06:38:00* Test Item Value Reference Range Interpretation Comments Calcium Level (test code = 75673-9) 9.2 8.4-10.2 [facility] Snbxz4207-88-05 07:54:00* Test Item Value Reference Range Interpretation Comments Magnesium Level (test code = 43732-0) 2.0 1.3-2.1 [facility]2019-11-07 07:54:00* Test Item Value Reference Range Interpretation Comments Magnesium Level (test code = 21046-3) 2.0 1.3-2.1 [facility]2019-11-07 07:54:00* Test Item Value Reference Range Interpretation Comments Magnesium Level (test code = 12920-7) 2.0 1.3-2.1 [facility]2019-11-07 07:54:00* Test Item Value Reference Range Interpretation Comments Magnesium Level (test code = 59322-9) 2.0 1.3-2.1 [facility]2019-11-07 07:54:00* Test Item Value Reference Range Interpretation Comments Magnesium Level (test code = 34820-3) 2.0 1.3-2.1 [facility]2019-11-07 07:54:00* Test Item Value Reference Range Interpretation Comments Magnesium Level (test code = 61220-0) 2.0 1.3-2.1 [facility] Centererum or plasma magnesium measurement (mass/volume)2019-07-21 05:30:00* Test Item Value Reference Range Interpretation Comments Magnesium Level (test code = 91305-9) 2.0 1.3-2.1 [facility]ererum or plasma magnesium measurement (mass/volume)2019-07-21 05:30:00* Test Item Value Reference Range Interpretation Comments Magnesium Level (test code = 87864-5) 2.0 1.3-2.1 [facility]White Blood Wacuk8500-08-81 19:59:00* Test Item Value Reference Range Interpretation Comments White Blood Count (test code = 6690-2) 5.54 4.8-10.8 [facility]Red Blood Jjjpi4379-96-12 19:59:00* Test Item Value Reference Range Interpretation Comments Red Blood Count (test code = 789-8) 3.59 4.3-5.7 L [facility] HendersonHemoglobin2019-11-06 19:59:00* Test Item Value Reference Range Interpretation Comments Hemoglobin (test code = 35548-2) 11.3 14.0-18.0 L [facility] HendersonHematocrit2019-11-06 19:59:00* Test Item Value Reference Range Interpretation Comments Hematocrit (test code = 4544-3) 35.0 38.2-49.6 L [facility] HendersonMean Corpuscular Ttfnoq1663-70-83 19:59:00* Test Item Value Reference Range Interpretation Comments Mean Corpuscular Volume (test code = 787-2) 97.5 81-99 [facility]Mean Corpuscular Htdeegkepg0161-60-23 19:59:00* Test Item Value Reference Range Interpretation Comments Mean Corpuscular Hemoglobin (test code = 785-6) 31.5 28-32 [facility]Mean Corpuscular Hemoglobin Concent 2019-07-20 19:59:00* Test Item Value Reference Range Interpretation Comments Mean Corpuscular Hemoglobin Concent (test code = 786-4) 32.3 31-35 [facility]Red Cell Distribution Ecqyq4053-77-92 19:59:00* Test Item Value Reference Range Interpretation Comments Red Cell Distribution Width (test code = 37797-2) 14.8 11.7 -14.4 H [facility] HendersonPlatelet Ltzxb5775-22-44 19:59:00* Test Item Value Reference Range Interpretation Comments Platelet Count (test code = 777-3) 181 140-360 [facility]Neutrophils (%) (Auto)2019-07-20 19:59:00 * Test Item Value Reference Range Interpretation Comments Neutrophils (%) (Auto) (test code = 89400-8) 79.8 38.7-80.0 [facility] HendersonLymphocytes (%) (Auto)2019-07-20 19:59:00 * Test Item Value Reference Range Interpretation Comments Lymphocytes (%) (Auto) (test code = 736-9) 10.6 18.0-39.1 L [facility] HendersonMonocytes (%) (Auto)2019-07-20 19:59:00* Test Item Value Reference Range Interpretation Comments Monocytes (%) (Auto) (test code = 5905-5) 5.8 4.4-11.3 [facility]Eosinophils (%) (Auto)2019-07-20 19:59:00 * Test Item Value Reference Range Interpretation Comments Eosinophils (%) (Auto) (test code = 713-8) 2.0 0.0-6.0 [facility]Basophils (%) (Auto)2019-07-20 19:59:00* Test Item Value Reference Range Interpretation Comments Basophils (%) (Auto) (test code = 706-2) 0.5 0.0-1.0 [facility] HendersonIM GRANULOCYTES %2019-07-20 19:59:00* Test Item Value Reference Range Interpretation Comments IM GRANULOCYTES % (test code = IM GRANULOCYTES %) 1.3 0.0- 1.0 H [facility] HendersonNeutrophils # (Auto)2019-07-20 19:59:00* Test Item Value Reference Range Interpretation Comments Neutrophils # (Auto) (test code = 751-8) 4.4 2.1-6.9 [facility]Lymphocytes # (Auto)2019-07-20 19:59:00* Test Item Value Reference Range Interpretation Comments Lymphocytes # (Auto) (test code = 96956-4) 0.6 1.0-3.2 L [facility] HendersonMonocytes # (Auto)2019-07-20 19:59:00* Test Item Value Reference Range Interpretation Comments Monocytes # (Auto) (test code = 742-7) 0.3 0.2-0.8 [facility]Eosinophils # (Auto)2019-07-20 19:59:00* Test Item Value Reference Range Interpretation Comments Eosinophils # (Auto) (test code = 711-2) 0.1 0.0-0.4 [facility]Basophils # (Auto)2019-07-20 19:59:00* Test Item Value Reference Range Interpretation Comments Basophils # (Auto) (test code = 704-7) 0.0 0.0-0.1 [facility] HendersonAbsolute Immature Granulocyte (auto 2019-07-20 19:59:00* Test Item Value Reference Range Interpretation Comments Absolute Immature Granulocyte (auto (aldair t code = Absolute Immature Granulocyte (auto) 0.07 0-0.1 [facility] HendersonCTA NVDQE8333-48-94 16:12:00 [place] [address] Patient Name: NHI DUMONT MR #: [id number] : 1940 Age/Sex: 78/M Req #: [id number] Adm Physician: RA RUSHING MD Ordered by: RA RUSHING MD Report #: [id number] [facility]: [facility] Room/Bed: [facility] Procedure: [id number] CT /CTA CHEST Exam Date: Exam Time: REPORT STATUS: Signed EXAM: CTA OF THE THORACIC A SAM INDICATION: R/O Thoracic aneurysm Y COMPARISON: Chest radiograph 07/17/2019 TECHNIQUE: Multi-detector CT technology was employed. CTA Gated axial imaging of the chest was performed after the administration of IV contrast. IV CONTRAST: 100 mL of Isovue-370 ORAL CONTRAST: None COMPLICATIONS: None RADI ATION DOSE: Total DLP: 648.2 mGy*cm Estimated effective dose: (DLP x 0.015 x size factor) mSv CTDIvol has been reviewed. It is below the li mits set by the Radiation Protocol Committee (RPC). For optimization of a natomic evaluation, multiplanar reconstruction, maximum intensity projections, and advanced 3-D off-line postprocessing were performed on a dedicated stand- alone workstation under the direct supervision of the interpreting physician. FINDINGS: Potential study limitations: None. LINES/ TUBES: None. VASCULAR WITH ADVANCED 3-D OFF-LINE POSTPROCESSING: Aortic valve morphology is trileaflet and contains no, mild, moderate, severe calcifications. The thoracic aorta is moderately tortuous but normal in caliber. There is no acute aortic pathology, such as dissection, intramural hematoma, or contained rupture. Aortic plaques: Mild scattered atherosclerotic calcification t hroughout the thoracic aorta. The arch vessel branching pattern is conven tional. All of the arch branch vessels appear widely patent in their proximal portions. Chemical Process Engineer dimensions of the thoracic aorta are as follow s: 2.4 cm at the aortic annulus 3.5 x 3.3 cm at the sinuses of Valsalva (the sinotubular junction is preserved) 3.3 cm at the mid ascending aorta 3.3 cm at the distal ascending aorta 2.9 cm at the mid transverse arch 2.9 cm at t he proximal descending thoracic aorta 2.8 cm at the diaphragmatic hiatus. LUNGS AND AIRWAYS: Mild bilateral mammary nodules or consolidations. Airwa ys are patent. PLEURA: The pleural spaces are clear. HEART AND MEDIA STINUM: The thyroid gland is normal. No mediastinal, hilar or axillary lympha denopathy. Moderate enlargement of the main pulmonary artery, measuring 4.5 c m in diameter and consistent with pulmonary hypertension. The cardiac chamb ers demonstrate normal atrioventricular and ventriculoarterial concordance, an d systemic and pulmonary venous return. Biatrial enlargement. The right and le ft ventricle appear normal in size on limited evaluation. The coronary arterie s have normal origins and courses. There are moderate coronary calcification s identified, though this study was not optimized for coronary artery evaluati on. There is no pericardial effusion. LIMITED ABDOMEN: Cholecystectomy. Partially visualized 5.7 cm low-attenuation exophytic cyst in the right kidney on series 3, image 125. BONES: Mild multilevel degenerative changes of t he thoracic spine. IMPRESSION: Moderately tortuous thoracic aorta with normal caliber. Mild scattered atherosclerotic calcification throughout the t horacic aorta. No acute thoracic aorta pathology. Moderate enlargemen t of the pulmonary artery consistent with pulmonary hypertension. Signed by: Dr. Yolande Ramirez M.D. on 07/19/2019 4:22 PM Dictated By: Toni RAMIREZ MD 21 Transcribed By: MARYLU on 07/19/191621 COPY TO: RA PELAYO MD CHEST 2 [id number] 22:15:00 [place] [address] Patient Name: NHI DUMONT MR #: [id number] : 1940 Age/Sex: 78/M Req #: [id number] Adm Physician: Ordered by: MARINA SEYMOUR MD Report #: [id number] Location: ER Room/Bed: Procedure: [id number] [id number] DX/CHEST 2 VIEWS Exam Date: 07/17/19 Exam Time: 2109 REPORT STATUS: Signed EXAMI NATION: CHEST 2 VIEWS INDICATION: Short of breath COMPARISON : Chest radiograph 01/30/2019 FINDINGS: PA and lateral views TUB ES and LINES: None. LUNGS: Lungs are well inflated. Lungs are clear. Th ere is no evidence of pneumonia or pulmonary edema. Prominent pulmonary vascul ature. Slight increase in rightward lower tracheal deviation. PLEURA: No pleural effusion or pneumothorax. HEART AND MEDIASTINUM: Cardiac size is mildly enlarged. Tortuous ectatic thoracic aorta. BONES AND SOFT TISSUES: No acute osseous lesion. Soft tissues are unremarkable. Degenerative changes in the spine. Calcifications of the aorta. Cholecystectomy clips. UPPER ABDOMEN: No free air under the diaphragm. IMPRESSION: Mild cardi omegaly and pulmonary vascular congestion. Slight increase in rightward lower tracheal deviation compared to 01/30/2019 can be due to thoracic aortic aneurys m. Signed by: Tacos Cabrera DO on 07/17/2019 10:18 PM Dictated By: TACOS CABRERA DO 2 218 Transcribed By: MARYLU on 07/17/19 2218 COPY TO: CRISTO SEYMOUR MD Urine [id number] 21:49:00* Test Item Value Reference Range Interpretation Comments Urine WBC (test code = 5821-4) [facility] [id number] 21:49:00* Test Item Value Reference Range Interpretation Comments Urine RBC (test code = 35840-9) NONE 0-5 [facility] Burrqdqe6412-30-81 21:49:00* Test Item Value Reference Range Interpretation Comments Urine Bacteria (test code = 16651-7) FEW NONE [facility] Epithelial Zrztz1480-52-93 21:49:00 * Test Item Value Reference Range Interpretation Comments Urine Epithelial Cells (test code = 69553-8) FEW NONE [facility] [id number] 21:49:00* Test Item Value Reference Range Interpretation Comments Urine WBC (test code = 5821-4) NONE 0-5 [facility] [id number] 21:49:00* Test Item Value Reference Range Interpretation Comments Urine RBC (test code = 98459-0) NONE 0-5 [facility] Ldkyyjae5309-31-01 21:49:00* Test Item Value Reference Range Interpretation Comments Urine Bacteria (test code = 58822-0) [facility]W NONE [facility] Ep[facility]helial Prnvy3125-00-18 21:49:00 * Test Item Value Reference Range Interpretation Comments Urine Epithelial Cells (test code = 18413-8) FEW NONE [facility] [id number] 21:49:00* Test Item Value Reference Range Interpretation Comments Urine WBC (test code = 5821-4) NONE 0-5 [facility] [id number] 21:49:00* Test Item Value Reference Range Interpretation Comments Urine RBC (test code = 75898-0) NONE 0-5 [facility] Ofavlreq9087-39-88 21:49:00* Test Item Value Reference Range Interpretation Comments Urine Bacteria (test code = 92203-4) FEW NONE [facility] Epithelial Ubphi6229-83-35 21:49:00 * Test Item Value Reference Range Interpretation Comments Urine Epithelial Cells (test code = 80254-4) FEW NONE [facility] CSJ0829-16-54 21:49:00* Test Item Value Reference Range Interpretation Comments Urine WBC (test code = 5821-4) NONE 0-5 [facility] [id number] 21:49:00* Test Item Value Reference Range Interpretation Comments Urine RBC (test code = 86437-9) NONE 0-5 [facility] Gdlzinqv2023-56-16 21:49:00* Test Item Value Reference Range Interpretation Comments Urine Bacteria (test code = 12547-6) [facility]W [facility]ONE [facility] Kjamt8478-60-21 21:49:00 * Test Item Value Reference Range Interpretation Comments Urine Epithelial Cells (test code = 92899-2) FEW NONE [facility] OBY3537-97-09 21:49:00* Test Item Value Reference Range Interpretation Comments Urine WBC (test code = 5821-4) NONE 0-5 [facility] AQR4727-23-48 21:49:00* Test Item Value Reference Range Interpretation Comments Urine RBC (test code = 97893-8) NONE 0-5 [facility] Koxwqjnh5420-69-68 21:49:00* Test Item Value Reference Range Interpretation Comments Urine Bacteria (test code = 36414-9) FEW NONE [facility] Jwkkc4807-99-03 21:49:00 * Test Item Value Reference Range Interpretation Comments Urine Epithelial Cells (test code = 00878-2) FEW NONE [facility] [id number] 21:49:00* Test Item Value Reference Range Interpretation Comments Urine WBC (test code = 5821-4) NONE 0-5 [facility] [id number] 21:49:00* Test Item Value Reference Range Interpretation Comments Urine RBC (test code = 95188-9) NONE 0-5 [facility] Sdkoensv6594-52-40 21:49:00* Test Item Value Reference Range Interpretation Comments Urine Bacteria (test code = 27564-2) FEW NONE [facility] Ep[facility]helial Fiamj5635-78-43 21:49:00 * Test Item Value Reference Range Interpretation Comments Urine Epithelial Cells (test code = 63260-1) FEW NONE [facility] Mkucf6592-07-52 21:47:00* Test Item Value Reference Range Interpretation Comments Urine Color (test code = 5778-6) YELLOW YELLOW [facility] Hxtaajk4382-25-97 21:47:00* Test Item Value Reference Range Interpretation Comments Urine Clarity (test code = 30902-9) CLEAR CLEAR [facility] Specific Fgnbwof5313-95-03 21:47:00 * Test Item Value Reference Range Interpretation Comments Urine Specific [place] (test code = 5811-5) 1.020 1.010-1.02 5 [facility] [id number] 21:47:00* Test Item Value Reference Range Interpretation Comments Urine pH (test code = 76062-5) 6 5-7 [facility] Leukocyte Ppettjqp9998-41-07 21:47:00* Test Item Value Reference Range Interpretation Comments Urine Leukocyte Esterase (test code = 17883-3) NEGATIVE NEGATIV E [facility] Wlgodbu3264-04-18 21:47:00* Test Item Value Reference Range Interpretation Comments Urine Nitrite (test code = 34875-2) NEGATIVE [facility]GATIVE [facility] Jmrvxfp7757-13-93 21:47:00* Test Item Value Reference Range Interpretation Comments Urine Protein (test code = 36413-7) NEGATIVE [facility]GATIVE [facility] Glucose (UA)2019-07-17 21:47:00* Test Item Value Reference Range Interpretation Comments Urine Glucose (UA) (test code = 67731-4) NEGATIVE [facility]IVE [facility] Odyejgw9195-57-57 21:47:00* Test Item Value Reference Range Interpretation Comments Urine Ketones (test code = 92234-1) NEGATIVE NEGATIVE [facility] Lrdhszwhxjtk5537-76-04 21:47:00* Test Item Value Reference Range Interpretation Comments Urine Urobilinogen (test code = 21735-9) 1 0.2-1 [facility] Qmohelllu9079-90-69 21:47:00* Test Item Value Reference Range Interpretation Comments Urine Bilirubin (test code = 1977-8) NEGATIVE NEGATIVE [facility] Qivpu6337-75-17 21:47:00* Test Item Value Reference Range Interpretation Comments Urine Blood (test code = 24973-0) NEGATIVE [facility]GATIVE [facility] Pwqny2858-00-53 21:47:00* Test Item Value Reference Range Interpretation Comments Urine Color (test code = 5778-6) YELLOW YELLOW [facility] Wvnkgwg5439-71-85 21:47:00* Test Item Value Reference Range Interpretation Comments Urine Clarity (test code = 73379-6) CLEAR CLEAR [facility] Specific Myuegtc2275-73-46 21:47:00 * Test Item Value Reference Range Interpretation Comments Urine Specific [place] (test code = 5811-5) 1.020 1.010-1.02 5 [facility] fV5781-73-70 21:47:00* Test Item Value Reference Range Interpretation Comments Urine pH (test code = 97364-0) 6 5-7 [facility] Leukocyte Zbbttvco3554-93-48 21:47:00* Test Item Value Reference Range Interpretation Comments Urine Leukocyte Esterase (test code = 66079-5) NEGATIVE NEGATIV E [facility] Ejvlyng5913-68-84 21:47:00* Test Item Value Reference Range Interpretation Comments Urine Nitrite (test code = 93835-5) [facility]GATIVE [facility]IVE [facility] Ltxawbe2977-50-94 21:47:00* Test Item Value Reference Range Interpretation Comments Urine Protein (test code = 70125-5) NEGATIVE NEGATIVE [facility] Glucose (UA)2019-07-17 21:47:00* Test Item Value Reference Range Interpretation Comments Urine Glucose (UA) (test code = 20130-4) NEGATIVE NEGATIVE [facility] Kduzgfv9083-04-23 21:47:00* Test Item Value Reference Range Interpretation Comments Urine Ketones (test code = 24409-5) NEGATIVE NEGATIVE [facility] Pkhaqokpmchs4056-46-56 21:47:00* Test Item Value Reference Range Interpretation Comments Urine Urobilinogen (test code = 24603-2) 1 0.2-1 [facility] Ehimizftp1568-32-32 21:47:00* Test Item Value Reference Range Interpretation Comments Urine Bilirubin (test code = 1977-8) NEGATIVE NEGATIVE [facility] Znnxk1525-63-03 21:47:00* Test Item Value Reference Range Interpretation Comments Urine Blood (test code = 56453-0) NEGATIVE NEGATIVE [facility] Zspni4918-38-81 21:47:00* Test Item Value Reference Range Interpretation Comments Urine Color (test code = 5778-6) YELLOW YELLOW [facility] Nmmnffv9528-34-64 21:47:00* Test Item Value Reference Range Interpretation Comments Urine Clarity (test code = 26679-6) CLEAR CLEAR [facility] Specific Zlyqfre0574-41-99 21:47:00 * Test Item Value Reference Range Interpretation Comments Urine Specific [place] (test code = 5811-5) 1.020 1.010-1.02 5 [facility] sU4825-88-12 21:47:00* Test Item Value Reference Range Interpretation Comments Urine pH (test code = 69517-1) 6 5-7 [facility] Leukocyte Ffsmknac4834-02-01 21:47:00* Test Item Value Reference Range Interpretation Comments Urine Leukocyte Esterase (test code = 98216-1) NEGATIVE [facility]GATIV E [facility] Vdpeehl0802-89-24 21:47:00* Test Item Value Reference Range Interpretation Comments Urine Nitrite (test code = 23534-2) NEGATIVE [facility]IVE [facility] Mnupptd7671-16-86 21:47:00* Test Item Value Reference Range Interpretation Comments Urine Protein (test code = 94812-9) NEGATIVE NEGATIVE [facility] Glucose (UA)2019-07-17 21:47:00* Test Item Value Reference Range Interpretation Comments Urine Glucose (UA) (test code = 86708-3) NEGATIVE NEGATIVE [facility] Tssfumu8872-61-23 21:47:00* Test Item Value Reference Range Interpretation Comments Urine Ketones (test code = 92869-0) NEGATIVE NEGATIVE [facility] Snhphymmdkbx9493-09-27 21:47:00* Test Item Value Reference Range Interpretation Comments Urine Urobilinogen (test code = 81668-1) 1 0.2-1 [facility] Ruzlhlugz4159-89-33 21:47:00* Test Item Value Reference Range Interpretation Comments Urine Bilirubin (test code = 1977-8) NEGATIVE NEGATIVE [facility] Aycoc6796-56-74 21:47:00* Test Item Value Reference Range Interpretation Comments Urine Blood (test code = 03851-2) NEGATIVE [facility]GATIVE [facility] Qrifs5199-60-45 21:47:00* Test Item Value Reference Range Interpretation Comments Urine Color (test code = 5778-6) YELLOW YELLOW [facility] Kzwqirw6345-80-75 21:47:00* Test Item Value Reference Range Interpretation Comments Urine Clarity (test code = 86555-5) CLEAR CLEAR [facility] Specific Cfrpwfj8109-20-79 21:47:00 * Test Item Value Reference Range Interpretation Comments Urine Specific [place] (test code = 5811-5) 1.020 1.010-1.[address] [facility] pC4613-00-93 21:47:00* Test Item Value Reference Range Interpretation Comments Urine pH (test code = 04904-0) 6 5-7 [facility] Leukocyte Gjzlevow0766-67-12 21:47:00* Test Item Value Reference Range Interpretation Comments Urine Leukocyte Esterase (test code = 84352-3) NEGATIVE NEGATIV E [facility] Erzdinw2718-16-50 21:47:00* Test Item Value Reference Range Interpretation Comments Urine Nitrite (test code = 60438-6) NEGATIVE NEGATIVE [facility] Eodcaiz6740-64-16 21:47:00* Test Item Value Reference Range Interpretation Comments Urine Protein (test code = 74338-2) NEGATIVE NEGATIVE [facility] Glucose (UA)2019-07-17 21:47:00* Test Item Value Reference Range Interpretation Comments Urine Glucose (UA) (test code = 67871-0) NEGATIVE NEGATIVE [facility] Yzipsfy8458-29-19 21:47:00* Test Item Value Reference Range Interpretation Comments Urine Ketones (test code = 29323-9) NEGATIVE NEGATIVE [facility] Icfmpqkiybnr9393-67-37 21:47:00* Test Item Value Reference Range Interpretation Comments Urine Urobilinogen (test code = 48095-2) 1 0.2-1 [facility] Mdiwtxocg1067-58-86 21:47:00* Test Item Value Reference Range Interpretation Comments Urine Bilirubin (test code = 1977-8) NEGATIVE NEGATIVE [facility] Jlbmb0116-58-72 21:47:00* Test Item Value Reference Range Interpretation Comments Urine Blood (test code = 95973-0) [facility] Hktoc0705-66-42 21:47:00* Test Item Value Reference Range Interpretation Comments Urine Color (test code = 5778-6) YELLOW YELLOW [facility] Jpzqqhm1662-78-81 21:47:00* Test Item Value Reference Range Interpretation Comments Urine Clarity (test code = 49847-9) CLEAR CLEAR [facility] Specific Cxqxprr1213-11-12 21:47:00 * Test Item Value Reference Range Interpretation Comments Urine Specific [place] (test code = 5811-5) 1.020 1.010-1.02 5 [facility] [id number] 21:47:00* Test Item Value Reference Range Interpretation Comments Urine pH (test code = 25072-0) 6 5-7 [facility] Leukocyte Nnwyzdcn0621-06-30 21:47:00* Test Item Value Reference Range Interpretation Comments Urine Leukocyte Esterase (test code = 06303-2) NEGATIVE NEGATIV E [facility] Qmuynwt0290-42-81 21:47:00* Test Item Value Reference Range Interpretation Comments Urine Nitrite (test code = 36812-9) NEGATIVE NEGATIVE [facility] Fgfaadt7138-53-37 21:47:00* Test Item Value Reference Range Interpretation Comments Urine Protein (test code = 44016-0) NEGATIVE NEGATIVE [facility] Glucose (UA)2019-07-17 21:47:00* Test Item Value Reference Range Interpretation Comments Urine Glucose (UA) (test code = 87526-1) NEGATIVE NEGATIVE [facility] Gupxgvp7084-86-70 21:47:00* Test Item Value Reference Range Interpretation Comments Urine Ketones (test code = 22971-2) NEGATIVE NEGATIVE [facility] Vgnsheirekgx6957-30-31 21:47:00* Test Item Value Reference Range Interpretation Comments Urine Urobilinogen (test code = 27533-5) 1 0.2-1 [facility] Zbqraigmr7017-14-74 21:47:00* Test Item Value Reference Range Interpretation Comments Urine Bilirubin (test code = 1977-8) NEGATIVE NEGATIVE [facility] Qhtai2045-17-58 21:47:00* Test Item Value Reference Range Interpretation Comments Urine Blood (test code = 21426-0) NEGATIVE [facility]GATIVE [facility] Oslgb4498-42-28 21:47:00* Test Item Value Reference Range Interpretation Comments Urine Color (test code = 5778-6) YELLOW YELLOW [facility] Sagmskf0637-90-19 21:47:00* Test Item Value Reference Range Interpretation Comments Urine Clarity (test code = 85762-8) CLEAR CLEAR [facility] Specific Balrzpm1450-33-24 21:47:00 * Test Item Value Reference Range Interpretation Comments Urine Specific [place] (test code = 5811-5) 1.020 1.010-1.02 5 [facility] mM5727-02-64 21:47:00* Test Item Value Reference Range Interpretation Comments Urine pH (test code = 44078-0) 6 5-7 [facility] Leukocyte Ewekslfx6887-24-87 21:47:00* Test Item Value Reference Range Interpretation Comments Urine Leukocyte Esterase (test code = 78872-6) NEGATIVE NEGATIV E [facility] Sntwkob8913-45-94 21:47:00* Test Item Value Reference Range Interpretation Comments Urine Nitrite (test code = 19573-0) NEGATIVE NEGATIVE [facility] Guosqpf8768-27-28 21:47:00* Test Item Value Reference Range Interpretation Comments Urine Protein (test code = 16541-5) NEGATIVE NEGATIVE [facility] Glucose (UA)2019-07-17 21:47:00* Test Item Value Reference Range Interpretation Comments Urine Glucose (UA) (test code = 14581-6) NEGATIVE NEGATIVE [facility] Mqnfeay9597-68-22 21:47:00* Test Item Value Reference Range Interpretation Comments Urine Ketones (test code = 19755-1) NEGATIVE NEGATIVE [facility] Jnitpumibocj3990-69-24 21:47:00* Test Item Value Reference Range Interpretation Comments Urine Urobilinogen (test code = 24159-4) 1 0.2-1 [facility] Zgurlsjbr7078-55-60 21:47:00* Test Item Value Reference Range Interpretation Comments Urine Bilirubin (test code = 1977-8) NEGATIVE [facility]GATIVE [facility] Iloan9216-96-69 21:47:00* Test Item Value Reference Range Interpretation Comments Urine Blood (test code = 60182-1) NEGATIVE [facility]GATIVE [facility] Hvgpjka5062-08-08 21:33:00* Test Item Value Reference Range Interpretation Comments B-Type Natriuretic Peptide (test code = 90144-5) 287.0 0-100 H [facility] Zhfvb1595-82-65 21:09:00* Test Item Value Reference Range Interpretation Comments Lactic Acid Level (test code = Lactic Acid Level) 1.9 0.5- 2.0 [facility] Xtojuhins8226-91-18 21:09:00* Test Item Value Reference Range Interpretation Comments Total Bilirubin (test code = 1975-2) 0.6 0.2-1.2 [facility] Amino Transf (AST/SGOT) 2019-07-17 21:09:00* Test Item Value Reference Range Interpretation Comments Aspartate Amino Transf (AST/SGOT) (test code = Aspartate Amino Transf (AST/SGOT)) 28 5-34 [facility] Aminotransferase (ALT/SGPT) 2019-07-17 21:09:00* Test Item Value Reference Range Interpretation Comments Alanine Aminotransferase (ALT/SGPT) (test code = 1742-6) 15 0-55 [facility] Blwlsmq5172-53-31 21:09:00* Test Item Value Reference Range Interpretation Comments Total Protein (test code = 2885-2) 6.8 6.5-8.1 [facility]-11-03 21:09:00* Test Item Value Reference Range Interpretation Comments Albumin (test code = 1751-7) 2.9 3.5-5.0 L [facility]ulin2019-11-03 21:09:00* Test Item Value Reference Range Interpretation Comments Globulin (test code = 36546-7) 3.9 2.3-3.5 H [facility]/Globulin Idzbq8617-25-93 21:09:00 * Test Item Value Reference Range Interpretation Comments Albumin/Globulin Ratio (test code = 1759-0) 0.7 0.8-2.0 L [facility] Yfzgriwbtso3830-64-92 21:09:00* Test Item Value Reference Range Interpretation Comments Alkaline Phosphatase (test code = 6768-6) 103 40-150 [facility] Qlbmo6414-89-82 21:09:00* Test Item Value Reference Range Interpretation Comments Lactic Acid Level (test code = Lactic Acid Level) 1.9 0.5- 2.0 [facility] Yvwrt5201-07-81 21:09:00* Test Item Value Reference Range Interpretation Comments Lactic Acid Level (test code = Lactic Acid Level) 1.9 0.5- 2.0 [facility] Hjxxs4221-44-27 21:09:00* Test Item Value Reference Range Interpretation Comments Lactic Acid Level (test code = Lactic Acid Level) 1.9 0.5- 2.0 [facility] Ibzxd4536-30-44 21:09:00* Test Item Value Reference Range Interpretation Comments Lactic Acid Level (test code = Lactic Acid Level) 1.9 0.5- 2.0 [facility] Sqboy3111-10-44 21:09:00* Test Item Value Reference Range Interpretation Comments Lactic Acid Level (test code = Lactic Acid Level) 1.9 0.5- 2.0 [facility] color tiozjciluavwe7731-50-99 18:45:00* Test Item Value Reference Range Interpretation Comments Urine Color (test code = 5778-6) YELLOW YELLOW [facility] fyypxhd6053-95-27 18:45:00* Test Item Value Reference Range Interpretation Comments Urine Clarity (test code = 70413-0) CLEAR CLEAR [facility] U[facility] by Test strip 2019-07-17 18:45:00* Test Item Value Reference Range Interpretation Comments Urine Specific [place] (test code = 5811-5) 1.020 1.010-1.02 5 [facility] pH measurement by automated test wxjxv0990-84-70 18:45:00* Test Item Value Reference Range Interpretation Comments Urine pH (test code = 71915-3) 6 5-7 [facility] leukocyte esterase detection by automated test yjngv6068-51-37 18:45:00* Test Item Value Reference Range Interpretation Comments Urine Leukocyte Esterase (test code = 35279-9) NEGATIVE NEGATIV E [facility] nitrite detection by automated test ktfac9850-32-68 18:45:00* Test Item Value Reference Range Interpretation Comments Urine Nitrite (test code = 29502-5) NEGATIVE NEGATIVE [facility] protein detection by automated test vueyi8627-37-12 18:45:00* Test Item Value Reference Range Interpretation Comments Urine Protein (test code = 97252-0) NEGATIVE NEGATIVE [facility] glucose detection by automated test wnxys6114-37-17 18:45:00* Test Item Value Reference Range Interpretation Comments Urine Glucose (UA) (test code = 16541-4) NEGATIVE NEGATIVE [facility] ketones detection by automated test jyrgd8773-86-86 18:45:00* Test Item Value Reference Range Interpretation Comments Urine Ketones (test code = 16401-5) NEGATIVE [facility]GATIVE [facility] urobilinogen measurement by test strip (mass/volume)2019-07-17 18:45:00* Test Item Value Reference Range Interpretation Comments Urine Urobilinogen (test code = 69832-8) 1 0.2-1 [facility] total bilirubin nqcocfynv4512-07-47 18:45:00* Test Item Value Reference Range Interpretation Comments Urine Bilirubin (test code = 1977-8) NEGATIVE NEGATIVE [facility] erythrocytes ousgakyxr1903-17-59 18:45:00* Test Item Value Reference Range Interpretation Comments Urine Blood (test code = 97145-9) NEGATIVE NEGATIVE [facility] HendersonAutomated urine sediment leukocyte count by microscopy (number/high power field)2019-07-17 18:45:00* Test Item Value Reference Range Interpretation Comments Urine WBC (test code = 5821-4) NONE 0-5 [facility] HendersonErythrocytes detection in urine sediment by light avjmphwvnm8361-16-16 18:45:00* Test Item Value Reference Range Interpretation Comments Urine RBC (test code = 38950-8) NONE 0-5 [facility] HendersonBacteria detection in urine sediment by light ftoyxirfbo0574-02-81 18:45:00* Test Item Value Reference Range Interpretation Comments Urine Bacteria (test code = 82188-1) FEW NONE [facility] HendersonEpithelial cells detection in urine sediment by light gbnflusjvl3802-01-99 18:45:00* Test Item Value Reference Range Interpretation Comments Urine Epithelial Cells (test code = 14903-8) FEW NONE [facility] color mheqawnfmotxn1085-68-75 18:45:00* Test Item Value Reference Range Interpretation Comments Urine Color (test code = 5778-6) YELLOW YELLOW [facility] xqpjrpr9843-12-14 18:45:00* Test Item Value Reference Range Interpretation Comments Urine Clarity (test code = 90187-1) CLEAR CLEAR [facility] gravity of Urine by Test strip 2019-07-17 18:45:00* Test Item Value Reference Range Interpretation Comments Urine Specific [place] (test code = 5811-5) 1.020 1.010-1.02 5 [facility] pH measurement by automated test ysark5009-04-37 18:45:00* Test Item Value Reference Range Interpretation Comments Urine pH (test code = 89112-1) 6 5-7 [facility] leukocyte esterase detection by automated test zztvr7189-94-62 18:45:00* Test Item Value Reference Range Interpretation Comments Urine Leukocyte Esterase (test code = 27455-6) NEGATIVE NEGATIV E [facility] nitrite detection by automated test zrbjn9955-10-33 18:45:00* Test Item Value Reference Range Interpretation Comments Urine Nitrite (test code = 15309-7) NEGATIVE NEGATIVE [facility] protein detection by automated test mqtpb5646-23-00 18:45:00* Test Item Value Reference Range Interpretation Comments Urine Protein (test code = 55570-7) NEGATIVE NEGATIVE [facility] glucose detection by automated test ncjdm5645-91-07 18:45:00* Test Item Value Reference Range Interpretation Comments Urine Glucose (UA) (test code = 63396-5) NEGATIVE NEGATIVE [facility] ketones detection by automated test cesry8523-99-28 18:45:00* Test Item Value Reference Range Interpretation Comments Urine Ketones (test code = 52971-7) NEGATIVE NEGATIVE [facility] urobilinogen measurement by test strip (mass/volume)2019-07-17 18:45:00* Test Item Value Reference Range Interpretation Comments Urine Urobilinogen (test code = 73914-7) 1 0.2-1 [facility] total bilirubin mhpslnqnd2777-23-95 18:45:00* Test Item Value Reference Range Interpretation Comments Urine Bilirubin (test code = 1977-8) NEGATIVE NEGATIVE [facility] erythrocytes klargywir6078-47-92 18:45:00* Test Item Value Reference Range Interpretation Comments Urine Blood (test code = 60625-9) NEGATIVE NEGATIVE [facility] HendersonAutomated urine sediment leukocyte count by microscopy (number/high power field)2019-07-17 18:45:00* Test Item Value Reference Range Interpretation Comments Urine WBC (test code = 5821-4) NONE 0-5 [facility] HendersonErythrocytes detection in urine sediment by light urwkasckem0425-75-75 18:45:00* Test Item Value Reference Range Interpretation Comments Urine RBC (test code = 47816-0) NONE 0-5 [facility] HendersonBacteria detection in urine sediment by light jzgnjiuwdo8641-36-46 18:45:00* Test Item Value Reference Range Interpretation Comments Urine Bacteria (test code = 83944-7) FEW NONE [facility] HendersonEpithelial cells detection in urine sediment by light cmvklseqji2043-63-47 18:45:00* Test Item Value Reference Range Interpretation Comments Urine Epithelial Cells (test code = 02323-4) FEW NONE [facility] HendersonFluoroscopic procedure less than one hour zswxwosu2273-39-98 18:30:00* Test Item Value Reference Range Interpretation Comments Lactic Acid Level (test code = Lactic Acid Level) 1.9 0.5- 2.0 [facility] HendersonFluoroscopic procedure less than one hour giwtztsx2876-07-38 18:30:00* Test Item Value Reference Range Interpretation Comments Lactic Acid Level (test code = Lactic Acid Level) 1.9 0.5- 2.0 [facility] HendersonFOOT RIGHT ZVWYYTII4681-81-22 13:40:00 [facility] [address] [address] Patient Name: NHI DUMONT MR #: [id number] : 1940 Age/Sex: 78/M Req #: [id number] Adm Physician: Ordered by: RA RUSHING MD Report #: [id number] Location: [facility] Room/Bed: Procedure: [id number] DX/ FOOT RIGHT COMPLETE Exam Date: 07/01/19 Exam Time: 1 326 REPORT STATUS: Signed EXAMIN ATION: FOOT RIGHT COMPLETE INDICATION: Foot abscess COMPARISON: N one FINDINGS: No acute fracture or dislocation. No specific radio graphic evidence of osteomyelitis. Mild soft tissue swelling at the first and second toe. Alignment is anatomic. Prominent degenerative changes of the midfo ot with mild overlying soft tissue swelling. IMPRESSION: No acute osse ous injury. No specific radiographic evidence of osteomyelitis. Soft tissue swelling at the first and second toes and at the midfoot. Prominent degene rative changes of the midfoot. Signed by: Kash Ko MD on 07/01/2019 1:4 2 PM Dictated By: KASH KO MD 1342 Transcribed By: MARYLU on 07/01/19 1342 COPY TO: RA PELAYO MD Bedside Zyahpry7196-06-11 20:24:00* Test Item Value Reference Range Interpretation Comments Bedside Glucose (test code = 51426-9) 204 70-120 H Meter ID: [id number] TexSan Hospitalycin Level Rsmguc6864-05-06 09:00:00* Test Item Value Reference Range Interpretation Comments Vancomycin Level Trough (test code = 4092-3) 15.3 5.0-10.0 HH Results repeated and called to Darien Jimenez RN at 0854 on 02/01/19 by Pearl martínez Read back and verified.[facility] Level Suhxmg6469-72-56 09:00:00* Test Item Value Reference Range Interpretation Comments Vancomycin Level Trough (test code = 4092-3) 15.3 5.0-10.0 HH Results repeated and called to Darien Jimenez RN at 0854 on 02/01/19 by Pearl martínez Read back and verified.[facility] Gsisfg7774-01-60 09:00:00* Test Item Value Reference Range Interpretation Comments Vancomycin Level Trough (test code = 4092-3) 15.3 5.0-10.0 HH Results repeated and called to Darien Jimenez RN at 0854 on 02/01/19 by Pearl martínez Read back and verified.[facility] Level Olfgal6753-19-85 09:00:00* Test Item Value Reference Range Interpretation Comments Vancomycin Level Trough (test code = 4092-3) 15.3 5.0-10.0 HH Results repeated and called to Darien Jimenez RN at 0854 on 02/01/19 by Pearl martínez Read back and verified.[facility] Level Vkiqyk0006-16-01 09:00:00* Test Item Value Reference Range Interpretation Comments Vancomycin Level Trough (test code = 4092-3) 15.3 5.0-10.0 HH Results repeated and called to Darien Jimenez RN at 0854 on 02/01/19 by Pearl martínez Read back and verified.[facility] Culture 2019-01-31 14:08:00* Test Item Value Reference Range Interpretation Comments Blood Culture (test code = 25495553) NO GROWTH AFTER 72 HOURS [facility] Center[facility] Hqdgi4357-12-31 06:28:00* Test Item Value Reference Range Interpretation Comments Sodium Level (test code = 2951-2) 137 136-145 [facility]Potassium Nteln9353-88-84 06:28:00* Test Item Value Reference Range Interpretation Comments Potassium Level (test code = 2823-3) 3.5 3.5-5.1 [facility] HendersonChloride Tihou7734-14-31 06:28:00* Test Item Value Reference Range Interpretation Comments Chloride Level (test code = 2075-0) 101 98-107 [facility] HendersonCarbon Dioxide Dgbcf7025-98-45 06:28:00* Test Item Value Reference Range Interpretation Comments Carbon Dioxide Level (test code = 2028-9) 28 22-29 [facility] HendersonAnion Mfe3512-32-24 06:28:00* Test Item Value Reference Range Interpretation Comments Anion Gap (test code = 08747-7) 11.5 8-16 [facility] HendersonBlood Urea Whndbort3761-85-99 06:28:00* Test Item Value Reference Range Interpretation Comments Blood Urea Nitrogen (test code = 3094-0) 24 7-26 [facility] HendersonCreatinine2019-05-20 06:28:00* Test Item Value Reference Range Interpretation Comments Creatinine (test code = 2160-0) 0.97 0.72-1.25 [facility] HendersonBUN/Creatinine Piefb2798-49-42 06:28:00* Test Item Value Reference Range Interpretation Comments BUN/Creatinine Ratio (test code = 3097-3) 25 6-25 [facility] HendersonEstimat Glomerular Filtration Rate 2019-01-31 06:28:00* Test Item Value Reference Range Interpretation Comments Estimat Glomerular Filtration Rate (test code = 484716402) > 60 >60 Ranges were taken from the National Kidney Disease Education Program and the [facility] [employer] literature.Reference ranges:60 or greater: Vcbglm09-88 ( for 3 consecutive months): Chronic kidney disease 15 or less: Kidney failureUT Health HendersonGlucose Qsilv2694-52-18 06:28:00* Test Item Value Reference Range Interpretation Comments Glucose Level (test code = QKM1312) 251 74-118 H [facility] HendersonCalcium Lqifx9219-00-11 06:28:00* Test Item Value Reference Range Interpretation Comments Calcium Level (test code = 09905-4) 9.0 8.4-10.2 [facility] HendersonTotal Ouyrmozbb8965-51-95 06:28:00* Test Item Value Reference Range Interpretation Comments Total Bilirubin (test code = 1975-2) 0.8 0.2-1.2 [facility] HendersonAspartate Amino Transf (AST/SGOT) 2019-01-31 06:28:00* Test Item Value Reference Range Interpretation Comments Aspartate Amino Transf (AST/SGOT) (test code = Aspartate Amino Transf (AST/SGOT)) 11 5-34 [facility] HendersonAlanine Aminotransferase (ALT/SGPT) 2019-01-31 06:28:00* Test Item Value Reference Range Interpretation Comments Alanine Aminotransferase (ALT/SGPT) (test code = 1742-6) 8 0-55 [facility] Spytabg1184-24-45 06:28:00* Test Item Value Reference Range Interpretation Comments Total Protein (test code = 2885-2) 6.6 6.5-8.1 [facility] HendersonAlbumin2019-05-20 06:28:00* Test Item Value Reference Range Interpretation Comments Albumin (test code = 1751-7) 2.9 3.5-5.0 L [facility] HendersonGlobulin2019-05-20 06:28:00* Test Item Value Reference Range Interpretation Comments Globulin (test code = 64939-2) 3.7 2.3-3.5 H [facility] HendersonAlbumin/Globulin Kvsac1188-95-32 06:28:00 * Test Item Value Reference Range Interpretation Comments Albumin/Globulin Ratio (test code = 1759-0) 0.8 0.8-2.0 [facility] HendersonAlkaline Srlaljucdig5611-12-06 06:28:00* Test Item Value Reference Range Interpretation Comments Alkaline Phosphatase (test code = 6768-6) 99 40-150 [facility] Jblqkxq5764-91-72 06:27:00* Test Item Value Reference Range Interpretation Comments Wound Culture (test code = 6462-6) Organism: STAPHYLOCOCCUS AUREUS [facility] Isajjco8705-64-31 06:27:00* Test Item Value Reference Range Interpretation Comments Wound Culture (test code = 6462-6) No Result Data Provided [facility] Uqnfxjl8726-35-97 06:27:00* Test Item Value Reference Range Interpretation Comments Wound Culture (test code = 6462-6) No Result Data Provided [facility] HendersonWhite Blood Yamhh0339-77-35 06:14:00* Test Item Value Reference Range Interpretation Comments White Blood Count (test code = 6690-2) 5.59 4.8-10.8 [facility] HendersonRed Blood Wsdvv5651-34-49 06:14:00* Test Item Value Reference Range Interpretation Comments Red Blood Count (test code = 789-8) 4.10 4.3-5.7 L [facility] HendersonHemoglobin2019-05-20 06:14:00* Test Item Value Reference Range Interpretation Comments Hemoglobin (test code = 13307-1) 12.8 14.0-18.0 L [facility] HendersonHematocrit2019-05-20 06:14:00* Test Item Value Reference Range Interpretation Comments Hematocrit (test code = 4544-3) 38.1 38.2-49.6 L [facility] HendersonMean Corpuscular Cgtspl7949-79-54 06:14:00* Test Item Value Reference Range Interpretation Comments Mean Corpuscular Volume (test code = 787-2) 92.9 81-99 [facility] HendersonMean Corpuscular Fyutnhkhup9448-19-28 06:14:00* Test Item Value Reference Range Interpretation Comments Mean Corpuscular Hemoglobin (test code = 785-6) 31.2 28-32 [facility] HendersonMean Corpuscular Hemoglobin Concent 2019-01-31 06:14:00* Test Item Value Reference Range Interpretation Comments Mean Corpuscular Hemoglobin Concent (test code = 786-4) 33.6 31-35 [facility] HendersonRed Cell Distribution Lyerb7216-22-79 06:14:00* Test Item Value Reference Range Interpretation Comments Red Cell Distribution Width (test code = 51714-4) 14.8 11.7 -14.4 H [facility] HendersonPlatelet Mqxhi0065-81-15 06:14:00* Test Item Value Reference Range Interpretation Comments Platelet Count (test code = 777-3) 161 140-360 [facility] HendersonNeutrophils (%) (Auto)2019-01-31 06:14:00 * Test Item Value Reference Range Interpretation Comments Neutrophils (%) (Auto) (test code = 68477-1) 73.1 38.7-80.0 [facility] HendersonLymphocytes (%) (Auto)2019-01-31 06:14:00 * Test Item Value Reference Range Interpretation Comments Lymphocytes (%) (Auto) (test code = 736-9) 11.4 18.0-39.1 L [facility] HendersonMonocytes (%) (Auto)2019-01-31 06:14:00* Test Item Value Reference Range Interpretation Comments Monocytes (%) (Auto) (test code = 5905-5) 9.3 4.4-11.3 [facility]Eosinophils (%) (Auto)2019-01-31 06:14:00 * Test Item Value Reference Range Interpretation Comments Eosinophils (%) (Auto) (test code = 713-8) 5.0 0.0-6.0 [facility] HendersonBasophils (%) (Auto)2019-01-31 06:14:00* Test Item Value Reference Range Interpretation Comments Basophils (%) (Auto) (test code = 706-2) 0.7 0.0-1.0 [facility] HendersonIM GRANULOCYTES %2019-01-31 06:14:00* Test Item Value Reference Range Interpretation Comments IM GRANULOCYTES % (test code = IM GRANULOCYTES %) 0.5 0.0- 1.0 [facility] HendersonNeutrophils # (Auto)2019-01-31 06:14:00* Test Item Value Reference Range Interpretation Comments Neutrophils # (Auto) (test code = 751-8) 4.1 2.1-6.9 [facility] HendersonLymphocytes # (Auto)2019-01-31 06:14:00* Test Item Value Reference Range Interpretation Comments Lymphocytes # (Auto) (test code = 10047-0) 0.6 1.0-3.2 L [facility] HendersonMonocytes # (Auto)2019-01-31 06:14:00* Test Item Value Reference Range Interpretation Comments Monocytes # (Auto) (test code = 742-7) 0.5 0.2-0.8 [facility]Eosinophils # (Auto)2019-01-31 06:14:00* Test Item Value Reference Range Interpretation Comments Eosinophils # (Auto) (test code = 711-2) 0.3 0.0-0.4 [facility]Basophils # (Auto)2019-01-31 06:14:00* Test Item Value Reference Range Interpretation Comments Basophils # (Auto) (test code = 704-7) 0.0 0.0-0.1 [facility] HendersonAbsolute Immature Granulocyte (auto 2019-01-31 06:14:00* Test Item Value Reference Range Interpretation Comments Absolute Immature Granulocyte (auto (aldair t code = Absolute Immature Granulocyte (auto) 0.03 0-0.1 [facility] HendersonCHEST XRAY LINE BRLBSGPWN8021-25-35 16:23:00 [address] [address] Patient Name: NHI DUMONT MR #: [id number] : 1940 Age/Sex: 78/M Req #: [id number] Adm Physician: RA RUSHING MD Ordered by: LB MCCARTHY MD Report #: [id number] Location: MED/SURG2 Room/Bed: [facility] Procedure: [id number] DX/ CHEST XRAY LINE PLACEMENT Exam Date: 01/30/19 Exam T lucero: 1556 REPORT STATUS: Signed EXAMINATION: CHEST XRAY LINE PLACEMENT INDICATION: FOR PICC LINE PLACEMENT [id number] COMPARISON: 01/28/2019 FIN DINGS: AP view TUBES and LINES: Interval placement of a right PICC wit h tip overlying the mid SVC. LUNGS: Low lung volumes. Bibasilar atelect asis. There is no evidence of pneumonia or pulmonary edema. PLEURA: No pleural effusion or pneumothorax. HEART AND MEDIASTINUM: Stable mild enla rgement of the cardiac silhouette. BONES AND SOFT TISSUES: No acute osse ous lesion. Soft tissues are unremarkable. UPPER ABDOMEN: No free air un jacquie the diaphragm. IMPRESSION: Interval placement of a right PICC wi th tip overlying the mid SVC. No pneumothorax. Signed by: Dr. Yolande Ramirez M.D. on 01/30/2019 4:24 PM Dictated By: YOLANDE RAMIREZ MD 23 Transcribed By: MARYLU on 01/30/191623 COPY TO: LB MCCARTHY MD B-Type Natriuretic Udtpidz1582-41-33 14:10:00* Test Item Value Reference Range Interpretation Comments B-Type Natriuretic Peptide (test code = 49758-5) 199.7 0-100 H [facility] HendersonUrine IRW4983-25-29 21:39:00* Test Item Value Reference Range Interpretation Comments Urine WBC (test code = 5821-4) 0-5 0-5 [facility] YHX8103-22-37 21:39:00* Test Item Value Reference Range Interpretation Comments Urine RBC (test code = 64876-3) 0-5 0-5 [facility] Xvlsoeqr1866-99-57 21:39:00* Test Item Value Reference Range Interpretation Comments Urine Bacteria (test code = 17051-0) NONE NONE [facility] Epithelial Toupg4178-74-74 21:39:00 * Test Item Value Reference Range Interpretation Comments Urine Epithelial Cells (test code = 90674-5) RARE NONE [facility] Jsblw4166-55-00 21:31:00* Test Item Value Reference Range Interpretation Comments Urine Color (test code = 5778-6) YELLOW YELLOW [facility] Afyvyam8745-68-58 21:31:00* Test Item Value Reference Range Interpretation Comments Urine Clarity (test code = 31367-5) CLEAR CLEAR [facility] Specific Wyuceix8500-08-51 21:31:00 * Test Item Value Reference Range Interpretation Comments Urine Specific [place] (test code = 5811-5) 1.025 1.010-1.02 5 [facility] iG8102-68-10 21:31:00* Test Item Value Reference Range Interpretation Comments Urine pH (test code = 63459-8) 6 5-7 [facility] Leukocyte Gulpjgpo7415-57-36 21:31:00* Test Item Value Reference Range Interpretation Comments Urine Leukocyte Esterase (test code = 5799-2) NEGATIVE NEGATIVE [facility] Ncvxetk0477-97-69 21:31:00* Test Item Value Reference Range Interpretation Comments Urine Nitrite (test code = 33750-6) NEGATIVE NEGATIVE [facility] Dfpnrmb5545-32-12 21:31:00* Test Item Value Reference Range Interpretation Comments Urine Protein (test code = 5804-0) NEGATIVE NEGATIVE [facility] HendersonU[facility] Glucose (UA)2019-01-28 21:31:00* Test Item Value Reference Range Interpretation Comments Urine Glucose (UA) (test code = 2349-9) NEGATIVE NEGATIVE [facility] Lrfpfse1815-96-11 21:31:00* Test Item Value Reference Range Interpretation Comments Urine Ketones (test code = 43838-3) NEGATIVE NEGATIVE [facility] Nhyctnfancek2269-72-96 21:31:00* Test Item Value Reference Range Interpretation Comments Urine Urobilinogen (test code = 68088-4) 4 0.2-1 H [facility] HendersonU[facility] Lubmhmsqp2320-67-56 21:31:00* Test Item Value Reference Range Interpretation Comments Urine Bilirubin (test code = 1978-6) NEGATIVE NEGATIVE [facility] Mzltx1584-55-71 21:31:00* Test Item Value Reference Range Interpretation Comments Urine Blood (test code = 67242-3) NEGATIVE NEGATIVE [facility] HendersonCHEST 2 XRHJW1899-01-79 15:15:00 [facility] [address] [place] [address] Patient Name: NHI DUMONT MR #: [id number] : 1940 Age/Sex: 78/M Req #: [id number] Adm Physician: RA RUSHING MD Ordered by: LINDA RICHTER MD Report #: [id number] Location: [facility] Room/Bed: [address] [address] Procedure: [id number] DX/CHEST 2 VIEWS Exam Date: 01/28/19 Exam Time: 1416 REPORT STATUS: Signed EXAMIN ATION: PA and lateral views of the chest. COMPARISON: None CLINICAL HI STORY: Sepsis DISCUSSION: Lines/tubes: None. Lungs: The l ungs are well inflated and clear. No pneumonia or pulmonary edema. Pleura: No pleural effusion or pneumothorax. Heart and mediastinum: Cardiomegaly. Bones and soft tissues: No acute bony abnormalities. IMPRESSION: Mild cardiomegaly without decompensation. Signed by: Dr. Jodi Santos M.D. on 01/28/2019 3:17 PM Dictated By: JODI SANTOS MD 16 Transcribed By: MARYLU on 01/28/191516 COPY TO: LINDA RICHTER MD Lactic Acid Llqql7404-92-11 14:10:00* Test Item Value Reference Range Interpretation Comments Lactic Acid Level (test code = Lactic Acid Level) 12.6 4.5- 19.8 [facility] HendersonProthrombin Astv0602-87-42 14:05:00* Test Item Value Reference Range Interpretation Comments Prothrombin Time (test code = 5902-2) 14.3 11.9-14.5 [facility] HendersonProthromb Time International Ratio 2019-01-28 14:05:00* Test Item Value Reference Range Interpretation Comments Prothromb Time International Ratio (test code = 6301-6) 1.06 Oral Anticoagulant Therapy INR Values:1. Low Intensity Therapy 1.5 - 2.02 . Moderate Intensity Therapy 2.0 - 3.03. High Intensity Therapy(1) 2.5 - 3. 54. High Intensity Therapy(2) 3.0 - 4.05. Panic Value INR > 5.0 [facility] HendersonActivated Partial Thromboplast Time 2019-01-28 14:05:00* Test Item Value Reference Range Interpretation Comments Activated Partial Thromboplast Time (test code = 14846-7) 30.9 23.8-35.5 [facility] HendersonProthrombin Kkhs5602-01-98 14:05:00* Test Item Value Reference Range Interpretation Comments Prothrombin Time (test code = 5902-2) 14.3 11.9-14.5 [facility] HendersonProthromb Time International Ratio 2019-01-28 14:05:00* Test Item Value Reference Range Interpretation Comments Prothromb Time International Ratio (test code = 6301-6) 1.06 Oral Anticoagulant Therapy INR Values:1. Low Intensity Therapy 1.5 - 2.02 . Moderate Intensity Therapy 2.0 - 3.03. High Intensity Therapy(1) 2.5 - 3. 54. High Intensity Therapy(2) 3.0 - 4.05. Panic Value INR > 5.0 [facility] HendersonAct[facility] Partial Thromboplast Time 2019-01-28 14:05:00* Test Item Value Reference Range Interpretation Comments Activated Partial Thromboplast Time (test code = 60220-4) 30.9 23.8-35.5 [facility] Henderson[facility]VIC [facility] OB[facility] MICHELLE OR F/C6821-53-51 17:15:00 [facility] [address] [place] [address] Patient Name: NHI DUMONT MR #: [id number] : 1940 Age/Sex: 78/M Req #: [id number] Adm Physician: Ordered by: CAITY FONSECA MD Report #: [id number] Location: Room/Bed: Procedure: [id number] US /US PELVIC (NON OB) MICHELLE OR F/U Exam Date: 01/07/19 E xam Time: 1525 REPORT STATUS: Amalia d EXAM: US PELVIC (NON OB) MICHELLE OR F/U DATE: 01/07/2019 3:02 PM IN DICATION:Chronic kidney disease COMPARISON: Renal ultrasound, 09/21/2015 FINDINGS: Grayscale and color flow Doppler ultrasound of the kidneys and urinary bladder was performed. Right kidney: 13.5 x 5.8 x 4.9 cm. Cortical thickness 1.4 cm. Cortical echogenicity normal. Right renal cysts measuring 1. 4 x 1.3 x 1.5 cm superiorly and 6.1 x 5.5 x 5.5 cm superiorly. No hydronephros is. Left kidney: 13.6 x 5.2 x 6.9 cm. Cortical thickness 1.3 cm. Cortical echogenicity normal. There is a 1.3 x 0.6 x 1.0 cm echogenic density with pos terior shadowing in the midportion of the kidney, compatible with nonobstructi ng calculus. No hydronephrosis. Urinary bladder: Unremarkable appearance. D istal and of apparent ureteral stent is visualized. Prevoid volume 145 cc, pos t void emptying. Prostate is not visualized. IMPRESSION: 1. No hydro nephrosis. The kidneys have a symmetric appearance. 2. Prominent right steve l cysts which have enlarged since the ultrasound of 2016. 3. Likely 1.3 c m nonobstructing left renal calculus. This may be further characterized with n oncontrast CT. 4. Linear density in the urinary bladder may represent the d istal end of a ureteral stent. Correlation with surgical history suggested. Signed by: Dr. Anshul Montanez M.D. on 01/07/2019 5:20 PM Dictated By: Felix MONTANEZ MD 1054 Tr anscribed By: MARYLU on 01/17/19 1054 COPY TO: CAITY FONSECA MD RENAL RETROPERITONEAL [id number] 17:15:00 [place] [address] Patient Name: NHI DUMONT MR #: [id number] : 1940 Age/Sex: 78/M Req #: [id number] Adm Physician: Ordered by: CAITY FONSECA MD Report #: [id number] Location: US Room/Bed: Procedure: [id number] US /US RENAL RETROPERITONEAL COMP Exam Date: 01/07/19 E xam Time: 1525 REPORT STATUS: Amalia d EXAM: US PELVIC (NON OB) MICHELLE OR F/U DATE: 01/07/2019 3:02 PM IN DICATION:Chronic kidney disease COMPARISON: Renal ultrasound, 09/21/2015 FINDINGS: Grayscale and color flow Doppler ultrasound of the kidneys and urinary bladder was performed. Right kidney: 13.5 x 5.8 x 4.9 cm. Cortical thickness 1.4 cm. Cortical echogenicity normal. Right renal cysts measuring 1. 4 x 1.3 x 1.5 cm superiorly and 6.1 x 5.5 x 5.5 cm superiorly. No hydronephros is. Left kidney: 13.6 x 5.2 x 6.9 cm. Cortical thickness 1.3 cm. Cortical echogenicity normal. There is a 1.3 x 0.6 x 1.0 cm echogenic density with pos terior shadowing in the midportion of the kidney, compatible with nonobstructi ng calculus. No hydronephrosis. Urinary bladder: Unremarkable appearance. D istal and of apparent ureteral stent is visualized. Prevoid volume 145 cc, pos t void emptying. Prostate is not visualized. IMPRESSION: 1. No hydro nephrosis. The kidneys have a symmetric appearance. 2. Prominent right steve l cysts which have enlarged since the ultrasound of 2015. 3. Likely 1.3 c m nonobstructing left renal calculus. This may be further characterized with n oncontrast CT. 4. Linear density in the urinary bladder may represent the d istal end of a ureteral stent. Correlation with surgical history suggested. Signed by: Dr. Anshul Montanez M.D. on 01/07/2019 5:20 PM Dictated By: Felix MONTANEZ MD 1054 Tr anscribed By: MARYLU on 01/17/19 1054 COPY TO: CAITY FONSECA MD KNEE RIGHT THREE [id number] 13:51:00 [place] [address] Patient Name: NHI DUMONT MR #: [id number] : 1940 Age/Sex: 77/M Req #: [id number] Adm Physician: Ordered by: RA RUSHING MD Report #: [id number] Location: RAD Room/Bed: Procedure: [id number] DX/ KNEE RIGHT THREE VIEWS Exam Date: 11/11/18 Exam Time : 1305 REPORT STATUS: Signed Rig ht hip radiographs - 2 views; right knee radiographs - 4 views Comparison: Right knee radiographs 11/04/2014 Findings: Right hip: There are mild righ t hip degenerative changes with joint space narrowing. No evidence of acute fr acture or malalignment. Right knee: Somewhat limited lateral radiograph secondary to patient positioning. There are moderate medial compartment pr edominant tricompartmental degenerative changes with joint space narrowing and bony osteophyte formation. No evidence of acute fracture, malalignment, or ursula int effusion. Impression: Mild right hip and moderate right knee osteoar thritis. No evidence of acute fracture or malalignment. Signed by: Dr. Rj Benavides MD on 11/11/2018 1:55 PM Dictated By: ALEC BENAVIDES MD Electronic ll Signed By: ALEC BENAVIDES MD on 11/11/18 1357 Transcribed By: MARYLU on 1356 COPY TO: RA RUSHING MD HIP RIGHT 2-3 VW (+/- PELVIS) 2018-11-11 13:51:00 [place] [address] Patient Name: NHI DUMONT MR #: [id number] : 1940 Age/Sex: 77/M Req #: [id number] Adm Physician: Ordered by: RA RUSHING MD Report #: [id number] Location: RAD Room/Bed: Procedure: [id number] DX/ HIP RIGHT 2-3 VW (+/- PELVIS) Exam Date: Exam Time: REPORT STATUS: Signed Right hip radiographs - 2 views; right knee radiographs - 4 views Comparison: Right knee radiographs 11/04/2014 Findings: Right hip: There are mild right hip degenerative changes with joint space narrowing. No evidence of acute fracture or malalignment. Right knee: Somewhat limited lateral radiograph secon ahmet to patient positioning. There are moderate medial compartment predomi nant tricompartmental degenerative changes with joint space narrowing and bony osteophyte formation. No evidence of acute fracture, malalignment, or joint e ffusion. Impression: Mild right hip and moderate right knee osteoarthrit is. No evidence of acute fracture or malalignment. Signed by: Dr. Alec Benavides MD on 11/11/2018 1:55 PM Dictated By: ALEC BENAVIDES MD Electronically S igned By: ALEC BENAVIDES MD on 11/11/18 1355 Transcribed By: MARYLU on 11/11/18 13 55 COPY TO: RA RUSHING MD KNEE LEFT THREE VIEWS [place] [address] Patient Name: NHI DUMONT MR #: [id number] : 1940 Age/Sex: 77/M Req #: [id number] Adm Physician: Ordered by: LISA COOPER NP Report #: [id number] Location: ER Room/Bed: Procedure: [id number] DX/KNEE LEFT THREE VIEWS Exam Date: 12/20/17 Exam Time: 1200 REPORT STATUS: Signed LEFT KNEE X-RAY - 3 VIEWS HISTORY: COMPARIS ON: MRI left knee from 10/14/2016 and x-ray left knee from 10/14/2016 FI NDINGS: Bones: No acute displaced fracture. Osseous alignment is within normal limits. Joints: Patient is status post left knee medial compartmen t surgery with associated postsurgical change. The surgical hardware is intact without evidence of failure or loosening. There is worsening tricompartm ental degenerative arthrosis about the left knee, now severe, mainly in the la teral compartment. Soft tissues: There is a small suprapatellar effusion. Scattered vascular calcifications are seen. IMPRESSION: Stable left knee medial compartment postsurgical change. The surgical hardware is intact without evidence of failure or loosening. Worsening, now severe, tricompar tmental degenerative arthrosis about the left knee. Signed by: Dr. Lili Ramirez M.D. on 12/20/2017 12:43 PM Dictated By: YOLANDE RAMIREZ MD 12 43 Transcribed By: MARYLU on 12/20/17 1243 COPY TO: LISA COOPER NP
--- NOTE | 2020-05-15 15:03 | NUR ---
CALLED WOUND CARE REGARDING PT'S ADMISSION ORDERS SENT. VERIFIED PT IS A PT OF DR RUSHING AND ADMISSION WILL GO TO DR KRISTAN PRATER AT [facility]OUND CARE.
[2020-05-15] MEDS ORDERED: NOVOLOG MI100 UNIT/1 SC (15:21)
[2020-05-15] MEDS ORDERED: SPIRONOLACTONE50 MG (15:22)
[2020-05-15] MEDS ORDERED: NOVOLIN (15:22)
[2020-05-15] MEDS ORDERED: CHLORTHALIDONE50 MG (15:22)
[2020-05-15] MEDS ORDERED: METOPROLOL SUC100 MG (15:22)
[2020-05-15] MEDS ORDERED: FUROSEMIDE40 MG (15:22)
[2020-05-15] MEDS ORDERED: MEROPENEM 1GM 100 ML IV ONE (15:30)
--- NOTE | 2020-05-15 15:44 | Diagnostic Imaging Report ---
TECHNIQUE: Frontal view of the chest. INDICATION: ^CELLULITIS ^[id number] ^1510 COMPARISON: 11/15/2019 DISCUSSION: Limited evaluation due to portable technique. Lines and hardware: None Heart and mediastinum: Stable mild cardiomegaly and central vascular congestion. Lungs and pleura: No focal airspace consolidation. No pleural effusion. No pneumothorax. Soft tissues and bones: No acute abnormality. IMPRESSION: Stable examination demonstrating cardiomegaly and mild central vascular congestion. Negative for focal consolidation. Signed by: Dedrick Duke MD on 05/15/2020 3:41 PM
[2020-05-15] MEDS ORDERED: VANCOMYCIN 1GM/NS 250 ML 250 ML IV ONE (15:45)
[2020-05-15 15:49] LABS: BASOPHILS % 0.4 % (0.0-1.0); EOSINOPHILS # (AUTO) 0.2 (0.0-0.4); EOSINOPHILS % 2.1 % (0.0-6.0); HEMATOCRIT 33.2 % (38.2-49.6); HEMOGLOBIN 10.7 g/dL (14.0-18.0); LYMPHOCYTES # (AUTO) 0.9 (1.0-3.2); MEAN CORPUSCULAR HEMOGLOBIN 29.7 pg (28-32); MEAN CORPUSCULAR HGB CONC 32.2 g/dL (31-35); MEAN CORPUSCULAR VOLUME 92.2 fL (81-99); MONOCYTES # (AUTO) 0.6 (0.2-0.8); MONOCYTES % 7.9 % (4.4-11.3); NEUTROPHILS # (AUTO) 6.2 (2.1-6.9); PLATELET COUNT 187 x10e3/uL (140-360); RED CELL DISTRIBUTION WIDTH 15.3 % (11.7-14.4)
[2020-05-15 16:00] LABS: INR 1.05; PARTIAL THROMBOPLASTIN TIME 31.7 seconds (23.8-35.5); PROTHROMBIN TIME 14.2 seconds (11.9-14.5)
[2020-05-15 16:09] LABS: ALBUMIN 3.7 g/dL (3.5-5.0)
[2020-05-15 16:15] LABS: ALANINE AMINOTRANSFERASE 8 IU/L (0-55); ALBUMIN/GLOBULIN RATIO 1.4 (0.8-2.0); ALKALINE PHOSPHATASE 90 IU/L (40-150); ANION GAP 18.8 mmol/L (8-16); BLOOD UREA NITROGEN 70 mg/dL (7-26); BUN/CREATININE RATIO 39 (6-25); CALCIUM 8.5 mg/dL (8.4-10.2); CARBON DIOXIDE 22 mmol/L (22-29); CHLORIDE 104 mmol/L (98-107); CREATINE KINASE 38 IU/L (30-200); CREATININE, SERUM 1.81 mg/dL (0.72-1.25); EST GLOMERULAR FILTRATION RATE 36 ML/MIN (60-); GLUCOSE 124 mg/dL (74-118); POTASSIUM 4.8 mmol/L (3.5-5.1); SODIUM 140 mmol/L (136-145)
[2020-05-15 16:24] LABS: BILIRUBIN,URINE NEGATIVE (NEGATIVE); CLARITY,URINE SL CLOUDY (CLEAR); COLOR,URINE STRAW (YELLOW); KETONES,URINE NEGATIVE (NEGATIVE); LEUKOCYTE ESTERASE ,URINE NEGATIVE (NEGATIVE); NITRITE,URINE NEGATIVE (NEGATIVE); PROTEIN,URINE DIPSTICK NEGATIVE (NEGATIVE); URINE UROBILINOGEN 1 mg/dL (0.2 - 1)
[2020-05-15 16:37] LABS: BACTERIA,URINE MODERATE /HPF; EPITHELIAL CELLS,URINE FEW /LPF; HYALINE CASTS 0-1 (0-1)
[2020-05-15] MEDS ORDERED: SODIUM CHLORIDE 0.9% 1000ML 1,000 ML IV SCH (17:00)
[2020-05-15] MEDS ORDERED: ONDANSETRON HCL INJ 2MG/ML 2ML 2 MG/ML VIAL IV PRN (17:00)
--- OUTSIDE RECORDS SUMMARY | 2020-05-15 17:07 | XMS REPORT | Clinical Summary ---
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
--- OUTSIDE RECORDS SUMMARY | 2020-05-15 17:08 | XMS REPORT | Continuity of Care Document ---
Author Author [facility] Organization [facility] Address [address] [place] [address] Phone Unavailable Care Team Providers Care Cash Sales Audit Clerk Name Role Phone KRISTAN SCHILLING, MD GUTIERREZ PCP Yoon SIERRA Attphys Unavailable BENSON, TANJA Attphys Unavailable SANDHIR, LINDA Attphys Unavailable KRISTAN, RA Attphys Unavailable MARIAN, CAITY Attphys Unavailable KATHLEEN, Carolina LANDERS Attphys Unavailable MUNA, ASHLIE Admphys Unavailable KRISTAN, RA Admphys Unavailable Payers Payer Name Policy Type Policy Number Effective Date Expiration Date Mary zak AARLuke NA 2019 00:00:00 [facility] Medicare A & B NA 2005 00:00:00 [facility] Problems Condition Name Condition Details Condition Category Status Onset Date Resolution Date Last Treatment Date Treating Clinician Comments Source Calculus of ureter Ureteral stone Problem Active 2015-09-20 00:00:00 [facility] Cellulitis of right leg without foot Cellulitis of leg witho ut foot, right Problem Active 2014-11-03 00:00:00 [facility] Cellulitis of both lower extremities Cellulitis of right leg Problem Active [facility] Cellulitis of left upper extremity Cellulitis of left arm Problem Active [facility] Allergies, Adverse Reactions, Alerts Allergy Name Allergy Type Status Severity Reaction(s) Onset Date Inacti ve Date Treating Clinician Comments Source Penicillins DA Active SV 2020-02-13 00:00:00 [facility] Penicillin Allergy to substance Active Mild RASH 2019-07-17 00:00:00 [facility] Social History Social Habit Start Date Stop Date Quantity Comments Source Sex Assigned At [facility] Medications Ordered Medication Name Filled Medication Name Start Date Stop Da te Current Medication? Ordering Clinician Indication Dosage Frequency Signature (SIG) Comments Components Source Acetaminophen Acetaminophen Yes 650 Every 6 Hours as needed for Mild Pain (1-3) Or Fever>100.8 [facility] Arginine/Glutamine/Calcium Hmb (Forrest Packet) 1 Each P OWD.PACK Arginine/Glutamine/Calcium Hmb (Forrest Packet) 1 Each POWD.PACK Y es 1 Daily [facility] Aspirin (Aspir 81) 81 Mg TABLET. Aspirin (Aspir 81) 81 Mg TABLET. Yes 81 Daily [facility] Benazepril Hcl Benazepril Hcl Yes 40 Daily [facility] Blood Sugar Diagnostic (One Touch Ultra Test Strips) 1 Each STRIP Blood Sugar Diagnostic (One Touch Ultra Test Strips) 1 Each STRIP Yes [facility] Furosemide (Lasix) 40 Mg TABLET Furosemide (Lasix) 40 Mg TABLET Yes 40 Daily [facility] Insulin Glargine (Lantus 3ML Pen) 100 Units/1 Ml INJ I nsulin Glargine (Lantus 3ML Pen) 100 Units/1 Ml INJ Yes 45 Twice A Da y [facility] Insulin Lispro (Humalog) 100 Unit/1 Ml CARTRIDGE Insul in Lispro (Humalog) 100 Unit/1 Ml CARTRIDGE Yes 35 Twice A Day [facility] Levofloxacin (Levaquin) 500 Mg TABLET Levofloxacin (Levaquin) 500 M g TABLET Yes 500 Daily [facility] Metoprolol Succinate Metoprolol Succinate Yes 100 Daily [facility] Potassium Glutamate Potassium Glutamate Yes 99 Daily [facility] Simvastatin Simvastatin Yes 40 Today At 9:00PM [facility] Allopurinol Allopurinol 2019-11-15 00:00:00 No 200 D aily [facility] Insulin Aspart (Novolog) 100 Unit/1 Ml CARTRIDGE Insul in Aspart (Novolog) 100 Unit/1 Ml CARTRIDGE 2019-11-15 00:00:00 No 40 Twic e A Day [facility] Insulin Glargine (Lantus 3ML Pen) 100 Units/1 Ml INJ I nsulin Glargine (Lantus 3ML Pen) 100 Units/1 Ml INJ 2019-11-15 00:00:00 No 40 [facility] Potassium Chloride Potassium Chloride 2019-11-15 00:00:00 No 0 Daily [facility] Sulfamethoxazole/Trimethoprim (Bactrim Ds Tablet) 1 Ea ch TABLET Sulfamethoxazole/Trimethoprim (Bactrim Ds Tablet) 1 Each TABLET 2019-11-15 00:00:00 No 1 Twice A Day [facility] Allopurinol Allopurinol 2019-07-17 00:00:00 No 100 D aily [facility] Aspirin Aspirin 2019-07-17 00:00:00 No 81 Daily [facility] Benazepril Hcl Benazepril Hcl 2019-07-17 00:00:00 No 40 Daily [facility] Furosemide (Lasix) 20 Mg TABLET Furosemide (Lasix) 20 Mg TABLET 2019-07-17 00:00:00 No 20 Daily [facility] Insulin Glargine (Lantus) 100 Units/Ml ML Insulin Glar gine (Lantus) 100 Units/Ml ML 2019-07-17 00:00:00 No 35 Twice A Day [facility] Insulin Human Lispro (Humalog) 100 Units/Ml ML Insulin Human Lispro (Humalog) 100 Units/Ml ML 2019-07-17 00:00:00 No 30 Twice A Day [facility] Metoprolol Succinate Metoprolol Succinate 2019-07-17 00:00:00 No 100 Daily [facility] Simvastatin Simvastatin 2019-07-17 00:00:00 No 40 T epi At 9:00PM [facility] Spironolactone Spironolactone 2019-07-17 00:00:00 No 50 Daily [facility] Amlodipine Besylate Amlodipine Besylate 2019-01-28 00:00:[address] No [address] [facility] [place] [place] Cholecalciferol (Vitamin D3) (Vitamin D3) 5,000 Unit C APSULE Cholecalciferol (Vitamin D3) (Vitamin D3) 5,000 Unit CAPSULE 2019-01-28 00:00:00 No 5000 Use As Directed [facility] Hydrochlorothiazide Hydrochlorothiazide 2019-01-28 00:00:00 No [address] [facility] [place] [place] Tamsulosin Hcl Tamsulosin Hcl 2019-01-28 00:00:00 No 1 Daily [facility] Tramadol Hcl (Ultram) 50 Mg TABLET Tramadol Hcl (Ultram) 50 Mg T ABLET 2016-10-25 00:00:00 No 50 Every 6 Hours as nee ded for Pain [facility] Levofloxacin (Levaquin) 500 Mg TABLET Levofloxacin (Levaquin) 50 0 Mg TABLET 2015-10-03 00:00:00 No 500 Daily [facility] Metformin Hcl Metformin Hcl 2015-09-22 00:00:00 No 1000 Twice A Day [facility] Hortencia Low Dose Hortencia Low Dose 2015-09-20 00:00:00 No 81 Twice A Day [facility] Benazepril Hcl Benazepril Hcl 2015-09-20 00:00:00 No 10 Daily [facility] Insulin Glargine (Lantus) 100 Units/Ml ML Insulin Glar gine (Lantus) 100 Units/Ml ML 2015-09-20 00:00:00 No 60 Twice A Day [facility] Metanx Metanx 2015-09-20 00:00:00 No [facility] Metformin Hcl Metformin Hcl 2015-09-20 00:00:00 No 500 Twice A Day [facility] Simvastatin Simvastatin 2015-09-20 00:00:00 No 20 D aily [facility] Vital Signs Vital Name Observation Time Observation Value Comments Source Body Temperature 2019-11-18 10:50:00 96.2 [degF] [facility] Procedures Procedure Date / Time Performed Performing Clinician Magalys mckeon FLUOROSCOPY BI LOW EXTREM VEIN W L OSM CONTRAST, GUIDANCE 2018-09 00:00:00 [facility] ULTRASONOGRAPHY OF BI LOW EXTREM VEIN, INTRAVASC 2019-07-22 00:0 0:[address] [facility] [address] angiography of chest 2019-07-19 00:00:00 RA RUSHING [facility] X-ray of chest, two views 2019-07-17 00:00:00 CRISTO SEYMOUR [facility] Encounters Start Date/Time End Date/Time Encounter Type Admission Type [facility] Facility Care Department Encounter ID Source 2020-02-09 10:43:00 2020-02-12 23:59:00 Discharged Recurring [facility] [id number] [facility] 2019-12-15 15:32:00 2020-01-12 23:59:00 Discharged Recurring [facility] [id number] [facility] 2019-11-15 14:06:00 2019-12-13 23:59:00 Discharged Recurring [facility] [id number] [facility] 2019-11-16 11:34:00 2019-11-18 11:29:00 Discharged Inpatient 1 TANJA BENSON [facility] [id number] [facility] 2019-10-18 09:37:00 2019-11-12 22:59:00 Discharged Recurring [facility] [id number] [facility] 2019-09-19 13:04:00 2019-10-14 22:59:00 Discharged Recurring [facility] [id number] [facility] 2019-09-18 07:08:00 2019-09-18 09:46:00 [facility]arted [facility] [id number] [facility] 2019-07-17 22:10:00 2019-07-24 13:40:00 [facility]charged [facility] 1 [facility] [id number] [facility] 2019-07-01 12:53:00 2019-07-01 12:53:00 Registered Clinic 3 [facility] [id number] [facility] 2019-05-12 12:57:00 2019-05-12 12:57:00 Registered Clinic [facility] [id number] [facility] [place] 2019-01-28 14:12:00 2019-02-01 23:00:00 Discharged Inpatient 1 [facility] [id number] [facility] 2019-01-07 14:57:00 2019-01-07 14:57:00 Registered Clinic 3 [facility] [id number] [facility] 2018-11-11 12:22:00 2018-11-11 12:22:00 Registered Clinic 3 [facility] [id number] [facility] 2018-02-13 14:11:00 2018-02-13 15:17:00 Departed Emergency Room [facility] [id number] [facility] [place] 2017-12-20 11:33:00 2017-12-20 13:56:00 Departed Emergency Room ER KATHLEEN ANSHUL [facility] [id number] [facility] Results Test Description Test Time Test Comments Results Result Comments Source CHEST SINGLE (PORTABLE) 2020-05-15 15:40:00 [facility] [address] [address] Patient Name: NHI DUMONT MR #: [id number] : 1940 Age/Sex: 79/M Req #: [id number] Adm Physician: Ordered by: FARSHAD SIERRA MD Report #: [id number] Location: ER Room/Bed: Procedure: DX/CHEST SINGLE (PORTABLE) Exam Date: 05/15/20 Exam Time: 1510 REPORT STATUS: Signed TECHNIQUE: Frontal view of the chest. INDICATION: CELLULITIS 20200515 COMPARISON: 11/15/2019 DISCUSSION: Limited evaluation due to portable technique. Lines and hardware: None Heart and mediastinum: Stable mild cardiomegaly and central vascular congestion. Lungs and pleura: No focal airspace consolidation. No pleural effusion. No pneumothorax. Soft tissues and bones: No acute abnormality. IMPRESSION: Stable examination demonstrating cardiomegaly and mild central vascular congestion. Negative for focal consolidation. Signed by: Dedrick Duke MD on 05/15/2020 3:41 PM Dictated By: DEDRICK DUKE MD 1541 Transcribed By: MARYLU on 05/15/20 1541 COPY TO: FARSHAD SIERRA MD GLUBED 2020-02-21 19:56:00 Test Item GLUBED (test code = GLUBED) 228 MG/DL 70-110 H Performed by certified heel coverer machine operator at [facility] [id number] 11:58:00* Test Item Value Reference Range Interpretation Comments GLUBED (test code = GLUBED) 311 MG/DL 70-110 H Performed by certified heel coverer machine operator at [facility] [id number] 08:27:00* Test Item Value Reference Range Interpretation Comments GLUBED (test code = GLUBED) 308 MG/DL 70-110 H Performed by certified heel coverer machine operator at [facility] [id number] 00:34:00* Test Item Value Reference Range Interpretation Comments GLUBED (test code = GLUBED) 283 MG/DL 70-110 H Performed by certified heel coverer machine operator at [facility] [id number] 17:25:00* Test Item Value Reference Range Interpretation Comments GLUBED (test code = GLUBED) 298 MG/DL 70-110 H Performed by certified heel coverer machine operator at [facility] [id number] 12:32:00* Test Item Value Reference Range Interpretation Comments GLUBED (test code = GLUBED) 382 MG/DL 70-110 H Performed by certified heel coverer machine operator at [facility] CBC W/AUTO [id number] 08:14:00* Test Item Value Reference Range Interpretation [...] DIFF REQUIRED (test code = MDIFF) NO [id number] 08:08:00* Test Item Value Reference Range Interpretation Comments GLUBED (test code = GLUBED) 271 MG/DL 70-110 H Performed by certified heel coverer machine operator at [facility] [id number] 08:07:00* Test Item Value Reference Range Interpretation Comments GLUBED (test code = GLUBED) 338 MG/DL 70-110 H Performed by certified heel coverer machine operator at [facility] BASIC METABOLIC [id number] 07:46:00* Test Item Value Reference Range Interpretation [...] code = CA) 8.5 mg/dL 8.0-10.5 N [id number] 19:58:00* Test Item Value Reference Range Interpretation Comments GLUBED (test code = GLUBED) 258 MG/DL 70-110 H Performed by certified heel coverer machine operator at [facility] [id number] 16:51:00* Test Item Value Reference Range Interpretation Comments GLUBED (test code = GLUBED) 365 MG/DL 70-110 H Performed by certified heel coverer machine operator at [facility] SURGICAL [id number] 12:04:00 RUN DATE: 02/19/20 [facility] *LIVE* PAGE 1 RUN TIME: 1204 Specimen Inqui ry RUN USER: INTERFACE PATIENT: NHI DUMONT ACCT #: [id number] LOC: GMirnaT U #: [id number] AGE/SX: 79/M ROOM: [facility] RE02/13/20REG DR: Ra Rushing MD : 40 BED: 1 DIS: STATUS: ADM IN TLOC: SPEC #: [id number] RECD: 02/15/20 STATUS: CHELA VYAS #: [id number] BRANDAN: 02/15/[address]: Ra Rushing MD ENTERED: 02/18/20 SP TYPE: SURG SPEC OTHR DR: DOES_N OT KNOW Self Referred All en,Srikanth Cheng,Larry Wood,Josué Cruz,Odell Mcgovern,Jeffry Carlos,Marina Nelson,Edmundo SCHILLINGORDERED: GM LEVEL 4 CODES: [id number] - STOMACH, NOS COPIES TO: DOES_NOT KNOW Self Referred Srikanth Thornton Jr, MD [address] [id number] [email or web address] Larry Cheng MD [address] [place], [place] [address] Josué Wood MD [address] [facility] [address] [id number] Odell Omer MD [address] [facility] [address] [place] [address] OTHER PHONE [phone] (CELL) [place] [address] [address] [place] [address] [email or web address] CONTINUED ON NEXT PAGE RUN DATE: 02/19/20 [facility] *LIVE* PAGE 2 RUN TIME: 12 04 Specimen Inquiry RUN USER: INTE RFACE SPEC #: [id number] PATIENT: NHI DUMONT #[id number] (Co ntinued) COPIES TO: (Continued) Marina Carlos MD [address] [place] [address] Edmundo Nelson MD [address] [facility] [address] [place] [address] Ra Rushing MD [address] [place] [phone] PROCEDURES: LEVEL 4 (Incomplete) TISSUES: 1. STOMACH, [...] CONTINUED ON NEXT PAGE RUN DATE: 02/19/20 [facility] *LIVE* PAGE 3 RUN TIME: 1204 Specimen I nquiry RUN USER: INTERFACE SPEC #: [id number] PATIENT: Stewart DUMONT #[id number] (Continued) PRE-OP YONAS GNOSIS Melena Signed SIGNATURE ON FILE Run Isabelle gross MD 02/19/20 1204 END OF REPORT [id number] 11:22:00* Test Item Value Reference Range Interpretation Comments GLUBED (test code = GLUBED) 424 MG/DL 70-110 H Performed by certified heel coverer machine operator at [facility] [id number] 11:22:00* Test Item Value Reference Range Interpretation Comments GLUBED (test code = GLUBED) 349 MG/DL 70-110 H Performed by certified heel coverer machine operator at [facility] [id number] 21:34:00* Test Item Value Reference Range Interpretation Comments GLUBED (test code = GLUBED) 293 MG/DL 70-110 H Performed by certified heel coverer machine operator at [facility] [id number] 16:42:00* Test Item Value Reference Range Interpretation Comments GLUBED (test code = GLUBED) 298 MG/DL 70-110 H Performed by certified heel coverer machine operator at [facility] [id number] 12:54:00* Test Item Value Reference Range Interpretation Comments GLUBED (test code = GLUBED) 283 MG/DL 70-110 H Performed by certified heel coverer machine operator at [facility] [id number] 12:48:00* Test Item Value Reference Range Interpretation Comments GLUBED (test code = GLUBED) 339 MG/DL 70-110 H Performed by certified heel coverer machine operator at [facility] [id number] 12:29:00* Test Item Value Reference Range Interpretation Comments GLUBED (test code = GLUBED) 245 MG/DL 70-110 H Performed by certified heel coverer machine operator at [facility] - [place] ACUTE GI BLOOD [id number] 12:07:00 FAX: Ra Banegas MD [phone] [place]: [address]: ADM Name: NHI DOVE [facility] : [birth year] Age/S: 79/M [address] [place] [address] Unit #: [id number] Loc: [place] [address] Phys: Ra Rushing MD Acct: [id number] Dis Date: Status: ADM IN PHONE #: [phone] Exam Date: 02/17/2020 1148 FAX #: [phone] Reason: Gastrointestinal bleed with normal EGD,colonoco EXAMS: CPT CODE: [id number] NM ACUTE GI BLOOD LOSS 56025 PROCEDURE: NUCLEAR MEDICINE GI BLE EDING SCAN [...] IMPRESSION: Negative for active gastrointestinal bleeding. SL: [id number] at 1207 * * Reported and signed by: Gordon Duke D.O. CC: Ra Rushing MD Technologist: Vanessa Abarca, ARRT (N)(CT); ... Trnscrd Date/Time/By: 02/17/20 20 (1207) : By: [email or web address] Orig Print D/T: S: 02/17/2020 (1213) PAGE 1 Signed Report BASIC METABOLIC [id number] 09:04:00* Test Item Value Reference Range Interpretation [...] code = CA) 7.8 mg/dL 8.0-10.5 L [id number] 08:40:00* Test Item Value Reference Range Interpretation Comments GLUBED (test code = GLUBED) 255 MG/DL 70-110 H Performed by certified heel coverer machine operator at [facility] CBC W/AUTO [id number] 07:42:00* Test Item Value Reference Range Interpretation [...] NO - XR SHOULDER 2 + V [id number] 21:41:00 FAX: Ra Banegas MD [phone] [place]: St: ADM Name: Stewart WILLISDAVINHI [facility] : [birth year] Age/S: 79/M [address] [place] [address] Unit #: [id number] Loc: [address] [place] [address] Phys: Ra Rushing MD Acct: [id number] Dis Date: Status: ADM IN PHONE #: [phone] Exam Date: 02/16/20202040 FAX #: [phone] Reason: Left shoulder pain EXAMS: CPT CODE: [id number] XR SHOULDER 2 + [place] [address] Left shoulder, 3 views dated 020. HISTORY: [...] left shoulder are detected. SL: 131 at 214 Reported and signed by: Remington Acosta M.D. CC: Randa valdovinos A Kristan SCHILLING Technologist: MAURO SuarezR ) Trnscrd Date/Time/By: 02/16/2020 () : By: Dina Orig Print D/T: S: 02/16/2020 (2143) PAGE 1 Signed Report [id number] 16:47:00* Test Item Value Reference Range Interpretation Comments GLUBED (test code = GLUBED) 253 MG/DL 70-110 H Performed by certified heel coverer machine operator at [facility] [id number] 08:52:00* Test Item Value Reference Range Interpretation Comments GLUBED (test code = GLUBED) 154 MG/DL 70-110 H Performed by certified heel coverer machine operator at [facility] [id number] 07:55:00* Test Item Value Reference Range Interpretation Comments GLUBED (test code = GLUBED) 153 MG/DL 70-110 H Performed by certified heel coverer machine operator at [facility] PROTHROMBIN [id number] 06:14:00* Test Item Value Reference Range Interpretation [...] Infarction (to prevent recurrent infarct). THROMBOPLASTIN TIME [id number] 06:14:00* Test Item Value Reference Range Interpretation Comments THROMBOPLASTIN TIME PARTIAL (test code = PTT) 27.8 Seconds 25.0-39. 5 N Therapeutic Range: 50.4 - 88.3 Seconds Effective 12/28/2018 BASIC METABOLIC [id number] 06:06:00* Test Item Value Reference Range Interpretation [...] CA) 7.1 mg/dL 8.0-10.5 L CBC W/AUTO [id number] 05:53:00* Test Item Value Reference Range Interpretation [...] DIFF REQUIRED (test code = MDIFF) NO [id number] 02:22:00* Test Item Value Reference Range Interpretation Comments GLUBED (test code = GLUBED) 249 MG/DL 70-110 H Performed by certified heel coverer machine operator at [facility] [id number] 17:28:00* Test Item Value Reference Range Interpretation Comments GLUBED (test code = GLUBED) 203 MG/DL 70-110 H Performed by certified heel coverer machine operator at [facility] [id number] 14:43:00* Test Item Value Reference Range Interpretation Comments GLUBED (test code = GLUBED) 281 MG/DL 70-110 H Performed by certified heel coverer machine operator at [facility] [id number] 14:43:00* Test Item Value Reference Range Interpretation Comments GLUBED (test code = GLUBED) 212 MG/DL 70-110 H Performed by certified heel coverer machine operator at [facility] BASIC METABOLIC [id number] 08:07:00* Test Item Value Reference Range Interpretation [...] CA) 8.6 mg/dL 8.0-10.5 N CBC W/AUTO [id number] 07:56:00* Test Item Value Reference Range Interpretation [...] DIFF REQUIRED (test code = MDIFF) NO [id number] 20:54:00* Test Item Value Reference Range Interpretation Comments GLUBED (test code = GLUBED) 227 MG/DL 70-110 H Performed by certified heel coverer machine operator at [facility] [id number] 17:29:00* Test Item Value Reference Range Interpretation Comments GLUBED (test code = GLUBED) 180 MG/DL 70-110 H Performed by certified heel coverer machine operator at [facility] [id number] 14:56:00* Test Item Value Reference Range Interpretation Comments GLUBED (test code = GLUBED) 189 MG/DL 70-110 H Performed by certified heel coverer machine operator at [facility] [id number] 12:54:00* Test Item Value Reference Range Interpretation Comments GLUBED (test code = GLUBED) 184 MG/DL 70-110 H Performed by certified heel coverer machine operator at [facility] [id number] 08:04:00* Test Item Value Reference Range Interpretation Comments GLUBED (test code = GLUBED) 173 MG/DL 70-110 H Performed by certified heel coverer machine operator at [facility] BASIC METABOLIC [id number] 07:19:00* Test Item Value Reference Range Interpretation [...] CA) 8.6 mg/dL 8.0-10.5 N CBC W/AUTO [id number] 07:16:00* Test Item Value Reference Range Interpretation [...] DIFF REQUIRED (test code = MDIFF) NO [id number] 06:43:00* Test Item Value Reference Range Interpretation Comments GLUBED (test code = GLUBED) 261 MG/DL 70-110 H Performed by certified heel coverer machine operator at [facility] - XR CHEST 1 [id number] 06:29:00 FAX: Ra Banegas MD [phone] [place]: St: ADM Name: NHI DOVE [facility] : [birth year] Age/S: 79/M [address] [place] [address] Unit #: [id number] Loc: [address] [address] Phys: Ra Rushing MD Acct: [id number] Dis Date: Status: ADM IN PHONE #: [phone] Exam Date: 02/14/2020621 FAX #: [phone] Reason: PRE-OP EXAMS: CPT CODE: [id number] XR CHEST 1 V 99729 EXAM: CR, XR chest one view: 2019, [...] Rushing MD Technologist: Eloisa Slater RT(R) Trnscrd [place] te/Time/By: 02/14/2020 (0629) : By: Johnny.[email or web address] Orig Print D/T: S: 02/13 (0620) PAGE 1 Signed Report Coronavirus 2019 nCoV Qsuhfku8979-81-21 00:56:00* Test Item Value Reference Range Interpretation Comments Coronavirus 2019 nCoV Bedside (test code = COVNONPUIBED) Negative Negative Negative results should be treated as presumptive and, ifinconsistent with clinical signs and symptoms or necessaryfor patient management, should be tested with an alternativemolecular assay. Negative results do not preclude JPME-MwW-4pvqvtaort and should not be used as the sole basis forpatient management decisions. Negative results should beconsidered in the context of a patient's recent exposures,history, presence of clinical signs and symptoms consistentwith COVID-19. Acknowledged? YESHGB [id number] 00:37:00* Test Item Value Reference Range Interpretation Comments HEMOGLOBIN (test code = HGB) 9.6 g/dL 12.5-16.9 L HEMATOCRIT (test code = HCT) 28.8 % 37.5-50.7 L BASIC METABOLIC [id number] 19:49:00* Test Item Value Reference Range Interpretation [...] CA) 8.4 mg/dL 8.0-10.5 N HEPATIC FUNCTION [id number] 19:49:00* Test Item Value Reference Range Interpretation [...] code = ALKP) 102 IUnit/L 20-125 N KESPOJ1180-11-65 19:49:00* Test Item Value Reference Range Interpretation Comments LIPASE (test code = LIP) 499 IUnit/L 73-393 H PROTHROMBIN [id number] 19:36:00* Test Item Value Reference Range Interpretation [...] Infarction (to prevent recurrent infarct). THROMBOPLASTIN TIME [id number] 19:36:00* Test Item Value Reference Range Interpretation Comments THROMBOPLASTIN TIME PARTIAL (test code = PTT) 27.5 Seconds 25.0-39. 5 N Therapeutic Range: 50.4 - 88.3 Seconds Effective 12/28/2018 CBC W/O [id number] 19:33:00* Test Item Value Reference Range Interpretation [...] = MPV) 9.0 fL 7.0-9.0 N Blood Hufrtvd5249-48-43 14:55:00* Test Item Value Reference Range Interpretation Comments Blood Culture (test code = 10348453) NO GROWTH AFTER 5 DAYS, FINAL REPORT [facility] Eqeuwjx9670-25-42 11:42:00* Test Item Value Reference Range Interpretation Comments Bedside Glucose (test code = 78321-4) 213 70-120 H Meter ID: [id number] Glucose 2019-11-18 11:42:00* Test Item Value Reference Range Interpretation Comments Bedside Glucose (test code = 45770-3) 213 70-120 H Meter ID: [id number] by glucometer (mass/volume)2019-11-18 10:03:00* Test Item Value Reference Range Interpretation Comments Bedside Glucose (test code = 92479-4) 213 70-120 Meter ID: [id number] [facility] blood glucose measurement by glucometer (mass/volume)2019-11-18 10:03:00* Test Item Value Reference Range Interpretation Comments Bedside Glucose (test code = 08087-6) 213 70-120 Meter ID: [id number] [facility] 2019-11-17 14:55:00* Test Item Value Reference Range Interpretation Comments Blood Culture (test code = 39202076) NO GROWTH AFTER 48 HOURS [facility] Vbzom6654-05-36 05:33:00* Test Item Value Reference Range Interpretation Comments Sodium Level (test code = 2951-2) 139 136-145 [facility]Pot[facility] Kztfx4671-68-56 05:33:00* Test Item Value Reference Range Interpretation Comments Potassium Level (test code = 2823-3) 4.2 3.5-5.1 [facility] HospitalChloride Zwubn3235-44-52 05:33:00* Test Item Value Reference Range Interpretation Comments Chloride Level (test code = 2075-0) 106 98-107 [facility] HospitalCarbon Dioxide Wugom6312-15-83 05:33:00* Test Item Value Reference Range Interpretation Comments Carbon Dioxide Level (test code = 2028-9) 25 22-29 [facility] HospitalAnion Apd1826-34-85 05:33:00* Test Item Value Reference Range Interpretation Comments Anion Gap (test code = 28612-0) 12.2 8-16 [facility] HospitalBlood Urea Uwwzehcz1576-08-10 05:33:00* Test Item Value Reference Range Interpretation Comments Blood Urea Nitrogen (test code = 3094-0) 25 7-26 [facility] HospitalCreatinine2020-03-05 05:33:00* Test Item Value Reference Range Interpretation Comments Creatinine (test code = 2160-0) 0.86 0.72-1.25 [facility] HospitalBUN/Creatinine Txhog7206-14-18 05:33:00* Test Item Value Reference Range Interpretation Comments BUN/Creatinine Ratio (test code = 3097-3) 29 6-25 H [facility] HospitalEstimat Glomerular Filtration Rate 2019-11-17 05:33:00* Test Item Value Reference Range Interpretation Comments Estimat Glomerular Filtration Rate (test code = 252733579) > 60 >60 Ranges were taken from the National Kidney Disease Education Program and the [facility] literature.Reference ranges:60 or greater: Klpbst99-94 ( for 3 consecutive months): Chronic kidney disease 15 or less: Kidney failureParkland Memorial HospitalGlucose Hareb6427-94-82 05:33:00* Test Item Value Reference Range Interpretation Comments Glucose Level (test code = ZAW9839) 92 74-118 [facility] HospitalCalcium Fyssp1814-17-69 05:33:00* Test Item Value Reference Range Interpretation Comments Calcium Level (test code = 78107-0) 8.9 8.4-10.2 [facility] Lfpzw1042-15-66 05:33:00* Test Item Value Reference Range Interpretation Comments Sodium Level (test code = 2951-2) 139 136-145 [facility] HospitalPotassium Rmyys7538-87-64 05:33:00* Test Item Value Reference Range Interpretation Comments Potassium Level (test code = 2823-3) 4.2 3.5-5.1 [facility] HospitalChloride Tlhfj6612-19-32 05:33:00* Test Item Value Reference Range Interpretation Comments Chloride Level (test code = 2075-0) 106 98-107 [facility] HospitalCarbon Dioxide Ozuns2011-92-04 05:33:00* Test Item Value Reference Range Interpretation Comments Carbon Dioxide Level (test code = 2028-9) 25 22-29 [facility] HospitalAnion Dtj1835-66-23 05:33:00* Test Item Value Reference Range Interpretation Comments Anion Gap (test code = 55229-5) 12.2 8-16 [facility] HospitalBlood Urea Knneuqwt4150-01-21 05:33:00* Test Item Value Reference Range Interpretation Comments Blood Urea Nitrogen (test code = 3094-0) 25 7-26 [facility] HospitalCreatinine2020-03-05 05:33:00* Test Item Value Reference Range Interpretation Comments Creatinine (test code = 2160-0) 0.86 0.72-1.25 [facility] HospitalBUN/Creatinine Bclke8584-39-29 05:33:00* Test Item Value Reference Range Interpretation Comments BUN/Creatinine Ratio (test code = 3097-3) 29 6-25 H [facility] HospitalEstimat Glomerular Filtration Rate 2019-11-17 05:33:00* Test Item Value Reference Range Interpretation Comments Estimat Glomerular Filtration Rate (test code = 640708337) > 60 >60 Ranges were taken from the National Kidney Disease Education Program and the [facility] Kidney Foundation literature.Reference ranges:60 or greater: Fbcmwr20-96 ( for 3 consecutive months): Chronic kidney disease 15 or less: Kidney failureParkland Memorial HospitalGlucose Vrolj8055-72-85 05:33:00* Test Item Value Reference Range Interpretation Comments Glucose Level (test code = OEP9327) 92 74-118 [facility] HospitalCalcium Vvedx5316-21-72 05:33:00* Test Item Value Reference Range Interpretation Comments Calcium Level (test code = 16979-2) 8.9 8.4-10.2 [facility]ervilleerum or plasma sodium measurement (moles/volume)2019-11-17 03:45:00* Test Item Value Reference Range Interpretation Comments Sodium Level (test code = 2951-2) 139 136-145 [facility]ervilleerum or plasma potassium measurement (moles/volume)2019-11-17 03:45:00* Test Item Value Reference Range Interpretation Comments Potassium Level (test code = 2823-3) 4.2 3.5-5.1 [facility]um or plasma chloride measurement (moles/volume)2019-11-17 03:45:00* Test Item Value Reference Range Interpretation Comments Chloride Level (test code = 2075-0) 106 98-107 [facility]ervilleerum or plasma carbon dioxide, total measurement (moles/volume)2019-11-17 03:45:00* Test Item Value Reference Range Interpretation Comments Carbon Dioxide Level (test code = 2028-9) 25 22-29 [facility]ervilleerum or plasma anion cjb0769-58-59 03:45:00* Test Item Value Reference Range Interpretation Comments Anion Gap (test code = 82685-1) 12.2 8-16 [facility]erum or plasma urea nitrogen measurement (mass/volume)2019-11-17 03:45:00* Test Item Value Reference Range Interpretation Comments Blood Urea Nitrogen (test code = 3094-0) 25 7-26 [facility]ervilleerum or plasma creatinine measurement (mass/volume)2019-11-17 03:45:00* Test Item Value Reference Range Interpretation Comments Creatinine (test code = 2160-0) 0.86 0.72-1.25 [facility]ervilleerum or plasma urea nitrogen/creatinine mass uumad4720-08-51 03:45:00* Test Item Value Reference Range Interpretation Comments BUN/Creatinine Ratio (test code = 3097-3) 29 6-25 [facility] HospitalEstimated glomerular filtration rate (GFR) uoqtattraahmb6380-59-48 03:45:00* Test Item Value Reference Range Interpretation Comments Estimat Glomerular Filtration Rate (test code = 147633980) > 60 >60 Ranges were taken from the National Kidney Disease Education Program and the [facility] literature.Reference ranges:60 or greater: Xrnzmb35-32 ( for 3 consecutive months): Chronic kidney disease 15 or less: Kidney failureParkland Memorial HospitalGlucose gpoiqdqjpmb7487-60-89 03:45:00* Test Item Value Reference Range Interpretation Comments Glucose Level (test code = FPW3785) 92 74-118 [facility]ervilleerum or plasma calcium measurement (mass/volume)2019-11-17 03:45:00* Test Item Value Reference Range Interpretation Comments Calcium Level (test code = 68261-7) 8.9 8.4-10.2 [facility]erum or plasma sodium measurement (moles/volume)2019-11-17 03:45:00* Test Item Value Reference Range Interpretation Comments Sodium Level (test code = 2951-2) 139 136-145 [facility]ervilleerum or plasma potassium measurement (moles/volume)2019-11-17 03:45:00* Test Item Value Reference Range Interpretation Comments Potassium Level (test code = 2823-3) 4.2 3.5-5.1 [facility]erum or plasma chloride measurement (moles/volume)2019-11-17 03:45:00* Test Item Value Reference Range Interpretation Comments Chloride Level (test code = 2075-0) 106 98-107 [facility]ervilleerum or plasma carbon dioxide, total measurement (moles/volume)2019-11-17 03:45:00* Test Item Value Reference Range Interpretation Comments Carbon Dioxide Level (test code = 2028-9) 25 22-29 [facility]ervilleerum or plasma anion sqg2317-08-64 03:45:00* Test Item Value Reference Range Interpretation Comments Anion Gap (test code = 87043-5) 12.2 8-16 [facility]erum or plasma urea nitrogen measurement (mass/volume)2019-11-17 03:45:00* Test Item Value Reference Range Interpretation Comments Blood Urea Nitrogen (test code = 3094-0) 25 7-26 [facility]erum or plasma creatinine measurement (mass/volume)2019-11-17 03:45:00* Test Item Value Reference Range Interpretation Comments Creatinine (test code = 2160-0) 0.86 0.72-1.25 [facility]erum or plasma urea nitrogen/creatinine mass fshht6832-10-44 03:45:00* Test Item Value Reference Range Interpretation Comments BUN/Creatinine Ratio (test code = 3097-3) 29 6-25 [facility] HospitalEstimated glomerular filtration rate (GFR) kbevedebktuyk1655-43-01 03:45:00* Test Item Value Reference Range Interpretation Comments Estimat Glomerular Filtration Rate (test code = 589653893) > 60 >60 Ranges were taken from the National Kidney Disease Education Program and the [facility] literature.Reference ranges:60 or greater: Pqekmy77-41 ( for 3 consecutive months): Chronic kidney disease 15 or less: Kidney failureParkland Memorial HospitalGlucose eelxxkxpuaz5771-21-42 03:45:00* Test Item Value Reference Range Interpretation Comments Glucose Level (test code = KPU2010) 92 74-118 [facility]um or plasma calcium measurement (mass/volume)2019-11-17 03:45:00* Test Item Value Reference Range Interpretation Comments Calcium Level (test code = 45789-2) 8.9 8.4-10.2 [facility] HospitalVancomycin Level Dcyjtc9441-60-46 15:25:00* Test Item Value Reference Range Interpretation Comments Vancomycin Level Trough (test code = 4092-3) 9.1 5.0-10.0 [facility] HospitalVancomycin Level Xmehnd2722-10-22 15:25:00* Test Item Value Reference Range Interpretation Comments Vancomycin Level Trough (test code = 4092-3) 9.1 5.0-10.0 [facility]um or plasma trough vancomycin level at trough (mass/volume)2019-11-16 13:58:00* Test Item Value Reference Range Interpretation Comments Vancomycin Level Trough (test code = 4092-3) 9.1 5.0-10.0 [facility]um or plasma trough vancomycin level at trough (mass/volume)2019-11-16 13:58:00* Test Item Value Reference Range Interpretation Comments Vancomycin Level Trough (test code = 4092-3) 9.1 5.0-10.0 [facility] HospitalWhite Blood Rrvrd5445-04-14 05:43:00* Test Item Value Reference Range Interpretation Comments White Blood Count (test code = 6690-2) 6.78 4.8-10.8 [facility] HospitalRed Blood Cdpga9553-18-82 05:43:00* Test Item Value Reference Range Interpretation Comments Red Blood Count (test code = 789-8) 4.41 4.3-5.7 [facility] HospitalHemoglobin2020-03-04 05:43:00* Test Item Value Reference Range Interpretation Comments Hemoglobin (test code = 48695-8) 12.9 14.0-18.0 L [facility] HospitalHematocrit2020-03-04 05:43:00* Test Item Value Reference Range Interpretation Comments Hematocrit (test code = 4544-3) 41.0 38.2-49.6 [facility] HospitalMean Corpuscular Stlrex4321-98-86 05:43:00* Test Item Value Reference Range Interpretation Comments Mean Corpuscular Volume (test code = 787-2) 93.0 81-99 [facility] HospitalMean Corpuscular Dzabuwjbga4773-16-60 05:43:00* Test Item Value Reference Range Interpretation Comments Mean Corpuscular Hemoglobin (test code = 785-6) 29.3 28-32 [facility] HospitalMean Corpuscular Hemoglobin Concent 2019-11-16 05:43:00* Test Item Value Reference Range Interpretation Comments Mean Corpuscular Hemoglobin Concent (test code = 786-4) 31.5 31-35 [facility] HospitalRed Cell Distribution Orhlo0921-94-43 05:43:00* Test Item Value Reference Range Interpretation Comments Red Cell Distribution Width (test code = 68503-9) 15.8 11.7 -14.4 H [facility] HospitalPlatelet Aoopb9105-09-24 05:43:00* Test Item Value Reference Range Interpretation Comments Platelet Count (test code = 777-3) 155 140-360 [facility] HospitalNeutrophils (%) (Auto)2019-11-16 05:43:00 * Test Item Value Reference Range Interpretation Comments Neutrophils (%) (Auto) (test code = 13913-4) 69.6 38.7-80.0 [facility] HospitalLymphocytes (%) (Auto)2019-11-16 05:43:00 * Test Item Value Reference Range Interpretation Comments Lymphocytes (%) (Auto) (test code = 736-9) 17.3 18.0-39.1 L [facility] HospitalMonocytes (%) (Auto)2019-11-16 05:43:00* Test Item Value Reference Range Interpretation Comments Monocytes (%) (Auto) (test code = 5905-5) 8.1 4.4-11.3 [facility] HospitalEosinophils (%) (Auto)2019-11-16 05:43:00 * Test Item Value Reference Range Interpretation Comments Eosinophils (%) (Auto) (test code = 713-8) 4.0 0.0-6.0 [facility] HospitalBasophils (%) (Auto)2019-11-16 05:43:00* Test Item Value Reference Range Interpretation Comments Basophils (%) (Auto) (test code = 706-2) 0.6 0.0-1.0 [facility] HospitalIM GRANULOCYTES %2019-11-16 05:43:00* Test Item Value Reference Range Interpretation Comments IM GRANULOCYTES % (test code = IM GRANULOCYTES %) 0.4 0.0- 1.0 [facility] HospitalNeutrophils # (Auto)2019-11-16 05:43:00* Test Item Value Reference Range Interpretation Comments Neutrophils # (Auto) (test code = 751-8) 4.7 2.1-6.9 [facility] HospitalLymphocytes # (Auto)2019-11-16 05:43:00* Test Item Value Reference Range Interpretation Comments Lymphocytes # (Auto) (test code = 84094-4) 1.2 1.0-3.2 [facility] HospitalMonocytes # (Auto)2019-11-16 05:43:00* Test Item Value Reference Range Interpretation Comments Monocytes # (Auto) (test code = 742-7) 0.6 0.2-0.8 [facility] HospitalEosinophils # (Auto)2019-11-16 05:43:00* Test Item Value Reference Range Interpretation Comments Eosinophils # (Auto) (test code = 711-2) 0.3 0.0-0.4 [facility] HospitalBasophils # (Auto)2019-11-16 05:43:00* Test Item Value Reference Range Interpretation Comments Basophils # (Auto) (test code = 704-7) 0.0 0.0-0.1 [facility] HospitalAbsolute Immature Granulocyte (auto 2019-11-16 05:43:00* Test Item Value Reference Range Interpretation Comments Absolute Immature Granulocyte (auto (aldair t code = Absolute Immature Granulocyte (auto) 0.03 0-0.1 [facility] HospitalWhite Blood Mwmlc6774-86-34 05:43:00* Test Item Value Reference Range Interpretation Comments White Blood Count (test code = 6690-2) 6.78 4.8-10.8 [facility] HospitalRed Blood Vdmlh5867-82-69 05:43:00* Test Item Value Reference Range Interpretation Comments Red Blood Count (test code = 789-8) 4.41 4.3-5.7 [facility] HospitalHemoglobin2020-03-04 05:43:00* Test Item Value Reference Range Interpretation Comments Hemoglobin (test code = 97445-7) 12.9 14.0-18.0 L [facility] HospitalHematocrit2020-03-04 05:43:00* Test Item Value Reference Range Interpretation Comments Hematocrit (test code = 4544-3) 41.0 38.2-49.6 [facility] HospitalMean Corpuscular Bqamuf8471-95-73 05:43:00* Test Item Value Reference Range Interpretation Comments Mean Corpuscular Volume (test code = 787-2) 93.0 81-99 [facility] HospitalMean Corpuscular Tvimlfxrts3906-63-00 05:43:00* Test Item Value Reference Range Interpretation Comments Mean Corpuscular Hemoglobin (test code = 785-6) 29.3 28-32 [facility] HospitalMean Corpuscular Hemoglobin Concent 2019-11-16 05:43:00* Test Item Value Reference Range Interpretation Comments Mean Corpuscular Hemoglobin Concent (test code = 786-4) 31.5 31-35 [facility] HospitalRed Cell Distribution Hlghg6081-54-90 05:43:00* Test Item Value Reference Range Interpretation Comments Red Cell Distribution Width (test code = 35380-8) 15.8 11.7 -14.4 H [facility] HospitalPlatelet Cgczv7823-09-18 05:43:00* Test Item Value Reference Range Interpretation Comments Platelet Count (test code = 777-3) 155 140-360 [facility] HospitalNeutrophils (%) (Auto)2019-11-16 05:43:00 * Test Item Value Reference Range Interpretation Comments Neutrophils (%) (Auto) (test code = 43776-5) 69.6 38.7-80.0 [facility] HospitalLymphocytes (%) (Auto)2019-11-16 05:43:00 * Test Item Value Reference Range Interpretation Comments Lymphocytes (%) (Auto) (test code = 736-9) 17.3 18.0-39.1 L [facility] HospitalMonocytes (%) (Auto)2019-11-16 05:43:00* Test Item Value Reference Range Interpretation Comments Monocytes (%) (Auto) (test code = 5905-5) 8.1 4.4-11.3 [facility] HospitalEosinophils (%) (Auto)2019-11-16 05:43:00 * Test Item Value Reference Range Interpretation Comments Eosinophils (%) (Auto) (test code = 713-8) 4.0 0.0-6.0 [facility] HospitalBasophils (%) (Auto)2019-11-16 05:43:00* Test Item Value Reference Range Interpretation Comments Basophils (%) (Auto) (test code = 706-2) 0.6 0.0-1.0 [facility] HospitalIM GRANULOCYTES %2019-11-16 05:43:00* Test Item Value Reference Range Interpretation Comments IM GRANULOCYTES % (test code = IM GRANULOCYTES %) 0.4 0.0- 1.0 [facility] HospitalNeutrophils # (Auto)2019-11-16 05:43:00* Test Item Value Reference Range Interpretation Comments Neutrophils # (Auto) (test code = 751-8) 4.7 2.1-6.9 [facility] HospitalLymphocytes # (Auto)2019-11-16 05:43:00* Test Item Value Reference Range Interpretation Comments Lymphocytes # (Auto) (test code = 44423-1) 1.2 1.0-3.2 [facility] HospitalMonocytes # (Auto)2019-11-16 05:43:00* Test Item Value Reference Range Interpretation Comments Monocytes # (Auto) (test code = 742-7) 0.6 0.2-0.8 [facility] HospitalEosinophils # (Auto)2019-11-16 05:43:00* Test Item Value Reference Range Interpretation Comments Eosinophils # (Auto) (test code = 711-2) 0.3 0.0-0.4 [facility] HospitalBasophils # (Auto)2019-11-16 05:43:00* Test Item Value Reference Range Interpretation Comments Basophils # (Auto) (test code = 704-7) 0.0 0.0-0.1 [facility] HospitalAbsolute Immature Granulocyte (auto 2019-11-16 05:43:00* Test Item Value Reference Range Interpretation Comments Absolute Immature Granulocyte (auto (aldair t code = Absolute Immature Granulocyte (auto) 0.03 0-0.1 [facility] HospitalBlood leukocytes automated count (number/volume)2019-11-16 04:10:00* Test Item Value Reference Range Interpretation Comments White Blood Count (test code = 6690-2) 6.78 4.8-10.8 [facility] HospitalBlriver[facility] clinic erythrocytes automated count (number/volume)2019-11-16 04:10:00* Test Item Value Reference Range Interpretation Comments Red Blood Count (test code = 789-8) 4.41 4.3-5.7 [facility] HospitalBlood hemoglobin measurement (moles/volume)2019-11-16 04:10:00* Test Item Value Reference Range Interpretation Comments Hemoglobin (test code = 85638-9) 12.9 14.0-18.0 [facility] HospitalAutomated blood hematocrit (volume fraction)2019-11-16 04:10:00* Test Item Value Reference Range Interpretation Comments Hematocrit (test code = 4544-3) 41.0 38.2-49.6 [facility] HospitalAutomated erythrocyte mean corpuscular poinxx8225-37-55 04:10:00* Test Item Value Reference Range Interpretation Comments Mean Corpuscular Volume (test code = 787-2) 93.0 81-99 [facility] HospitalAutomated erythrocyte mean corpuscular hemoglobin (mass per erythrocyte)2019-11-16 04:10:00* Test Item Value Reference Range Interpretation Comments Mean Corpuscular Hemoglobin (test code = 785-6) 29.3 28-32 [facility] HospitalAutomated erythrocyte mean corpuscular hemoglobin concentration measurement (mass/volume)2019-11-16 04:10:00* Test Item Value Reference Range Interpretation Comments Mean Corpuscular Hemoglobin Concent (test code = 786-4) 31.5 31-35 [facility] HospitalRDW QuvXb-Kki6007-92-04 04:10:00* Test Item Value Reference Range Interpretation Comments Red Cell Distribution Width (test code = 74431-2) 15.8 11.7 -14.4 [facility] HospitalAutomated blood platelet count (count/volume)2019-11-16 04:10:00* Test Item Value Reference Range Interpretation Comments Platelet Count (test code = 777-3) 155 140-360 [facility] HospitalAutomated blood segmented neutrophil count as percentage of total wshcjdcvah8121-82-29 04:10:00* Test Item Value Reference Range Interpretation Comments Neutrophils (%) (Auto) (test code = 26212-0) 69.6 38.7-80.0 [facility] HospitalAutomated blood lymphocyte count as percentage ot total obmjjonzyq9235-03-12 04:10:00* Test Item Value Reference Range Interpretation Comments Lymphocytes (%) (Auto) (test code = 736-9) 17.3 18.0-39.1 [facility] HospitalAutomated blood monocyte count as percentage of total sqbyvvohin5291-90-68 04:10:00* Test Item Value Reference Range Interpretation Comments Monocytes (%) (Auto) (test code = 5905-5) 8.1 4.4-11.3 [facility] HospitalAutomated blood eosinophil count as percentage of total tffwqphsde3924-58-36 04:10:00* Test Item Value Reference Range Interpretation Comments Eosinophils (%) (Auto) (test code = 713-8) 4.0 0.0-6.0 [facility] HospitalAutomated blood basophil count as percentage of total gminnjvlvc9549-93-88 04:10:00* Test Item Value Reference Range Interpretation Comments Basophils (%) (Auto) (test code = 706-2) 0.6 0.0-1.0 [facility] HospitalFluoroscopic procedure less than one hour xydaajke6505-26-14 04:10:00* Test Item Value Reference Range Interpretation Comments IM GRANULOCYTES % (test code = IM GRANULOCYTES %) 0.4 0.0- 1.0 [facility] HospitalAutomated blood neutrophil count 2019-11-16 04:10:00* Test Item Value Reference Range Interpretation Comments Neutrophils # (Auto) (test code = 751-8) 4.7 2.1-6.9 [facility]Bl[facility] lymphocytes count (number/volume) 2019-11-16 04:10:00* Test Item Value Reference Range Interpretation Comments Lymphocytes # (Auto) (test code = 17544-1) 1.2 1.0-3.2 [facility] monocytes automated count (number/volume)2019-11-16 04:10:00* Test Item Value Reference Range Interpretation Comments Monocytes # (Auto) (test code = 742-7) 0.6 0.2-0.8 [facility] HospitalAutomated blood eosinophil count 2019-11-16 04:10:00* Test Item Value Reference Range Interpretation Comments Eosinophils # (Auto) (test code = 711-2) 0.3 0.0-0.4 [facility] HospitalAutomated blood basophil count (count/volume)2019-11-16 04:10:00* Test Item Value Reference Range Interpretation Comments Basophils # (Auto) (test code = 704-7) 0.0 0.0-0.1 [facility] HospitalFluoroscopic procedure less than one hour rglaoqyy5989-47-17 04:10:00* Test Item Value Reference Range Interpretation Comments Absolute Immature Granulocyte (auto (aldair t code = Absolute Immature Granulocyte (auto) 0.03 0-0.1 [facility] leukocytes automated count (number/volume)2019-11-16 04:10:00* Test Item Value Reference Range Interpretation Comments White Blood Count (test code = 6690-2) 6.78 4.8-10.8 [facility] erythrocytes automated count (number/volume)2019-11-16 04:10:00* Test Item Value Reference Range Interpretation Comments Red Blood Count (test code = 789-8) 4.41 4.3-5.7 [facility] hemoglobin measurement (moles/volume)2019-11-16 04:10:00* Test Item Value Reference Range Interpretation Comments Hemoglobin (test code = 52490-9) 12.9 14.0-18.0 [facility] HospitalAutomated blood hematocrit (volume fraction)2019-11-16 04:10:00* Test Item Value Reference Range Interpretation Comments Hematocrit (test code = 4544-3) 41.0 38.2-49.6 [facility] HospitalAutomated erythrocyte mean corpuscular tixmzb0416-94-05 04:10:00* Test Item Value Reference Range Interpretation Comments Mean Corpuscular Volume (test code = 787-2) 93.0 81-99 [facility] HospitalAutomated erythrocyte mean corpuscular hemoglobin (mass per erythrocyte)2019-11-16 04:10:00* Test Item Value Reference Range Interpretation Comments Mean Corpuscular Hemoglobin (test code = 785-6) 29.3 28-32 [facility] HospitalAutformerly [facility]ed erythrocyte mean corpuscular hemoglobin concentration measurement (mass/volume)2019-11-16 04:10:00* Test Item Value Reference Range Interpretation Comments Mean Corpuscular Hemoglobin Concent (test code = 786-4) 31.5 31-35 [facility] HospitalRDW PszLu-Qar6714-96-04 04:10:00* Test Item Value Reference Range Interpretation Comments Red Cell Distribution Width (test code = 39349-2) 15.8 11.7 -14.4 [facility] HospitalAutformerly [facility]ed blood platelet count (count/volume)2019-11-16 04:10:00* Test Item Value Reference Range Interpretation Comments Platelet Count (test code = 777-3) 155 140-360 [facility] segmented neutrophil count as percentage of total yuxrvxamvr8892-66-92 04:10:00* Test Item Value Reference Range Interpretation Comments Neutrophils (%) (Auto) (test code = 31259-6) 69.6 38.7-80.0 [facility] HospitalAutformerly [facility]ed blood lymphocyte count as percentage ot total yifqsypluo1342-82-79 04:10:00* Test Item Value Reference Range Interpretation Comments Lymphocytes (%) (Auto) (test code = 736-9) 17.3 18.0-39.1 [facility] HospitalAutomated blood monocyte count as percentage of total lnguvhiuxd0856-20-70 04:10:00* Test Item Value Reference Range Interpretation Comments Monocytes (%) (Auto) (test code = 5905-5) 8.1 4.4-11.3 [facility] HospitalAutomated blood eosinophil count as percentage of total xijnmxjztb5268-40-26 04:10:00* Test Item Value Reference Range Interpretation Comments Eosinophils (%) (Auto) (test code = 713-8) 4.0 0.0-6.0 [facility] HospitalAutomated blood basophil count as percentage of total serpemrwcw4045-87-65 04:10:00* Test Item Value Reference Range Interpretation Comments Basophils (%) (Auto) (test code = 706-2) 0.6 0.0-1.0 [facility] HospitalFluoroscopic procedure less than one hour nuntrukd1849-29-94 04:10:00* Test Item Value Reference Range Interpretation Comments IM GRANULOCYTES % (test code = IM GRANULOCYTES %) 0.4 0.0- 1.0 [facility] HospitalAutomated blood neutrophil count 2019-11-16 04:10:00* Test Item Value Reference Range Interpretation Comments Neutrophils # (Auto) (test code = 751-8) 4.7 2.1-6.9 [facility] HospitalBlood lymphocytes count (number/volume) 2019-11-16 04:10:00* Test Item Value Reference Range Interpretation Comments Lymphocytes # (Auto) (test code = 51926-9) 1.2 1.0-3.2 [facility] HospitalBlood monocytes automated count (number/volume)2019-11-16 04:10:00* Test Item Value Reference Range Interpretation Comments Monocytes # (Auto) (test code = 742-7) 0.6 0.2-0.8 [facility] HospitalAutomated blood eosinophil count 2019-11-16 04:10:00* Test Item Value Reference Range Interpretation Comments Eosinophils # (Auto) (test code = 711-2) 0.3 0.0-0.4 [facility] HospitalAutomated blood basophil count (count/volume)2019-11-16 04:10:00* Test Item Value Reference Range Interpretation Comments Basophils # (Auto) (test code = 704-7) 0.0 0.0-0.1 [facility] HospitalFluoroscopic procedure less than one hour pnbjynsh8683-62-21 04:10:00* Test Item Value Reference Range Interpretation Comments Absolute Immature Granulocyte (auto (aldair t code = Absolute Immature Granulocyte (auto) 0.03 0-0.1 [facility] HospitalCreatine Kinase BK6170-38-23 15:30:00* Test Item Value Reference Range Interpretation Comments Creatine Kinase MB (test code = 40823-7) 1.00 0-5.0 [facility] G5876-[facility] 15:30:00* Test Item Value Reference Range Interpretation Comments Troponin I (test code = BIU0247) 0.004 0-0.300 [facility] HospitalCreatine Kinase SZ0693-27-75 15:30:00* Test Item Value Reference Range Interpretation Comments Creatine Kinase MB (test code = 96873-7) 1.00 0-5.0 [facility] C4456-25-35 15:30:00* Test Item Value Reference Range Interpretation Comments Troponin I (test code = 11657-6) 0.004 0-0.300 [facility] HospitalB-Type Natriuretic Wmoutea4240-99-42 15:28:00* Test Item Value Reference Range Interpretation Comments B-Type Natriuretic Peptide (test code = 44283-1) 199.3 0-100 H [facility] HospitalB-Type Natriuretic Hornvwo5095-64-16 15:28:00* Test Item Value Reference Range Interpretation Comments B-Type Natriuretic Peptide (test code = 40971-8) 199.3 0-100 H [facility] HospitalTotal Sbkmauhgm0045-07-31 15:25:00* Test Item Value Reference Range Interpretation Comments Total Bilirubin (test code = 1974-) 0.9 0.2-1.2 [facility] HospitalAspartate Amino Transf (AST/SGOT) 2019-11-15 15:25:00* Test Item Value Reference Range Interpretation Comments Aspartate Amino Transf (AST/SGOT) (test code = Aspartate Amino Transf (AST/SGOT)) 14 5-34 [facility] HospitalAlanine Aminotransferase (ALT/SGPT) 2019-11-15 15:25:00* Test Item Value Reference Range Interpretation Comments Alanine Aminotransferase (ALT/SGPT) (test code = 1742-6) 9 0-55 [facility] HospitalTotal Cvzmtms5963-55-93 15:25:00* Test Item Value Reference Range Interpretation Comments Total Protein (test code = 2885-2) 7.3 6.5-8.1 [facility] HospitalAlbumin2020-03-03 15:25:00* Test Item Value Reference Range Interpretation Comments Albumin (test code = 1751-7) 3.4 3.5-5.0 L [facility] HospitalGlobulin2020-03-03 15:25:00* Test Item Value Reference Range Interpretation Comments Globulin (test code = 43827-6) 3.9 2.3-3.5 H [facility] HospitalAlbumin/Globulin Xvjru4883-62-39 15:25:00 * Test Item Value Reference Range Interpretation Comments Albumin/Globulin Ratio (test code = 1759-0) 0.9 0.8-2.0 [facility] HospitalAlkaline Areargubnhc2017-16-58 15:25:00* Test Item Value Reference Range Interpretation Comments Alkaline Phosphatase (test code = 6768-6) 101 40-150 [facility] HospitalCreatine Eoskrk9644-34-36 15:25:00* Test Item Value Reference Range Interpretation Comments Creatine Kinase (test code = 2157-6) 40 30-200 [facility] HospitalTotal Qawqejzwl4461-80-02 15:25:00* Test Item Value Reference Range Interpretation Comments Total Bilirubin (test code = 1974-) 0.9 0.2-1.2 [facility] HospitalAspartate Amino Transf (AST/SGOT) 2019-11-15 15:25:00* Test Item Value Reference Range Interpretation Comments Aspartate Amino Transf (AST/SGOT) (test code = Aspartate Amino Transf (AST/SGOT)) 14 5-34 [facility] HospitalAlanine Aminotransferase (ALT/SGPT) 2019-11-15 15:25:00* Test Item Value Reference Range Interpretation Comments Alanine Aminotransferase (ALT/SGPT) (test code = 1742-6) 9 0-55 [facility] HospitalTotal Yooecdf0937-97-08 15:25:00* Test Item Value Reference Range Interpretation Comments Total Protein (test code = 2885-2) 7.3 6.5-8.1 [facility] HospitalAlbumin2020-03-03 15:25:00* Test Item Value Reference Range Interpretation Comments Albumin (test code = 1751-7) 3.4 3.5-5.0 L [facility] HospitalGlobulin2020-03-03 15:25:00* Test Item Value Reference Range Interpretation Comments Globulin (test code = 73070-9) 3.9 2.3-3.5 H [facility] HospitalAlbumin/Globulin Fdrxu6688-56-39 15:25:00 * Test Item Value Reference Range Interpretation Comments Albumin/Globulin Ratio (test code = 1759-0) 0.9 0.8-2.0 [facility] HospitalAlkaline Fwcpibmfkao2681-91-82 15:25:00* Test Item Value Reference Range Interpretation Comments Alkaline Phosphatase (test code = 6768-6) 101 40-150 [facility] HospitalCreatine Rvzqlk4066-52-11 15:25:00* Test Item Value Reference Range Interpretation Comments Creatine Kinase (test code = 2157-6) 40 30-200 [facility] HospitalProthrombin Xwyf6339-92-86 15:18:00* Test Item Value Reference Range Interpretation Comments Prothrombin Time (test code = 5902-2) 14.2 11.9-14.5 [facility] HospitalProthromb Time International Ratio 2019-11-15 15:18:00* Test Item Value Reference Range Interpretation Comments Prothromb Time International Ratio (test code = 6301-6) 1.04 Oral Anticoagulant Therapy INR Values:1. Low Intensity Therapy 1.5 - 2.02 . Moderate Intensity Therapy 2.0 - 3.03. High Intensity Therapy(1) 2.5 - 3. 54. High Intensity Therapy(2) 3.0 - 4.05. Panic Value INR > 5.0 [facility] HospitalActivated Partial Thromboplast Time 2019-11-15 15:18:00* Test Item Value Reference Range Interpretation Comments Activated Partial Thromboplast Time (test code = 41624-1) 30.6 23.8-35.5 [facility] HospitalProthrombin Uswu6267-55-71 15:18:00* Test Item Value Reference Range Interpretation Comments Prothrombin Time (test code = 5902-2) 14.2 11.9-14.5 [facility] HospitalProthromb Time International Ratio 2019-11-15 15:18:00* Test Item Value Reference Range Interpretation Comments Prothromb Time International Ratio (test code = 6301-6) 1.04 Oral Anticoagulant Therapy INR Values:1. Low Intensity Therapy 1.5 - 2.02 . Moderate Intensity Therapy 2.0 - 3.03. High Intensity Therapy(1) 2.5 - 3. 54. High Intensity Therapy(2) 3.0 - 4.05. Panic Value INR > 5.0 [facility] HospitalActivated Partial Thromboplast Time 2019-11-15 15:18:00* Test Item Value Reference Range Interpretation Comments Activated Partial Thromboplast Time (test code = 34612-7) 30.6 23.8-35.5 [facility] HospitalCHEST SINGLE (PORTABLE)2019-11-15 14:22:00 [place] [address] Patient Name: NHI DUMONT MR #: [id number] : 1940 Age/Sex: 78/M Req #: [id number] Adm Physician: Ordered by: TANJA CONTRERAS ROVING MACHINE OPERATOR Report #: [id number] Location: ER Room/Bed: Procedure: [id number] D X/CHEST SINGLE (PORTABLE) Exam Date: 11/15/19 Exam T lucero: 1339 REPORT STATUS: Signed Examination: Single AP view [...] 2:25 PM Dictated By: DEVON THEODORE MD 142 Transcribed By: MARYLU on 11/15/191424 COPY TO: ROMELIA CONTRERAS ROVING MACHINE OPERATOR Blood phvweha0978-18-13 13:35:00* Test Item Value Reference Range Interpretation Comments Blood Culture (test code = 24334160) NO GROWTH AFTER 5 DAYS, FINAL REPORT [facility] HospitalBlood rovcxuc1274-48-06 13:35:00* Test Item Value Reference Range Interpretation Comments Blood Culture (test code = 16038685) NO GROWTH AFTER 5 DAYS, FINAL REPORT [facility] HospitalProthrombin time (PT) in platelet poor plasma by coagulation fhkxm5469-65-23 13:30:00* Test Item Value Reference Range Interpretation Comments Prothrombin Time (test code = 5902-2) 14.2 11.9-14.5 [facility] HospitalINR in Platelet poor plasma by Coagulation sfxyf3395-38-07 13:30:00* Test Item Value Reference Range Interpretation Comments Prothromb Time International Ratio (test code = 6301-6) 1.04 Oral Anticoagulant Therapy INR Values:1. Low Intensity Therapy 1.5 - 2.02 . Moderate Intensity Therapy 2.0 - 3.03. High Intensity Therapy(1) 2.5 - 3. 54. High Intensity Therapy(2) 3.0 - 4.05. Panic Value INR > 5.0 [facility] HospitalActivated partial thromboplastin time (aPTT) in platelet poor plasma by coagulation patvk2621-06-58 13:30:00* Test Item Value Reference Range Interpretation Comments Activated Partial Thromboplast Time (test code = 73554-9) 30.6 23.8-35.5 [facility] total bilirubin measurement (mass/volume)2019-11-15 13:30:00* Test Item Value Reference Range Interpretation Comments Total Bilirubin (test code = 1975-2) 0.9 0.2-1.2 [facility] HospitalFluoroscopic procedure less than one hour vfnfehta7950-02-37 13:30:00* Test Item Value Reference Range Interpretation Comments Aspartate Amino Transf (AST/SGOT) (test code = Aspartate Amino Transf (AST/SGOT)) 14 5-34 [facility]erum or plasma alanine aminotransferase measurement (enzymatic activity/volume)2019-11-15 13:30:00* Test Item Value Reference Range Interpretation Comments Alanine Aminotransferase (ALT/SGPT) (test code = 1742-6) 9 0-55 [facility]erum or plasma protein measurement (mass/volume)2019-11-15 13:30:00* Test Item Value Reference Range Interpretation Comments Total Protein (test code = 2885-2) 7.3 6.5-8.1 [facility]erum or plasma albumin measurement (mass/volume)2019-11-15 13:30:00* Test Item Value Reference Range Interpretation Comments Albumin (test code = 1751-7) 3.4 3.5-5.0 [facility] HospitalPlasma globulin measurement (mass/volume) 2019-11-15 13:30:00* Test Item Value Reference Range Interpretation Comments Globulin (test code = 39101-2) 3.9 2.3-3.5 [facility]erum or plasma albumin/globulin mass stojv7947-08-95 13:30:00* Test Item Value Reference Range Interpretation Comments Albumin/Globulin Ratio (test code = 1759-0) 0.9 0.8-2.0 [facility]um or plasma alkaline phosphatase measurement (enzymatic activity/volume)2019-11-15 13:30:00* Test Item Value Reference Range Interpretation Comments Alkaline Phosphatase (test code = 6768-6) 101 40-150 [facility] HospitalBNP Bos-wNrs1510-87-03 13:30:00* Test Item Value Reference Range Interpretation Comments B-Type Natriuretic Peptide (test code = 98624-0) 199.3 0-100 [facility]erum or plasma creatine kinase measurement (enzymatic activity/volume)2019-11-15 13:30:00* Test Item Value Reference Range Interpretation Comments Creatine Kinase (test code = 2157-6) 40 30-200 [facility]erum or plasma creatine kinase MB measurement (mass/volume)2019-11-15 13:30:00* Test Item Value Reference Range Interpretation Comments Creatine Kinase MB (test code = 34375-7) 1.00 0-5.0 [facility] HospitalTroponin I measurement by highly sensitive enzyme okozlbwlcyz0960-85-09 13:30:00* Test Item Value Reference Range Interpretation Comments Troponin I (test code = 06204-6) 0.004 0-0.300 [facility] HospitalProthrombin time (PT) in platelet poor plasma by coagulation gqvpo4430-63-09 13:30:00* Test Item Value Reference Range Interpretation Comments Prothrombin Time (test code = 5902-2) 14.2 11.9-14.5 [facility] HospitalINR in Platelet poor plasma by Coagulation jwlvb8227-12-86 13:30:00* Test Item Value Reference Range Interpretation Comments Prothromb Time International Ratio (test code = 6301-6) 1.04 Oral Anticoagulant Therapy INR Values:1. Low Intensity Therapy 1.5 - 2.02 . Moderate Intensity Therapy 2.0 - 3.03. High Intensity Therapy(1) 2.5 - 3. 54. High Intensity Therapy(2) 3.0 - 4.05. Panic Value INR > 5.0 [facility] HospitalActivated partial thromboplastin time (aPTT) in platelet poor plasma by coagulation uyfwn0977-96-12 13:30:00* Test Item Value Reference Range Interpretation Comments Activated Partial Thromboplast Time (test code = 53857-1) 30.6 23.8-35.5 [facility]um or plasma total bilirubin measurement (mass/volume)2019-11-15 13:30:00* Test Item Value Reference Range Interpretation Comments Total Bilirubin (test code = 1975-2) 0.9 0.2-1.2 [facility] HospitalFluoroscopic procedure less than one hour rafzkyud3088-94-64 13:30:00* Test Item Value Reference Range Interpretation Comments Aspartate Amino Transf (AST/SGOT) (test code = Aspartate Amino Transf (AST/SGOT)) 14 5-34 [facility]erum or plasma alanine aminotransferase measurement (enzymatic activity/volume)2019-11-15 13:30:00* Test Item Value Reference Range Interpretation Comments Alanine Aminotransferase (ALT/SGPT) (test code = 1742-6) 9 0-55 [facility]erum or plasma protein measurement (mass/volume)2019-11-15 13:30:00* Test Item Value Reference Range Interpretation Comments Total Protein (test code = 2885-2) 7.3 6.5-8.1 [facility]um or plasma albumin measurement (mass/volume)2019-11-15 13:30:00* Test Item Value Reference Range Interpretation Comments Albumin (test code = 1751-7) 3.4 3.5-5.0 [facility] HospitalPlasma globulin measurement (mass/volume) 2019-11-15 13:30:00* Test Item Value Reference Range Interpretation Comments Globulin (test code = 75110-5) 3.9 2.3-3.5 [facility]erum or plasma albumin/globulin mass pkkzk1603-22-27 13:30:00* Test Item Value Reference Range Interpretation Comments Albumin/Globulin Ratio (test code = 1759-0) 0.9 0.8-2.0 [facility]um or plasma alkaline phosphatase measurement (enzymatic activity/volume)2019-11-15 13:30:00* Test Item Value Reference Range Interpretation Comments Alkaline Phosphatase (test code = 6768-6) 101 40-150 [facility] HospitalBNP Vyq-hHri6689-85-03 13:30:00* Test Item Value Reference Range Interpretation Comments B-Type Natriuretic Peptide (test code = 85767-8) 199.3 0-100 [facility]erum or plasma creatine kinase measurement (enzymatic activity/volume)2019-11-15 13:30:00* Test Item Value Reference Range Interpretation Comments Creatine Kinase (test code = 2157-6) 40 30-200 [facility]erum or plasma creatine kinase MB measurement (mass/volume)2019-11-15 13:30:00* Test Item Value Reference Range Interpretation Comments Creatine Kinase MB (test code = 68560-6) 1.00 0-5.0 [facility] HospitalTroponin I measurement by highly sensitive enzyme qlzmsljeaea2085-89-13 13:30:00* Test Item Value Reference Range Interpretation Comments Troponin I (test code = 57239-6) 0.004 0-0.300 [facility] Msvkljf7038-36-98 09:14:00* Test Item Value Reference Range Interpretation Comments Wound Culture (test code = 6462-6) No Result Data Provided [facility]2020-01-23 09:14:00* Test Item Value Reference Range Interpretation Comments Wound Culture (test code = 6462-6) No Result Data Provided [facility] Zfijsez9234-63-80 09:14:00* Test Item Value Reference Range Interpretation Comments Wound Culture (test code = 6462-6) No Result Data Provided [facility] Oodflua2883-70-21 09:14:00* Test Item Value Reference Range Interpretation Comments Wound Culture (test code = 6462-6) No Result Data Provided [facility] HospitalBacteria identification in wound by lcopehi2629-24-97 09:25:00* Test Item Value Reference Range Interpretation Comments Wound Culture (test code = 6462-6) STAPHYLOCOCCUS AUREUS [facility] HospitalBacteria identification in wound by tawsyog1907-58-00 09:25:00* Test Item Value Reference Range Interpretation Comments Wound Culture (test code = 6462-6) STAPHYLOCOCCUS AUREUS [facility] Fmmluhn8761-82-05 09:18:00* Test Item Value Reference Range Interpretation Comments Blood Culture (test code = 44254883) NO GROWTH AFTER 5 DAYS, FINAL REPORT [facility] HospitalBlriver[facility] Pwkzmvx9513-23-06 09:18:00* Test Item Value Reference Range Interpretation Comments Blood Culture (test code = 43964626) NO GROWTH AFTER 5 DAYS, FINAL REPORT [facility] HospitalCHEST SINGLE (PORTABLE)2019-09-18 10:41:00 [place] [address] Patient Name: NHI DUMONT MR #: [id number] : 1940 Age/Sex: 78/M Req #: [id number] Adm Physician: Ordered by: LINDA GIRARD DO Report #: [id number] Location: ER Room/Bed: Procedure: [id number] DX/CHEST SINGLE (PORTABLE) Exam Date: 09/18/19 Exam Time: 944 REPORT STATUS: Signed EXAMINATION: CHEST SINGLE (PORTABLE) [...] COPY TO: LINDA GIRARD DO B-Type Natriuretic Oqegsii0916-36-45 09:18:00* Test Item Value Reference Range Interpretation Comments B-Type Natriuretic Peptide (test code = 22206-3) 306.8 0-100 H [facility] HospitalB-Type Natriuretic Zzyxtwk0294-34-00 09:18:00* Test Item Value Reference Range Interpretation Comments B-Type Natriuretic Peptide (test code = 38647-3) 306.8 0-100 H [facility] HospitalB-Type Natriuretic Mtcxaub0395-26-46 09:18:00* Test Item Value Reference Range Interpretation Comments B-Type Natriuretic Peptide (test code = 08701-1) 306.8 0-100 H [facility]ervilleodium Bvguv1632-84-61 09:06:00* Test Item Value Reference Range Interpretation Comments Sodium Level (test code = 2951-2) 138 136-145 [facility] HospitalPotassium Pnyef5473-91-51 09:06:00* Test Item Value Reference Range Interpretation Comments Potassium Level (test code = 2823-3) 4.2 3.5-5.1 [facility] HospitalChloride Masfx1518-88-12 09:06:00* Test Item Value Reference Range Interpretation Comments Chloride Level (test code = 2075-0) 102 98-107 [facility] HospitalCarbon Dioxide Qgrdc5777-35-49 09:06:00* Test Item Value Reference Range Interpretation Comments Carbon Dioxide Level (test code = 2028-9) 26 22-29 [facility] HospitalAnion Cgq0192-70-67 09:06:00* Test Item Value Reference Range Interpretation Comments Anion Gap (test code = 41505-8) 14.2 8-16 [facility] HospitalBlood Urea Icykmnxi6316-48-32 09:06:00* Test Item Value Reference Range Interpretation Comments Blood Urea Nitrogen (test code = 3094-0) 21 7-26 [facility] HospitalCreatinine2020-01-05 09:06:00* Test Item Value Reference Range Interpretation Comments Creatinine (test code = 2160-0) 1.05 0.72-1.25 [facility] HospitalBUN/Creatinine Oyigz9131-51-28 09:06:00* Test Item Value Reference Range Interpretation Comments BUN/Creatinine Ratio (test code = 3097-3) 20 6- [facility] [facility] HospitalEstim[facility] Glomerular Filtration Rate 2019-09-18 09:06:00* Test Item Value Reference Range Interpretation Comments Estimat Glomerular Filtration Rate (test code = 704431659) > 60 >60 Ranges were taken from the National Kidney Disease Education Program and the [facility] Kidney Foundation literature.Reference ranges:60 or greater: Jvatiz31-63 ( for 3 consecutive months): Chronic kidney disease 15 or less: Kidney failureParkland Memorial HospitalGlucose Eyhmt1512-12-39 09:06:00* Test Item Value Reference Range Interpretation Comments Glucose Level (test code = COH8601) 132 74-118 H [facility] HospitalCalcium Qfvzt3060-80-65 09:06:00* Test Item Value Reference Range Interpretation Comments Calcium Level (test code = 87591-1) 9.2 8.4-10.2 [facility] HospitalTotal Dnegkqnrg4598-21-23 09:06:00* Test Item Value Reference Range Interpretation Comments Total Bilirubin (test code = 1975-2) 1.6 0.2-1.2 H [facility] HospitalAspartate Amino Transf (AST/SGOT) 2019-09-18 09:06:00* Test Item Value Reference Range Interpretation Comments Aspartate Amino Transf (AST/SGOT) (test code = Aspartate Amino Transf (AST/SGOT)) 15 5-34 [facility] HospitalAlanine Aminotransferase (ALT/SGPT) 2019-09-18 09:06:00* Test Item Value Reference Range Interpretation Comments Alanine Aminotransferase (ALT/SGPT) (test code = 1742-6) 12 0-55 [facility] HospitalTotal Qbgucdx3997-38-25 09:06:00* Test Item Value Reference Range Interpretation Comments Total Protein (test code = 2885-2) 6.6 6.5-8.1 [facility] HospitalAlbumin2020-01-05 09:06:00* Test Item Value Reference Range Interpretation Comments Albumin (test code = 1751-7) 2.8 3.5-5.0 L [facility] HospitalGlobulin2020-01-05 09:06:00* Test Item Value Reference Range Interpretation Comments Globulin (test code = 74037-1) 3.8 2.3-3.5 H [facility] HospitalAlbumin/Globulin Apwna3629-54-50 09:06:00 * Test Item Value Reference Range Interpretation Comments Albumin/Globulin Ratio (test code = 1759-0) 0.7 0.8-2.0 L [facility] HospitalAlkaline Gkjytahpbnr3610-93-74 09:06:00* Test Item Value Reference Range Interpretation Comments Alkaline Phosphatase (test code = 6768-6) 90 40-150 [facility] HospitalCreatine Yirjvy4997-98-64 09:06:00* Test Item Value Reference Range Interpretation Comments Creatine Kinase (test code = 2157-6) 94 30-200 [facility] HospitalCreatine Kinase AI2686-80-63 09:06:00* Test Item Value Reference Range Interpretation Comments Creatine Kinase MB (test code = 25490-6) 0.90 0-5.0 [facility] HospitalTroponin C5250-24-97 09:06:00* Test Item Value Reference Range Interpretation Comments Troponin I (test code = MIC2869) 0.025 0-0.300 [facility] Diwdr5621-67-99 09:06:00* Test Item Value Reference Range Interpretation Comments Sodium Level (test code = 2951-2) 138 136-145 [facility] HospitalPotassium Klkwo8817-42-21 09:06:00* Test Item Value Reference Range Interpretation Comments Potassium Level (test code = 2823-3) 4.2 3.5-5.1 [facility] HospitalChloride Bevrc2416-39-70 09:06:00* Test Item Value Reference Range Interpretation Comments Chloride Level (test code = 2075-0) 102 98-107 [facility] HospitalCarbon Dioxide Kgsnw5585-28-28 09:06:00* Test Item Value Reference Range Interpretation Comments Carbon Dioxide Level (test code = 2028-9) 26 22-29 [facility] HospitalAnion Qmu7981-53-66 09:06:00* Test Item Value Reference Range Interpretation Comments Anion Gap (test code = 58119-6) 14.2 8-16 [facility] HospitalBlood Urea Fisuczfq4463-95-50 09:06:00* Test Item Value Reference Range Interpretation Comments Blood Urea Nitrogen (test code = 3094-0) 21 7-26 [facility] HospitalCreatinine2020-01-05 09:06:00* Test Item Value Reference Range Interpretation Comments Creatinine (test code = 2160-0) 1.05 0.72-1.25 [facility] HospitalBUN/Creatinine Qhuqi2736-72-87 09:06:00* Test Item Value Reference Range Interpretation Comments BUN/Creatinine Ratio (test code = 3097-3) 20 6-25 [facility] HospitalEstimat Glomerular Filtration Rate 2019-09-18 09:06:00* Test Item Value Reference Range Interpretation Comments Estimat Glomerular Filtration Rate (test code = 650416190) > 60 >60 Ranges were taken from the National Kidney Disease Education Program and the [facility] Foundation literature.Reference ranges:60 or greater: Ugrjex41-85 ( for 3 consecutive months): Chronic kidney disease 15 or less: Kidney failureParkland Memorial HospitalGlucose Tstmu7412-22-77 09:06:00* Test Item Value Reference Range Interpretation Comments Glucose Level (test code = WIF0199) 132 74-118 H [facility] HospitalCalcium Uxgmo7579-50-39 09:06:00* Test Item Value Reference Range Interpretation Comments Calcium Level (test code = 22789-7) 9.2 8.4-10.2 [facility] HospitalTotal Xmpiqlpco2031-68-80 09:06:00* Test Item Value Reference Range Interpretation Comments Total Bilirubin (test code = 1975-2) 1.6 0.2-1.2 H [facility] HospitalAspartate Amino Transf (AST/SGOT) 2019-09-18 09:06:00* Test Item Value Reference Range Interpretation Comments Aspartate Amino Transf (AST/SGOT) (test code = Aspartate Amino Transf (AST/SGOT)) 15 5-34 [facility] HospitalAlanine Aminotransferase (ALT/SGPT) 2019-09-18 09:06:00* Test Item Value Reference Range Interpretation Comments Alanine Aminotransferase (ALT/SGPT) (test code = 1742-6) 12 0-55 [facility] HospitalTotal Vgsdsfr0718-42-45 09:06:00* Test Item Value Reference Range Interpretation Comments Total Protein (test code = 2885-2) 6.6 6.5-8.1 [facility] HospitalAlbumin2020-01-05 09:06:00* Test Item Value Reference Range Interpretation Comments Albumin (test code = 1751-7) 2.8 3.5-5.0 L [facility] HospitalGlobulin2020-01-05 09:06:00* Test Item Value Reference Range Interpretation Comments Globulin (test code = 56137-6) 3.8 2.3-3.5 H [facility] HospitalAlbumin/Globulin Daujh7298-85-46 09:06:00 * Test Item Value Reference Range Interpretation Comments Albumin/Globulin Ratio (test code = 1759-0) 0.7 0.8-2.0 L [facility] HospitalAlkaline Cyqxljqirvu7668-26-85 09:06:00* Test Item Value Reference Range Interpretation Comments Alkaline Phosphatase (test code = 6768-6) 90 40-150 [facility] HospitalCreatine Fwpiyp2786-41-17 09:06:00* Test Item Value Reference Range Interpretation Comments Creatine Kinase (test code = 2157-6) 94 30-200 [facility] HospitalCreatine Kinase EP0478-47-40 09:06:00* Test Item Value Reference Range Interpretation Comments Creatine Kinase MB (test code = 94002-9) 0.90 0-5.0 [facility] HospitalTroponin E7664-36-04 09:06:00* Test Item Value Reference Range Interpretation Comments Troponin I (test code = PKE3413) 0.025 0-0.300 [facility] Bqbvq2035-19-84 09:06:00* Test Item Value Reference Range Interpretation Comments Sodium Level (test code = 2951-2) 138 136-145 [facility] HospitalPotassium Rbyxh5577-96-19 09:06:00* Test Item Value Reference Range Interpretation Comments Potassium Level (test code = 2823-3) 4.2 3.5-5.1 [facility] HospitalChloride Foexb2312-32-84 09:06:00* Test Item Value Reference Range Interpretation Comments Chloride Level (test code = 2075-0) 102 98-107 [facility] HospitalCarbon Dioxide Mzvkm3524-08-76 09:06:00* Test Item Value Reference Range Interpretation Comments Carbon Dioxide Level (test code = 2028-9) 26 22-29 [facility] HospitalAnion Jcr5068-25-15 09:06:00* Test Item Value Reference Range Interpretation Comments Anion Gap (test code = 14118-1) 14.2 8-16 [facility] HospitalBlood Urea Niurbamx4994-70-05 09:06:00* Test Item Value Reference Range Interpretation Comments Blood Urea Nitrogen (test code = 3094-0) 21 7-26 [facility] HospitalCreatinine2020-01-05 09:06:00* Test Item Value Reference Range Interpretation Comments Creatinine (test code = 2160-0) 1.05 0.72-1.25 [facility] HospitalBUN/Creatinine Agqjl3299-97-50 09:06:00* Test Item Value Reference Range Interpretation Comments BUN/Creatinine Ratio (test code = 3097-3) 20 6-25 [facility] HospitalEstimat Glomerular Filtration Rate 2019-09-18 09:06:00* Test Item Value Reference Range Interpretation Comments Estimat Glomerular Filtration Rate (test code = 080397757) > 60 >60 Ranges were taken from the National Kidney Disease Education Program and the [facility] literature.Reference ranges:60 or greater: Mvrcoc92-22 ( for 3 consecutive months): Chronic kidney disease 15 or less: Kidney failureParkland Memorial HospitalGlucose Defxd1803-21-00 09:06:00* Test Item Value Reference Range Interpretation Comments Glucose Level (test code = WCM6488) 132 74-118 H [facility] HospitalCalcium Szygo3061-24-50 09:06:00* Test Item Value Reference Range Interpretation Comments Calcium Level (test code = 70567-6) 9.2 8.4-10.2 [facility] HospitalTotal Pqwcjgkhu9392-21-13 09:06:00* Test Item Value Reference Range Interpretation Comments Total Bilirubin (test code = 1975-2) 1.6 0.2-1.2 H [facility] HospitalAspartate Amino Transf (AST/SGOT) 2019-09-18 09:06:00* Test Item Value Reference Range Interpretation Comments Aspartate Amino Transf (AST/SGOT) (test code = Aspartate Amino Transf (AST/SGOT)) 15 5-34 [facility] HospitalAlanine Aminotransferase (ALT/SGPT) 2019-09-18 09:06:00* Test Item Value Reference Range Interpretation Comments Alanine Aminotransferase (ALT/SGPT) (test code = 1742-6) 12 0-55 [facility] HospitalTotal Twwwfzp7931-26-30 09:06:00* Test Item Value Reference Range Interpretation Comments Total Protein (test code = 2885-2) 6.6 6.5-8.1 [facility] HospitalAlbumin2020-01-05 09:06:00* Test Item Value Reference Range Interpretation Comments Albumin (test code = 1751-7) 2.8 3.5-5.0 L [facility] HospitalGlobulin2020-01-05 09:06:00* Test Item Value Reference Range Interpretation Comments Globulin (test code = 19245-7) 3.8 2.3-3.5 H [facility] HospitalAlbumin/Globulin Tqrht1632-19-52 09:06:00 * Test Item Value Reference Range Interpretation Comments Albumin/Globulin Ratio (test code = 1759-0) 0.7 0.8-2.0 L [facility] HospitalAlkaline Dfuobqcgrks9828-02-94 09:06:00* Test Item Value Reference Range Interpretation Comments Alkaline Phosphatase (test code = 6768-6) 90 40-150 [facility] HospitalCreatine Xjhvte9425-56-58 09:06:00* Test Item Value Reference Range Interpretation Comments Creatine Kinase (test code = 2157-6) 94 30-200 [facility] HospitalCreatine Kinase WO9463-05-41 09:06:00* Test Item Value Reference Range Interpretation Comments Creatine Kinase MB (test code = 80358-8) 0.90 0-5.0 [facility] HospitalTroponin J4525-11-12 09:06:00* Test Item Value Reference Range Interpretation Comments Troponin I (test code = RDC9352) 0.025 0-0.300 [facility] HospitalWhite Blood Sowsp6027-30-19 08:51:00* Test Item Value Reference Range Interpretation Comments White Blood Count (test code = 6690-2) 6.96 4.8-10.8 [facility] HospitalRed Blood Lznxj2314-88-83 08:51:00* Test Item Value Reference Range Interpretation Comments Red Blood Count (test code = 789-8) 3.73 4.3-5.7 L [facility] HospitalHemoglobin2020-01-05 08:51:00* Test Item Value Reference Range Interpretation Comments Hemoglobin (test code = 45169-3) 11.2 14.0-18.0 L [facility] HospitalHematocrit2020-01-05 08:51:00* Test Item Value Reference Range Interpretation Comments Hematocrit (test code = 4544-3) 35.0 38.2-49.6 L [facility] HospitalMean Corpuscular Efseah4325-52-60 08:51:00* Test Item Value Reference Range Interpretation Comments Mean Corpuscular Volume (test code = 787-2) 93.8 81-99 [facility] HospitalMean Corpuscular Yxycqwynym6057-11-09 08:51:00* Test Item Value Reference Range Interpretation Comments Mean Corpuscular Hemoglobin (test code = 785-6) 30.0 28-32 [facility] HospitalMean Corpuscular Hemoglobin Concent 2019-09-18 08:51:00* Test Item Value Reference Range Interpretation Comments Mean Corpuscular Hemoglobin Concent (test code = 786-4) 32.0 31-35 [facility] HospitalRed Cell Distribution Smyin8350-33-19 08:51:00* Test Item Value Reference Range Interpretation Comments Red Cell Distribution Width (test code = 23496-7) 16.0 11.7 -14.4 H [facility] HospitalPlatelet Tchff4006-11-80 08:51:00* Test Item Value Reference Range Interpretation Comments Platelet Count (test code = 777-3) 182 140-360 [facility] HospitalNeutrophils (%) (Auto)2019-09-18 08:51:00 * Test Item Value Reference Range Interpretation Comments Neutrophils (%) (Auto) (test code = 93420-4) 75.2 38.7-80.0 [facility] HospitalLymphocytes (%) (Auto)2019-09-18 08:51:00 * Test Item Value Reference Range Interpretation Comments Lymphocytes (%) (Auto) (test code = 736-9) 11.9 18.0-39.1 L [facility] HospitalMonocytes (%) (Auto)2019-09-18 08:51:00* Test Item Value Reference Range Interpretation Comments Monocytes (%) (Auto) (test code = 5905-5) 9.5 4.4-11.3 [facility] HospitalEosinophils (%) (Auto)2019-09-18 08:51:00 * Test Item Value Reference Range Interpretation Comments Eosinophils (%) (Auto) (test code = 713-8) 2.3 0.0-6.0 [facility] HospitalBasophils (%) (Auto)2019-09-18 08:51:00* Test Item Value Reference Range Interpretation Comments Basophils (%) (Auto) (test code = 706-2) 0.4 0.0-1.0 [facility] HospitalIM GRANULOCYTES %2019-09-18 08:51:00* Test Item Value Reference Range Interpretation Comments IM GRANULOCYTES % (test code = IM GRANULOCYTES %) 0.7 0.0- 1.0 [facility] HospitalNeutrophils # (Auto)2019-09-18 08:51:00* Test Item Value Reference Range Interpretation Comments Neutrophils # (Auto) (test code = 751-8) 5.2 2.1-6.9 [facility] HospitalLymphocytes # (Auto)2019-09-18 08:51:00* Test Item Value Reference Range Interpretation Comments Lymphocytes # (Auto) (test code = 78595-8) 0.8 1.0-3.2 L [facility] HospitalMonocytes # (Auto)2019-09-18 08:51:00* Test Item Value Reference Range Interpretation Comments Monocytes # (Auto) (test code = 742-7) 0.7 0.2-0.8 [facility] HospitalEosinophils # (Auto)2019-09-18 08:51:00* Test Item Value Reference Range Interpretation Comments Eosinophils # (Auto) (test code = 711-2) 0.2 0.0-0.4 [facility] HospitalBasophils # (Auto)2019-09-18 08:51:00* Test Item Value Reference Range Interpretation Comments Basophils # (Auto) (test code = 704-7) 0.0 0.0-0.1 [facility] HospitalAbsolute Immature Granulocyte (auto 2019-09-18 08:51:00* Test Item Value Reference Range Interpretation Comments Absolute Immature Granulocyte (auto (aldair t code = Absolute Immature Granulocyte (auto) 0.05 0-0.1 [facility] HospitalWhite Blood Apvgb8787-50-20 08:51:00* Test Item Value Reference Range Interpretation Comments White Blood Count (test code = 6690-2) 6.96 4.8-10.8 [facility] HospitalRed Blood Xwlqx1403-44-94 08:51:00* Test Item Value Reference Range Interpretation Comments Red Blood Count (test code = 789-8) 3.73 4.3-5.7 L [facility] HospitalHemoglobin2020-01-05 08:51:00* Test Item Value Reference Range Interpretation Comments Hemoglobin (test code = 89700-0) 11.2 14.0-18.0 L [facility] HospitalHematocrit2020-01-05 08:51:00* Test Item Value Reference Range Interpretation Comments Hematocrit (test code = 4544-3) 35.0 38.2-49.6 L [facility] HospitalMean Corpuscular Rqenco1781-44-12 08:51:00* Test Item Value Reference Range Interpretation Comments Mean Corpuscular Volume (test code = 787-2) 93.8 81-99 [facility] HospitalMean Corpuscular Yctvomwggw0691-42-99 08:51:00* Test Item Value Reference Range Interpretation Comments Mean Corpuscular Hemoglobin (test code = 785-6) 30.0 28-32 [facility] HospitalMean Corpuscular Hemoglobin Concent 2019-09-18 08:51:00* Test Item Value Reference Range Interpretation Comments Mean Corpuscular Hemoglobin Concent (test code = 786-4) 32.0 31-35 [facility] HospitalRed Cell Distribution Redgk6512-58-74 08:51:00* Test Item Value Reference Range Interpretation Comments Red Cell Distribution Width (test code = 12330-1) 16.0 11.7 -14.4 H [facility] HospitalPlatelet Ljxcj9193-50-62 08:51:00* Test Item Value Reference Range Interpretation Comments Platelet Count (test code = 777-3) 182 140-360 [facility] HospitalNeutrophils (%) (Auto)2019-09-18 08:51:00 * Test Item Value Reference Range Interpretation Comments Neutrophils (%) (Auto) (test code = 36382-7) 75.2 38.7-80.0 [facility] HospitalLymphocytes (%) (Auto)2019-09-18 08:51:00 * Test Item Value Reference Range Interpretation Comments Lymphocytes (%) (Auto) (test code = 736-9) 11.9 18.0-39.1 L [facility] HospitalMonocytes (%) (Auto)2019-09-18 08:51:00* Test Item Value Reference Range Interpretation Comments Monocytes (%) (Auto) (test code = 5905-5) 9.5 4.4-11.3 [facility] HospitalEosinophils (%) (Auto)2019-09-18 08:51:00 * Test Item Value Reference Range Interpretation Comments Eosinophils (%) (Auto) (test code = 713-8) 2.3 0.0-6.0 [facility] HospitalBasophils (%) (Auto)2019-09-18 08:51:00* Test Item Value Reference Range Interpretation Comments Basophils (%) (Auto) (test code = 706-2) 0.4 0.0-1.0 [facility] HospitalIM GRANULOCYTES %2019-09-18 08:51:00* Test Item Value Reference Range Interpretation Comments IM GRANULOCYTES % (test code = IM GRANULOCYTES %) 0.7 0.0- 1.0 [facility] HospitalNeutrophils # (Auto)2019-09-18 08:51:00* Test Item Value Reference Range Interpretation Comments Neutrophils # (Auto) (test code = 751-8) 5.2 2.1-6.9 [facility] HospitalLymphocytes # (Auto)2019-09-18 08:51:00* Test Item Value Reference Range Interpretation Comments Lymphocytes # (Auto) (test code = 03581-6) 0.8 1.0-3.2 L [facility] HospitalMonocytes # (Auto)2019-09-18 08:51:00* Test Item Value Reference Range Interpretation Comments Monocytes # (Auto) (test code = 742-7) 0.7 0.2-0.8 [facility] HospitalEosinophils # (Auto)2019-09-18 08:51:00* Test Item Value Reference Range Interpretation Comments Eosinophils # (Auto) (test code = 711-2) 0.2 0.0-0.4 [facility] HospitalBasophils # (Auto)2019-09-18 08:51:00* Test Item Value Reference Range Interpretation Comments Basophils # (Auto) (test code = 704-7) 0.0 0.0-0.1 [facility] HospitalAbsolute Immature Granulocyte (auto 2019-09-18 08:51:00* Test Item Value Reference Range Interpretation Comments Absolute Immature Granulocyte (auto (aldair t code = Absolute Immature Granulocyte (auto) 0.05 0-0.1 [facility] HospitalWhite Blood Svdwm7238-98-34 08:51:00* Test Item Value Reference Range Interpretation Comments White Blood Count (test code = 6690-2) 6.96 4.8-10.8 [facility] HospitalRed Blood Lgxeg0846-11-22 08:51:00* Test Item Value Reference Range Interpretation Comments Red Blood Count (test code = 789-8) 3.73 4.3-5.7 L [facility] HospitalHemoglobin2020-01-05 08:51:00* Test Item Value Reference Range Interpretation Comments Hemoglobin (test code = 03069-5) 11.2 14.0-18.0 L [facility] HospitalHematocrit2020-01-05 08:51:00* Test Item Value Reference Range Interpretation Comments Hematocrit (test code = 4544-3) 35.0 38.2-49.6 L [facility] HospitalMean Corpuscular Ykxyow7552-17-32 08:51:00* Test Item Value Reference Range Interpretation Comments Mean Corpuscular Volume (test code = 787-2) 93.8 81-99 [facility] HospitalMean Corpuscular Csqmxninyo5230-80-07 08:51:00* Test Item Value Reference Range Interpretation Comments Mean Corpuscular Hemoglobin (test code = 785-6) 30.0 28-32 [facility] HospitalMean Corpuscular Hemoglobin Concent 2019-09-18 08:51:00* Test Item Value Reference Range Interpretation Comments Mean Corpuscular Hemoglobin Concent (test code = 786-4) 32.0 31-35 [facility] HospitalRed Cell Distribution Hdacp3250-20-60 08:51:00* Test Item Value Reference Range Interpretation Comments Red Cell Distribution Width (test code = 84377-2) 16.0 11.7 -14.4 H [facility] HospitalPlatelet Xkefc0165-39-08 08:51:00* Test Item Value Reference Range Interpretation Comments Platelet Count (test code = 777-3) 182 140-360 [facility] HospitalNeutrophils (%) (Auto)2019-09-18 08:51:00 * Test Item Value Reference Range Interpretation Comments Neutrophils (%) (Auto) (test code = 39598-1) 75.2 38.7-80.0 [facility] HospitalLymphocytes (%) (Auto)2019-09-18 08:51:00 * Test Item Value Reference Range Interpretation Comments Lymphocytes (%) (Auto) (test code = 736-9) 11.9 18.0-39.1 L [facility] HospitalMonocytes (%) (Auto)2019-09-18 08:51:00* Test Item Value Reference Range Interpretation Comments Monocytes (%) (Auto) (test code = 5905-5) 9.5 4.4-11.3 [facility] HospitalEosinophils (%) (Auto)2019-09-18 08:51:00 * Test Item Value Reference Range Interpretation Comments Eosinophils (%) (Auto) (test code = 713-8) 2.3 0.0-6.0 [facility] HospitalBasophils (%) (Auto)2019-09-18 08:51:00* Test Item Value Reference Range Interpretation Comments Basophils (%) (Auto) (test code = 706-2) 0.4 0.0-1.0 [facility] HospitalIM GRANULOCYTES %2019-09-18 08:51:00* Test Item Value Reference Range Interpretation Comments IM GRANULOCYTES % (test code = IM GRANULOCYTES %) 0.7 0.0- 1.0 [facility] HospitalNeutrophils # (Auto)2019-09-18 08:51:00* Test Item Value Reference Range Interpretation Comments Neutrophils # (Auto) (test code = 751-8) 5.2 2.1-6.9 [facility] HospitalLymphocytes # (Auto)2019-09-18 08:51:00* Test Item Value Reference Range Interpretation Comments Lymphocytes # (Auto) (test code = 55938-5) 0.8 1.0-3.2 L [facility] HospitalMonocytes # (Auto)2019-09-18 08:51:00* Test Item Value Reference Range Interpretation Comments Monocytes # (Auto) (test code = 742-7) 0.7 0.2-0.8 [facility] HospitalEosinophils # (Auto)2019-09-18 08:51:00* Test Item Value Reference Range Interpretation Comments Eosinophils # (Auto) (test code = 711-2) 0.2 0.0-0.4 [facility] HospitalBasophils # (Auto)2019-09-18 08:51:00* Test Item Value Reference Range Interpretation Comments Basophils # (Auto) (test code = 704-7) 0.0 0.0-0.1 [facility] HospitalAbsolute Immature Granulocyte (auto 2019-09-18 08:51:00* Test Item Value Reference Range Interpretation Comments Absolute Immature Granulocyte (auto (aldair t code = Absolute Immature Granulocyte (auto) 0.05 0-0.1 [facility] HospitalProthrombin Nrwz9781-58-47 08:50:00* Test Item Value Reference Range Interpretation Comments Prothrombin Time (test code = 5902-2) 14.7 11.9-14.5 H [facility] HospitalProthromb Time International Ratio 2019-09-18 08:50:00* Test Item Value Reference Range Interpretation Comments Prothromb Time International Ratio (test code = 6301-6) 1.10 Oral Anticoagulant Therapy INR Values:1. Low Intensity Therapy 1.5 - 2.02 . Moderate Intensity Therapy 2.0 - 3.03. High Intensity Therapy(1) 2.5 - 3. 54. High Intensity Therapy(2) 3.0 - 4.05. Panic Value INR > 5.0 [facility] HospitalActivated Partial Thromboplast Time 2019-09-18 08:50:00* Test Item Value Reference Range Interpretation Comments Activated Partial Thromboplast Time (test code = 79292-6) 38.5 23.8-35.5 H [facility] HospitalProthrombin Rmmb0140-36-79 08:50:00* Test Item Value Reference Range Interpretation Comments Prothrombin Time (test code = 5902-2) 14.7 11.9-14.5 H [facility] HospitalProthromb Time International Ratio 2019-09-18 08:50:00* Test Item Value Reference Range Interpretation Comments Prothromb Time International Ratio (test code = 6301-6) 1.10 Oral Anticoagulant Therapy INR Values:1. Low Intensity Therapy 1.5 - 2.02 . Moderate Intensity Therapy 2.0 - 3.03. High Intensity Therapy(1) 2.5 - 3. 54. High Intensity Therapy(2) 3.0 - 4.05. Panic Value INR > 5.0 [facility] HospitalActivated Partial Thromboplast Time 2019-09-18 08:50:00* Test Item Value Reference Range Interpretation Comments Activated Partial Thromboplast Time (test code = 54206-4) 38.5 23.8-35.5 H [facility] HospitalProthrombin Jgyv9034-12-56 08:50:00* Test Item Value Reference Range Interpretation Comments Prothrombin Time (test code = 5902-2) 14.7 11.9-14.5 H [facility] HospitalProthromb Time International Ratio 2019-09-18 08:50:00* Test Item Value Reference Range Interpretation Comments Prothromb Time International Ratio (test code = 6301-6) 1.10 Oral Anticoagulant Therapy INR Values:1. Low Intensity Therapy 1.5 - 2.02 . Moderate Intensity Therapy 2.0 - 3.03. High Intensity Therapy(1) 2.5 - 3. 54. High Intensity Therapy(2) 3.0 - 4.05. Panic Value INR > 5.0 [facility] HospitalActivated Partial Thromboplast Time 2019-09-18 08:50:00* Test Item Value Reference Range Interpretation Comments Activated Partial Thromboplast Time (test code = 68135-4) 38.5 23.8-35.5 H [facility] Uxaonld6272-39-23 04:39:00* Test Item Value Reference Range Interpretation Comments Bedside Glucose (test code = 98859-5) 134 70-120 H Meter ID: [id number] [facility] & [facility] Glucose 2019-07-25 04:39:00* Test Item Value Reference Range Interpretation Comments Bedside Glucose (test code = 65240-8) 134 70-120 H Meter ID: [id number] [facility] & [facility] Glucose 2019-07-25 04:39:00* Test Item Value Reference Range Interpretation Comments Bedside Glucose (test code = 36650-7) 134 70-120 H Meter ID: [id number] Scott & [facility] Glucose 2019-07-24 11:59:00* Test Item Value Reference Range Interpretation Comments Bedside Glucose (test code = 69322-7) 209 70-120 H Meter ID: [id number] [facility] [place] Culture 2019-07-22 20:35:00* Test Item Value Reference Range Interpretation Comments Blood Culture (test code = 09077984) NO GROWTH AFTER 5 DAYS, FINAL REPORT [facility] Tlsotmz0128-32-37 20:35:00* Test Item Value Reference Range Interpretation Comments Blood Culture (test code = 28879449) NO GROWTH AFTER 5 DAYS, FINAL REPORT [facility] Kqlwk0419-99-41 06:38:00* Test Item Value Reference Range Interpretation Comments Sodium Level (test code = 2951-2) 137 136-145 [facility] HospitalPotassium Dhgjn3238-09-37 06:38:00* Test Item Value Reference Range Interpretation Comments Potassium Level (test code = 2823-3) 4.5 3.5-5.1 [facility] HospitalChloride Wxmpe8675-44-56 06:38:00* Test Item Value Reference Range Interpretation Comments Chloride Level (test code = 2075-0) 98 98-107 [facility] HospitalCarbon Dioxide Kjofj9825-46-61 06:38:00* Test Item Value Reference Range Interpretation Comments Carbon Dioxide Level (test code = 2028-9) 29 22-29 [facility] HospitalAnion Gum8042-13-15 06:38:00* Test Item Value Reference Range Interpretation Comments Anion Gap (test code = 78293-8) 14.5 8-16 [facility] HospitalBlood Urea Emozwrty8447-09-13 06:38:00* Test Item Value Reference Range Interpretation Comments Blood Urea Nitrogen (test code = 3094-0) 34 7-26 H [facility] HospitalCreatinine2019-11-08 06:38:00* Test Item Value Reference Range Interpretation Comments Creatinine (test code = 2160-0) 1.27 0.72-1.25 H [facility] HospitalBUN/Creatinine Yikmp8590-96-39 06:38:00* Test Item Value Reference Range Interpretation Comments BUN/Creatinine Ratio (test code = 3097-3) 27 6-25 H [facility] HospitalEstimat Glomerular Filtration Rate 2019-07-22 06:38:00* Test Item Value Reference Range Interpretation Comments Estimat Glomerular Filtration Rate (test code = 936488151) 55 >60 L Ranges were taken from the National Kidney Disease Education Program and the [facility] literature.Reference ranges:60 or greater: Amhbsu24-96 ( for 3 consecutive months): Chronic kidney disease 15 or less: Kidney failureParkland Memorial HospitalGlucose Lzuad4877-79-04 06:38:00* Test Item Value Reference Range Interpretation Comments Glucose Level (test code = NHT6017) 222 74-118 H [facility] HospitalCalcium Bomkn8536-15-91 06:38:00* Test Item Value Reference Range Interpretation Comments Calcium Level (test code = 33281-6) 9.2 8.4-10.2 [facility] HospitalMagnesium Zxaet4905-16-89 07:54:00* Test Item Value Reference Range Interpretation Comments Magnesium Level (test code = 92867-7) 2.0 1.3-2.1 [facility] Gtmuw7116-03-71 07:54:00* Test Item Value Reference Range Interpretation Comments Magnesium Level (test code = 35298-7) 2.0 1.3-2.1 [facility]2019-11-07 07:54:00* Test Item Value Reference Range Interpretation Comments Magnesium Level (test code = 10233-1) 2.0 1.3-2.1 [facility] Xdcvd4029-99-48 07:54:00* Test Item Value Reference Range Interpretation Comments Magnesium Level (test code = 57681-9) 2.0 1.3-2.1 [facility]2019-11-07 07:54:00* Test Item Value Reference Range Interpretation Comments Magnesium Level (test code = 95110-7) 2.0 1.3-2.1 [facility]2019-11-07 07:54:00* Test Item Value Reference Range Interpretation Comments Magnesium Level (test code = 03375-8) 2.0 1.3-2.1 [facility]erum or plasma magnesium measurement (mass/volume)2019-07-21 05:30:00* Test Item Value Reference Range Interpretation Comments Magnesium Level (test code = 21156-8) 2.0 1.3-2.1 [facility]um or plasma magnesium measurement (mass/volume)2019-07-21 05:30:00* Test Item Value Reference Range Interpretation Comments Magnesium Level (test code = 42979-0) 2.0 1.3-2.1 [facility] HospitalWhite Blood Gknrg9780-07-10 19:59:00* Test Item Value Reference Range Interpretation Comments White Blood Count (test code = 6690-2) 5.54 4.8-10.8 [facility] HospitalRed Blood Lkegp4949-14-97 19:59:00* Test Item Value Reference Range Interpretation Comments Red Blood Count (test code = 789-8) 3.59 4.3-5.7 L [facility] HospitalHemoglobin2019-11-06 19:59:00* Test Item Value Reference Range Interpretation Comments Hemoglobin (test code = 38624-9) 11.3 14.0-18.0 L [facility] HospitalHematocrit2019-11-06 19:59:00* Test Item Value Reference Range Interpretation Comments Hematocrit (test code = 4544-3) 35.0 38.2-49.6 L [facility] HospitalMean Corpuscular Ebdqqq3566-79-72 19:59:00* Test Item Value Reference Range Interpretation Comments Mean Corpuscular Volume (test code = 787-2) 97.5 81-99 [facility] HospitalMean Corpuscular Gpznhspcjc4467-42-48 19:59:00* Test Item Value Reference Range Interpretation Comments Mean Corpuscular Hemoglobin (test code = 785-6) 31.5 28-32 [facility] HospitalMean Corpuscular Hemoglobin Concent 2019-07-20 19:59:00* Test Item Value Reference Range Interpretation Comments Mean Corpuscular Hemoglobin Concent (test code = 786-4) 32.3 31-35 [facility] HospitalRed Cell Distribution Pjyki2134-30-13 19:59:00* Test Item Value Reference Range Interpretation Comments Red Cell Distribution Width (test code = 01910-5) 14.8 11.7 -14.4 H [facility] HospitalPlatelet Xcnbt7962-57-96 19:59:00* Test Item Value Reference Range Interpretation Comments Platelet Count (test code = 777-3) 181 140-360 [facility] HospitalNeutrophils (%) (Auto)2019-07-20 19:59:00 * Test Item Value Reference Range Interpretation Comments Neutrophils (%) (Auto) (test code = 77961-0) 79.8 38.7-80.0 [facility] HospitalLymphocytes (%) (Auto)2019-07-20 19:59:00 * Test Item Value Reference Range Interpretation Comments Lymphocytes (%) (Auto) (test code = 736-9) 10.6 18.0-39.1 L [facility] HospitalMonocytes (%) (Auto)2019-07-20 19:59:00* Test Item Value Reference Range Interpretation Comments Monocytes (%) (Auto) (test code = 5905-5) 5.8 4.4-11.3 [facility] HospitalEosinophils (%) (Auto)2019-07-20 19:59:00 * Test Item Value Reference Range Interpretation Comments Eosinophils (%) (Auto) (test code = 713-8) 2.0 0.0-6.0 [facility] HospitalBasophils (%) (Auto)2019-07-20 19:59:00* Test Item Value Reference Range Interpretation Comments Basophils (%) (Auto) (test code = 706-2) 0.5 0.0-1.0 [facility] HospitalIM GRANULOCYTES %2019-07-20 19:59:00* Test Item Value Reference Range Interpretation Comments IM GRANULOCYTES % (test code = IM GRANULOCYTES %) 1.3 0.0- 1.0 H [facility] HospitalNeutrophils # (Auto)2019-07-20 19:59:00* Test Item Value Reference Range Interpretation Comments Neutrophils # (Auto) (test code = 751-8) 4.4 2.1-6.9 [facility] HospitalLymphocytes # (Auto)2019-07-20 19:59:00* Test Item Value Reference Range Interpretation Comments Lymphocytes # (Auto) (test code = 27313-0) 0.6 1.0-3.2 L [facility] HospitalMonocytes # (Auto)2019-07-20 19:59:00* Test Item Value Reference Range Interpretation Comments Monocytes # (Auto) (test code = 742-7) 0.3 0.2-0.8 [facility] HospitalEosinophils # (Auto)2019-07-20 19:59:00* Test Item Value Reference Range Interpretation Comments Eosinophils # (Auto) (test code = 711-2) 0.1 0.0-0.4 [facility] HospitalBasophils # (Auto)2019-07-20 19:59:00* Test Item Value Reference Range Interpretation Comments Basophils # (Auto) (test code = 704-7) 0.0 0.0-0.1 [facility] HospitalAbsolute Immature Granulocyte (auto 2019-07-20 19:59:00* Test Item Value Reference Range Interpretation Comments Absolute Immature Granulocyte (auto (aldair t code = Absolute Immature Granulocyte (auto) 0.07 0-0.1 [facility] IUTSU3861-71-55 16:12:00 [place] [address] Patient Name: NHI DUMONT MR #: [id number] : 1940 Age/Sex: 78/M Req #: [id number] Adm Physician: RA RUSHING MD Ordered by: RA RUSHING MD Report #: [id number] Location: MED/SURG3 Room/Bed: [facility] Procedure: [id number] CT /CTA CHEST Exam Date: Exam Time: [...] appear widely patent in their proximal portions. [employer]ber dimensions of the thoracic aorta are as [...] COPY TO: RA PELAYO MD CHEST 2 AOKBK0054-91-08 22:15:00 [place] [address] Patient Name: NHI DUMONT MR #: [id number] : 1940 Age/Sex: 78/M Req #: [id number] Adm Physician: Ordered by: MARINA SEYMOUR MD Report #: [id number] Location: ER Room/Bed: Procedure: [id number] DX/CHEST [...] 2 218 Transcribed By: MARYLU on 07/17/19 2210 COPY TO: CRISTO SEYMOUR MD Urine PQE9895-37-86 21:49:00* Test Item Value Reference Range Interpretation Comments Urine WBC (test code = 5821-4) NONE 0-5 [facility] HospitalUrine RJY4071-57-89 21:49:00* Test Item Value Reference Range Interpretation Comments Urine RBC (test code = 09222-7) NONE 0-5 [facility] HospitalUrine Zrsvzobk6286-43-30 21:49:00* Test Item Value Reference Range Interpretation Comments Urine Bacteria (test code = 82016-0) FEW NONE [facility] HospitalUrine Epithelial Eydqs9488-05-68 21:49:00 * Test Item Value Reference Range Interpretation Comments Urine Epithelial Cells (test code = 91821-1) FEW NONE [facility] HospitalUrine LHK4003-77-95 21:49:00* Test Item Value Reference Range Interpretation Comments Urine WBC (test code = 5821-4) NONE 0-5 [facility] HospitalUrine FVM0695-64-67 21:49:00* Test Item Value Reference Range Interpretation Comments Urine RBC (test code = 45141-1) NONE 0-5 [facility] HospitalUrine Iacqjtid5976-48-32 21:49:00* Test Item Value Reference Range Interpretation Comments Urine Bacteria (test code = 27764-1) FEW NONE [facility] HospitalUrine Epithelial Ezatb6476-84-45 21:49:00 * Test Item Value Reference Range Interpretation Comments Urine Epithelial Cells (test code = 97767-3) FEW NONE [facility] HospitalUrine NRT5706-14-68 21:49:00* Test Item Value Reference Range Interpretation Comments Urine WBC (test code = 5821-4) NONE 0-5 [facility] HospitalUrine OZP9663-89-82 21:49:00* Test Item Value Reference Range Interpretation Comments Urine RBC (test code = 10580-9) NONE 0-5 [facility] HospitalUrine Akuajpvq7816-49-30 21:49:00* Test Item Value Reference Range Interpretation Comments Urine Bacteria (test code = 80984-7) FEW NONE [facility] HospitalUrine Epithelial Fjgzj5413-90-89 21:49:00 * Test Item Value Reference Range Interpretation Comments Urine Epithelial Cells (test code = 25260-6) FEW NONE [facility] HospitalUrine GMY4450-01-72 21:49:00* Test Item Value Reference Range Interpretation Comments Urine WBC (test code = 5821-4) NONE 0-5 [facility] HospitalUrine OYY2458-38-72 21:49:00* Test Item Value Reference Range Interpretation Comments Urine RBC (test code = 70270-0) NONE 0-5 [facility] Apzubhhh0212-52-65 21:49:00* Test Item Value Reference Range Interpretation Comments Urine Bacteria (test code = 82383-0) FEW NONE [facility] HospitalUrine Epithelial Detmo5307-74-44 21:49:00 * Test Item Value Reference Range Interpretation Comments Urine Epithelial Cells (test code = 34566-3) FEW NONE [facility] HospitalUrine RZC6211-43-26 21:49:00* Test Item Value Reference Range Interpretation Comments Urine WBC (test code = 5821-4) NONE 0-5 [facility] HospitalUrine PIM1551-97-93 21:49:00* Test Item Value Reference Range Interpretation Comments Urine RBC (test code = 89930-8) NONE 0-5 [facility] Qhosiwqc7926-98-18 21:49:00* Test Item Value Reference Range Interpretation Comments Urine Bacteria (test code = 17274-1) FEW NONE [facility] HospitalUrine Epithelial Wjtyk4126-91-42 21:49:00 * Test Item Value Reference Range Interpretation Comments Urine Epithelial Cells (test code = 30489-4) FEW NONE [facility] HospitalUrine LQF2991-77-20 21:49:00* Test Item Value Reference Range Interpretation Comments Urine WBC (test code = 5821-4) NONE 0-5 [facility] ZOF7907-86-27 21:49:00* Test Item Value Reference Range Interpretation Comments Urine RBC (test code = 50187-7) NONE 0-5 [facility] HospitalUrine Yyrpxmqc7988-18-78 21:49:00* Test Item Value Reference Range Interpretation Comments Urine Bacteria (test code = 81386-2) FEW NONE [facility] HospitalUrine Epithelial Cdnwq2512-70-33 21:49:00 * Test Item Value Reference Range Interpretation Comments Urine Epithelial Cells (test code = 37265-6) FEW NONE [facility] HospitalUrine Hxlaz6103-70-10 21:47:00* Test Item Value Reference Range Interpretation Comments Urine Color (test code = 5778-6) YELLOW YELLOW [facility] HospitalUrine Oofoloa6506-53-94 21:47:00* Test Item Value Reference Range Interpretation Comments Urine Clarity (test code = 19586-4) CLEAR CLEAR [facility] HospitalUrine Specific Nopqxtz5832-82-02 21:47:00 * Test Item Value Reference Range Interpretation Comments Urine Specific [place] (test code = 5811-5) 1.020 1.010-1.02 5 [facility] HospitalUrine jU3979-35-59 21:47:00* Test Item Value Reference Range Interpretation Comments Urine pH (test code = 26119-2) 6 5-7 [facility] HospitalUrine Leukocyte Xjzqgrxw7220-42-80 21:47:00* Test Item Value Reference Range Interpretation Comments Urine Leukocyte Esterase (test code = 39771-5) NEGATIVE NEGATIV E [facility] HospitalUrine Stgultv2576-55-99 21:47:00* Test Item Value Reference Range Interpretation Comments Urine Nitrite (test code = 34094-2) NEGATIVE NEGATIVE [facility] HospitalU[facility] Aznaqmg6519-77-02 21:47:00* Test Item Value Reference Range Interpretation Comments Urine Protein (test code = 64611-1) NEGATIVE NEGATIVE [facility] HospitalUrine Glucose (UA)2019-07-17 21:47:00* Test Item Value Reference Range Interpretation Comments Urine Glucose (UA) (test code = 36285-8) NEGATIVE NEGATIVE [facility] HospitalU[facility] Feazkep1716-76-56 21:47:00* Test Item Value Reference Range Interpretation Comments Urine Ketones (test code = 59665-6) NEGATIVE NEGATIVE [facility] HospitalU[facility] Bsoukhqwvtnm4378-31-51 21:47:00* Test Item Value Reference Range Interpretation Comments Urine Urobilinogen (test code = 89210-2) 1 0.2-1 [facility] HospitalU[facility] Brgwshnfe2822-80-84 21:47:00* Test Item Value Reference Range Interpretation Comments Urine Bilirubin (test code = 1977-8) NEGATIVE NEGATIVE [facility] HospitalU[facility] Ivfaj9025-43-32 21:47:00* Test Item Value Reference Range Interpretation Comments Urine Blood (test code = 84593-5) NEGATIVE NEGATIVE [facility] HospitalU[facility] Pyuwm9188-80-13 21:47:00* Test Item Value Reference Range Interpretation Comments Urine Color (test code = 5778-6) YELLOW YELLOW [facility] HospitalU[facility] Qivljeg6133-89-25 21:47:00* Test Item Value Reference Range Interpretation Comments Urine Clarity (test code = 14072-0) CLEAR CLEAR [facility] HospitalUrine Specific Palmivf9287-37-52 21:47:00 * Test Item Value Reference Range Interpretation Comments Urine Specific [place] (test code = 5811-5) 1.020 1.010-1.02 5 [facility] HospitalU[facility] mK0984-40-92 21:47:00* Test Item Value Reference Range Interpretation Comments Urine pH (test code = 03913-2) 6 5-7 [facility] HospitalU[facility] Leukocyte Djinjivy9986-88-32 21:47:00* Test Item Value Reference Range Interpretation Comments Urine Leukocyte Esterase (test code = 92144-7) NEGATIVE NEGATIV E [facility] HospitalU[facility] Lfnvlls3185-57-79 21:47:00* Test Item Value Reference Range Interpretation Comments Urine Nitrite (test code = 80272-8) NEGATIVE NEGATIVE [facility] HospitalU[facility] Howcpbm2956-46-88 21:47:00* Test Item Value Reference Range Interpretation Comments Urine Protein (test code = 18779-6) NEGATIVE NEGATIVE [facility] HospitalUrine Glucose (UA)2019-07-17 21:47:00* Test Item Value Reference Range Interpretation Comments Urine Glucose (UA) (test code = 61154-1) NEGATIVE NEGATIVE [facility] HospitalU[facility] Wlivenc3305-30-67 21:47:00* Test Item Value Reference Range Interpretation Comments Urine Ketones (test code = 10311-1) NEGATIVE NEGATIVE [facility] HospitalU[facility] Hslerhpppoqs4960-15-12 21:47:00* Test Item Value Reference Range Interpretation Comments Urine Urobilinogen (test code = 37561-2) 1 0.2-1 [facility] Cvzlvpjaj5748-37-32 21:47:00* Test Item Value Reference Range Interpretation Comments Urine Bilirubin (test code = 1977-8) NEGATIVE NEGATIVE [facility] Qoxyq2082-31-07 21:47:00* Test Item Value Reference Range Interpretation Comments Urine Blood (test code = 98269-5) NEGATIVE NEGATIVE [facility] HospitalU[facility] Pdkhk2270-15-25 21:47:00* Test Item Value Reference Range Interpretation Comments Urine Color (test code = 5778-6) YELLOW YELLOW [facility] HospitalU[facility] Bwqswou4445-71-85 21:47:00* Test Item Value Reference Range Interpretation Comments Urine Clarity (test code = 42327-0) CLEAR CLEAR [facility] HospitalUrine Specific Onvocjf5233-14-64 21:47:00 * Test Item Value Reference Range Interpretation Comments Urine Specific [place] (test code = 5811-5) 1.020 1.010-1.02 5 [facility] HospitalU[facility] rK2715-11-27 21:47:00* Test Item Value Reference Range Interpretation Comments Urine pH (test code = 82655-2) 6 5-7 [facility] HospitalU[facility] Leukocyte Mxljychz9264-00-12 21:47:00* Test Item Value Reference Range Interpretation Comments Urine Leukocyte Esterase (test code = 41258-2) NEGATIVE NEGATIV E [facility] HospitalUrine Rebuqly9298-26-13 21:47:00* Test Item Value Reference Range Interpretation Comments Urine Nitrite (test code = 06129-8) NEGATIVE NEGATIVE [facility] HospitalU[facility] Jhaljfh2382-31-09 21:47:00* Test Item Value Reference Range Interpretation Comments Urine Protein (test code = 32654-7) NEGATIVE NEGATIVE [facility] HospitalUrine Glucose (UA)2019-07-17 21:47:00* Test Item Value Reference Range Interpretation Comments Urine Glucose (UA) (test code = 77039-7) NEGATIVE NEGATIVE [facility] HospitalU[facility] Mshhmfs0885-19-97 21:47:00* Test Item Value Reference Range Interpretation Comments Urine Ketones (test code = 76684-4) NEGATIVE NEGATIVE [facility] Ckakunrtschw9101-99-60 21:47:00* Test Item Value Reference Range Interpretation Comments Urine Urobilinogen (test code = 73383-8) 1 0.2-1 [facility] Wwlxyolap0690-21-10 21:47:00* Test Item Value Reference Range Interpretation Comments Urine Bilirubin (test code = 1977-8) NEGATIVE NEGATIVE [facility] Ughwt9750-92-46 21:47:00* Test Item Value Reference Range Interpretation Comments Urine Blood (test code = 62789-2) NEGATIVE NEGATIVE [facility] HospitalUrine Oakzp7100-09-45 21:47:00* Test Item Value Reference Range Interpretation Comments Urine Color (test code = 5778-6) YELLOW YELLOW [facility] HospitalUrine Mkiukio2699-84-23 21:47:00* Test Item Value Reference Range Interpretation Comments Urine Clarity (test code = 43067-2) CLEAR CLEAR [facility] HospitalUrine Specific Sgnlpjr9039-58-86 21:47:00 * Test Item Value Reference Range Interpretation Comments Urine Specific [place] (test code = 5811-5) 1.020 1.010-1.02 5 [facility] HospitalU[facility] qN4676-77-67 21:47:00* Test Item Value Reference Range Interpretation Comments Urine pH (test code = 44470-3) 6 5-7 [facility] HospitalU[facility] Leukocyte Mwytkept3795-15-16 21:47:00* Test Item Value Reference Range Interpretation Comments Urine Leukocyte Esterase (test code = 24630-5) NEGATIVE NEGATIV E [facility] HospitalU[facility] Twwuwxz6436-86-43 21:47:00* Test Item Value Reference Range Interpretation Comments Urine Nitrite (test code = 89286-2) NEGATIVE NEGATIVE [facility] HospitalU[facility] Mfplido3042-36-95 21:47:00* Test Item Value Reference Range Interpretation Comments Urine Protein (test code = 49042-3) NEGATIVE NEGATIVE [facility] HospitalUrine Glucose (UA)2019-07-17 21:47:00* Test Item Value Reference Range Interpretation Comments Urine Glucose (UA) (test code = 90844-9) NEGATIVE NEGATIVE [facility] Uvnnoce2875-10-88 21:47:00* Test Item Value Reference Range Interpretation Comments Urine Ketones (test code = 81774-3) NEGATIVE NEGATIVE [facility] Lqbcsvooslae1924-97-56 21:47:00* Test Item Value Reference Range Interpretation Comments Urine Urobilinogen (test code = 97431-8) 1 0.2-1 [facility] Dvlitioks0298-72-53 21:47:00* Test Item Value Reference Range Interpretation Comments Urine Bilirubin (test code = 1977-8) NEGATIVE NEGATIVE [facility] Abteg5445-61-01 21:47:00* Test Item Value Reference Range Interpretation Comments Urine Blood (test code = 93130-7) NEGATIVE NEGATIVE [facility] HospitalU[facility] Qawtp6908-88-19 21:47:00* Test Item Value Reference Range Interpretation Comments Urine Color (test code = 5778-6) YELLOW YELLOW [facility] HospitalU[facility] Pirbvhc1232-09-89 21:47:00* Test Item Value Reference Range Interpretation Comments Urine Clarity (test code = 46822-3) CLEAR CLEAR [facility] HospitalUrine Specific Iltvzou2936-85-71 21:47:00 * Test Item Value Reference Range Interpretation Comments Urine Specific [place] (test code = 5811-5) 1.020 1.010-1.02 5 [facility] HospitalU[facility] iY1539-61-87 21:47:00* Test Item Value Reference Range Interpretation Comments Urine pH (test code = 92114-4) 6 5-7 [facility] HospitalU[facility] Leukocyte Dygnryuo2771-04-80 21:47:00* Test Item Value Reference Range Interpretation Comments Urine Leukocyte Esterase (test code = 56627-4) NEGATIVE NEGATIV E [facility] HospitalU[facility] Ndkwhja6852-82-87 21:47:00* Test Item Value Reference Range Interpretation Comments Urine Nitrite (test code = 28141-2) NEGATIVE NEGATIVE [facility] HospitalU[facility] Ggstcqk9689-09-68 21:47:00* Test Item Value Reference Range Interpretation Comments Urine Protein (test code = 73849-5) NEGATIVE NEGATIVE [facility] HospitalUrine Glucose (UA)2019-07-17 21:47:00* Test Item Value Reference Range Interpretation Comments Urine Glucose (UA) (test code = 34438-9) NEGATIVE NEGATIVE [facility] HospitalU[facility] Jaknbyn9543-22-36 21:47:00* Test Item Value Reference Range Interpretation Comments Urine Ketones (test code = 14218-8) NEGATIVE NEGATIVE [facility] Fiiwejevmktr9968-71-11 21:47:00* Test Item Value Reference Range Interpretation Comments Urine Urobilinogen (test code = 18095-9) 1 0.2-1 [facility] HospitalU[facility] Ohhnresom1184-43-22 21:47:00* Test Item Value Reference Range Interpretation Comments Urine Bilirubin (test code = 1977-8) NEGATIVE NEGATIVE [facility] Sgohb9006-58-12 21:47:00* Test Item Value Reference Range Interpretation Comments Urine Blood (test code = 74154-3) NEGATIVE NEGATIVE [facility] Sxfkk3329-80-95 21:47:00* Test Item Value Reference Range Interpretation Comments Urine Color (test code = 5778-6) YELLOW YELLOW [facility] Wrwritp0588-55-35 21:47:00* Test Item Value Reference Range Interpretation Comments Urine Clarity (test code = 90650-1) CLEAR CLEAR [facility] HospitalU[facility] Specific Jubreaz9943-48-64 21:47:00 * Test Item Value Reference Range Interpretation Comments Urine Specific [place] (test code = 5811-5) 1.020 1.010-1.02 5 [facility] dN3001-47-13 21:47:00* Test Item Value Reference Range Interpretation Comments Urine pH (test code = 92644-1) 6 5-7 [facility] Leukocyte Gztvlxvh6411-13-37 21:47:00* Test Item Value Reference Range Interpretation Comments Urine Leukocyte Esterase (test code = 86397-8) NEGATIVE NEGATIV E [facility] Kqipdmc8788-62-10 21:47:00* Test Item Value Reference Range Interpretation Comments Urine Nitrite (test code = 96660-1) NEGATIVE NEGATIVE [facility] Vassugi5007-41-61 21:47:00* Test Item Value Reference Range Interpretation Comments Urine Protein (test code = 30093-9) NEGATIVE NEGATIVE [facility] Glucose (UA)2019-07-17 21:47:00* Test Item Value Reference Range Interpretation Comments Urine Glucose (UA) (test code = 70857-2) NEGATIVE NEGATIVE [facility] Umwdrab8004-96-85 21:47:00* Test Item Value Reference Range Interpretation Comments Urine Ketones (test code = 82979-5) NEGATIVE NEGATIVE [facility] Ltplrqjpvnpo9082-85-49 21:47:00* Test Item Value Reference Range Interpretation Comments Urine Urobilinogen (test code = 63208-9) 1 0.2-1 [facility] Vrtbnnbul5163-43-40 21:47:00* Test Item Value Reference Range Interpretation Comments Urine Bilirubin (test code = 1977-8) NEGATIVE NEGATIVE [facility] Lwzhz9842-14-92 21:47:00* Test Item Value Reference Range Interpretation Comments Urine Blood (test code = 19862-6) NEGATIVE NEGATIVE [facility] HospitalB[facility] Lmgiklt8097-77-80 21:33:00* Test Item Value Reference Range Interpretation Comments B-Type Natriuretic Peptide (test code = 91289-5) 287.0 0-100 H [facility] HospitalLactic Acid Vpzxl9714-32-43 21:09:00* Test Item Value Reference Range Interpretation Comments Lactic Acid Level (test code = Lactic Acid Level) 1.9 0.5- 2.0 [facility] HospitalTotal Ypkqirlek1158-10-04 21:09:00* Test Item Value Reference Range Interpretation Comments Total Bilirubin (test code = 1975-2) 0.6 0.2-1.2 [facility] HospitalAspartate Amino Transf (AST/SGOT) 2019-07-17 21:09:00* Test Item Value Reference Range Interpretation Comments Aspartate Amino Transf (AST/SGOT) (test code = Aspartate Amino Transf (AST/SGOT)) 28 5-34 [facility] HospitalAlanine Aminotransferase (ALT/SGPT) 2019-07-17 21:09:00* Test Item Value Reference Range Interpretation Comments Alanine Aminotransferase (ALT/SGPT) (test code = 1742-6) 15 0-55 [facility] HospitalTotal Ykrkfyd7707-48-49 21:09:00* Test Item Value Reference Range Interpretation Comments Total Protein (test code = 2885-2) 6.8 6.5-8.1 [facility] HospitalAlbumin2019-11-03 21:09:00* Test Item Value Reference Range Interpretation Comments Albumin (test code = 1751-7) 2.9 3.5-5.0 L [facility] HospitalGlobulin2019-11-03 21:09:00* Test Item Value Reference Range Interpretation Comments Globulin (test code = 58721-7) 3.9 2.3-3.5 H [facility] HospitalAlbumin/Globulin Nogig2815-45-63 21:09:00 * Test Item Value Reference Range Interpretation Comments Albumin/Globulin Ratio (test code = 1759-0) 0.7 0.8-2.0 L [facility] HospitalAlkaline Duqgwagjnwf0830-30-26 21:09:00* Test Item Value Reference Range Interpretation Comments Alkaline Phosphatase (test code = 6768-6) 103 40-150 [facility] HospitalLactic Acid Yjopp9282-97-78 21:09:00* Test Item Value Reference Range Interpretation Comments Lactic Acid Level (test code = Lactic Acid Level) 1.9 0.5- 2.0 [facility] HospitalLactic Acid Rtwka5787-06-74 21:09:00* Test Item Value Reference Range Interpretation Comments Lactic Acid Level (test code = Lactic Acid Level) 1.9 0.5- 2.0 [facility] HospitalLactic Acid Btqfj2532-31-95 21:09:00* Test Item Value Reference Range Interpretation Comments Lactic Acid Level (test code = Lactic Acid Level) 1.9 0.5- 2.0 [facility] HospitalLactic Acid Jtkzj4190-41-65 21:09:00* Test Item Value Reference Range Interpretation Comments Lactic Acid Level (test code = Lactic Acid Level) 1.9 0.5- 2.0 [facility] HospitalLactic Acid Vmdwm8648-18-40 21:09:00* Test Item Value Reference Range Interpretation Comments Lactic Acid Level (test code = Lactic Acid Level) 1.9 0.5- 2.0 [facility] HospitalUrine color phpvplhafient7493-29-59 18:45:00* Test Item Value Reference Range Interpretation Comments Urine Color (test code = 5778-6) YELLOW YELLOW [facility] HospitalUrine avvazru7299-57-23 18:45:00* Test Item Value Reference Range Interpretation Comments Urine Clarity (test code = 65932-4) CLEAR CLEAR [facility] Urine by Test strip 2019-07-17 18:45:00* Test Item Value Reference Range Interpretation Comments Urine Specific [place] (test code = 5811-5) 1.020 1.010-1.02 5 [facility] HospitalUrine pH measurement by automated test wcidp3371-10-04 18:45:00* Test Item Value Reference Range Interpretation Comments Urine pH (test code = 46255-5) 6 5-7 [facility] HospitalU[facility] leukocyte esterase detection by automated test jdbux3016-23-35 18:45:00* Test Item Value Reference Range Interpretation Comments Urine Leukocyte Esterase (test code = 23271-3) NEGATIVE NEGATIV E [facility] HospitalUrine nitrite detection by automated test saoxp1247-57-06 18:45:00* Test Item Value Reference Range Interpretation Comments Urine Nitrite (test code = 88613-5) NEGATIVE NEGATIVE [facility] HospitalUrine protein detection by automated test veamd8678-64-64 18:45:00* Test Item Value Reference Range Interpretation Comments Urine Protein (test code = 89897-7) NEGATIVE NEGATIVE [facility] HospitalUrine glucose detection by automated test mwltx8039-43-12 18:45:00* Test Item Value Reference Range Interpretation Comments Urine Glucose (UA) (test code = 46823-6) NEGATIVE NEGATIVE [facility] HospitalUrine ketones detection by automated test zwbjz3733-55-97 18:45:00* Test Item Value Reference Range Interpretation Comments Urine Ketones (test code = 04842-6) NEGATIVE NEGATIVE [facility] HospitalUrine urobilinogen measurement by test strip (mass/volume)2019-07-17 18:45:00* Test Item Value Reference Range Interpretation Comments Urine Urobilinogen (test code = 24031-5) 1 0.2-1 [facility] HospitalU[facility] total bilirubin mffirpovd2263-01-51 18:45:00* Test Item Value Reference Range Interpretation Comments Urine Bilirubin (test code = 1977-8) NEGATIVE NEGATIVE [facility] HospitalUrine erythrocytes tdmmvjssr9698-16-35 18:45:00* Test Item Value Reference Range Interpretation Comments Urine Blood (test code = 13432-1) NEGATIVE NEGATIVE [facility] HospitalAutomated urine sediment leukocyte count by microscopy (number/high power field)2019-07-17 18:45:00* Test Item Value Reference Range Interpretation Comments Urine WBC (test code = 5821-4) NONE 0-5 [facility] HospitalErythrocytes detection in urine sediment by light hbowmqszsp5208-47-91 18:45:00* Test Item Value Reference Range Interpretation Comments Urine RBC (test code = 56896-4) NONE 0-5 [facility] HospitalBacteria detection in urine sediment by light neotcdvzqa1933-45-95 18:45:00* Test Item Value Reference Range Interpretation Comments Urine Bacteria (test code = 85228-6) FEW NONE [facility] HospitalEpithelial cells detection in urine sediment by light amjsvlkmmb1048-22-78 18:45:00* Test Item Value Reference Range Interpretation Comments Urine Epithelial Cells (test code = 95228-3) FEW NONE [facility] HospitalUrine color nchrvufwoyewh9425-48-46 18:45:00* Test Item Value Reference Range Interpretation Comments Urine Color (test code = 5778-6) YELLOW YELLOW [facility] HospitalUrine yzbnnqh4099-63-91 18:45:00* Test Item Value Reference Range Interpretation Comments Urine Clarity (test code = 98896-0) CLEAR CLEAR [facility] gravity of Urine by Test strip 2019-07-17 18:45:00* Test Item Value Reference Range Interpretation Comments Urine Specific [place] (test code = 5811-5) 1.020 1.010-1.02 5 [facility] HospitalUrine pH measurement by automated test ijpsv5124-76-35 18:45:00* Test Item Value Reference Range Interpretation Comments Urine pH (test code = 97851-5) 6 5-7 [facility] HospitalUrine leukocyte esterase detection by automated test ibqmv8852-58-24 18:45:00* Test Item Value Reference Range Interpretation Comments Urine Leukocyte Esterase (test code = 81698-2) NEGATIVE NEGATIV E [facility] HospitalUrine nitrite detection by automated test mying8342-97-39 18:45:00* Test Item Value Reference Range Interpretation Comments Urine Nitrite (test code = 81430-5) NEGATIVE NEGATIVE [facility] HospitalUrine protein detection by automated test zpwrb2350-56-74 18:45:00* Test Item Value Reference Range Interpretation Comments Urine Protein (test code = 89013-2) NEGATIVE NEGATIVE [facility] HospitalUrine glucose detection by automated test dmony0621-41-32 18:45:00* Test Item Value Reference Range Interpretation Comments Urine Glucose (UA) (test code = 39116-8) NEGATIVE NEGATIVE [facility] HospitalUrine ketones detection by automated test onbkm0602-73-03 18:45:00* Test Item Value Reference Range Interpretation Comments Urine Ketones (test code = 74186-2) NEGATIVE NEGATIVE [facility] HospitalUrine urobilinogen measurement by test strip (mass/volume)2019-07-17 18:45:00* Test Item Value Reference Range Interpretation Comments Urine Urobilinogen (test code = 48190-8) 1 0.2-1 [facility] HospitalUrine total bilirubin pwoqyudhh6543-85-91 18:45:00* Test Item Value Reference Range Interpretation Comments Urine Bilirubin (test code = 1977-8) NEGATIVE NEGATIVE [facility] HospitalUrine erythrocytes anrcxdhql9462-61-06 18:45:00* Test Item Value Reference Range Interpretation Comments Urine Blood (test code = 73351-3) NEGATIVE NEGATIVE [facility] HospitalAutomated urine sediment leukocyte count by microscopy (number/high power field)2019-07-17 18:45:00* Test Item Value Reference Range Interpretation Comments Urine WBC (test code = 5821-4) NONE 0-5 [facility] HospitalErythrocytes detection in urine sediment by light sznriwmvrq9296-13-27 18:45:00* Test Item Value Reference Range Interpretation Comments Urine RBC (test code = 62823-3) NONE 0-5 [facility] HospitalBacteria detection in urine sediment by light ceozppzbdr1069-10-76 18:45:00* Test Item Value Reference Range Interpretation Comments Urine Bacteria (test code = 98161-7) FEW NONE [facility] HospitalEpithelial cells detection in urine sediment by light jtdujvzsbe1589-02-89 18:45:00* Test Item Value Reference Range Interpretation Comments Urine Epithelial Cells (test code = 59746-8) FEW NONE [facility] HospitalFluoroscopic procedure less than one hour lvfvfstt0693-13-84 18:30:00* Test Item Value Reference Range Interpretation Comments Lactic Acid Level (test code = Lactic Acid Level) 1.9 0.5- 2.0 [facility] HospitalFluoroscopic procedure less than one hour zkaspmbe9702-16-03 18:30:00* Test Item Value Reference Range Interpretation Comments Lactic Acid Level (test code = Lactic Acid Level) 1.9 0.5- 2.0 [facility] HospitalFOOT RIGHT PEWUHDAG7618-65-48 13:40:00 [facility] [address] [address] Patient Name: NHI DUMONT MR #: [id number] : 1940 Age/Sex: 78/M Req #: [id number] Adm Physician: Ordered by: RA RUSHING MD Report #: [id number] Location: [facility] Room/Bed: Procedure: [id number] DX/ FOOT RIGHT COMPLETE Exam Date: 07/01/19 [...] 1342 COPY TO: RA PELAYO MD Bedside Ievjyuh3764-94-77 20:24:00* Test Item Value Reference Range Interpretation Comments Bedside Glucose (test code = 40919-4) 204 70-120 H Meter ID: [id number] [facility] Azbwfi7873-90-78 09:00:00* Test Item Value Reference Range Interpretation Comments Vancomycin Level Trough (test code = 4092-3) 15.3 5.0-10.0 HH Results repeated and called to Darien Jimenez RN at 0854 on 02/01/19 by Pearl Crisostomo x. Read back and verified.[facility] Cwtjel0709-52-61 09:00:00* Test Item Value Reference Range Interpretation Comments Vancomycin Level Trough (test code = 4092-3) 15.3 5.0-10.0 HH Results repeated and called to Darien Jimenez RN at 08 on 02/01/19 by Pearl Crisostomo x. Read back and verified.[facility] Fyijms1529-55-41 09:00:00* Test Item Value Reference Range Interpretation Comments Vancomycin Level Trough (test code = 4092-3) 15.3 5.0-10.0 HH Results repeated and called to Darien Jimenez RN at 0854 on 02/01/19 by Pearl Crisostomo x. Read back and verified.[facility] Entawb0401-15-50 09:00:00* Test Item Value Reference Range Interpretation Comments Vancomycin Level Trough (test code = 4092-3) 15.3 5.0-10.0 HH Results repeated and called to Darien Jimenez RN at 0854 on 02/01/19 by Pearl martínez Read back and verified.[facility]2019-05-21 09:00:00* Test Item Value Reference Range Interpretation Comments Vancomycin Level Trough (test code = 4092-3) 15.3 5.0-10.0 HH Results repeated and called to Darien Jimenez RN at 0854 on 02/01/19 by Pearl martínez Read back and verified.[facility] HospitalBlood Culture 2019-01-31 14:08:00* Test Item Value Reference Range Interpretation Comments Blood Culture (test code = 97922534) NO GROWTH AFTER 72 HOURS [facility]2019-05-20 06:28:00* Test Item Value Reference Range Interpretation Comments Sodium Level (test code = 2951-2) 137 136-145 [facility] Facig9479-53-80 06:28:00* Test Item Value Reference Range Interpretation Comments Potassium Level (test code = 2823-3) 3.5 3.5-5.1 [facility] HospitalChloride Qcyry1240-16-15 06:28:00* Test Item Value Reference Range Interpretation Comments Chloride Level (test code = 2075-0) 101 98-107 [facility] HospitalCarbon Dioxide Kyarw3146-49-45 06:28:00* Test Item Value Reference Range Interpretation Comments Carbon Dioxide Level (test code = 2028-9) 28 22-29 [facility] HospitalAnion Ubs5243-99-06 06:28:00* Test Item Value Reference Range Interpretation Comments Anion Gap (test code = 18753-4) 11.5 8-16 [facility] HospitalBlood Urea Oiclylea1880-33-23 06:28:00* Test Item Value Reference Range Interpretation Comments Blood Urea Nitrogen (test code = 3094-0) 24 7-26 [facility] HospitalCreatinine2019-05-20 06:28:00* Test Item Value Reference Range Interpretation Comments Creatinine (test code = 2160-0) 0.97 0.72-1.25 [facility] HospitalBUN/Creatinine Fdbdp2177-19-66 06:28:00* Test Item Value Reference Range Interpretation Comments BUN/Creatinine Ratio (test code = 3097-3) 25 6-25 [facility] HospitalEstimat Glomerular Filtration Rate 2019-01-31 06:28:00* Test Item Value Reference Range Interpretation Comments Estimat Glomerular Filtration Rate (test code = 761451688) > 60 >60 Ranges were taken from the National Kidney Disease Education Program and the [facility] literature.Reference ranges:60 or greater: Kmcvuf20-33 ( for 3 consecutive months): Chronic kidney disease 15 or less: Kidney failureParkland Memorial HospitalGlucose Kqiqn0064-18-50 06:28:00* Test Item Value Reference Range Interpretation Comments Glucose Level (test code = UNT5596) 251 74-118 H [facility] HospitalCalcium Orzxf4273-62-44 06:28:00* Test Item Value Reference Range Interpretation Comments Calcium Level (test code = 19462-5) 9.0 8.4-10.2 [facility] HospitalTotal Onwutfayf3651-61-52 06:28:00* Test Item Value Reference Range Interpretation Comments Total Bilirubin (test code = 1975-2) 0.8 0.2-1.2 [facility] HospitalAspartate Amino Transf (AST/SGOT) 2019-01-31 06:28:00* Test Item Value Reference Range Interpretation Comments Aspartate Amino Transf (AST/SGOT) (test code = Aspartate Amino Transf (AST/SGOT)) 11 5-34 [facility] HospitalAlanine Aminotransferase (ALT/SGPT) 2019-01-31 06:28:00* Test Item Value Reference Range Interpretation Comments Alanine Aminotransferase (ALT/SGPT) (test code = 1742-6) 8 0-55 [facility] HospitalTotal Reqvmiu9513-23-94 06:28:00* Test Item Value Reference Range Interpretation Comments Total Protein (test code = 2885-2) 6.6 6.5-8.1 [facility] HospitalAlbumin2019-05-20 06:28:00* Test Item Value Reference Range Interpretation Comments Albumin (test code = 1751-7) 2.9 3.5-5.0 L [facility] HospitalGlobulin2019-05-20 06:28:00* Test Item Value Reference Range Interpretation Comments Globulin (test code = 69074-3) 3.7 2.3-3.5 H [facility] HospitalAlbumin/Globulin Gnpwm5960-20-42 06:28:00 * Test Item Value Reference Range Interpretation Comments Albumin/Globulin Ratio (test code = 1759-0) 0.8 0.8-2.0 [facility] HospitalAlkaline Axouikiuyxu0150-00-35 06:28:00* Test Item Value Reference Range Interpretation Comments Alkaline Phosphatase (test code = 6768-6) 99 40-150 [facility] HospitalWound Bzqprgl2081-00-28 06:27:00* Test Item Value Reference Range Interpretation Comments Wound Culture (test code = 6462-6) Organism: STAPHYLOCOCCUS AUREUS [facility] Yksxspr3852-19-35 06:27:00* Test Item Value Reference Range Interpretation Comments Wound Culture (test code = 6462-6) No Result Data Provided [facility] HospitalWound Fsqavzj6504-36-63 06:27:00* Test Item Value Reference Range Interpretation Comments Wound Culture (test code = 6462-6) No Result Data Provided [facility] HospitalWhite Blood Boqmu7281-34-09 06:14:00* Test Item Value Reference Range Interpretation Comments White Blood Count (test code = 6690-2) 5.59 4.8-10.8 [facility] HospitalRed Blood Kdren9511-09-46 06:14:00* Test Item Value Reference Range Interpretation Comments Red Blood Count (test code = 789-8) 4.10 4.3-5.7 L [facility] HospitalHemoglobin2019-05-20 06:14:00* Test Item Value Reference Range Interpretation Comments Hemoglobin (test code = 23434-7) 12.8 14.0-18.0 L [facility] HospitalHematocrit2019-05-20 06:14:00* Test Item Value Reference Range Interpretation Comments Hematocrit (test code = 4544-3) 38.1 38.2-49.6 L [facility] HospitalMean Corpuscular Homppm1101-92-21 06:14:00* Test Item Value Reference Range Interpretation Comments Mean Corpuscular Volume (test code = 787-2) 92.9 81-99 [facility] HospitalMean Corpuscular Sestfgihlp7330-57-92 06:14:00* Test Item Value Reference Range Interpretation Comments Mean Corpuscular Hemoglobin (test code = 785-6) 31.2 28-32 [facility] HospitalMean Corpuscular Hemoglobin Concent 2019-01-31 06:14:00* Test Item Value Reference Range Interpretation Comments Mean Corpuscular Hemoglobin Concent (test code = 786-4) 33.6 31-35 [facility] HospitalRed Cell Distribution Pjrxn4439-90-18 06:14:00* Test Item Value Reference Range Interpretation Comments Red Cell Distribution Width (test code = 09162-8) 14.8 11.7 -14.4 H [facility] HospitalPlatelet Wlerd3985-65-13 06:14:00* Test Item Value Reference Range Interpretation Comments Platelet Count (test code = 777-3) 161 140-360 [facility] HospitalNeutrophils (%) (Auto)2019-01-31 06:14:00 * Test Item Value Reference Range Interpretation Comments Neutrophils (%) (Auto) (test code = 37661-0) 73.1 38.7-80.0 [facility] HospitalLymphocytes (%) (Auto)2019-01-31 06:14:00 * Test Item Value Reference Range Interpretation Comments Lymphocytes (%) (Auto) (test code = 736-9) 11.4 18.0-39.1 L [facility] HospitalMonocytes (%) (Auto)2019-01-31 06:14:00* Test Item Value Reference Range Interpretation Comments Monocytes (%) (Auto) (test code = 5905-5) 9.3 4.4-11.3 [facility] HospitalEosinophils (%) (Auto)2019-01-31 06:14:00 * Test Item Value Reference Range Interpretation Comments Eosinophils (%) (Auto) (test code = 713-8) 5.0 0.0-6.0 [facility] HospitalBasophils (%) (Auto)2019-01-31 06:14:00* Test Item Value Reference Range Interpretation Comments Basophils (%) (Auto) (test code = 706-2) 0.7 0.0-1.0 [facility] HospitalIM GRANULOCYTES %2019-01-31 06:14:00* Test Item Value Reference Range Interpretation Comments IM GRANULOCYTES % (test code = IM GRANULOCYTES %) 0.5 0.0- 1.0 [facility] HospitalNeutrophils # (Auto)2019-01-31 06:14:00* Test Item Value Reference Range Interpretation Comments Neutrophils # (Auto) (test code = 751-8) 4.1 2.1-6.9 [facility] HospitalLymphocytes # (Auto)2019-01-31 06:14:00* Test Item Value Reference Range Interpretation Comments Lymphocytes # (Auto) (test code = 81270-9) 0.6 1.0-3.2 L [facility] HospitalMonocytes # (Auto)2019-01-31 06:14:00* Test Item Value Reference Range Interpretation Comments Monocytes # (Auto) (test code = 742-7) 0.5 0.2-0.8 [facility] HospitalEosinophils # (Auto)2019-01-31 06:14:00* Test Item Value Reference Range Interpretation Comments Eosinophils # (Auto) (test code = 711-2) 0.3 0.0-0.4 [facility] HospitalBasophils # (Auto)2019-01-31 06:14:00* Test Item Value Reference Range Interpretation Comments Basophils # (Auto) (test code = 704-7) 0.0 0.0-0.1 [facility] HospitalAbsolute Immature Granulocyte (auto 2019-01-31 06:14:00* Test Item Value Reference Range Interpretation Comments Absolute Immature Granulocyte (auto (aldair t code = Absolute Immature Granulocyte (auto) 0.03 0-0.1 [facility] HospitalCHEST XRAY LINE LHTSGTAJO9309-54-86 16:23:00 [facility] [address] [place] [address] Patient Name: NHI DUMONT MR #: [id number] : 1940 Age/Sex: 78/M Req #: [id number] Adm Physician: RA RUSHING MD Ordered by: LB MCCARTHY MD Report #: [id number] Location: MED/SURG2 Room/Bed: [facility] Procedure: [id number] DX/ CHEST XRAY LINE PLACEMENT Exam Date: 01/30/19 Exam T lucero: 1556 REPORT STATUS: Signed EXAMINATION: CHEST XRAY LINE PLACEMENT INDICATION: FOR PICC LINE PLACEMENT [id number] COMPARISON: 01/28/2019 FIN DINGS: AP view TUBES [...] 4:24 PM Dictated By: YOLANDE RAMIREZ MD 162 Transcribed By: MARYLU on 01/30/19 1624 COPY TO: LB MCCARTHY MD B-Type Natriuretic Izsqehj1578-46-97 14:10:00* Test Item Value Reference Range Interpretation Comments B-Type Natriuretic Peptide (test code = 23872-8) 199.7 0-100 H [facility] HospitalUrine JLX3019-82-26 21:39:00* Test Item Value Reference Range Interpretation Comments Urine WBC (test code = 5821-4) 0-5 0-5 [facility] HospitalUrine FIP7140-51-55 21:39:00* Test Item Value Reference Range Interpretation Comments Urine RBC (test code = 64325-4) 0-5 0-5 [facility] HospitalUrine Xbfngxkh8310-91-54 21:39:00* Test Item Value Reference Range Interpretation Comments Urine Bacteria (test code = 20735-3) NONE NONE [facility] HospitalUrine Epithelial Goiek6591-90-30 21:39:00 * Test Item Value Reference Range Interpretation Comments Urine Epithelial Cells (test code = 45751-5) RARE NONE [facility] HospitalUrine Yypfd5130-97-99 21:31:00* Test Item Value Reference Range Interpretation Comments Urine Color (test code = 5778-6) YELLOW YELLOW [facility] HospitalUrine Cyrkvby9806-68-58 21:31:00* Test Item Value Reference Range Interpretation Comments Urine Clarity (test code = 88509-5) CLEAR CLEAR [facility] HospitalUrine Specific Lsjttli6813-02-14 21:31:00 * Test Item Value Reference Range Interpretation Comments Urine Specific [place] (test code = 5811-5) 1.025 1.010-1.02 5 [facility] [id number] 21:31:00* Test Item Value Reference Range Interpretation Comments Urine pH (test code = 86962-0) 6 5-7 [facility] Leukocyte [id number] 21:31:00* Test Item Value Reference Range Interpretation Comments Urine Leukocyte Esterase (test code = 5799-2) NEGATIVE NEGATIVE [facility] [id number] 21:31:00* Test Item Value Reference Range Interpretation Comments Urine Nitrite (test code = 17158-7) NEGATIVE NEGATIVE [facility] [id number] 21:31:00* Test Item Value Reference Range Interpretation Comments Urine Protein (test code = 5804-0) NEGATIVE NEGATIVE [facility] Glucose (UA)2019-01-28 21:31:00* Test Item Value Reference Range Interpretation Comments Urine Glucose (UA) (test code = 2349-9) NEGATIVE NEGATIVE [facility] [id number] 21:31:00* Test Item Value Reference Range Interpretation Comments Urine Ketones (test code = 68952-4) NEGATIVE NEGATIVE [facility] [id number] 21:31:00* Test Item Value Reference Range Interpretation Comments Urine Urobilinogen (test code = 56192-0) 4 0.2-1 H [facility] [id number] 21:31:00* Test Item Value Reference Range Interpretation Comments Urine Bilirubin (test code = 1978-6) NEGATIVE [facility]IVE [facility] Tuwoj1680-65-27 21:31:00* Test Item Value Reference Range Interpretation Comments Urine Blood (test code = 28909-8) NEGATIVE NEGATIVE [facility] 2 [id number] 15:15:00 [facility] [address] [address] Patient Name: NHI DUMONT MR #: [id number] : 1940 Age/Sex: 78/M Req #: [id number] Adm Physician: RA RUSHING MD Ordered by: LINDA RICHTER MD Report #: [id number] Location: [facility] Room/Bed: [address] [address] Procedure: [id number] DX/CHEST 2 VIEWS Exam Date: 01/28/19 Exam [...] COPY TO: LINDA RICHTER MD Lactic Acid [id number] 14:10:00* Test Item Value Reference Range Interpretation Comments Lactic Acid Level (test code = Lactic Acid Level) 12.6 4.5- 19.8 [facility] [id number] 14:05:00* Test Item Value Reference Range Interpretation Comments Prothrombin Time (test code = 5902-2) 14.3 11.9-14.5 [facility] International Ratio 2019-01-28 14:05:00* Test Item Value Reference Range Interpretation Comments Prothromb Time International Ratio (test code = 6301-6) 1.06 Oral Anticoagulant Therapy INR Values:1. Low Intensity Therapy 1.5 - 2.02 . Moderate Intensity Therapy 2.0 - 3.03. High Intensity Therapy(1) 2.5 - 3. 54. High Intensity Therapy(2) 3.0 - 4.05. Panic Value INR > 5.0 [facility] Partial Thromboplast Time 2019-01-28 14:05:00* Test Item Value Reference Range Interpretation Comments Activated Partial Thromboplast Time (test code = 20172-3) 30.9 23.8-35.5 [facility] [id number] 14:05:00* Test Item Value Reference Range Interpretation Comments Prothrombin Time (test code = 5902-2) 14.3 11.9-14.5 [facility] Time International Ratio 2019-01-28 14:05:00* Test Item Value Reference Range Interpretation Comments Prothromb Time International Ratio (test code = 6301-6) 1.06 Oral Anticoagulant Therapy INR Values:1. Low Intensity Therapy 1.5 - 2.02 . Moderate Intensity Therapy 2.0 - 3.03. High Intensity Therapy(1) 2.5 - 3. 54. High Intensity Therapy(2) 3.0 - 4.05. Panic Value INR > 5.0 [facility] Partial Thromboplast Time 2019-01-28 14:05:00* Test Item Value Reference Range Interpretation Comments Activated Partial Thromboplast Time (test code = 11844-5) 30.9 23.8-35.5 [facility]NON OB[facility] MICHELLE OR [id number] 17:15:00 [facility] [address] [address] Patient Name: NHI DUMONT MR #: [id number] : 1940 Age/Sex: 78/M Req #: [id number] Adm Physician: Ordered by: CAITY FONSECA MD Report #: [id number] Location: Room/Bed: Procedure: [id number] US /US PELVIC (NON OB) MICHELLE OR [...] 01/17/19 1054 COPY TO: CAITY FONSECA MD US RENAL RETROPERITONEAL [id number] 17:15:[address] [address] Patient Name: NHI DUMONT MR #: [id number] : 1940 Age/Sex: 78/M Req #: [id number] Adm Physician: Ordered by: CAITY FONSECA MD Report #: [id number] Location: Room/Bed: Procedure: [id number] US /US RENAL RETROPERITONEAL COMP Exam Date: [...] TO: CAITY FONSECA MD KNEE RIGHT THREE [id number] 13:51:00 [address] [address] Patient Name: NHI DUMONT MR #: [id number] : 1940 Age/Sex: 77/M Req #: [id number] Adm Physician: Ordered by: RA RUSHING MD Report #: [id number] Location: [facility] Room/Bed: Procedure: DX/ KNEE RIGHT THREE VIEWS Exam Date: [...] 1:55 PM Dictated By: ALEC BENAVIDES MD Electronica ll Signed By: ALEC BENAVIDES MD on 11/11/18 1355 Transcribed By: MARYLU on 1355 COPY TO: RA RUSHING MD HIP RIGHT 2-3 VW (+/- PELVIS) 2018-11-11 13:51:00 [address] [address] Patient Name: NHI DUMONT MR #: [id number] : 1940 Age/Sex: 77/M Req #: [id number] Adm Physician: Ordered by: RA RUSHING MD Report #: [id number] Location: [facility] Room/Bed: Procedure: DX/ HIP RIGHT 2-3 VW (+/- PELVIS) [...] RA RUSHING MD KNEE LEFT THREE VIEWS [address] [address] Patient Name: NHI DUMONT MR #: [id number] : 1940 Age/Sex: 77/M Req #: [id number] Adm Physician: Ordered by: LISA COOPER NP Report #: [id number] Location: ER Room/Bed: Procedure: [id number] DX/KNEE LEFT THREE VIEWS Exam Date: 12/20/17 [...]
--- NOTE | 2020-05-15 17:31 | Emergency Department Note ---
History of Present Illnes History of Present Illness Chief Complaint: General Medicine Complaints History of Present Illness This is a 79 year old male PRESENTED TO ER [facility] HERE TO BE ADMITTED. CALLED Juan JoséPT WAS SENT FROM WOUND CARE FOR ADMISSION FOR CELLULITIS Historian: Patient Arrival Mode: Car 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 Required: No Location: RIGHT FOOT Quality: ULCER Radiation: Reports non-radiation Severity: moderate Onset quality: gradual Timing of current episode: constant Progression: worsening Chronicity: new Context: Denies recent illness Relieving factors: none Exacerbating factors: none Associated symptoms: Reports denies other symptoms Past Medical/Family History Physician Review I have reviewed the patient's past medical and family history. Any updates have been documented here. Past Medical History Recent Fever: No Clinical Suspicion of Infectio: No New/Unexplained Change in Ment: No Past Medical History: Hypertension, Diabetes, CHF, TIA, Hyperlipedemia Other Medical History: CELLULITIS lower leg pvd/pad Past Surgical History: Cholecysctectomy, Appendectomy Other Surgery: TONSILLECTOMY, PARTIAL LEFT KNEE REPLACEMENT., VASECTOMY Social History Smoking Cessation: Never Smoker Counseling Performed: No Alcohol Use: None Any Illegal Drug Use: No Other Last Tetanus: UTD Any Pre-Existing Lines (PICC,: No Review of Systems Review of Systems Constitutional: Reports no symptoms EENTM: Reports no symptoms Cardiovascular: Reports no symptoms Respiratory: Reports no symptoms Gastrointestinal: Reports no symptoms Genitourinary: Reports no symptoms Musculoskeletal: Reports no symptoms Integumentary: Reports as per HPI Neurological: Reports no symptoms Psychological: Reports no symptoms Endocrine: Reports no symptoms Hematological/Lymphatic: Reports no symptoms Physical Exam Related Data Allergies: Coded Allergies: Penicillins (Verified Allergy, Mild, RASH, 07/17/19) Triage Vital Signs Vital Signs Date Time Temp Pulse Resp B/P (MAP) Pulse Ox O2 Delivery O2 Flow Rate FiO2 05/15/20 14:21 97.3 67 16 100/52 98 Room Air Vital signs reviewed: Yes Physical Exam CONSTITUTIONAL Constitutional: Present well-developed, Present obese HENT HENT: Present normocephalic, Present atraumatic, Present oropharynx clear/moist, Present nose normal HENT L/R: Present left ext ear normal, Present right ext ear normal EYES Eyes: Reports PERRL, Reports conjunctivae normal NECK Neck: Present ROM normal PULMONARY Pulmonary: Present effort normal, Present breath sounds normal CARDIOVASCULAR Cardiovascular: Present regular rhythm, Present LLE edema, Present RLE edema GASTROINTESTINAL Abdominal: Present soft, Present nontender, Present bowel sounds normal GENITOURINARY Genitourinary: Present exam deferred SKIN Skin: Present warm, Present other (CELLULITIS RIGHT 2ND AND 3RD TOE WITH ULCERATIONS) MUSCULOSKELETAL Musculoskeletal: Present ROM normal NEUROLOGICAL Neurological: Present alert, Present oriented x 3, Present no gross motor or sensory deficits PSYCHOLOGICAL Psychological: Present mood/affect normal, Present judgement normal Results Laboratory Result Diagram: 05/15/20 1515 05/15/20 1515 Laboratory Laboratory Tests Test 05/15/20 15:24 05/15/20 15:15 Urine Color Straw (YELLOW) Urine Clarity Sl cloudy (CLEAR) Urine pH 5.5 (5 - 7) Urine Specific [place] 1.015 (1.010-1.025) Urine Protein Negative (NEGATIVE) Urine Glucose (UA) Negative (NEGATIVE) Urine Ketones Negative (NEGATIVE) Urine Blood Negative (NEGATIVE) Urine Nitrite Negative (NEGATIVE) Urine Bilirubin Negative (NEGATIVE) Urine Urobilinogen 1 mg/dL (0.2 - 1) Urine Leukocyte Esterase Negative (NEGATIVE) Urine RBC None /HPF (0-5) Urine WBC None /HPF (0-5) Urine Epithelial Cells Few /LPF (NONE) Urine Bacteria Moderate /HPF (NONE) Urine Hyaline Casts 0-1 (0-1) White Blood Count 7.94 x10e3/uL (4.8-10.8) Red Blood Count 3.60 x10e6/uL (4.3-5.7) Hemoglobin 10.7 g/dL (14.0-18.0) Hematocrit 33.2 % (38.2-49.6) Mean Corpuscular Volume 92.2 fL (81-99) Mean Corpuscular Hemoglobin 29.7 pg (28-32) Mean Corpuscular Hemoglobin Concent 32.2 g/dL (31-35) Red Cell Distribution Width 15.3 % (11.7-14.4) Platelet Count 187 x10e3/uL (140-360) Neutrophils (%) (Auto) 78.0 % (38.7-80.0) Lymphocytes (%) (Auto) 11.0 % (18.0-39.1) Monocytes (%) (Auto) 7.9 % (4.4-11.3) Eosinophils (%) (Auto) 2.1 % (0.0-6.0) Basophils (%) (Auto) 0.4 % (0.0-1.0) Neutrophils # (Auto) 6.2 (2.1-6.9) Lymphocytes # (Auto) 0.9 (1.0-3.2) Monocytes # (Auto) 0.6 (0.2-0.8) Eosinophils # (Auto) 0.2 (0.0-0.4) Basophils # (Auto) 0.0 (0.0-0.1) Absolute Immature Granulocyte (auto 0.05 x10e3/uL (0-0.1) Prothrombin Time 14.2 seconds (11.9-14.5) Prothromb Time International Ratio 1.05 Activated Partial Thromboplast Time 31.7 seconds (23.8-35.5) Sodium Level 140 mmol/L (136-145) Potassium Level 4.8 mmol/L (3.5-5.1) Chloride Level 104 mmol/L (98-107) Carbon Dioxide Level 22 mmol/L (22-29) Anion Gap 18.8 mmol/L (8-16) Blood Urea Nitrogen 70 mg/dL (7-26) Creatinine 1.81 mg/dL (0.72-1.25) Estimat Glomerular Filtration Rate 36 ML/MIN (60-) BUN/Creatinine Ratio 39 (6-25) Glucose Level 124 mg/dL (74-118) Calcium Level 8.5 mg/dL (8.4-10.2) Total Bilirubin 0.6 mg/dL (0.2-1.2) Aspartate Amino Transf (AST/SGOT) 13 IU/L (5-34) Alanine Aminotransferase (ALT/SGPT) 8 IU/L (0-55) Alkaline Phosphatase 90 IU/L (40-150) Creatine Kinase 38 IU/L (30-200) Creatine Kinase MB 0.90 ng/mL (0-5.0) Troponin I < 0.001 ng/mL (0-0.300) B-Type Natriuretic Peptide 54.5 pg/mL (0-100) Total Protein 6.4 g/dL (6.5-8.1) Albumin 3.7 g/dL (3.5-5.0) Globulin 2.7 g/dL (2.3-3.5) Albumin/Globulin Ratio 1.4 (0.8-2.0) Lab results reviewed: Yes Imaging Imaging results reviewed: Yes Procedures 12 Lead ECG Interpretation ECG Interpretation : ECG: ECG 1 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: Interpreted by ED physician Date: May 15, 2020 Time: 16:00 Rhythm: sinus rhythm (1ST DEGREE AVB) Rate: normal (66) QRS axis: normal ST segments normal: Yes T waves normal: Yes Clinical Impression: abnormal ECG (POOR RWP) Assessment & Plan Medical Decision Making MDM CBC, CHEM, CARDIACS, BLOOD CX, WOUND CX, ECG, CXR, START ABX'S, ADMIT Reassessment Reassessment SPOKE WITH PCP DR RUSHING FOR ADMISSION, HE WANTS DR MCCARTHY CONSULTED WHO I SPOKE WITH (HE WANTS ITZEL AND HERMINIO) Assessment & Plan Final Impression: (1) Cellulitis Depart Disposition: ADMITTED Last Vital Signs Date Time Temp Pulse Resp B/P (MAP) Pulse Ox O2 Delivery O2 Flow Rate FiO2 05/15/20 17:14 98.1 67 18 109/59 94 Room Air Home Meds Reported Medications Chlorthalidone (CHLORTHALIDONE) 50 Mg Tablet 05/15/20 Furosemide (FUROSEMIDE) 40 Mg Tablet 05/15/20 Spironolactone (SPIRONOLACTONE) 50 Mg Tablet 05/15/20 Metoprolol Succinate (METOPROLOL SUCCINATE) 100 Mg Tab.er.24h 05/15/20 Insuln Asp Prt/Insulin Aspart (NOVOLOG MIX 70-30 FLEXPEN SYRN) 100 Unit/1 Ml Insuln.pen, 1 UNIT SC ACHS, SYR 05/15/20 Levofloxacin (LEVAQUIN) 500 Mg Tablet, 500 MG PO DAILY, #10 TAB 11/18/19 Acetaminophen (ACETAMINOPHEN) 325 Mg Tablet, 650 MG PO Q6H PRN for Mild Pain (1- 3) or Fever>100.8 for 5 Days, TAB 11/15/19 [potassium glutamate] No Conflict Check, 99 MG PO DAILY 11/15/19 Insulin Lispro (HUMALOG) 100 Unit/1 Ml Cartridge, 35 UNITS SC BID 11/15/19 Arginine/Glutamine/Calcium Hmb (DONNA PACKET) 1 Each Powd.pack, 1 PACKET PO DAILY 11/15/19 Insulin Glargine (LANTUS 3ML PEN) 100 Units/1 Ml Inj, 45 UNITS SC BID 11/15/19 Aspirin (ASPIR 81) 81 Mg Tablet.dr, 81 MG PO DAILY 07/17/19 Benazepril Hcl (BENAZEPRIL HCL) 10 Mg Tablet, 40 MG PO DAILY, #30 TAB 07/17/19 Furosemide (LASIX) 40 Mg Tablet, 40 MG PO DAILY, #30 TAB 07/17/19 Metoprolol Succinate (METOPROLOL SUCCINATE) 50 Mg Tab.er.24h, 100 MG PO DAILY, MG 07/17/19 Simvastatin (SIMVASTATIN) 40 Mg Tablet, 40 MG PO 2100, #30 TAB 07/17/19 Discontinued Reported Medications [Novolin] No Conflict Check 05/15/20 Blood Sugar Diagnostic (ONE TOUCH ULTRA TEST STRIPS) 1 Each Strip 11/15/19 Medications in the ED Vancomycin HCl 250 ml @ 167 mls/hr NOW ONCE IV ; Start 05/15/20 at 15:45; Stop 05/15/20 at 17:14; Status DC Meropenem 100 ml @ 100 mls/hr NOW ONCE IV Last administered on 05/15/20at 16:58; Admin Dose 100 MLS/HR; Start 05/15/20 at 15:30; Stop 05/15/20 at 16:29; Status DC FARSHAD SIERAR MD May 15, 2020 17:31
[2020-05-15 20:00] VITALS: BP 138/47
[2020-05-15] MEDS ORDERED: DEXTROSE 50% SYRINGE 50 ML IV PRN ×2 (21:00)
[2020-05-15] MEDS: INSULIN REGULAR, HUMAN 100 UNIT/1 ML 3ML VIAL SQ SCH (22:00)
[2020-05-15] MEDS: SIMVASTATIN 40 MG TAB PO SCH (22:30)
[2020-05-16] VITALS (10 sets, daily range): BP systolic 112–140; BP diastolic 47–66
[2020-05-16 01:04] LABS: CREATINE KINASE 43 IU/L (30-200)
--- NOTE | 2020-05-16 01:32 | NUR ---
PT IS TRANSFERRED FROM ER ,PT IS AOX3 ,RESPIRATIONS ARE EVEN AND UNLABORED ,BILATERAL LOWER EXTREMITIES RED AND SWOLLEN WITH DRESSING.,BILATERAL ARMS ARE BRUISED RT SHOULDER PAIN RT AC 20 G NS AT 50CC/HR PHYSICAL ASSESSMENT DONE AND ORIENTED THE PT TO ENVIRONMENT TELE #14 SHOWS SR CALL LIGHT WITH IN REACH ,CONTINUE TO MONITOR
[2020-05-16 05:09] LABS: BASOPHILS % 0.4 % (0.0-1.0); EOSINOPHILS # (AUTO) 0.2 (0.0-0.4); EOSINOPHILS % 2.8 % (0.0-6.0); HEMATOCRIT 33.2 % (38.2-49.6); HEMOGLOBIN 10.8 g/dL (14.0-18.0); LYMPHOCYTES # (AUTO) 0.8 (1.0-3.2); LYMPHOCYTES % 11.9 % (18.0-39.1); MEAN CORPUSCULAR HEMOGLOBIN 29.8 pg (28-32); MEAN CORPUSCULAR HGB CONC 32.5 g/dL (31-35); MEAN CORPUSCULAR VOLUME 91.5 fL (81-99); MONOCYTES # (AUTO) 0.7 (0.2-0.8); MONOCYTES % 9.8 % (4.4-11.3); NEUTROPHILS % 74.4 % (38.7-80.0); PLATELET COUNT 162 x10e3/uL (140-360); RED BLOOD COUNT 3.63 x10e6/uL (4.3-5.7); RED CELL DISTRIBUTION WIDTH 15.3 % (11.7-14.4)
[2020-05-16 05:35] LABS: ANION GAP 18.4 mmol/L (8-16); CALCIUM 8.6 mg/dL (8.4-10.2); CREATININE, SERUM 1.58 mg/dL (0.72-1.25); POTASSIUM 4.4 mmol/L (3.5-5.1)
[2020-05-16 05:58] LABS: ALBUMIN 3.6 g/dL (3.5-5.0); ALBUMIN/GLOBULIN RATIO 1.2 (0.8-2.0)
--- NOTE | 2020-05-16 06:05 | NUR ---
PT RESTING AND NS AT 50CC/HR INFUSING ,DENIES PAIN,CALL LIGHT WITH IN REACH CONTINUE TO MONITOR
--- NOTE | 2020-05-16 07:14 | NUR ---
BEDSIDE REPORT GIVEN TO THE ONCOMING NURSE
[2020-05-16] MEDS: ASPIRIN 81 MG CHEW TAB PO SCH (08:50)
[2020-05-16] MEDS: BENAZEPRIL HCL 10 MG TAB PO SCH (08:50)
[2020-05-16] MEDS: FUROSEMIDE 40 MG TAB PO SCH (08:50)
[2020-05-16] MEDS: METOPROLOL SUCCINATE 50 MG TAB XL PO SCH (08:50)
[2020-05-16] MEDS: CALCIUM HMB PO SCH (09:00)
[2020-05-16] MEDS ORDERED: INSULIN GLARGINE 100 UNITS/ML VIAL SC SCH (09:00)
[2020-05-16] MEDS: ARGININE PO SCH (09:00)
[2020-05-16] MEDS: GLUTAMINE PO SCH (09:00)
[2020-05-16] MEDS ORDERED: INSULIN LISPRO 100 UNIT/1 ML 3ML VIAL SQ SCH (09:00)
[2020-05-16] MEDS: INSULIN REGULAR, HUMAN 100 UNIT/1 ML 3ML VIAL SQ SCH ×4 (09:06→21:00)
[2020-05-16] MEDS: LEVOFLOXACIN 500MG/D5W 100ML 100 ML IV SCH (10:11)
--- NOTE | 2020-05-16 10:36 | History and Physical ---
HISTORY OF PRESENT ILLNESS: The patient is 79 years old male. Past medical history positive for coronary artery disease, status post stent placement, hypertension, diabetes, chronic renal failure, obesity, [facility] due to a worsening cellulitis and open wounds on the 2nd toe on the right foot. REVIEW OF SYSTEMS: CARDIOVASCULAR: No chest pain or palpitation. RESPIRATORY: No shortness of breath. No cough. GASTROINTESTINAL: No nausea or vomiting. No diarrhea. GENITOURINARY: No frequency or dysuria. PAST MEDICAL HISTORY: Coronary artery disease, status post stent placement, diabetes, hypertension, morbid obesity, chronic renal failure stage 3. ALLERGIES: ALLERGIC TO PENICILLIN. SOCIAL HISTORY: He does not smoke, does not drink. PHYSICAL EXAMINATION: HEART: Showed regular rhythm. Normal S1, S2 sound. LUNGS: Clear bilaterally. ABDOMEN: Soft. EXTREMITIES: Showed dressing on the right leg. He had an ulcer on the left 1st metatarsal head. He had a blister on the right 2nd toe. He had an ulcer on the left hallucis. He also a wound on the right 2nd proximal toe. He had ulcer on the right 3rd toe, callus on the left medial heel, edema on the left lower leg, edema on the right lower leg, blister on the right 2nd toe. LABORATORY DATA: CBC; white count 6.72, hemoglobin is 10.9, hematocrit 33.2, and platelet count a 162,000. On the BMP; sodium 140, potassium 4.4, chloride 106, CO2 20, BUN 61, creatinine 1.58, GFR is 43, glucose 145, calcium 8.6, total bilirubin 0.6, AST 11, ALT 8, alkaline phosphatase 90. Troponin 0.01 x2. Total protein 6.6, albumin 3.6, and globulin 3.0. Serology; coronavirus test is pending. Urinalysis essentially shows some bacteria, but nothing else. Coagulation show PT 14.2, INR 1.05, PTT 31.7. Urine and blood cultures are pending. Chest x-ray has been done and it show stable termination infiltrating cardiomegaly, mild central vascular congestion, negative for consolidation. FINAL IMPRESSION: 1. Right foot wounds with cellulitis, rule out osteomyelitis. 2. Uncontrolled diabetes mellitus type 2 with diabetic nephropathy. 3. Acute on chronic renal failure stage 3. 4. Morbid obesity. 5. Coronary artery disease, status post stent placement. PLAN OF TREATMENT: We are going to start the patient on Levaquin 500 mg IV daily because the patient is allergic to penicillin. We are going to continue rest of medication, which include Tylenol 650 mg q.6 hours as needed for pain or fever, aspirin 81 mg daily, benazepril 40 mg daily. Continue normal saline at 80 mL an hour. He is on furosemide 40 mg twice a day. I am going to discontinue Lantus. I am going to discontinue Humalog because the patient is taking NovoLog 70/30, 60 units in the morning, 40 units in the evening, continue metoprolol 100 mg daily, Zofran 4 mg IV q.4 hours as needed for nausea and vomiting, Zocor 40 mg daily, faguqtky-hqxugwukb-vsiuqku one packet daily. We are going to consult also Dr. Hines for Nephrology due to a chronic renal failure stage 3. We are going to consult with Dr. Flowers for Infectious Diseases and also a consult with Podiatry, Dr. Noyola. MD PEE Shankar/NILSA /[id number]
--- NOTE | 2020-05-16 15:19 | Consultation ---
DATE OF CONSULTATION: HISTORY OF PRESENT ILLNESS: Mr. Shields is known to me from clinic and from previous admission. He is a 79-year-old white male, history of obesity, diabetes mellitus, neuropathy, chronic venous stasis, venous dermatitis, and chronic kidney disease. The patient comes in with redness and swelling of both legs, infection worse on the 2nd toe on the right foot. The patient has been seen by the Wound Care. He was sent here to be admitted. PAST MEDICAL HISTORY: Obesity, diabetes mellitus, coronary artery disease, and neuropathy. PAST SURGICAL HISTORY: Denies. SOCIAL HISTORY: There is no smoking, drug abuse, or alcohol abuse. LABORATORY DATA: White count is 6.7 and hemoglobin of 10. His COVID-19 is still pending. Sodium 140, potassium 4.4, and creatinine 1.58. MEDICATIONS: He is currently on Levaquin. ALLERGIES: HE IS ALLERGIC TO PENICILLIN. PHYSICAL EXAMINATION: GENERAL: He is currently alert and oriented. VITAL SIGNS: Stable, currently afebrile. HEENT: He is not icteric. NECK: Supple. CHEST: Clear. HEART: S1 and S2. ABDOMEN: Soft. Bowel sounds present. EXTREMITIES: On the right, there is erythema. There is edema of bilateral. The toes have skin discoloration. IMPRESSION: 1. Bilateral lower extremities cellulitis, edema, and chronic kidney disease. We will give the patient vancomycin 1 g q.[address] of the foot. Rule out osteomyelitis. We will consult Wound Care. 2. The patient complained to me about he could not control his urine. We will consult Urology. Discussed with Internal Medicine. We will follow. MD RIN Hyatt/NILSA /[id number]
[2020-05-16] MEDS: VANCOMYCIN 1GM/NS 250 ML 250 ML IV SCH (16:24)
--- NOTE | 2020-05-16 16:30 | Diagnostic Imaging Report ---
Right foot, 3 views INDICATION: ^Cellulitsis ^[id number] ^1544 Comparison: 07/01/2019. Discussion: Multiple views of the right foot demonstrate cortical erosion and indistinct margins of the distal phalanx of the third digit with focal soft tissue swelling. No other areas of cortical erosion or periosteal reaction are noted. No subcutaneous emphysema is noted. Negative for grossly displaced fracture or dislocation. Stable severe degenerative changes of the midfoot. Vascular calcifications are noted. Negative for tibiotalar joint effusion. IMPRESSION: 1. Acute osteomyelitis of the distal phalanx of the third right toe with overlying soft tissue swelling and skin ulceration. 2. Stable advanced degenerative changes of the midfoot. Signed by: Dedrick Duke MD on 05/16/2020 4:26 PM
--- NOTE | 2020-05-16 16:32 | Diagnostic Imaging Report ---
EXAM: Renal Ultrasound INDICATION: ^CKD ^[id number] ^1525 ^Y COMPARISON: 01/07/2019 TECHNIQUE: Transverse and longitudinal images of the kidneys and bladder were obtained. FINDINGS: Limited evaluation. Right Kidney: Length: 13.8 cm Appearance: Normal echogenicity. Collecting system: No hydronephrosis Stones: None Cyst/Mass: Known right superior cyst is not well visualized. This questionably visualized on a single image measuring up to 4 cm. Left Kidney: Length: 11.7 cm Appearance: Normal echogenicity. Collecting system: No hydronephrosis Stones: None. Previous identified 1.3 cm obstructing calculus is not well visualized. Cyst/Mass: None Bladder: Limited as patient was unable to lay flat to evaluate both the bladder and pelvis/prostate. IMPRESSION: Limited evaluation. Negative for hydronephrosis or obstructing calculus. Signed by: Dedrick Duke MD on 05/16/2020 4:29 PM
[2020-05-16] MEDS: INSULIN ASPART 70/30 100 UNITS/ML VIAL SC SCH (16:46)
--- NOTE | 2020-05-16 18:29 | Consultation ---
DATE OF CONSULTATION: Initial Nephrology Consultation REASON FOR CONSULTATION: Chronic kidney disease. HISTORY OF PRESENT ILLNESS: Mr. Stefan Shields is a 79-year-old male. He has seen Dr. Hines in his office before. The patient has multiple medical problems. He is admitted to the hospital to for a wound on the right foot, osteomyelitis is being ruled out. I have been asked to see him for follow along for his kidneys. The patient has no complaints. No chest pain or shortness of breath. PAST MEDICAL HISTORY: 1. The patient has a history of diabetes for about 30 years. 2. Hypertension for about 30 years. 3. Coronary artery disease. 4. Chronic kidney disease. 5. Morbid obesity. PAST SURGICAL HISTORY: None. REVIEW OF SYSTEMS: The patient denies any night sweats, fever, chills. MEDICATIONS: The patient is on: 1. Levaquin. 2. Metoprolol. 3. Benazepril. 4. Aspirin. 5. Zocor. 6. Insulin. 7. He got one dose of vancomycin. PHYSICAL EXAMINATION: VITAL SIGNS: Blood pressure , pulse 62, respirations 17. GENERAL: The patient is morbidly obese. HEENT: No increased JVD. CARDIOVASCULAR: Regular rate and rhythm. LUNGS: Decreased breath sounds bilaterally. ABDOMEN: Positive bowel sounds. EXTREMITIES: The patient has edema of both legs. He also has wraps around both of his legs. LABORATORY RESULTS: Sodium 140, potassium 4.4, chloride 106, bicarb 20, BUN and creatinine 1.6 respectively. Urinalysis is negative for everything. His white count is 6.7, hemoglobin and hematocrit 10 and 33, platelet count is 162. IMPRESSION: 1. Chronic kidney disease stage 3. 2. Diabetes. 3. Hypertension. 4. Rule out osteomyelitis. 5. Foot infection. PLAN: The patient's renal function is relatively stable and the patient was last seen by Dr. Hines on 05/2019 that about a year ago that visit and the serum creatinine level fluctuated between 0.9 and 1.3, and creatinine is 1.58 now. Volume status is okay, I will continue to monitor. NSAIDs, calcium as IV contrast should be avoided. The patient's hemoglobin and hematocrit are good. There is no need for Epogen. I will check a phosphorus and intact PTH level. Right now, we will continue with the ENMANUEL inhibitor is okay. Thank you, Dr. Jackson for this consultation. Ather MD MAURI Melgoza/NILSA /[id number]
--- NOTE | 2020-05-16 19:10 | NUR ---
RECEIVED BEDSIDE REPORT. PATIENT IS SITTING IN RECLINER, AAOX3. RESP EVEN AND UNLABORED. NO ACUTE DISTRESS NOTED. BLE DRESSING NOTED, DRY AND INTACT. EDUCATED PT ABOUT FALL PRECAUTIONS. PT VERBALIZED UNDERSTANDING. BED IS LOW AND LOCKED. SIDE RAILS X2. CALL LIGHT WITH IN EASY REACH. ALL SAFETY MEASURES IN PLACE. PT DENIES NEEDS AT THIS TIME. CONTINUE TO MONITOR CLOSELY
--- NOTE | 2020-05-16 20:30 | NUR ---
DR SHARP ROUNDED. NEW ORDER RECEIVED FOR WOUND CARE
--- NOTE | 2020-05-16 21:00 | Consultation ---
DATE OF CONSULTATION: 05/16/2020 REASON FOR CONSULTATION: Cellulitis with possible osteomyelitis to the 3rd toe, right foot, with the patient being an insulin-dependent diabetic. HISTORY OF PRESENT ILLNESS: This is a pleasant 79-year-old white male with a history of insulin-dependent diabetes times 25 plus years, hypertension, hypercholesteremia, and congestive heart failure, who relates he started having lesions to the forefoot aspect of the right foot for approximately 3-4 weeks, now [facility]. Started getting some cellulitis. He is denying any history of fever, chills, nausea, or vomiting. He has a lot of swelling to both lower extremities, had vein procedures per Dr. Cheng to both lower extremities several months ago. He is denying any history of fever, chills, nausea, or vomiting at this time. PAST MEDICAL HISTORY: As described above. PAST SURGICAL HISTORY: Remarkable for vein surgery to both lower extremities, heart stent per Dr. Cheng. ALLERGIES: TO PENICILLIN. CURRENT MEDICATIONS: Note listed in chart including IV vancomycin and Levaquin. FAMILY HISTORY: Remarkable for diabetes. REVIEW OF SYSTEMS: CARDIAC: Denies any palpitations or arrhythmias. RESPIRATORY: Denies any shortness of breath or productive cough. GASTROINTESTINAL: Denies any diarrhea or constipation. GENITOURINARY: Denies any hematuria. PHYSICAL EXAMINATION: VITAL SIGNS: Afebrile, pulse rate 62, respirations 19, blood pressure 136/66, O2 saturation 100%. Podiatric reveals the following: VASCULATURE: Unable to be determined, but CFT to all toes less than 3 seconds. The patient has compression dressings to both lower extremities for his venous insufficiency and lymphedema. NEUROLOGICAL: Reveals loss of protective sensation when utilizing Auburn-Luigi 5.07 monofilament wire. MUSCULOSKELETAL: Examination reveals positive edema to both lower extremities. Muscle strength to be 4/5 to all muscle groups. DERMATOLOGICAL: There was a swollen, 2nd toe right foot with a grade 3 ulceration distal aspect 3rd toe right foot. LABORATORY DATA: Noted, has a white blood cell count of 6.72, hemoglobin 10.8, with a platelet count of 162. Has a blood glucose of 265. IMAGING: X-rays visualized, questionable for possible osteomyelitis of the distal phalanx of the 3rd toe, right foot. Currently no drainage, with no foul smell. ASSESSMENT: Diabetic neuropathy, osteomyelitis, 3rd toe, right foot with cellulitis. PLAN: We will start diluted wet-to-dry Betadine and Santyl collagenase to the 3rd toe right foot, Bactroban ointment to the 2nd toe, right foot followed by diluted wet-to-dry Betadine. Continue IV antibiotics. Continue offloading. We will continue to follow tomorrow morning. Dr. Bucio will take over as of Thursday. KEVIN Lucio/NILSA /[id number]
[2020-05-16] MEDS: SIMVASTATIN 40 MG TAB PO SCH (21:05)
[2020-05-17] VITALS (7 sets, daily range): BP systolic 111–133; BP diastolic 45–74
--- NOTE | 2020-05-17 05:16 | NUR ---
wound treatment done on right and left foot. no santyl or batroban available due to pharmacy not in house. use betadine wet to dry dressing.
[2020-05-17] MEDS: INSULIN REGULAR, HUMAN 100 UNIT/1 ML 3ML VIAL SQ SCH ×4 (07:30→21:00)
[2020-05-17] MEDS: INSULIN ASPART 70/30 100 UNITS/ML VIAL SC SCH ×2 (08:00→16:24)
--- NOTE | 2020-05-17 08:36 | Progress Note ---
DATE: 05/17/2020 SUBJECTIVE: The patient at bedside, doing better. Denies any history of fever, chills, nausea, or vomiting. OBJECTIVE: VITAL SIGNS: Afebrile, pulse rate 56, respirations 18, blood pressure 133/54, O2 saturation 100%. LABORATORY DATA: Labs show white blood cell count of 6.7. Ulceration, 3rd toe, right foot, looks better, decreased swelling to the 2nd digit, right foot. Compression dressings on. CFT to all toes less than 4 seconds. ASSESSMENT: Grade 3 ulcer, 3rd toe, right foot, osteomyelitis, cellulitis with diabetic neuropathy, lymphedema. PLAN: Continue compression dressings. Continue Santyl followed by diluted wet-to-dry Betadine to the 3rd toe, right foot. Bactroban followed by diluted wet-to-dry Betadine to the 2nd toe, right foot. Dr. Bucio will take over this patient, since I will be out of town until next . KEVIN Lucio/NILSA /[id number]
[2020-05-17] MEDS: CALCIUM HMB PO SCH (09:00)
[2020-05-17] MEDS ORDERED: TAMSULOSIN HCL 0.4 MG CAP PO SCH (09:00)
[2020-05-17] MEDS: ARGININE PO SCH (09:00)
[2020-05-17] MEDS: GLUTAMINE PO SCH (09:00)
[2020-05-17] MEDS: MUPIROCIN 2% OINT 22 GM TUBE TOP SCH ×2 (09:08→16:26)
[2020-05-17] MEDS: COLLAGENASE OINTMENT 30 GM TUBE TP SCH ×2 (09:08→16:26)
[2020-05-17] MEDS: LEVOFLOXACIN 500MG/D5W 100ML 100 ML IV SCH (09:08)
[2020-05-17] MEDS: METOPROLOL SUCCINATE 50 MG TAB XL PO SCH ×2 (09:09→09:12)
[2020-05-17] MEDS: ASPIRIN 81 MG CHEW TAB PO SCH (09:09)
[2020-05-17] MEDS: BENAZEPRIL HCL 10 MG TAB PO SCH (09:25)
[2020-05-17 09:28] LABS: ANION GAP 16.6 mmol/L (8-16); CALCIUM 8.6 mg/dL (8.4-10.2); CREATININE, SERUM 1.47 mg/dL (0.72-1.25); POTASSIUM 4.6 mmol/L (3.5-5.1)
[2020-05-17 09:46] LABS: ALBUMIN 3.6 g/dL (3.5-5.0); PHOSPHORUS 3.4 MG/DL (2.3-4.7)
--- NOTE | 2020-05-17 10:57 | Progress Note ---
DATE: Internal Medicine Progress Note SUBJECTIVE: The patient is doing well. No significant complaint. PHYSICAL EXAMINATION: VITAL SIGNS: Blood pressure 136/54, temperature 38.6, heart rate 56 per minute, respiratory rate 19 per minute, O2 saturation 100%. EXTREMITIES: He had a dressing on the right leg, which has some evidence of swelling. LABORATORY DATA: On the blood work, blood sugar is 183. On the BMP; sodium 140, potassium 4.4, chloride 106, CO2 20, BUN 61, creatinine 1.58, glucose 145, calcium 9.6, and total bilirubin 0.6. CBC show white blood count 6.72, hemoglobin 10.8, hematocrit 33.2, and platelet count 162,000. Coronavirus test is negative. Blood cultures negative. Urine culture negative. We are waiting for the wound culture report. On the foot x-ray showed osteomyelitis on the distal phalanx of the 3rd right toe with overlying soft tissue swelling and skin ulceration stable, advance degenerative changes in the right foot. Renal ultrasound showed limited evaluation, negative for hydronephrosis with obstructing calculus. Chest x-ray was negative except for some cardiomegaly, mild central vascular congestion, negative for focal consolidation. IMPRESSION: 1. Right foot wound with cellulitis and osteomyelitis on the right 3rd toe. 2. Uncontrolled diabetes mellitus type 2 with diabetic nephropathy. 3. Acute on chronic renal failure stage 3. 4. Obesity. 5. Coronary artery disease. PLAN OF TREATMENT: We are going to continue with Levaquin 500 mg IV once a day. Continue vancomycin 1 g IV once a day. Continue Tylenol 650 mg q.6 hours as needed for mild pain, aspirin 81 mg daily, benazepril 40 mg daily, collagenase one application topical twice a day, D50 push as needed for hypoglycemia, furosemide 40 mg twice a day, has been placed on hold because of acute renal failure. Continue with NovoLog 70/30 50 units twice a day. Continue monitoring blood sugar before meals and at bedtime, continue metoprolol 100 mg daily. Continue Zofran 4 mg IV q.4 hours as needed for nausea and vomiting, simvastatin 40 mg daily, Flomax 0.4 mg at bedtime, [id number]-zqxceep 1 packet daily. The patient has been seen by Dr. Flowers for Infectious Diseases and also has been seen by Dr. Noyola for watch adjuster . MD PEE Shankar/NILSA /[id number]
--- NOTE | 2020-05-17 13:23 | Progress Note ---
DATE: 05/17/2020 Renal Progress Note SUBJECTIVE: Events over the past 24 hours have been noted. The patient is sitting in his chair. He has his legs elevated. PHYSICAL EXAMINATION: VITAL SIGNS: Blood pressure 116/74, pulse 58, afebrile. GENERAL: The patient is obese. HEENT: No increased JVD. CARDIOVASCULAR: Regular rate and rhythm. LUNGS: Decreased breath sounds. ABDOMEN: Positive bowel sounds. EXTREMITIES: The patient has some edema of both legs, especially his right leg is wrapped with Mark Anthony wrapped and there is a sock over it. LABORATORY RESULTS: Hemoglobin and hematocrit at 10 and 33 respectively. Sodium 137, potassium 4.2, chloride 105, bicarbonate 20, BUN and creatinine 48 and 1.47 respectively. Phosphorus is 3.4, calcium 8.6. IMPRESSION: 1. Chronic kidney disease stage 3. 2. Diabetes. 3. Hypertension. 4. New diagnosis of osteomyelitis. 5. Edema. PLAN: The patient's renal function is actually improving. The creatinine has gone down from 1.8 to 1.47. His electrolytes are stable. From a volume standpoint he does have some trace edema of the legs, but this may not be hydrostatic edema. The patient also has some incontinence issues. He is on Flomax for this. I discussed the possibility of putting the patient on Lasix to reduce the edema, but the patient states that he has had big thighs and big legs for a very long time and he does not want to be inconvenienced by an increased urine output with the Lasix. So I have decided to hold the Lasix since the patient does not wish to take it because it would cause him to have to get up more to use the bathroom, continue present management. Ather MD MAURI Melgoza/NILSA /[id number]
[2020-05-17] MEDS ORDERED: ONDANSETRON HCL 4 MG ORAL DISINTEGRATING TAB PO PRN (14:30)
--- NOTE | 2020-05-17 14:38 | NUR ---
Infectious disease progress note The patient is open to chair comfortable review of systems nothing new is still weak his physical exam was clinically alert oriented but is stable currently afebrile patient is not supple chest clear heart S1-S2 no sperm were abdomen soft obese extremities still with edema but seems to be better erythema also seen to better. Limited review chart reviewed. Cellulitis bilateral lower extremities obesity and lymphedema bilateral lower extremity venous stasis ulcer with dermatitis. concerned about osteomyelitis right foot third toe Recommend 8 weeks of intravenous antibiotic leave antibiotic as ordered weekly CBC with a clicking panel PICC line. 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
[2020-05-17] MEDS: VANCOMYCIN 1GM/NS 250 ML 250 ML IV SCH (14:46)
--- NOTE | 2020-05-17 19:15 | NUR ---
RECEIVED BEDSIDE REPORT. PATIENT IS SITTING IN RECLINER, AAOX3. RESP EVEN AND UNLABORED. NO ACUTE DISTRESS NOTED. BLE DRESSING NOTED, DRY AND INTACT. EDUCATED PT ABOUT FALL PRECAUTIONS. PT VERBALIZED UNDERSTANDING. CALL LIGHT WITH IN EASY REACH. ALL SAFETY MEASURES IN PLACE. PT DENIES NEEDS AT THIS TIME. CONTINUE TO MONITOR CLOSELY
[2020-05-17] MEDS: TAMSULOSIN HCL 0.4 MG CAP PO SCH (20:50)
[2020-05-17] MEDS: SIMVASTATIN 40 MG TAB PO SCH (20:50)
[2020-05-17] MEDS: ACETAMINOPHEN 325 MG TAB PO PRN (21:42)
[2020-05-18] VITALS (8 sets, daily range): BP systolic 103–134; BP diastolic 41–60
[2020-05-18] MEDS: COLLAGENASE OINTMENT 30 GM TUBE TP SCH ×2 (05:54→18:26)
[2020-05-18] MEDS: MUPIROCIN 2% OINT 22 GM TUBE TOP SCH ×2 (05:54→18:26)
--- NOTE | 2020-05-18 05:55 | NUR ---
WOUND CARE TREATMENT DONE PER ORDER
[2020-05-18] MEDS: INSULIN REGULAR, HUMAN 100 UNIT/1 ML 3ML VIAL SQ SCH ×4 (07:30→20:30)
[2020-05-18 07:31] LABS: ANION GAP 17.8 mmol/L (8-16); CALCIUM 8.5 mg/dL (8.4-10.2); CREATININE, SERUM 1.48 mg/dL (0.72-1.25); POTASSIUM 4.8 mmol/L (3.5-5.1)
[2020-05-18] MEDS: CALCIUM HMB PO SCH (09:00)
[2020-05-18] MEDS: ARGININE PO SCH (09:00)
[2020-05-18] MEDS: FUROSEMIDE 40 MG TAB PO SCH ×2 (09:00→16:14)
[2020-05-18] MEDS: GLUTAMINE PO SCH (09:00)
[2020-05-18] MEDS: ASPIRIN 81 MG CHEW TAB PO SCH (09:02)
[2020-05-18] MEDS: BENAZEPRIL HCL 10 MG TAB PO SCH (09:02)
[2020-05-18] MEDS: LEVOFLOXACIN 500 MG TAB PO SCH (09:02)
[2020-05-18] MEDS: INSULIN ASPART 70/30 100 UNITS/ML VIAL SC SCH ×2 (10:36→16:42)
[2020-05-18] MEDS: VANCOMYCIN 1GM/NS 250 ML 250 ML IV SCH (14:18)
--- NOTE | 2020-05-18 15:45 | NUR ---
Dr. Paredes notified that patient is refusing Lasix
--- NOTE | 2020-05-18 17:40 | Progress Note ---
DATE: 05/18/2020 Renal Progress Note SUBJECTIVE: Events over the past 24 hours have been noted. The patient has no complaints. He is sitting in the chair. His legs are down. PHYSICAL EXAMINATION: VITAL SIGNS: Blood pressure is 107/48, pulse 58. GENERAL: The patient is obese. HEENT: No increased JVD. CARDIOVASCULAR: Regular rate and rhythm. LUNGS: Decreased breath sounds. ABDOMEN: Positive bowel sounds. Nontender and nondistended. No guarding. No rebound. EXTREMITIES: The patient has some edema of both legs, especially his right leg is wrapped with Mark Anthony wrap. LABORATORY RESULTS: Sodium 137, potassium 4.8, chloride 104, bicarbonate 20, BUN and creatinine 47 and 1.48 respectively. Hemoglobin and hematocrit 10.8 and 33.2 respectively. IMPRESSION: 1. Chronic kidney disease, stage 3. 2. Diabetes. 3. Hypertension. 4. Osteomyelitis of the toe on the right foot. 5. Edema. The patient's renal function is remaining stable, and his initial creatinine was 1.8 and it went to 1.58, then 1.47 and today it is 1.48. I have been holding his Lasix, however, he is edematous. I think I will reintroduce Lasix probably 40 mg p.o. once a day if he is able to tolerate this. If he is not, so inconvenience by having this dose, then maybe in the few days, I can increase it to twice a day if there is still edema. It might be that maybe this dose of Lasix once a day maybe enough to relieve his edema. Ather MD MAURI Melgoza/NILSA /[id number]
--- NOTE | 2020-05-18 18:19 | Progress Note ---
DATE: Internal Medicine Progress Note SUBJECTIVE: The patient has osteomyelitis on the right 3rd toe. The patient is on IV antibiotics. He is going to be transferred to LTAC once accepted. PHYSICAL EXAMINATION: HEART: Showed regular rhythm. Normal S1, S2 sound. LUNGS: Clear bilaterally. ABDOMEN: Soft. EXTREMITIES: Show dressing on both lower extremities. VITAL SIGNS: Blood pressure 124/52, temperature 97.6, heart rate 58 per minute, respiratory rate 19 per minute, oxygen saturation 100%. LABORATORY DATA: On the CBC, white blood count 6.72, hemoglobin 10.8, hematocrit 33.2, and platelet count 162,000. On the BMP; sodium 137, potassium 4.8, chloride 104, CO2 20, BUN 47, creatinine 1.48, glucose 191, calcium 8.5. COVID test showed no coronavirus. Urine showed negative urinalysis. Foot x-rays show osteomyelitis of the distal phalanx of the right 3rd toe with overlying soft tissue swelling and skin ulceration stable advanced degenerative changes in the midfoot. Renal ultrasound showed limit evaluation, negative for hydronephrosis or calculus. FINAL IMPRESSION: 1. Osteomyelitis on the right 3rd toe. 2. Acute on chronic renal failure, stage 3. 3. Uncontrolled diabetes mellitus type 2 with diabetic nephropathy. 4. Obesity. 5. Coronary artery disease. PLAN OF TREATMENT: Continue IV vancomycin. Continue p.o. Levaquin. IV vancomycin 1 g IV once a day, Tylenol 650 mg q.6 hours as needed for pain or fever, aspirin 81 mg daily, Lotensin 40 mg daily, collagenase which is Santyl application topical twice a day, furosemide 40 mg twice a day, Novolin 70/30, 50 units twice a day. Continue monitoring blood sugar before meals and at bedtime. Continue Levaquin 500 mg daily, metoprolol 100 mg daily, Toprol-XL, mupirocin one application topically twice a day, Zofran 4 mg q.4 hours as needed for nausea and vomiting, Zocor 40 mg daily, Flomax 0.4 mg daily. Arginine-glutamine and calcium 1 packet daily. MD PEE Shankar/MODL /[id number]
--- NOTE | 2020-05-18 18:38 | NUR ---
progress note Patient is currently lying in bed comfortably no complaints patient is seen examination reviewed physical exam is currently alert oriented Patient with obesity Vitals stable afebrile HEENT normocephalic neck supple Chest clear bilateral Heart S1-S2 Abdomen obese Leg seems to be better Less redness or swelling Impression Osteomyelitis of the foot Cellulitis of the leg Morbidly obese patient Diabetes mellitus with neuropathy Lymphedema Recommend 6 weeks of IV antibiotic vancomycin and Rocephin would need a PICC line May benefit from going to an LTAC is very complicated
[2020-05-18] MEDS: TAMSULOSIN HCL 0.4 MG CAP PO SCH (20:39)
[2020-05-18] MEDS: SIMVASTATIN 40 MG TAB PO SCH (20:39)
[2020-05-18] MEDS: ACETAMINOPHEN 325 MG TAB PO PRN (20:39)
--- NOTE | 2020-05-18 21:47 | NUR ---
PATIENT WANTS TO SLEEP IN THE RECLINER. CALL LIGHT WITHIN REACHED. PATIENT WILL CALL FOR ASSISTANCE IF NEEDED BUT STATES HE IS OK AMBULATING WITH THE WALKER.
[2020-05-19] VITALS (8 sets, daily range): BP systolic 101–124; BP diastolic 44–61
[2020-05-19 06:26] LABS: ANION GAP 16.5 mmol/L (8-16); CALCIUM 8.5 mg/dL (8.4-10.2); CREATININE, SERUM 1.28 mg/dL (0.72-1.25); POTASSIUM 4.5 mmol/L (3.5-5.1)
[2020-05-19] MEDS: INSULIN REGULAR, HUMAN 100 UNIT/1 ML 3ML VIAL SQ SCH ×4 (07:30→21:00)
--- NOTE | 2020-05-19 07:49 | NUR ---
ASSUMED CARE. AAOX3. ACYANOTIC. RESTING IN BED. NO DISTRESS NOTED. CALL LIGHT IN REACH. SIDE RAILS UP X2. BED LOW AND LOCKED.
[2020-05-19] MEDS: GLUTAMINE PO SCH (08:16)
[2020-05-19] MEDS: ARGININE PO SCH (08:16)
[2020-05-19] MEDS: CALCIUM HMB PO SCH (08:16)
[2020-05-19] MEDS: ASPIRIN 81 MG CHEW TAB PO SCH (08:34)
[2020-05-19] MEDS: FUROSEMIDE 40 MG TAB PO SCH ×2 (08:34→18:22)
[2020-05-19] MEDS: BENAZEPRIL HCL 10 MG TAB PO SCH (08:34)
[2020-05-19] MEDS: LEVOFLOXACIN 500 MG TAB PO SCH (08:34)
[2020-05-19] MEDS: METOPROLOL SUCCINATE 50 MG TAB XL PO SCH (08:35)
[2020-05-19] MEDS: INSULIN ASPART 70/30 100 UNITS/ML VIAL SC SCH ×2 (08:37→18:23)
--- NOTE | 2020-05-19 09:13 | NUR ---
Received order for LTAC eval. CM spoke to pt at bedside. Discussed choices close to this area. Pt states he wants to speak with his later today before making a decision. Will follow up.
[2020-05-19] MEDS: ACETAMINOPHEN 325 MG TAB PO PRN ×2 (09:33→21:33)
[2020-05-19] MEDS: COLLAGENASE OINTMENT 30 GM TUBE TP SCH ×2 (09:33→18:22)
[2020-05-19] MEDS: MUPIROCIN 2% OINT 22 GM TUBE TOP SCH ×2 (09:33→18:22)
--- NOTE | 2020-05-19 14:52 | Progress Note ---
DATE: SUBJECTIVE: Mr. Shields is doing well. There are no new complaints. He would like to see his leather scraper, Dr. Cheng. He is concerned about the PICC line. The patient apparently had a stent placed 3 months ago. Reviewed with him his finding. The patient, who had Staphylococcus aureus in his wound, MSSA as well as Enterococcus. PHYSICAL EXAMINATION: GENERAL: He is currently alert and oriented. VITAL SIGNS: Stable, currently afebrile. HEENT: He is not icteric. NECK: Supple. CHEST: Clear. HEART: S1 and S2. ABDOMEN: Soft. Bowel sounds present. EXTREMITIES: No edema. SKIN: No rash. IMPRESSION: 1. Osteomyelitis and the patient, who is allergic to penicillin. He is currently on Levaquin and vancomycin. 2. Obesity. 3. Chronic kidney disease. I am going to stop his vancomycin and Levaquin, start him on clindamycin. Consult Cardiology. He would need a central line. 4. We will follow. MD RIN Hyatt/NILSA /[id number]
[2020-05-19] MEDS: CLINDAMYCIN 600MG / 50ML 50 ML IV SCH ×2 (18:22→23:48)
[2020-05-19] MEDS: SIMVASTATIN 40 MG TAB PO SCH (21:32)
[2020-05-19] MEDS: TAMSULOSIN HCL 0.4 MG CAP PO SCH (21:32)
[2020-05-20] VITALS (10 sets, daily range): BP systolic 89–121; BP diastolic 35–49
[2020-05-20] MEDS: CLINDAMYCIN 600MG / 50ML 50 ML IV SCH ×3 (05:55→18:00)
--- NOTE | 2020-05-20 06:04 | NUR ---
DRESSING TO LOWER EXTREMITIES DONE
[2020-05-20] MEDS: INSULIN REGULAR, HUMAN 100 UNIT/1 ML 3ML VIAL SQ SCH ×4 (07:30→20:14)
[2020-05-20] MEDS: GLUTAMINE PO SCH (08:30)
[2020-05-20] MEDS: ARGININE PO SCH (08:30)
[2020-05-20] MEDS: BENAZEPRIL HCL 10 MG TAB PO SCH (08:30)
[2020-05-20] MEDS: CALCIUM HMB PO SCH (08:30)
[2020-05-20] MEDS: FUROSEMIDE 40 MG TAB PO SCH ×2 (08:30→17:41)
[2020-05-20] MEDS: METOPROLOL SUCCINATE 50 MG TAB XL PO SCH (08:31)
[2020-05-20] MEDS: COLLAGENASE OINTMENT 30 GM TUBE TP SCH ×2 (08:34→18:00)
[2020-05-20] MEDS: MUPIROCIN 2% OINT 22 GM TUBE TOP SCH ×2 (08:34→18:00)
[2020-05-20] MEDS: LEVOFLOXACIN 500 MG TAB PO SCH (08:39)
[2020-05-20] MEDS: ASPIRIN 81 MG CHEW TAB PO SCH (08:39)
[2020-05-20] MEDS: ACETAMINOPHEN 325 MG TAB PO PRN ×2 (08:40→21:30)
[2020-05-20] MEDS: INSULIN ASPART 70/30 100 UNITS/ML VIAL SC SCH ×2 (08:43→17:42)
--- NOTE | 2020-05-20 14:11 | Progress Note ---
DATE: SUBJECTIVE: The patient is seen and evaluated. Available labs and notes reviewed. Discussed with Dr. Flowers and I spoke with the attending, Dr. Fulton. REVIEW OF SYSTEMS: The patient states that clindamycin leaves funny taste in his mouth. Also wants to get another x-ray of his foot. He believes that the osteomyelitis is not going to be on x-ray at this time. Also, reluctant to go to [facility] for 6 weeks for IV antibiotics. Otherwise, no nausea, vomiting, fever, chills, chest pain, shortness of breath, headache, rash, dysuria, or polyuria. PHYSICAL EXAMINATION: VITAL SIGNS: Temperature 97.5, pulse 60, respirations 20, and blood pressure 107/49. GENERAL: Awake and alert. No acute distress. Comfortable in bed. Obese with a BMI of 42.6, as is documented. CV: S1 and S2. CHEST: Clear to auscultation. No acute distress. ABDOMEN: Soft, obese, and nontender. HEENT: Moist. No pallor. No JVD. EXTREMITIES: Right foot dressed, on local care and with toe ulcers on local care. MEDICATIONS: Reviewed and from ID point of view, the patient is on Levaquin and clindamycin. LABORATORY STUDIES: White count of 6.72, hemoglobin 10.8, and platelet 162. Sodium 138, potassium 4.5, and creatinine 1.28. Serology; coronavirus PCR not detected on 05/15/2020. MICROBIOLOGY: Wound culture showed Streptococcus and Enterococcus species, Staph is MSSA and Enterococcus, he was only seen a few colonies with identification and sensitivity pending. RADIOLOGY STUDIES: X-ray of the right foot on 05/16/2020, showed acute osteomyelitis of the distal phalanx of the 3rd right toe with overlying soft tissue swelling and skin ulceration. Also, the patient has stable advanced degenerative changes of the midfoot. ASSESSMENT AND PLAN: 1. Osteomyelitis as mentioned above. The patient is allergic to penicillin. Antibiotic changed to Levaquin and clindamycin. The patient complained that clindamycin leaves a bad taste in his mouth. 2. Chronic kidney disease with a creatinine of 1.28. Continue to monitor and adjust antibiotics. 3. Obesity/debility. 4. Hypertension. 5. Hyperlipidemia. 6. Diabetes. 7. Please refer to chart for more information. Discussed with Dr. Flowers. The patient is reluctant to go to LTAC for IV antibiotics. Dictated by Waldemar Hernandez) ROSCOE Grimes MD [place]STER Hyatt/NILSA /[id number]
--- NOTE | 2020-05-20 15:56 | Diagnostic Imaging Report ---
FOOT RIGHT COMPLETE - Multiple views HISTORY: RULE OUT OSTEOMYELITIS COMPARISON: Right foot x-ray dated 05/16/2020. FINDINGS: Again seen is cortical erosion and indistinct margins of the distal phalanx of the third digit which appears slightly worsened from prior exam. There is adjacent soft tissue swelling. There is also new questionable cortical erosion or at the tip of fourth and fifth phalanx. No subcutaneous emphysema is noted. Stable severe degenerative changes of the midfoot. Vascular calcifications are noted. IMPRESSION: 1. Slightly worsened cortical erosion of distal third phalanx compatible with osteomyelitis. 2. New questionable cortical erosion or at the tip of fourth and fifth phalanx could represent additional foci of osteomyelitis. Recommend follow-up x-ray to assess interval change. Signed by: Waldemar Henderson MD on 05/20/2020 3:53 PM
--- NOTE | 2020-05-20 16:18 | NUR ---
CM FOLLOWED UP WITH PT TODAY REGARDING CHOICE FOR LTAC PT VERY RELUCTANT TO GO TO LTAC FOR IV ABX SPOKE WITH DR [facility] TODAY WHO RECOMMENDS PICC LINE AND IV ABX FOR OSTEO PT REQUESTING TO SPEAK WITH DR RUSHING TOMORROW BEFORE HE MAKES HIS DECISION CM TO F/U TOMORROW
[2020-05-20] MEDS: SIMVASTATIN 40 MG TAB PO SCH (20:14)
[2020-05-20] MEDS: TAMSULOSIN HCL 0.4 MG CAP PO SCH (20:14)
--- NOTE | 2020-05-20 22:22 | Consultation ---
DATE OF CONSULTATION: 05/20/2020 Cardiology Consult Note REASON FOR CONSULTATION: Lower extremity wound, osteomyelitis. CHIEF COMPLAINT: Right toe ulceration. HISTORY OF PRESENT ILLNESS: The patient is a 79-year-old man with history of CAD, status post recent stenting and PAD, status post recent angiogram with severe bilateral lower extremity venous disease, status post multiple procedure, who presents with right toe ulceration, was nonhealing, suspected osteomyelitis. Denies chest pain or shortness of breath. He says he is worried about getting a PICC line because he had a recent stent placed. REVIEW OF SYSTEMS: As per HPI, otherwise negative. PAST MEDICAL HISTORY: As per HPI. SOCIAL HISTORY: He does not smoke, drink, or abuse drugs. FAMILY HISTORY: Noncontributory. OUTPATIENT MEDICATIONS: Reviewed. ALLERGIES: REVIEWED, ALLERGIC TO PENICILLINS. OBJECTIVE: VITAL SIGNS: Temperature afebrile, pulse 63, respiratory rate 20, blood pressure 90/45, and saturating 98% on room air. GENERAL: Elderly man, well developed, well nourished, in no acute distress. CARDIOVASCULAR: Regular rate and rhythm. No murmurs, rubs, or gallops. LUNGS: Clear to auscultation bilaterally. ABDOMEN: Soft, nontender, and nondistended. NEUROLOGIC AND PSYCH: Alert, oriented to person, place, and time. Normal affect. EXTREMITIES: Lower extremities are wrapped, so I did not physical examine, however, the patient showed me pictures of his toe ulcer, seems to have an ulceration at the tip of his third toe on the right side with some duskiness and discoloration around it. No signs of necrosis. INPATIENT MEDICATIONS: Reviewed. LABORATORY DATA: Reviewed. White count is 6.7. Creatinine 1.3. IMAGING DATA: Reviewed. Foot x-ray done on 05/16, shows acute osteomyelitis of the distal phalanx of the third right toe, overlying soft tissue swelling and ulceration. ASSESSMENT: 1. Right lower extremity toe ulceration with osteomyelitis. 2. History of coronary artery disease. 3. History of lymphedema and severe venous disease. 4. History of coronary artery disease, status post percutaneous coronary intervention. PLAN: We will get arterial duplex just to rule out any ischemia as a contributor to his toe ulceration, otherwise continue current CV medications. The patient needs a PICC line. There are no issues from a cardiovascular standpoint. I explained this to the patient as he was concerned regarding interaction of the PICC line with the stent in his heart, which there are none. Given his low blood pressure, we will also cut his home blood pressure medicines to half to see how he tolerates this, hold for systolic blood pressure is less than 100. Thank you for this consult. We will continue to follow. MD BRUCE Velarde/NILSA /[id number]
[2020-05-21] VITALS (8 sets, daily range): BP systolic 99–126; BP diastolic 44–54
[2020-05-21] MEDS: CLINDAMYCIN 600MG / 50ML 50 ML IV SCH ×4 (00:08→17:35)
--- NOTE | 2020-05-21 05:15 | NUR ---
Dressing changed per MD orders, tolerated well.
[2020-05-21] MEDS: MUPIROCIN 2% OINT 22 GM TUBE TOP SCH ×3 (05:37→17:35)
[2020-05-21] MEDS: COLLAGENASE OINTMENT 30 GM TUBE TP SCH ×3 (05:37→17:35)
--- NOTE | 2020-05-21 07:00 | NUR ---
SBAR BEDSIDE REPORT RECEIVED FROM CITLALLI GORMAN, PM SHIFT. PT WAS FOUND SITTING UP IN THE RECLINER IN NO ACUTE DISTRESS. PT IS AAOX4 AND IS ABLE TO MAKE NEEDS KNOWN; PT DENIES ANY NEEDS AT THIS TIME. PT WAS EDUCATED ON FALL RISK PRECAUTIONS AND PT VERBALIZED UNDERSTANDING. CALL LIGHT AND BELONGINGS PLACED NEARBY. WILL CONTINUE TO MONITOR.
--- NOTE | 2020-05-21 07:09 | NUR ---
Bedside report and walking rounds completed with oncoming nurse. Patient in chair with call light within reach. No issues or concerns noted.
[2020-05-21] MEDS: INSULIN REGULAR, HUMAN 100 UNIT/1 ML 3ML VIAL SQ SCH ×4 (07:30→20:25)
[2020-05-21] MEDS: INSULIN ASPART 70/30 100 UNITS/ML VIAL SC SCH ×2 (08:00→18:29)
[2020-05-21] MEDS: FUROSEMIDE 40 MG TAB PO SCH ×2 (09:14→17:34)
[2020-05-21] MEDS: LEVOFLOXACIN 500 MG TAB PO SCH (09:14)
[2020-05-21] MEDS: BENAZEPRIL HCL 10 MG TAB PO SCH (09:14)
[2020-05-21] MEDS: ASPIRIN 81 MG CHEW TAB PO SCH (09:14)
[2020-05-21] MEDS: ARGININE PO SCH (09:15)
[2020-05-21] MEDS: GLUTAMINE PO SCH (09:15)
[2020-05-21] MEDS: METOPROLOL SUCCINATE 50 MG TAB XL PO SCH (09:15)
[2020-05-21] MEDS: CALCIUM HMB PO SCH (09:15)
--- NOTE | 2020-05-21 16:35 | NUR ---
Nutrition Screen Note RD Recommendation for Physician: -Continue current diet as ordered Plan of Care: RD following, monitoring for tolerance and adequacy Nutrition reason for involvement: length of stay Primary Diagnose(s): cellulitis PMH: coronary artery disease, status post stent placement, diabetes,hypertension, morbid obesity, chronic renal failure stage 3. Ht: 72 in Wt: 314lb BMI: 42.6 kg/m2 IBW:[address] Assessment: (05/21/20) Chart reviewed. Labs and meds reviewed. Pt is a 79 year old male admitted with cellulitis. Pt reports eating >50% of his meals. No weight loss reported and pt stated he usually weighs 314 lbs. No N/V/D/C or chewing/swallowing issues. Pt declined the need for diet education. Will continue to monitor. Current Diet: 1800 ADA Malnutrition Evaluation (05/21/20) The patient does not meet criteria for a specified degree of malnutrition at this time. Will re-evaluate at follow-up as appropriate. Diet Education Needs Assessment: pt declined the need for diet education Nutrition Care Level: low Signed: Cynthia Barros, RD, LD
--- NOTE | 2020-05-21 17:41 | Progress Note ---
DATE: 05/21/2020 Renal progress note. SUBJECTIVE: The patient with no complaint, no chest pain and no shortness of breath. PHYSICAL EXAMINATION: VITAL SIGNS: Blood pressure 117/47, pulse 60, respirations 18. GENERAL: The patient is morbidly obese. HEENT: No increased JVD. CARDIOVASCULAR: Regular rate and rhythm. LUNGS: Decreased breath sounds. ABDOMEN: Positive bowel sounds. EXTREMITIES: The patient does have some edema of the legs. His legs are wrapped with an Mark Anthony wrap. LABORATORY RESULTS: There are no new labs from today. IMPRESSION: 1. Chronic kidney disease, stage 3. 2. Hypertension. 3. Diabetes. 4. Osteomyelitis of the toe of the foot. 5. Edema. The patient's renal function is a stable. Actually the last creatinine is 1.28. The patient finally agreed to the Lasix and Lasix is 40 mg p.o. b.i.d., we will continue this dose to relieve some of the edema. I will watch the BUN and creatinine closely. Ather MD MAURI Melgoza/NILSA /[id number]
--- NOTE | 2020-05-21 17:56 | Progress Note ---
DATE: SUBJECTIVE: Mr. Shields is complaining of shoulder pain. REVIEW OF SYSTEMS: Unremarkable. PHYSICAL EXAMINATION: GENERAL: He is currently alert, oriented. VITAL SIGNS: Stable, currently afebrile. HEENT: He is not icteric. NECK: Supple. CHEST: Few crackles. HEART: S1, S2. ABDOMEN: Soft. Bowel sounds present. EXTREMITIES: No edema. SKIN: No rash. EXTREMITIES: His foot seems to be better. IMPRESSION: Osteomyelitis of the foot with Staphylococcus aureus, obesity, and osteoarthritis, severe. The plan is to finish six weeks of IV antibiotic. He may need ortho evaluation for steroid injection, obesity, debility. Would benefit from going to an LTAC. Discussed with the patient. We will follow. MD RIN Hyatt/MODTara /[id number]
--- NOTE | 2020-05-21 18:26 | Progress Note ---
DATE: 05/21/2020 SUBJECTIVE: The patient is alert, awake, and oriented x3, currently in no acute distress. The patient denies any nausea, vomiting, fever, chills, thigh pain, chest pain, calf pain, or shortness of breath, also complains no pain in the right 3rd digit. OBJECTIVE: GENERAL: The patient is alert, awake, and oriented x3, currently not in acute distress. VITAL SIGNS: Temperature is 98.4, pulse 66, respiratory rate 22, and blood pressure 113/54. EXTREMITIES: On lower extremity evaluation, the right 3rd digit ulceration at the tip reveals no erythema at the tip of the ulceration, no active drainage. There is moist with surrounding hyperkeratotic tissue. No surrounding erythema is noted. However, the right 3rd digit is significantly inflamed and edematous. There is erythema to the toe proximally. No abscesses present. No purulence is noted. DIAGNOSTIC DATA: Last WBC on 05/16/2020, 6.72, RBC 3.63, hemoglobin 10.8, hematocrit 33.2, and platelet count 162. Cultures are consistent with Staph aureus as well as Enterococcus faecalis to the right 3rd digit. ASSESSMENT AND PLAN: 1. Osteomyelitis, right 3rd digit. 2. Diabetes mellitus, peripheral neuropathy. 3. Grade 3 ulceration, right 3rd digit. RECOMMENDATIONS: Today, the hyperkeratotic tissue was removed without complications. A sterile redress was performed with Santyl wet-to-dry with Betadine surrounding the area. This was with an overlying dressing. IV antibiotics per Dr. Flowers. I do agree with 6 weeks of IV antibiotics, currently on p.o. Levaquin and clindamycin IV. Further recommendations pending Dr. Flowers in regard to IV antibiotics. Continue with wound care with Santyl wet-to-dry. Dr. Noyola will follow in the outpatient setting. Marc KEVIN Bucio MM/NILSA /[id number]
--- NOTE | 2020-05-21 18:30 | NUR ---
CALL PLACED TO DR. CASSIDY AND AWARE THAT PATIENT HAD CARDIAC STENT PLACED FEBRUARY 2020. PRIOR TO ADMISSION, PATIENT WAS TAKING PLAVIX AND ASA. PLAVIX 75 MG RESUMED PER .
--- NOTE | 2020-05-21 19:11 | Progress Note ---
DATE: 05/21/2020 Cardiology Progress Note SUBJECTIVE: No major events overnight. OBJECTIVE: VITAL SIGNS: Temperature afebrile, pulse 56, respiratory rate 18, blood pressure 117/47, saturating 99% on room air. GENERAL: An elderly man, in no acute distress. CARDIOVASCULAR: Regular rate and rhythm. No murmurs, rubs, or gallops. LUNGS: Clear to auscultation anteriorly. ABDOMEN: Obese, soft, nontender, nondistended. NEURO AND PSYCH: Alert and oriented to person, place, and time. Normal affect. INPATIENT MEDICATIONS: Reviewed. LABORATORY DATA: Reviewed. TELEMETRY DATA: Reviewed, shows normal sinus rhythm. IMAGING DATA: Reviewed. Right lower extremity arterial Doppler demonstrates no significant obstructive PAD down to the popliteal artery. The proximal, anterior tibial, and posterior tibial arteries were not visualized due to his dressing, however, he does have pulsatile flow down to his dorsalis pedis. ASSESSMENT: 1. Right lower extremity toe ulceration with osteomyelitis. 2. History of coronary artery disease, status post percutaneous coronary intervention. 3. History of lymphedema and renovascular disease. 4. History of peripheral arterial disease. PLAN: Arterial duplex does not show any major stenoses. Continue wound care. Continue antibiotics. Okay to proceed with PICC line placement. Continue current cardiovascular medications. Doses of his antihypertensives were decreased due to hypertension, now his blood pressure is better controlled on reduced doses. Thank you for this consult. We will continue to follow. MD BRUCE Velarde/NILSA /[id number]
[2020-05-21] MEDS ORDERED: DIPHENHYDRAMINE HCL 25 MG CAP PO ONE (19:30)
[2020-05-21] MEDS: SIMVASTATIN 40 MG TAB PO SCH (20:25)
[2020-05-21] MEDS: TAMSULOSIN HCL 0.4 MG CAP PO SCH (20:25)
[2020-05-21] MEDS: CLOPIDOGREL BISULFATE 75 MG TAB PO SCH (20:25)
[2020-05-21] MEDS: ACETAMINOPHEN 325 MG TAB PO PRN (21:00)
[2020-05-22] VITALS (7 sets, daily range): BP systolic 105–127; BP diastolic 46–66
[2020-05-22] MEDS: CLINDAMYCIN 600MG / 50ML 50 ML IV SCH ×4 (00:18→19:29)
[2020-05-22] MEDS: MUPIROCIN 2% OINT 22 GM TUBE TOP SCH ×4 (05:30→18:00)
[2020-05-22] MEDS: COLLAGENASE OINTMENT 30 GM TUBE TP SCH ×4 (05:30→18:00)
[2020-05-22] MEDS: ACETAMINOPHEN 325 MG TAB PO PRN ×2 (05:49→21:05)
--- NOTE | 2020-05-22 06:00 | NUR ---
Dressing changed per MD orders, tolerated well.
--- NOTE | 2020-05-22 06:55 | NUR ---
BEDSIDE SBAR REPORT RECEIVED FROM CITLALLI GORMAN, PM SHIFT. PT FOUND SITTING UP IN RECLINER SOUND ASLEEP BUT EASILY AROUSED IN NO ACUTE DISTRESS. PT IS ABLE TO MAKE NEEDS KNOWN AND REQUESTED LIDODERM PATCH FOR LEFT SHOULDER PAIN AND A SECOND PAIR OF YELLOW SOCKS. SECOND PAIR OF YELLOW SOCKS APPLIED TO THE PT'S FEET. NOTE MADE OF PATIENT'S REQUEST FOR PATCH. PT WAS EDUCATED ON FALL RISK PRECAUTIONS AND VERBALIZED UNDERSTANDING. CALL LIGHT AND BELONGINGS PLACED NEARBY. WILL CONTINUE TO MONITOR.
[2020-05-22 07:04] LABS: ANION GAP 17.5 mmol/L (8-16); CALCIUM 8.6 mg/dL (8.4-10.2); CREATININE, SERUM 1.65 mg/dL (0.72-1.25); POTASSIUM 4.5 mmol/L (3.5-5.1)
--- NOTE | 2020-05-22 07:24 | NUR ---
Bedside report and walking rounds completed with oncoming nurse. Patient in chair with call light within reach. No issues or concerns noted.
[2020-05-22] MEDS: INSULIN REGULAR, HUMAN 100 UNIT/1 ML 3ML VIAL SQ SCH ×4 (07:30→20:18)
[2020-05-22] MEDS: LIDOCAINE 4% PATCH TP SCH ×2 (09:15→09:44)
[2020-05-22] MEDS: ASPIRIN 81 MG CHEW TAB PO SCH (09:15)
[2020-05-22] MEDS: FUROSEMIDE 40 MG TAB PO SCH (09:15)
[2020-05-22] MEDS: LEVOFLOXACIN 500 MG TAB PO SCH (09:15)
[2020-05-22] MEDS: CLOPIDOGREL BISULFATE 75 MG TAB PO SCH (09:15)
[2020-05-22] MEDS: BENAZEPRIL HCL 10 MG TAB PO SCH (09:15)
[2020-05-22] MEDS: METOPROLOL SUCCINATE 50 MG TAB XL PO SCH (09:16)
[2020-05-22] MEDS: INSULIN ASPART 70/30 100 UNITS/ML VIAL SC SCH ×3 (09:17→18:00)
[2020-05-22] MEDS: GLUTAMINE PO SCH (09:20)
[2020-05-22] MEDS: ARGININE PO SCH (09:20)
[2020-05-22] MEDS: CALCIUM HMB PO SCH (09:20)
--- NOTE | 2020-05-22 10:18 | Progress Note ---
DATE: Internal Medicine Progress Note SUBJECTIVE: The patient complained of left shoulder pain. PHYSICAL EXAMINATION: HEART: Showed regular rhythm. Normal S1, S2 sound. LUNGS: Clear bilaterally. ABDOMEN: Soft. EXTREMITIES: Show dressing on both lower extremities. VITAL SIGNS: Blood pressure 114/50, temperature is 97.6, heart rate 60 per minute, respiratory rate 18 per minute, oxygen saturation 100%. LABORATORY DATA: CBC; white count 6.72, hemoglobin 10.8, hematocrit 33.2, and platelet count 132,000. IMPRESSION: 1. Right foot wound with osteomyelitis. 2. Uncontrolled diabetes mellitus type 2 with diabetic nephropathy. 3. Acute on chronic renal failure, stage 3. 4. Obesity. 5. Coronary artery disease status post stent. PLAN OF TREATMENT: We are going to continue current medication regimen, which include clindamycin 600 mg IV q.6 hours, Tylenol 650 mg q.6 hours as needed for pain or fever, aspirin 81 mg daily, benazepril 20 mg daily, Plavix 75 mg daily, collagenase one application topical twice a day, furosemide 40 mg twice a day, Novolin 70/30, 60 units in the morning, 40 units in the evening. Continue to monitor blood sugar before meals and at bedtime. Continue Levaquin 500 mg daily. Continue metoprolol 50 mg daily. Continue Zofran 4 mg p.o. q.4 hours as needed for nausea and vomiting. Simvastatin 40 mg daily. Flomax 0.4 mg daily and qittaycg-[id number]-bsqtivg 1 packet daily. The patient going to get a PICC line. Consult Dr. Hernandez for orthopedic surgery because of left shoulder . He is going to be transferred to an LTAC once accepted. MD EPE Shankar/NOELL /[id number]
--- NOTE | 2020-05-22 10:48 | NUR ---
PATIENT HAS ORDERS FOR PICC LINE PLACEMENT FOR IV ABT X6 WEEKS. I RECEIVED CALL FROM LAB GFR=40. DR. RUSHING WAS MADE AWARE OF GFR AND CHANGED ORDER FROM PICC LINE TO MIDLINE PLACEMENT. JOEY, RADIOLOGY, MADE AWARE.
--- NOTE | 2020-05-22 10:51 | NUR ---
CM to pt's bedside to follow up on decision regarding LTAC. After speaking with Dr. Jackson this morning, pt is now agreeable to [facility]. Pt signed choice letter. Copy given to pt. Referral faxed to [facility] at [phone]. Simin Moore was informed of referral.
--- NOTE | 2020-05-22 12:00 | NUR ---
CONSULT CALLED TO DR. DEVON MG ([phone]) REGARDING PATIENT'S LEFT SHOULDER PAIN
--- NOTE | 2020-05-22 16:20 | Progress Note ---
DATE: 05/22/2020 Renal Progress Note SUBJECTIVE: Events over the past 24 hours have been noted. PHYSICAL EXAMINATION: VITAL SIGNS: Blood pressure 105/46, pulse 67, and respiratory rate 14. GENERAL: The patient is in no acute distress. The patient is morbidly obese. HEENT: No increased JVD. CARDIOVASCULAR: Regular rate and rhythm. LUNGS: Decreased breath sounds. ABDOMEN: Positive bowel sounds. EXTREMITIES: The patient has some edema of the legs, but his legs are wrapped with an Mark Anthony wrap. LABORATORY RESULTS: Sodium 138, potassium 4.5, chloride 105, bicarbonate 20, BUN and creatinine 53 and 1.65 respectively. IMPRESSION/PLAN: 1. Chronic kidney disease stage 3. 2. Acute kidney injury. 3. Hypertension. 4. Diabetes. 5. Osteomyelitis of the toe of the foot. 6. Edema. The patient's serum creatinine has gone up. It went up from 1.2 to 1.6, although it has been as high as 1.8 when he was admitted. He was on Lasix of 40 mg b.i.d. I will stop the Lasix. This might be the reason why the creatinine is going up. Ather MD MAURI Melgoza/NILSA /[id number]
--- NOTE | 2020-05-22 18:31 | Progress Note ---
DATE: SUBJECTIVE: Mr. Stefan Shields is feeling better. His shoulder is still bothering him, but overall he is feeling well. PHYSICAL EXAMINATION: GENERAL: He is currently alert, oriented. VITAL SIGNS: Stable, currently afebrile. HEENT: He is not icteric. NECK: Supple. CHEST: Clear. HEART: S1, S2. ABDOMEN: Soft. Bowel sounds present. EXTREMITIES: Trace edema. IMPRESSION: Osteomyelitis of the foot, obesity, chronic kidney disease, neuropathy, osteoarthritis, and right foot osteomyelitis. The plan is to continue with antibiotic as ordered. Orthopedic has been consulted. The patient will go to LTAC for IV antibiotic and wound care. He will still end up losing his toe. We will do our best to save it. MD RIN Hyatt/NILSA /[id number]
[2020-05-22] MEDS: SIMVASTATIN 40 MG TAB PO SCH (20:19)
[2020-05-22] MEDS: TAMSULOSIN HCL 0.4 MG CAP PO SCH (20:19)
[2020-05-23] VITALS (8 sets, daily range): BP systolic 106–146; BP diastolic 40–68
[2020-05-23] MEDS: CLINDAMYCIN 600MG / 50ML 50 ML IV SCH ×4 (00:11→17:16)
[2020-05-23] MEDS: ACETAMINOPHEN 325 MG TAB PO PRN ×2 (05:20→21:33)
[2020-05-23] MEDS: MUPIROCIN 2% OINT 22 GM TUBE TOP SCH ×2 (05:35→17:16)
[2020-05-23] MEDS: COLLAGENASE OINTMENT 30 GM TUBE TP SCH ×2 (05:36→17:16)
--- NOTE | 2020-05-23 06:00 | NUR ---
Dressing changed per MD orders, tolerated well.
[2020-05-23 06:56] LABS: ANION GAP 17.7 mmol/L (8-16); CALCIUM 8.4 mg/dL (8.4-10.2); CREATININE, SERUM 1.61 mg/dL (0.72-1.25); POTASSIUM 4.7 mmol/L (3.5-5.1)
--- NOTE | 2020-05-23 07:03 | NUR ---
Bedside report and walking rounds completed with reji solis. Patient in bed with call light within reach. No issues or concerns noted. Addendum: 05/23/20 at 0703 by Mary Alvarez RN In bedside chair
--- NOTE | 2020-05-23 07:05 | NUR ---
SBAR BEDSIDE REPORT RECEIVED FROM CITLALLI GORMAN, PM SHIFT. PT FOUND SITTING UP IN RECLINER IN NO ACUTE DISTRESS. PT IS ABLE TO MAKE NEEDS KNOWN AND DENIES ANY NEEDS AT THIS TIME. PT WAS EDUCATED ON FALL RISK PRECAUTIONS AND VERBALIZED UNDERSTANDING. CALL LIGHT AND BELONGINGS PLACED NEARBY. WILL CONTINUE TO MONITOR.
[2020-05-23] MEDS: INSULIN REGULAR, HUMAN 100 UNIT/1 ML 3ML VIAL SQ SCH ×4 (07:30→21:39)
[2020-05-23] MEDS: ASPIRIN 81 MG CHEW TAB PO SCH (08:30)
[2020-05-23] MEDS: LEVOFLOXACIN 500 MG TAB PO SCH (08:30)
[2020-05-23] MEDS: BENAZEPRIL HCL 10 MG TAB PO SCH (08:30)
[2020-05-23] MEDS: CLOPIDOGREL BISULFATE 75 MG TAB PO SCH (08:30)
[2020-05-23] MEDS: METOPROLOL SUCCINATE 50 MG TAB XL PO SCH (08:31)
[2020-05-23] MEDS: LIDOCAINE 4% PATCH TP SCH (08:31)
[2020-05-23] MEDS: INSULIN ASPART 70/30 100 UNITS/ML VIAL SC SCH ×2 (08:36→17:18)
--- NOTE | 2020-05-23 09:38 | Progress Note ---
DATE: 05/23/2020 SUBJECTIVE: The patient is seen at bedside, doing well. Denies any history of fever, chills, nausea, or vomiting. OBJECTIVE: VITAL SIGNS: Afebrile, pulse rate 59, respirations 20, blood pressure 120/47, and O2 saturation 99%. EXTREMITIES: Ulceration to the 3rd toe right foot is improving, less than 1.5 cm in diameter. No bone exposed. Decreased cellulitis and decreased edema to the 2nd toe, right foot. The patient has compression dressing secondary to his lymphedema bilaterally. Pedal pulses are palpable, but diminished. LABORATORY DATA: Show white blood cell count of 6.7. ASSESSMENT: Grade 2/3 ulceration, 3rd toe, right foot, healing with possible osteo. PLAN: We will continue local wound care. Continue IV antibiotics. Continue compression dressings. We will continue to follow. The patient may be transferred to [facility] possibly tomorrow. KEVIN Lucio/NILSA /[id number]
[2020-05-23] MEDS: CALCIUM HMB PO SCH (10:36)
[2020-05-23] MEDS: ARGININE PO SCH (10:36)
[2020-05-23] MEDS: GLUTAMINE PO SCH (10:36)
--- NOTE | 2020-05-23 10:38 | NUR ---
Spoke with Simin at [facility], states they are waiting for discharges for beds. Will let CM know when bed is available. Informed her we have a discharge order on pt.
--- NOTE | 2020-05-23 11:45 | Diagnostic Imaging Report ---
Exam: SHOULDER LEFT COMPLETE - 2 views History: Left shoulder pain Comparison: Chest radiograph 10/03/2019, chest CT 07/19/2019 Findings: No fractures of acute osseous abnormalities. Diffuse osseous demineralization. Severe degenerative changes of the glenohumeral joint with osseous remodeling of the glenoid fossa. Moderate degenerative changes of the acromioclavicular joint. Superior subluxation of the humeral head abutting the undersurface of the acromion, can be seen with rotator cuff tear. Soft tissues are unremarkable. Impression: 1. Degenerative changes are severe at the glenohumeral joint with glenoid osseous remodeling and moderate at the acromioclavicular joint. 2. Superior subluxation of the humeral head abutting the undersurface of the acromion, can be seen with rotator cuff tear. Signed by: Dr. Dima Ferraro M.D. on 05/23/2020 11:41 AM
--- NOTE | 2020-05-23 15:17 | NUR ---
Spoke with Simin with [facility] for update. States they are still waiting for discharges, but will call nurses station if bed becomes available today. MOT was initiated and placed with pt's packet at nurses station.
--- NOTE | 2020-05-23 16:41 | Progress Note ---
DATE: 05/23/2020 Renal Progress Note SUBJECTIVE: Events over the past 24 hours have been noted. No chest pain. No shortness of breath. The patient is waiting to be transferred to [facility]. PHYSICAL EXAMINATION: VITAL SIGNS: Blood pressure 124/47, pulse 67, respiration 19. GENERAL: The patient is morbidly obese. HEENT: No increased JVD. CARDIOVASCULAR: Regular rate and rhythm. LUNGS: Decreased breath sounds. ABDOMEN: Positive bowel sounds. EXTREMITIES: The patient's legs are wrapped with Mark Anthony wrap, but there is some edema. LABORATORY RESULTS: Sodium 139, potassium 4.7, chloride 105, bicarbonate 21, BUN and creatinine 53 and 1.61 respectively. IMPRESSION/PLAN: 1. Chronic kidney disease stage 3. 2. Acute kidney injury. 3. Hypertension. 4. Diabetes. 5. Osteomyelitis of the toe of the foot. 6. Edema. The patient's serum creatinine is starting to go up. The Lasix was held yesterday. The patient's renal function is remaining stable. He is not in fluid overload. I will continue to hold the Lasix for few more days. Ather MD MAURI Melgoza/NILSA /[id number]
[2020-05-23] MEDS: SIMVASTATIN 40 MG TAB PO SCH (21:32)
[2020-05-23] MEDS: TAMSULOSIN HCL 0.4 MG CAP PO SCH (21:32)
[2020-05-24] VITALS (7 sets, daily range): BP systolic 131–158; BP diastolic 42–62
[2020-05-24] MEDS: CLINDAMYCIN 600MG / 50ML 50 ML IV SCH ×4 (05:53→17:59)
--- NOTE | 2020-05-24 06:55 | NUR ---
BEDSIDE SBAR REPORT RECEIVED FROM LIBRA GORMAN. PATIENT RECEIVED SITTING UP IN RECLINER LEGS ELEVATED IN NO ACUTE DISTRESS. PATIENT IS ABLE TO MAKE NEEDS KNOWN AND DENIES NEEDS AT THIS TIME. PATIENT WAS EDUCATED ON FALL RISK PRECAUTIONS AND VERBALIZED UNDERSTANDING. CALL LIGHT AND BELONGINGS PLACED NEARBY. WILL CONTINUE TO MONITOR.
[2020-05-24 06:56] LABS: ANION GAP 18.9 mmol/L (8-16); CALCIUM 8.5 mg/dL (8.4-10.2); CREATININE, SERUM 1.5 mg/dL (0.72-1.25); POTASSIUM 4.9 mmol/L (3.5-5.1)
[2020-05-24] MEDS ORDERED: INSULIN ASPART 70/30 100 UNITS/ML VIAL SC SCH (07:30)
[2020-05-24] MEDS: INSULIN REGULAR, HUMAN 100 UNIT/1 ML 3ML VIAL SQ SCH ×4 (07:30→21:30)
--- NOTE | 2020-05-24 08:15 | NUR ---
PATIENT REQUESTED MD TO INCREASE NOVOLOG 70/30 FROM 60U QAM TO 70 U QAM. BG THIS AM IS 336. PT IS STILL REFUSING SLIDING SCALE ORDERS. CALL PLACED TO DR. RUSHING, [facility] FOR RETURN CALL.
--- NOTE | 2020-05-24 09:05 | Progress Note ---
DATE: 05/24/2020 SUBJECTIVE: The patient is seen at bedside, doing better, decreased discomfort, having some burning sensation to the forefoot aspect of the right lower extremity. OBJECTIVE: VITAL SIGNS: Afebrile, pulse rate 57, respirations 20, blood pressure 151/62, O2 saturation 98%. EXTREMITIES: Right 3rd toe ulceration, getting smaller, less than 1.5 cm in diameter. No bone or tendon exposed with forefoot edema. Compression dressings on. ASSESSMENT: Lymphedema, grade 2 ulcer healing with cellulitis. PLAN: Continue IV antibiotics. Continue local wound care. Continue offloading. Continue to follow. KEVIN Lucio/NILSA /[id number]
[2020-05-24] MEDS: LINEZOLID 600 MG/D5W 300ML 300 ML IV SCH ×2 (09:15→09:30)
[2020-05-24] MEDS: METOPROLOL SUCCINATE 50 MG TAB XL PO SCH (09:19)
[2020-05-24] MEDS: LIDOCAINE 4% PATCH TP SCH (09:19)
[2020-05-24] MEDS: BENAZEPRIL HCL 10 MG TAB PO SCH (09:19)
[2020-05-24] MEDS: ASPIRIN 81 MG CHEW TAB PO SCH (09:19)
[2020-05-24] MEDS: COLLAGENASE OINTMENT 30 GM TUBE TP SCH ×2 (09:19→16:07)
[2020-05-24] MEDS: CLOPIDOGREL BISULFATE 75 MG TAB PO SCH (09:19)
[2020-05-24] MEDS: ARGININE PO SCH (09:20)
[2020-05-24] MEDS: CALCIUM HMB PO SCH (09:20)
[2020-05-24] MEDS: GLUTAMINE PO SCH (09:20)
--- NOTE | 2020-05-24 09:36 | Consultation ---
DATE OF CONSULTATION: 05/23/2020 CHIEF COMPLAINT: Left shoulder pain. HISTORY OF PRESENT ILLNESS: This patient is a 79-year-old male with multiple medical issues who was admitted for lower extremity cellulitis, now diagnosed with osteomyelitis in the right foot. He complains of chronic left shoulder pain for many years. The patient states he initially was supposed to undergo a total shoulder replacement with Dr. Luca Soto at the beginning of this year. He stated that he had a number of medical issues that prevented him from undergoing the operation including cardiac stents. He states that he had a cortisone injection in the left shoulder roughly three months ago that provided significant relief for a few months. He states now the pain has intensified over the last few weeks. He states he has virtually no range of motion of the shoulder due to the pain. PAST MEDICAL HISTORY: Coronary artery disease status post stent placement, hypertension, type 2 diabetes, morbid obesity, chronic kidney disease, recurrent lower extremity infections secondary to chronic venous stasis. SOCIAL HISTORY: The patient denies smoking or drinking. He is . PAST SURGICAL HISTORY: Left partial knee replacement, cholecystectomy and vasectomy. ALLERGIES: PENICILLIN. PHYSICAL EXAMINATION: GENERAL: This is a morbidly obese gentleman who is in no apparent distress. VITAL SIGNS: Both his lower extremities are wrapped and show chronic venous stasis, skin changes. Gross inspection of his left shoulder shows no swelling or erythema. There was no anterior-posterior fullness. Bony landmarks and musculature are obscured secondary to body habitus. Active range of motion is limited and it shows virtually no forward flexion or abduction. External rotation to 20 degrees and internal rotation to PSIS. Passive range of motion shows pronounced guarding. I can passively forward elevate the arm to roughly 70 degrees before he stops me. There was palpable crepitus in the shoulder. Further examination is compromised secondary to pain. Distal neurovascular exam in the left upper extremity is grossly normal. IMAGING: X-rays of the left shoulder were obtained and show end-stage glenohumeral osteoarthritis with proximal migration of the humeral head. 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 Dictated by Deric Maxwell PA-C MD ALBIN Shankar/NOELL /[id number]
--- NOTE | 2020-05-24 09:39 | Progress Note ---
DATE: SUJBECTIVE: Mr. Shields is doing well. He has no complaints. He is concerned about his foot. REVIEW OF SYSTEMS: Otherwise unremarkable. PHYSICAL EXAMINATION: GENERAL: He is currently alert and oriented. VITAL SIGNS: Stable, currently afebrile. HEENT: He is not icteric. NECK: Supple. CHEST: Clear heart S1-S2. ABDOMEN: Soft. Bowel sounds present. EXTREMITIES: Some edema. IMPRESSION: Osteomyelitis of his foot, obesity, peripheral vascular disease, chronic kidney disease. Continue IV clindamycin. Continue local care. The patient is going for LTAC. Discussed the patient at length. MD RIN Hyatt/NILSA /[id number]
--- NOTE | 2020-05-24 09:43 | NUR ---
Per Simin with [facility], should have bed for pt today. Will let CM know once bed available.
--- NOTE | 2020-05-24 11:35 | Progress Note ---
DATE: Internal Medicine Progress Note SUBJECTIVE: The patient is doing well, waiting for a bed at [facility]. Blood sugar was very high today. He received a cortisone shot yesterday . PHYSICAL EXAMINATION: VITAL SIGNS: Blood pressure is 151/62, temperature 97.9, heart rate 57 per minute, respiratory rate 20 per minute, oxygen saturation is 98%. EXTREMITIES: Dressing on the right lower extremity. ABDOMEN: Not distended. NEUROLOGIC: Alert and oriented x3. No motor deficit. LABORATORY DATA: BMP; sodium 135, potassium 4.9, chloride 104, CO2 17, BUN 51, creatinine 1.50, GFR 45, glucose is 330 today, calcium 8.5. On the CBC, white blood count 6.72, hemoglobin 10.8, hematocrit 33.2, and platelet count 162,000. Tinoco virus test is not detected. Microbiology, wound culture showed Staphylococcus aureus, Enterococcus faecalis. Blood culture negative. Urine culture no growth. Enterococcus sensitive to vancomycin, tetracycline, oxacillin, daptomycin, and Staphylococcus aureus pretty much sensitive to all antibiotics. On the x-ray he had a shoulder x-ray that showed degenerative changes are severe in the glenohumeral joint with acromioclavicular joint, superior subluxation of the humeral head abutting the undersurface of the acromion can be seen with rotator cuff tear. He had also an x-ray of the foot, which showed slightly worsened cortical erosion of the distal 3rd phalanx compatible with osteomyelitis. New questionable cortical irregularity phalanges, which could represent additional foot osteomyelitis. Recommend followup x-ray to assess interval change. IMPRESSION: 1. Right 3rd, 4th, and 5th toe osteomyelitis. 2. Uncontrolled diabetes mellitus type 2 with diabetic nephropathy. 3. Acute on chronic . 4. Coronary artery disease. 5. Morbid obesity. PLAN OF TREATMENT: We are going to continue with clindamycin 600 mg IV q.6 hours, Tylenol 650 mg q.6 hours as needed for pain or fever, aspirin 81 mg daily, benazepril 20 mg daily, Plavix 75 mg daily, collagenase one application topically twice a day, continue with Humulin 70/30, 50 units before supper. We are going to increase the NovoLog 70/30 to 70 units with breakfast. Continue to monitor blood sugar before meals and at bedtime, continue Levaquin 500 mg daily. Continue metoprolol 50 mg daily, simvastatin 40 mg daily, Flomax 0.4 mg daily. MD PEE Shankar/NILSA /[id number]
--- NOTE | 2020-05-24 16:12 | NUR ---
Per Simin with [facility], still no bed available. She will call nurses station once they have a bed.
[2020-05-24] MEDS: INSULIN ASPART 70/30 100 UNITS/ML VIAL SC SCH (16:23)
--- NOTE | 2020-05-24 16:33 | NUR ---
Patient has been accepted at: [address] [address] Call report to [phone] Dr. Jackson to attend Admin: Floridalma MÁRQUEZ completed and placed with pt's packet at nurses station VITA Patel was informed of acceptance.
--- NOTE | 2020-05-24 17:20 | NUR ---
I PLACED A CALL TO [facility] TO GIVE REPORT. NURSE LUCILLE IS UNABLE TO TAKE REPORT AND STATES SHE WILL CALL ME BACK.
--- NOTE | 2020-05-24 17:59 | NUR ---
SBAR REPORT GIVEN TO LUCILLE GORMAN AT [facility]
--- NOTE | 2020-05-24 18:45 | NUR ---
BEDSIDE SBAR REPORT GIVEN TO LIBRA GORMAN, PM SHIFT.
[2020-05-24] MEDS: SIMVASTATIN 40 MG TAB PO SCH (20:30)
[2020-05-24] MEDS: TAMSULOSIN HCL 0.4 MG CAP PO SCH (20:30)
--- NOTE | 2020-05-24 21:45 | NUR ---
PATIENT TRANSFERRED TO [facility] VIA WHEELCHAIR VAN. PATIENT IS ALERT AND ORIENTED.
--- NOTE | 2020-05-25 04:59 | Progress Note ---
DATE: 05/24/2020 SUBJECTIVE: Mr. Shields is doing well. There are no new complaints. He is likely to be transferred. REVIEW OF SYSTEMS: HEENT: Negative. PULMONARY: Negative. CARDIAC: Negative. PHYSICAL EXAMINATION: GENERAL: He is currently alert, oriented. VITAL SIGNS: Stable. Currently afebrile. HEENT: He is not icteric. NECK: Supple. CHEST: Clear. HEART: S1, S2. ABDOMEN: Soft. Bowel sounds present. EXTREMITIES: No edema. SKIN: No rash. IMPRESSION: Osteomyelitis with MSSA, chronic kidney disease, obesity, diabetes mellitus, neuropathy, osteoarthritis. He is currently on clindamycin IV. Zyvox was added today. Awaiting transfer to the LT. We will follow. MD RIN Hyatt/NILSA /[id number]
[2020-05-25] MEDS ORDERED: INSULIN ASPART 70/30 100 UNITS/ML VIAL SC SCH (07:30)
[2020-05-25] MEDS ORDERED: BENAZEPRIL HCL 10 MG TAB PO SCH (09:00)
--- NOTE | 2020-07-23 14:06 | Discharge Summary ---
HOSPITAL COURSE: A 79-year-old male, past medical history positive for coronary artery disease, status post stent placement, hypertension, diabetes mellitus, type 2, chronic renal failure, obesity, came to [facility] due to worsening cellulitis and open wound on his right second toe. The patient was started on IV antibiotics. He was found to have osteomyelitis. He was started on a six week course of IV antibiotics. The patient was transferred to [facility] for continuation of IV antibiotic. PHYSICAL EXAMINATION: HEART: Showed regular rhythm. Normal S1, S2 sound. LUNGS: Clear bilaterally. ABDOMEN: Soft. EXTREMITIES: Show redness on the right foot. FINAL IMPRESSION: 1. Right seconds and third toe osteomyelitis. 2. Uncontrolled diabetes mellitus type 2 with diabetic nephropathy. 3. Acute anemia of acute on chronic renal disease. 4. Acute on chronic renal failure stage 3. 5. Coronary artery disease. 6. Morbid obesity. PLAN OF TREATMENT: Continue clindamycin 600 mg IV q.6 hours, Tylenol 650 mg q.6 hours as needed for pain or fever, aspirin 81 mg daily, benazepril 20 mg daily, Plavix 75 mg daily, collagenase ointment one application topically twice a day, NovoLog 70/30, 70 units before breakfast and 50 units before supper. Continue to monitor blood sugar before meals and at bed time. Continue Levaquin 500 mg daily, metoprolol 50 mg daily, simvastatin 40 mg daily, Flomax 0.4 mg daily. The patient transferred to [facility] for continuation of wound care, IV antibiotics. MD PEE Shankar/NILSA /[id number]
== END 2020-05-24 21:38 | DRG 638 ==
LOC: ER 14:27 → ERHOLD 16:50 → MED/SURG2 20:06
PROVIDERS: ADMIT Internal Medicine; ATTEND Internal Medicine
PROC: 05HY33Z Insertion of Infusion Device into Upper Vein, Percutaneous Approach (ICD-10-PCS; principal; 2020-05-15)
DX: E11.69 Type 2 diabetes mellitus with other specified complication (principal); L03.115 Cellulitis of right lower limb; M86.9 Osteomyelitis, unspecified; Z68.41 Body mass index [BMI] 40.0-44.9, adult; N17.9 Acute kidney failure, unspecified; N18.3 Chronic kidney disease, stage 3 (moderate); I12.9 Hypertensive chronic kidney disease with stage 1 through stage 4 chronic kidney disease, or unspecified chronic kidney disease; E11.22 Type 2 diabetes mellitus with diabetic chronic kidney disease; Z11.59 Encounter for screening for other viral diseases
CPT/HCPCS: 36415; 71045; 74470; 76770; 80048; 80053; 80202; 81001; 82040; 82550; 82553; 82948; 83880; 84100; 84484; 85025; 85610; 85730; 87040; 87071; 87086; 87186; 87205; 93005; 93926; 96361; 96372; 99284; J1815; J1817; J1956; J2020; J3370; J7030; U0002

== ENCOUNTER 2020-10-11 13:49 | Outpatient (RCR) | payer MEDICARE ==
[~2020-10-11 13:49] MED LIST changes: +CHLORTHALIDONE50 MG; +FUROSEMIDE40 MG; +LIDOCAINE VISC 2% SOLN 15 ML UDC ONE; +METOPROLOL SUC100 MG; +MINERAL OIL/PETROLAT/GLYCERI 2OZ CRM ONE; +NOVOLIN; +NOVOLOG MI100 UNIT/1 SC; +SPIRONOLACTONE50 MG
== END 2020-10-14 ==
LOC: WCC 13:49
PROVIDERS: ATTEND Family Medicine Adult Medicine
DX: L89.312 Pressure ulcer of right buttock, stage 2 (principal); E11.621 Type 2 diabetes mellitus with foot ulcer; E11.22 Type 2 diabetes mellitus with diabetic chronic kidney disease; L97.521 Non-pressure chronic ulcer of other part of left foot limited to breakdown of skin; L97.821 Non-pressure chronic ulcer of other part of left lower leg limited to breakdown of skin; L97.428 Non-pressure chronic ulcer of left heel and midfoot with other specified severity; L97.518 Non-pressure chronic ulcer of other part of right foot with other specified severity; I87.312 Chronic venous hypertension (idiopathic) with ulcer of left lower extremity; S91.104A Unspecified open wound of right lesser toe(s) without damage to nail, initial encounter; I89.0 Lymphedema, not elsewhere classified; L60.8 Other nail disorders; L03.119 Cellulitis of unspecified part of limb; I87.2 Venous insufficiency (chronic) (peripheral); R60.0 Localized edema; M10.9 Gout, unspecified; L84 Corns and callosities; B95.7 Other staphylococcus as the cause of diseases classified elsewhere; B96.89 Other specified bacterial agents as the cause of diseases classified elsewhere; N18.30 Chronic kidney disease, stage 3 unspecified; E66.3 Overweight; G47.30 Sleep apnea, unspecified; G99.0 Autonomic neuropathy in diseases classified elsewhere; I27.20 Pulmonary hypertension, unspecified; I50.9 Heart failure, unspecified; I70.0 Atherosclerosis of aorta; L53.8 Other specified erythematous conditions; S90.424A Blister (nonthermal), right lesser toe(s), initial encounter; W22.09XA Striking against other stationary object, initial encounter; Y92.099 Unspecified place in other non-institutional residence as the place of occurrence of the external cause

== ENCOUNTER 2020-11-08 15:09 | Outpatient (RCR) | payer MEDICARE ==
[~2020-11-08 15:09] MED LIST changes: -MINERAL OIL/PETROLAT/GLYCERI 2OZ CRM ONE; +MINERAL OIL/PETROLAT/GLYCERI 6OZ BTL ONE; +MUPIROCIN 2% OINT 22 GM TUBE ONE; +TRIAMCINOLONE ACET 0.1% CREAM 15 GM TUBE ONE; +TRYPSIN/BALSAM PERU/CASTOR OIL ONE
== END 2020-11-11 ==
LOC: WCC 15:09
PROVIDERS: ATTEND Family Medicine Adult Medicine
DX: E11.621 Type 2 diabetes mellitus with foot ulcer (principal); E11.22 Type 2 diabetes mellitus with diabetic chronic kidney disease; L97.821 Non-pressure chronic ulcer of other part of left lower leg limited to breakdown of skin; L97.521 Non-pressure chronic ulcer of other part of left foot limited to breakdown of skin; L60.8 Other nail disorders; B37.2 Candidiasis of skin and nail; I87.312 Chronic venous hypertension (idiopathic) with ulcer of left lower extremity; L98.8 Other specified disorders of the skin and subcutaneous tissue; R60.0 Localized edema; I89.0 Lymphedema, not elsewhere classified; N18.30 Chronic kidney disease, stage 3 unspecified; L03.90 Cellulitis, unspecified; B95.7 Other staphylococcus as the cause of diseases classified elsewhere; I87.2 Venous insufficiency (chronic) (peripheral); M10.9 Gout, unspecified; L53.8 Other specified erythematous conditions; I50.9 Heart failure, unspecified; E66.3 Overweight; G99.0 Autonomic neuropathy in diseases classified elsewhere; I27.20 Pulmonary hypertension, unspecified; I70.0 Atherosclerosis of aorta; B96.89 Other specified bacterial agents as the cause of diseases classified elsewhere; G47.30 Sleep apnea, unspecified; W22.09XA Striking against other stationary object, initial encounter; Y92.099 Unspecified place in other non-institutional residence as the place of occurrence of the external cause

== ENCOUNTER 2020-12-07 14:57 | Outpatient (RCR) | payer MEDICARE ==
[~2020-12-07 14:57] MED LIST changes: +MINERAL OIL/PETROLAT/GLYCERI 2OZ CRM ONE; -MUPIROCIN 2% OINT 22 GM TUBE ONE; -TRIAMCINOLONE ACET 0.1% CREAM 15 GM TUBE ONE; -TRYPSIN/BALSAM PERU/CASTOR OIL ONE
[2020-12-07] MEDS ORDERED: MINERAL OIL/PETROLAT/GLYCERI 6OZ BTL ONE (15:45)
== END 2020-12-12 ==
LOC: WCC 14:57
PROVIDERS: ATTEND Family Medicine Adult Medicine
DX: E11.22 Type 2 diabetes mellitus with diabetic chronic kidney disease (principal); L89.892 Pressure ulcer of other site, stage 2; I89.0 Lymphedema, not elsewhere classified; B37.2 Candidiasis of skin and nail; L60.8 Other nail disorders; L98.8 Other specified disorders of the skin and subcutaneous tissue; L97.821 Non-pressure chronic ulcer of other part of left lower leg limited to breakdown of skin; I87.312 Chronic venous hypertension (idiopathic) with ulcer of left lower extremity; L03.119 Cellulitis of unspecified part of limb; R60.0 Localized edema; I87.2 Venous insufficiency (chronic) (peripheral); L53.8 Other specified erythematous conditions; S80.812A Abrasion, left lower leg, initial encounter; B95.7 Other staphylococcus as the cause of diseases classified elsewhere; G99.0 Autonomic neuropathy in diseases classified elsewhere; N18.30 Chronic kidney disease, stage 3 unspecified; I27.20 Pulmonary hypertension, unspecified; I50.9 Heart failure, unspecified; B96.89 Other specified bacterial agents as the cause of diseases classified elsewhere; E66.3 Overweight; G47.30 Sleep apnea, unspecified; I70.0 Atherosclerosis of aorta; L84 Corns and callosities; M10.9 Gout, unspecified; M20.41 Other hammer toe(s) (acquired), right foot; W22.09XA Striking against other stationary object, initial encounter; X58.XXXA Exposure to other specified factors, initial encounter; Y92.099 Unspecified place in other non-institutional residence as the place of occurrence of the external cause

== ENCOUNTER 2020-12-20 15:47 | Outpatient (RCR) | payer MEDICARE ==
[~2020-12-20 15:47] MED LIST changes: -LIDOCAINE VISC 2% SOLN 15 ML UDC ONE; +LIDOCAINE/PRILOCAINE 2.5-2.5% KIT ONE
== END 2021-01-11 ==
LOC: WCC 15:47
PROVIDERS: ATTEND Family Medicine Adult Medicine
DX: E11.22 Type 2 diabetes mellitus with diabetic chronic kidney disease (principal); N18.30 Chronic kidney disease, stage 3 unspecified; B37.2 Candidiasis of skin and nail; L60.8 Other nail disorders; I87.311 Chronic venous hypertension (idiopathic) with ulcer of right lower extremity; I87.312 Chronic venous hypertension (idiopathic) with ulcer of left lower extremity; I87.332 Chronic venous hypertension (idiopathic) with ulcer and inflammation of left lower extremity; L97.811 Non-pressure chronic ulcer of other part of right lower leg limited to breakdown of skin; L97.821 Non-pressure chronic ulcer of other part of left lower leg limited to breakdown of skin; L03.119 Cellulitis of unspecified part of limb; I87.2 Venous insufficiency (chronic) (peripheral); I89.0 Lymphedema, not elsewhere classified; R60.0 Localized edema; L98.8 Other specified disorders of the skin and subcutaneous tissue; M10.9 Gout, unspecified; L53.8 Other specified erythematous conditions; B95.7 Other staphylococcus as the cause of diseases classified elsewhere; B96.89 Other specified bacterial agents as the cause of diseases classified elsewhere; I27.20 Pulmonary hypertension, unspecified; G99.0 Autonomic neuropathy in diseases classified elsewhere; E66.3 Overweight; I70.0 Atherosclerosis of aorta; G47.30 Sleep apnea, unspecified; I50.9 Heart failure, unspecified; M20.41 Other hammer toe(s) (acquired), right foot; W22.09XA Striking against other stationary object, initial encounter; X58.XXXA Exposure to other specified factors, initial encounter; Y92.099 Unspecified place in other non-institutional residence as the place of occurrence of the external cause